=== PATIENT | female | born 1960 | race Caucasian/White ===

== ENCOUNTER 2021-04-21 10:01 | Outpatient (REF) | payer OTHER, SELFPAY ==
[2021-04-21 14:08] LABS: Appearance Urine CLEAR; Color Urine YELLOW; Glucose Urine UA NEG (NEG); Leukocyte Esterase Urine NEG (NEG); Nitrite Urine NEG (NEG); Specific Gravity - Urine 1.015 (1.005-1.025); Urine Blood NEG (NEG); Urine Ketones NEG (NEG); Urine Protein NEG (NEG-TRACE)
[2021-04-21 14:18] LABS: Basophils Percent Auto 0.5 % (0-2); Eosinophils Absolute Auto 0.3 X10*3/uL (0.0-0.4); Eosinophils Percent Auto 5.1 % (0-4); Hematocrit 43.8 % (37-47); Hemoglobin 14.3 g/dl (12.0-16.0); Imm Gran Abs Auto 0.03 X10*3/uL (0.00-0.03); Imm Gran Pct Auto 0.5 % (0.0-0.4); Lymphocytes Absolute Auto 2.2 X10*3/uL (1.2-4.9); Lymphocytes Percent Auto 34.1 % (20-40); MANUAL DIFF FLAG SCAN; Mean Corpuscular HGB Conc 32.6 g/dl (31.0-35.0); Mean Corpuscular Hemoglobin 31.1 pg (27.0-33.0); Mean Corpuscular Volume 95.2 fL (80-98); Monocytes Absolute Auto 0.5 X10*3/uL (0.1-1.2); Monocytes Percent Auto 8.3 % (2-11); Neutrophils Absolute Auto 3.3 X10*3/uL (2.0-8.3); Neutrophils Percent Auto 51.5 % (45-73); PLT CLUMP 1; Red Cell Distribution Width 12.3 % (11.0-16.0); SCAN SMEAR FLAG 1
[2021-04-21 14:42] LABS: White Blood Count 6.3 X10*3/uL (4.8-10.8)
[2021-04-21 14:43] LABS: SLIDE REVIEW VERIFIED
[2021-04-21 14:57] LABS: Alanine Aminotransferase 24 U/L (0-31); Albumin Level 4.1 g/dL (3.5-5.0); Alkaline Phosphatase 88 U/L (39-117); Anion Gap 11 (12-20); Aspartate Amino Transferase 17 U/L (5-31); Bilirubin Total 0.3 mg/dL (0.0-1.0); Blood Urea Nitrogen 17 mg/dL (9-16); Calcium 8.9 mg/dL (8.4-10.2); Carbon Dioxide 26 mmol/L (22-29); Chloride 111 mmol/L (96-108); Cholesterol 291 mg/dL; Estimated Glomerular Filt Rate > 60; Glucose Fasting 111 mg/dL (60-99); HDL Cholesterol 43 mg/dL; LDL Cholesterol Calculated 210 mg/dl; Potassium 4.6 mmol/L (3.3-5.1); Sodium 143 mmol/L (135-145); Total Protein 6.7 g/dL (6.5-8.0); Triglycerides 191 mg/dL
[2021-04-21 15:00] LABS: TSH reflex Free T4 1.23 uIU/mL (0.32-4.0)
== END 2021-04-21 10:02 | disposition home or self-care (01) ==
LOC: HO.WFDLDS 10:01
PROVIDERS: Visit Provider Family Medicine
DX: Z00.00 Encounter for general adult medical examination without abnormal findings (principal)
CPT/HCPCS: 36415; 80053; 80061; 81003; 84443; 85025

== ENCOUNTER 2021-08-02 08:34 | Outpatient (REF) | payer OTHER, SELFPAY ==
[2021-08-02 09:04] LABS: Estimated Average Glucose 105 mg/dL; Hemoglobin A1C 147.9838 umol/L; Hemoglobin A1c % 5.3 %
[2021-08-02 09:05] LABS: Alanine Aminotransferase 28 U/L (0-31); Albumin Level 4.2 g/dL (3.5-5.0); Alkaline Phosphatase 73 U/L (39-117); Anion Gap 12 (12-20); Aspartate Amino Transferase 19 U/L (5-31); Bilirubin Total 0.5 mg/dL (0.0-1.0); Blood Urea Nitrogen 17 mg/dL (9-16); Calcium 9.4 mg/dL (8.4-10.2); Carbon Dioxide 24 mmol/L (22-29); Chloride 109 mmol/L (96-108); Cholesterol 300 mg/dL; Estimated Glomerular Filt Rate > 60; Glucose Fasting 126 mg/dL (60-99); HDL Cholesterol 47 mg/dL; LDL Cholesterol Calculated 208 mg/dl; Potassium 4.7 mmol/L (3.3-5.1); Sodium 140 mmol/L (135-145); Total Protein 7.1 g/dL (6.5-8.0); Triglycerides 229 mg/dL
== END 2021-08-02 08:35 | disposition home or self-care (01) ==
LOC: HO.LAB 08:34
PROVIDERS: PCP Family Medicine; Visit Provider Family Medicine
DX: Z00.00 Encounter for general adult medical examination without abnormal findings (principal); E78.2 Mixed hyperlipidemia; R73.01 Impaired fasting glucose
CPT/HCPCS: 36415; 80053; 80061; 83036

== ENCOUNTER 2021-08-08 14:00 | Outpatient (REF) | payer OTHER, SELFPAY ==
--- NOTE | ~2021-08-08 | MM_ITS ---
EXAMINATION: MM SCREENING DIGITAL BREAST TOMOSYNTHESIS, BILATERAL CLINICAL INFORMATION: Screening. Asymptomatic. The lifetime risk of breast cancer based on the Tyrer-Cuzick Model is 19%. COMPARISON: Outside mammography: 01/30/2020, 11/02/2018, 09/20/2017 ([facility]). TECHNIQUE: Digital breast tomosynthesis is performed in both the craniocaudal and mediolateral oblique views along with computer-aided detection (CAD). Synthesized 2D images are generated from the tomosynthesis. FINDINGS: There are scattered areas of fibroglandular density (ACR BI-RADS breast composition Category b). There are no significant masses, abnormal calcifications, or other abnormalities. Parenchymal pattern is similar to prior outside exams. There is no developing density or architectural abnormality. The axilla and skin contours are unremarkable. No significant changes from outside studies. MM/MM tomosynthesis screening BI IMPRESSION: No mammographic evidence of malignancy. ASSESSMENT: BI-RADS 1: Negative RECOMMENDATION: Routine annual mammography screening. This patient's information was entered into a reminder system with a target due date for their next mammogram.
== END 2021-08-08 14:01 | disposition home or self-care (01) ==
LOC: HO.MAMMO 14:00
PROVIDERS: PCP Family Medicine; Visit Provider Family Medicine
DX: Z12.31 Encounter for screening mammogram for malignant neoplasm of breast (principal)
CPT/HCPCS: 77063; 77067

== ENCOUNTER 2021-10-27 06:51 | Outpatient (REF) | payer OTHER, SELFPAY ==
[2021-10-27 10:19] LABS: Estimated Average Glucose 103 mg/dL; Hemoglobin A1c % 5.2 %
[2021-10-27 10:21] LABS: Alanine Aminotransferase 29 U/L (0-31); Albumin Level 4.3 g/dL (3.5-5.0); Alkaline Phosphatase 83 U/L (39-117); Anion Gap 12 (12-20); Aspartate Amino Transferase 23 U/L (5-31); Bilirubin Total 0.6 mg/dL (0.0-1.0); Blood Urea Nitrogen 17 mg/dL (9-16); Calcium 9.4 mg/dL (8.4-10.2); Carbon Dioxide 25 mmol/L (22-29); Chloride 109 mmol/L (96-108); Cholesterol 207 mg/dL; Estimated Glomerular Filt Rate > 60; Glucose Fasting 110 mg/dL (60-99); HDL Cholesterol 49 mg/dL; LDL Cholesterol Calculated 123 mg/dl; Potassium 4.6 mmol/L (3.3-5.1); Sodium 141 mmol/L (135-145); Total Protein 6.9 g/dL (6.5-8.0); Triglycerides 178 mg/dL
== END 2021-10-27 06:52 | disposition home or self-care (01) ==
LOC: HO.LAB 06:51
PROVIDERS: PCP Family Medicine; Visit Provider Family Medicine
DX: Z00.00 Encounter for general adult medical examination without abnormal findings (principal); R03.0 Elevated blood-pressure reading, without diagnosis of hypertension; R73.01 Impaired fasting glucose; E78.2 Mixed hyperlipidemia
CPT/HCPCS: 36415; 80053; 80061; 83036

== ENCOUNTER → 2022-04-03 14:51 | Outpatient (BNVA) | payer OTHER, SELFPAY | PROVIDERS: PCP Family Medicine; Visit Provider Physician Assistant | DX: Z13.89 Encounter for screening for other disorder (principal) | CPT/HCPCS: 99202 ==

== ENCOUNTER 2022-04-13 07:08 | Outpatient (REF) | payer OTHER, SELFPAY ==
[2022-04-13 07:48] LABS: Estimated Average Glucose 103 mg/dL; Hemoglobin A1C 124.3186 umol/L; Hemoglobin A1c % 5.2 %
[2022-04-13 07:55] LABS: Cholesterol 180 mg/dL; HDL Cholesterol 50 mg/dL; LDL Cholesterol Calculated 105 mg/dl; Triglycerides 128 mg/dL
== END 2022-04-13 07:09 | disposition home or self-care (01) ==
LOC: HO.LAB 07:08
PROVIDERS: PCP Family Medicine; Visit Provider Family Medicine
DX: Z00.00 Encounter for general adult medical examination without abnormal findings (principal); R73.01 Impaired fasting glucose
CPT/HCPCS: 36415; 80061; 83036

== ENCOUNTER 2022-07-09 16:07 | Outpatient (REF) | payer OTHER, SELFPAY | END 2022-07-09 16:08 | disposition home or self-care (01) | LOC: HO.LAB 16:07 | PROVIDERS: Visit Provider Family Medicine | DX: Z13.89 Encounter for screening for other disorder (principal) ==

== ENCOUNTER 2022-07-10 13:09 | Outpatient (REF) | payer OTHER, SELFPAY ==
[2022-07-10 13:52] LABS: Influenza A PCR NEGATIVE (Negative); Influenza B PCR NEGATIVE (Negative); Resp Syncy Virus RNA Qual PCR NEGATIVE (Negative); SARS COV2 PCR INHOUSE NEGATIVE (Negative)
== END 2022-07-10 13:10 | disposition home or self-care (01) ==
LOC: HO.LNP 13:09
PROVIDERS: Visit Provider Family Medicine
DX: Z20.822 Contact with and (suspected) exposure to COVID-19 (principal); R09.89 Other specified symptoms and signs involving the circulatory and respiratory systems
CPT/HCPCS: 0241U

== ENCOUNTER 2022-07-15 11:09 | Outpatient (REF) | payer OTHER, SELFPAY ==
--- NOTE | ~2022-07-15 | XR_ITS ---
EXAMINATION: XR CHEST CLINICAL INFORMATION: Other specified symptoms and signs involving the circulatory and respiratory system COMPARISON: None TECHNIQUE: 2 views of the chest were obtained. FINDINGS: No significant abnormality is noted involving the heart, lungs, mediastinum, bony thorax or soft tissues. XR/XR chest 2V IMPRESSION: Unremarkable examination.
[2022-07-15 15:50] LABS: Influenza A PCR NEGATIVE (Negative); Influenza B PCR NEGATIVE (Negative); Resp Syncy Virus RNA Qual PCR NEGATIVE (Negative); SARS COV2 PCR INHOUSE NEGATIVE (Negative)
== END 2022-07-15 11:10 | disposition home or self-care (01) ==
LOC: HO.XRAY 11:09
PROVIDERS: PCP Family Medicine; Visit Provider Family Medicine
DX: Z20.822 Contact with and (suspected) exposure to COVID-19 (principal); R09.89 Other specified symptoms and signs involving the circulatory and respiratory systems; B34.9 Viral infection, unspecified
CPT/HCPCS: 0241U; 71046

== ENCOUNTER 2022-08-10 14:51 | Outpatient (REF) | payer OTHER, SELFPAY ==
--- NOTE | ~2022-08-10 | MM_ITS ---
EXAMINATION: MM SCREENING DIGITAL BREAST TOMOSYNTHESIS, BILATERAL CLINICAL INFORMATION: Screening. Asymptomatic. The lifetime risk of breast cancer based on the Tyrer-Cuzick Model is 15.2%. COMPARISON: Mammography: August 08, 2021 and studies dating back to September 20, 2017 TECHNIQUE: Digital breast tomosynthesis is performed in both the craniocaudal and mediolateral oblique views along with computer-aided detection (CAD). Synthesized 2D images are generated from the tomosynthesis. FINDINGS: There are scattered areas of fibroglandular density (ACR BI-RADS breast composition Category b). There are no new significant masses, abnormal calcifications, or other abnormalities. MM/MM tomosynthesis screening BI IMPRESSION: No significant changes from prior exam. ASSESSMENT: BI-RADS 1: Negative RECOMMENDATION: Routine annual mammography screening. This patient's information was entered into a reminder system with a target due date for their next mammogram.
== END 2022-08-10 14:52 | disposition home or self-care (01) ==
LOC: HO.MAMMO 14:51
PROVIDERS: PCP Family Medicine; Visit Provider Family Medicine
DX: Z12.31 Encounter for screening mammogram for malignant neoplasm of breast (principal)
CPT/HCPCS: 77063; 77067

== ENCOUNTER 2022-10-11 09:58 | Outpatient (REF) | payer OTHER, SELFPAY ==
[2022-10-11 10:21] LABS: COVID-19 Test Positive (Negative); IDNOW Serial# 6674DD1D
== END 2022-10-11 09:59 | disposition home or self-care (01) ==
LOC: HO.LAB 09:58
PROVIDERS: Visit Provider Internal Medicine
DX: Z20.822 Contact with and (suspected) exposure to COVID-19 (principal)
CPT/HCPCS: 87635

== ENCOUNTER → 2022-11-13 10:00 | Outpatient (BNVA) | payer OTHER, SELFPAY | PROVIDERS: PCP Family Medicine | DX: Z13.89 Encounter for screening for other disorder (principal) | CPT/HCPCS: 99203 ==

== ENCOUNTER 2023-02-19 13:38 | Outpatient (AMB) | payer OTHER, SELFPAY ==
[2023-02-19 14:02] VITALS: BP 132/78; O2SAT 99; BMI 29.3
--- NOTE | 2023-02-19 14:02 | MHC.PC.OV ---
Vital Signs 02/19/23 14:02 Height 6 ft 1 in Weight 222 lb BMI 29.3 BP 132/78 Blood Pressure Location Lt brachial Position Sitting Pulse Oximetry (%) 99 Oxygen Delivery Method Room Air Intake Visit Reasons: Tick Bite Intake Note: Patient is here with joint aches, nausea, for about a week, she had a tick bite. Patient is concerned about taking hyoscyamine 0.125 mg. Allergies doxycycline Allergy (Verified 02/19/23 14:04) vomiting really bad morphine Allergy (Verified 02/19/23 14:04) cant breath prednisone Allergy (Verified 02/19/23 14:04) afib sulfamethoxazole [From Bactrim] Allergy (Verified 02/19/23 14:04) Hives trimethoprim [From Bactrim] Allergy (Verified 02/19/23 14:04) Hives Tobacco use date assessed: 02/19/23 Dental Screening Dental Screen Date: 02/19/23 Did you have a dental visit in the last 12 months?: Yes Did you have a dental problem in the last 6 months where you did not have access to dental care?: No Was dental information given to patient?: No HPI Tick Bite HPI Details 62 y/o female presents today with complaints of a tick bite. She reports she thinks the tick might have been there for more than 48 hours. She had removed the tick about a week ago. She has complaints of joint ache and nausea. She does report a hx of lyme disease about 10 years ago. [facility] Surgical History History of fusion of lumbar spine History of skin graft History of tonsillectomy Social History Housing: House Alcohol intake: current Alcohol intake frequency: a few times a week Patient Tobacco Use Status: Former Tobacco user e-Cigarette/Vaping Use: Never Used Second Hand Smoke Exposure: Yes service: No Current occupational status: employed Current occupational exposures/hazards: No Cognitive needs: No Hearing needs: No Vision needs: No Questionnaire PHQ-9 Over the last 2 weeks, how often have you been bothered by any of the following problems? 1. Little interest or pleasure in doing things: not at all 2. Feeling down, depressed, or hopeless: not at all 3. Trouble falling or staying asleep, or sleeping too much: not at all 4. Feeling tired or having little energy: not at all 5. Poor appetite or overeating: not at all 6. Feeling bad about yourself - or that you are a failure or have let yourself or your family down: not at all 7. Trouble concentrating on things, such as reading the newspaper or watching television: not at all 8. Moving or speaking so slowly that other people could have noticed. Or the opposite - being so fidgety or restless that you have been moving around a lot more than usual: not at all 9. Thoughts that you would be better off or of hurting yourself in some way: not at all Total score: 0 Source: Developed by Drs. Tu Kiser, Eli Reinoso, Derrick Strong and colleagues, with an educational anali from [employer]. Thrive Questionnaire Date Thrive assessed: 08/05/21 I am a: Patient What is your living situation today?: I have a steady place to live Within the past 12 months, did the food you bought not last and you didn't have the money to get more?: Never true Within the past 12 months, did you worry whether your food would run out before you got money to buy more?: Never true Do you have trouble paying for medicines?: No Do you have trouble getting transportation to medical appointments?: No Do you have trouble paying your heating and electricity bill?: No Do you have trouble taking care of your child, family member or friend?: No Do you have trouble with day-to-day activities such as bathing, preparing meals, shopping, managing finances, etc.?: No Are you currently unemployed and looking for a job?: No Are you interested in more education?: No AUDIT C Alcohol Use Questionnaire (AUDIT-C) 1. How often do you have a drink containing alcohol?: 2-3 times a week 2. How many drinks containing alcohol do you have on a typical day when you are drinking?: 1 or 2 3. How often do you have six or more drinks on one occasion?: Never Total Score: 3 JASWINDER-7 AMB Questionnaire JASWINDER-7 Date JASWINDER - 7 assessed: 08/05/21 Feeling nervous, anxious, or on edge: 0 = Not at all Not being able to stop or control worryin = Not at all Worrying too much about different things: 0 = Not at all Trouble relaxin = Not at all Being so restless that it is hard to sit still: 0 = Not at all Becoming easily annoyed or irritable: 0 = Not at all Feeling afraid as if something awful might happen: 0 = Not at all Total JASWINDER-7 score (0-4 normal; 5-9 mild; 10-14 moderate; 15-21 severe): 0 Source: Developed by Drs. Tu Kiser, Eli Reinoso, Derrick Strong and colleagues, with an educational anali from [employer]. Review of Systems Const Denies chills, Denies fatigue, Denies fever(s), Denies headache(s) and Denies weakness ENT Denies dizziness and Denies headache(s) Card Denies dyspnea Resp Denies cough, Denies dyspnea, Denies wheezing and Denies other (shortness of breath) Musc Denies numbness and Denies tingling Neuro Denies dizziness, Denies headache(s), Denies numbness, Denies tingling and Denies weakness Psych Denies anxiety and Denies depression Endo Denies fatigue Aller/Immun Denies wheezing Physical exam (Primary Care) Vital Signs: Last Vital Signs BP 132/78 02/19/23 14:02 Pulse Ox 99 02/19/23 14:02 Oxygen Delivery Method Room Air 02/19/23 14:02 BMI result Body Mass Index 29.3 Tobacco/Smoking Status: Tobacco use Status Tobacco use date assessed 02/19/23 02/19/23 14:13 Patient Tobacco Use Status Former Tobacco user 02/19/23 14:13 e-Cigarette/Vaping Use Never Used 02/19/23 14:13 PHQ-9: PHQ-9 Score PHQ-9: Total score 0 02/19/23 14:13 Thrive Assessment: Date of Thrive Assessment Date Thrive assessed 08/05/21 02/19/23 14:13 Const General: well developed; No acute distress Nutritional Appearance: well nourished Orientation/consciousness: patient oriented x3 HENMT Head: Yes normocephalic and Yes atraumatic Eyes General: appearance normal, both eyes and all related structures Pupils: Equal, round and reactive pupils present EOM: EOMs intact bilaterally Resp Effort & Inspection: normal respiratory effort Neuro General: patient oriented x3 and gait normal Cranial nerves: Yes Equal, round and reactive pupils present Psych Affect: normal affect Assessment and Plan Assessment & Plan (1) Tick bite: Code(s): W57.XXXA - Bitten or stung by nonvenomous insect and other nonvenomous arthropods, initial encounter Plan: Tick bite on patient's back with local inflammatory response and small abscess. She is uncertain how long tick was attached but she thinks it may have been greater than 48 hours. She gets violently nauseous from doxycycline with projectile vomiting Will use amoxicillin x 10 days and will check Lyme titers. If positive will extend treatment for a minimum of 21 days.2 For now treating for 10 days due to local infection/abscess. Orders: Orders Lyme IgG/IgM w/reflex to WB Today W57.XXXA - Bitten or stung by nonvenomous insect and other nonvenomous arthropods, initial encounter Medications: New amoxicillin 500 mg PO TID 30 tabs 0RF 10 days Coding Level of Care Code Est Pt Level 3 (79862) Diagnoses Tick bite W57.XXXA
== END 2023-02-19 14:32 | disposition home or self-care (01) ==
PROVIDERS: PCP Family Medicine; Visit Provider Family Medicine
DX: T63.481A Toxic effect of venom of other arthropod, accidental (unintentional), initial encounter (principal)
CPT/HCPCS: 99213

== ENCOUNTER 2023-02-20 09:20 | Outpatient (REF) | payer OTHER, SELFPAY ==
[2023-02-22 21:34] LABS: Lyme Abs Screen <0.90 index
== END 2023-02-20 09:21 | disposition home or self-care (01) ==
LOC: HO.LAB 09:20
PROVIDERS: PCP Family Medicine; Visit Provider Family Medicine
DX: T14.8XXA Other injury of unspecified body region, initial encounter (principal); W57.XXXA Bitten or stung by nonvenomous insect and other nonvenomous arthropods, initial encounter; Y93.9 Activity, unspecified; Y92.9 Unspecified place or not applicable; Y99.9 Unspecified external cause status
CPT/HCPCS: 36415; 86617; 86618

== ENCOUNTER 2023-03-09 20:53 | Inpatient (IN) | payer OTHER, SELFPAY ==
--- NOTE | ~2023-03-09 | CT_ITS ---
EXAMINATION: CT ABDOMEN AND PELVIS WITHOUT CONTRAST CLINICAL INFORMATION: Abdominal pain and GI bleeding COMPARISON: None available. TECHNIQUE: Multidetector volumetric imaging was performed from the superior aspect of the liver through the pubic symphysis. Sagittal and coronal reformatted images were obtained on the technologist's workstation. This CT examination was performed using dose optimization techniques as appropriate, variously including the following: *Automated exposure control *Adjustment of mA and/or kV according to patient size (this includes techniques or standardized protocols for targeted exams where dose is matched to indication/reason for exam; i.e. extremities or head) *Use of iterative reconstruction technique DLP: 670 mGy-cm FINDINGS: LUNG BASES: The visualized lung bases are unremarkable. LIVER, GALLBLADDER, AND BILIARY TREE: The liver is normal in size, shape, and attenuation. No focal hepatic lesion or biliary ductal dilatation is identified on this noncontrast exam. The gallbladder is unremarkable with no evidence of radiopaque gallstones, gallbladder wall thickening, or obvious pericholecystic inflammatory changes. PANCREAS: Unremarkable. SPLEEN: Unremarkable. ADRENAL GLANDS: Unremarkable. KIDNEYS AND URETERS: The kidneys are normal in size, shape, and attenuation. No hydronephrosis, hydroureter, or calculi seen. No significant perinephric stranding. BLADDER: Unremarkable. GASTROINTESTINAL TRACT: No evidence of bowel obstruction or significant wall thickening. Mild colonic diverticulosis. The appendix is unremarkable. No free fluid or free air is seen. ABDOMINAL WALL: No significant hernia is appreciated. LYMPH NODES: Normal. VASCULAR: There is an infrarenal abdominal aortic aneurysm measuring up to approximately 5.6 x 5.1 cm in diameter. There is moderate calcification along the aorta. PELVIC VISCERA: Unremarkable. OSSEOUS STRUCTURES: Degenerative changes are noted in the spine. CT/CT abdomen pelvis wo IV con IMPRESSION: 1. No acute findings identified in the abdomen/pelvis. 2. Infrarenal abdominal aortic aneurysm measuring up to approximately 5.6 cm in diameter. Recommend referral to vascular specialist. Reference: J Am Lamar Radiol 2013; 10 (10): 789-794.
[2023-03-09 20:59] VITALS: BP 128/80; PULSE 137; RESP 16; TEMP 36.7; O2SAT 96; BMI 28.8
--- NOTE | 2023-03-09 21:02 | ECG_ITS ---
Test Reason : GI BLEED Blood Pressure : / mmHG Vent. Rate : 135 BPM Atrial Rate : 270 BPM P-R Int : 000 ms QRS Dur : 082 ms QT Int : 254 ms P-R-T Axes : 255 050 072 degrees QTc Int : 381 ms Atrial flutter with 2:1 A-V conduction Septal infarct , age undetermined Abnormal ECG No previous ECGs available Referred By: Generic ED Physician Electronically Signed By:YENNI JOHNSON
[2023-03-09 21:29] LABS: Appearance Urine Clear; Color Urine Yellow; Glucose Urine UA Negative (Negative); Leukocyte Esterase Urine Negative (Negative); Nitrite Urine Negative (Negative); PH 5.5 (5.0-9.0); Specific Gravity - Urine <= 1.005 (1.005-1.025); UMIC TRIGGER UACC YES; Urine Blood Trace (Negative); Urine Ketones Negative (Negative); Urine Protein Negative (Neg-Trace)
[2023-03-09 21:36] VITALS: BP 140/96; PULSE 135; RESP 22; O2SAT 96
[2023-03-09 21:37] LABS: Anion Gap 16 (12-20); Blood Urea Nitrogen 16 mg/dL (9-16); Calcium 9.1 mg/dL (8.4-10.2); Carbon Dioxide 19 mmol/L (22-29); Chloride 113 mmol/L (96-108); Creatinine Clr Calc Pharmacy 90.7; Estimated Glomerular Filt Rate > 60; Glucose Random 95 mg/dL (60-115); Sodium 144 mmol/L (135-145)
--- NOTE | 2023-03-09 21:50 | ED.GIBLEED ---
HPI - GI Bleed General Chief complaint: GI Bleed Stated complaint: ?GI bleeding Time Seen by Provider: 03/09/23 21:35 Source: patient Mode of arrival: ambulatory Limitations: no limitations History of Present Illness HPI Narrative: 62-year-old female came in for evaluation of abdominal pain and rectal bleeding since 14:00, patient described it as bright red blood per rectum patient also started to have diffuse abdominal pain patient is known history of IBS, tachycardic while she is in the emergency department no chest pain, no SOB. No AC therapy, no history of intra-abdominal surgery. Related Data Previous Rx's Medication Instructions Recorded atorvastatin 20 mg tablet 20 mg PO BEDTIME 90 days #90 tabs 04/14/22 albuterol sulfate 90 mcg/actuation 1 inh inhalation BID PRN shortness 07/15/22 aerosol inhaler (Ventolin HFA) of breath or wheezing 30 days #6.7 grams fluticasone propionate 50 1 spray intranasal Q12H 30 days 07/15/22 mcg/actuation nasal #16 grams spray,suspension (Flonase Allergy Relief) amoxicillin 500 mg tablet 500 mg PO TID 10 days #30 tabs 02/19/23 Allergies Allergy/AdvReac Type Severity Reaction Status Date / Time doxycycline Allergy vomiting Verified 02/19/23 14:04 really bad morphine Allergy cant breath Verified 02/19/23 14:04 prednisone Allergy afib Verified 02/19/23 14:04 sulfamethoxazole Allergy Hives Verified 02/19/23 14:04 [From Bactrim] trimethoprim [From Bactrim] Allergy Hives Verified 02/19/23 14:04 Review of Systems Review of Systems: All other systems are reviewed and are negative Constitutional: Reports as per HPI and Reports no additional constitutional complaints Eyes: Reports as per HPI and Reports no additional eye complaints Reports system reviewed and no additional complaints, except as documented Cardiovascular: Reports as per HPI and Reports no additional cardiovascular complaints Respiratory: Reports as per HPI and Reports no additional respiratory complaints Gastrointestinal: Reports as per HPI and Reports no additional gastrointestinal complaints Genitourinary: Reports no additional female genitourinary complaints Musculoskeletal: Reports no additional musculoskeletal complaints Skin/Breast: Reports system reviewed and no additional complaints, except as docu Psychiatric: Reports no additional psychiatric complaints Endocrine: Reports no additional endocrine complaints Hematologic/Lymphatic: Reports no additional hematologic/lymphatic complaints Allergic/Immunologic: Reports no additional allergic/immunologic complaints Reports system reviewed and no additional complaints, except as documented and Reports Abnormal speech present [facility] Past Medical History Surgical History History of fusion of lumbar spine History of skin graft History of tonsillectomy Social History Social History Housing: House Alcohol intake: current Alcohol intake frequency: a few times a week Patient Tobacco Use Status: Former Tobacco user e-Cigarette/Vaping Use: Never Used Second Hand Smoke Exposure: Yes Advance Directives: No Advance Directives Information Provided: No Patient : No service: No Current occupational status: employed Current occupational exposures/hazards: No Cognitive needs: No Hearing needs: No Vision needs: No Physical Exam Vital Signs: Vital Signs: Last Vital Signs Temp 98.1 F 03/09/23 23:49 Pulse 134 H 03/10/23 01:12 Resp 16 03/10/23 01:12 BP 116/82 03/10/23 01:12 Pulse Ox 96 03/10/23 01:12 O2 Del Method Room Air 03/10/23 01:12 BMI result Body Mass Index 28.8 Vital signs have been reviewed as appeared to be correct. Blood pressure normal. Heart rate normal. Respiration rate normal. Temperature normal. Oxygen saturation normal. Appearance: Alert. Oriented X3. No acute distress. Head: Normal external exam. Normocephalic. Atraumatic. No [place] signs noted. No raccoon eyes noted Eyes: PERRLA. EOMI. Conjunctiva and sclera normal. Eyelids normal. ENT: TM's Normal. Pharynx normal. Uvula midline. Moist mucous membranes. No trismus noted. No drooling noted. No muffled voice noted. Neck: Normal inspection. Neck supple. FROM. No adenopathy. Thyroid Normal. No meningeal signs. No neck mass noted. CVS: Normal heart rate and rhythm. Heart sound normal. No murmurs noted. Pulses normal throughout. Respiratory: No respiratory distress. Painless inspiration. Breath sounds normal. No wheezes/rales/rhonchi noted. Chest nontender. No accessory muscle usage noted or decreased air movement noted. Abdomen: Soft and nontender. Bowel sounds normal in all 4 quadrants. No distention noted. No organomegaly noted. No visible injury noted. Rectal exam: Brown stool with trace positive blood. Back: No CVA tenderness. Full range of motion noted. Skin: Skin warm and dry. Normal skin color. Normal skin turgor. No rashes/lesions/lacerations noted. Extremities: No lower extremity edema. Extremities exhibit normal range of motion. Extremities nontender. Neuro: Oriented X 3. Cranial nerve exam: II-XII are grossly intact No motor deficit. No sensory deficit. Reflexes normal. Course Course Course Narrative: 62-year-old female came in with multiple complaints. 1. Bright red blood per rectum, patient kept in the emergency department for almost 12 hours with no active GI bleeding and stool guaiac is negative for blood we will continue monitoring. 2. Rapid AFib patient was given 5 of Lopressor with no improvement and 20 of Cardizem, patient was loaded with digoxin IV will keep monitoring. 3. Stable infrarenal abdominal aortic aneurysm appears stable at this point. Medications Administered Discontinued Medications Generic Name Dose Route Start Last Admin Trade Name Freq PRN Reason Stop Dose Admin Diltiazem HCl 20 mg 03/10/23 01:04 03/10/23 01:11 Diltiazem Hcl 50 Mg/10 Ml Vial IVPUSH 03/10/23 01:05 20 mg STAT STA Administration Sodium Chloride 1,000 mls @ 999 mls/hr 03/09/23 21:46 03/09/23 23:04 Ns IV 03/09/23 22:46 Infused .Q1H1M ONE Infusion Sodium Chloride 1,000 mls @ 999 mls/hr 03/09/23 23:35 03/10/23 00:38 Ns IV 03/10/23 00:35 Infused .Q1H1M ONE Infusion Metoprolol Tartrate 5 mg 03/09/23 23:35 03/09/23 23:39 Metoprolol Tartrate 5 Mg/5 Ml Vial IVPUSH 03/09/23 23:36 5 mg ONCE ONE Administration Medical Decision Making Differential Diagnosis Differential Diagnoses: The differential diagnosis associated with the presentation includes (GI bleed, colitis, diverticulitis, rapid AFib, electrolyte abnormality, severe anemia, UTI, ACS.) Admission/Observation Consideration of admission/observation: Escalation of care including admission/observation considered Consult Healthcare Provider Management of the patient was discussed with: Hospitalist (Dr. Shahid) Lab Data MDM Lab Attestation statement: I reviewed the patient's lab results. 03/09/23 21:17 03/09/23 21:17 Labs: Lab Results 03/09/23 03/09/23 03/09/23 Range/Units 21:17 21:17 21:17 WBC 8.8 (4.8-10.8) X10*3/uL RBC 4.46 (4.20-5.50) X10*6/uL Hgb 13.8 (12.0-16.0) g/dl Hct 42.2 (37.0-47.0) % MCV 94.6 (80.0-98.0) fL MCH 30.9 (27.0-33.0) pg MCHC 32.7 (31.0-35.0) g/dl RDW 13.0 (11.0-16.0) % Plt Count TNP MPV Not Reportable Immature Gran % (Auto) 0.3 (0.0-0.4) % Neut % (Auto) 52.3 (45-73) % Lymph % (Auto) 35.8 (20-40) % [place] % (Auto) 7.2 (2-11) % Eos % (Auto) 3.6 (0-4) % Baso % (Auto) 0.8 (0-2) % Lymph # (Auto) 3.1 (1.2-4.9) X10*3/uL [place] # (Auto) 0.6 (0.1-1.2) X10*3/uL Eos # (Auto) 0.3 (0.0-0.4) X10*3/uL Baso # (Auto) 0.1 (0.0-0.2) X10*3/uL Abs Immat Gran (auto) 0.03 (0.00-0.03) X10*3/uL Absolute Neuts (auto) 4.6 (2.0-8.3) x10*3/uL Absolute Nucleated RBC 0.000 (0.0-0.012) X10*3/uL Nucleated RBC % (auto) 0.0 (0.0-0.2) /100WBC Smear Tech's Comments VERIFIED PT (11.1-13.3) SEC INR (0.9-1.1) APTT (26.0-36.4) SEC Sodium 144 (135-145) mmol/L Potassium 4.0 (3.3-5.1) mmol/L Chloride 113 H (96-108) mmol/L Carbon Dioxide 19 L (22-29) mmol/L Anion Gap 16 (12-20) BUN 16 (9-16) mg/dL Creatinine 0.85 (0.5-1.4) mg/dL Estim Creat Clear Calc 90.7 Estimated GFR > 60 Random Glucose 95 (60-115) mg/dL Calcium 9.1 (8.4-10.2) mg/dL Troponin I High Sens (<3.5-17.0) ng/L Urine Color Yellow Urine Appearance Clear Urine pH 5.5 (5.0-9.0) Ur Specific [place] <= 1.005 (1.005-1.025) Urine Protein Negative (Neg-Trace) mg/dL Urine Glucose (UA) Negative (Negative) mg/dL Urine Ketones Negative (Negative) mg/dL Urine Blood Trace H (Negative) Urine Nitrite Negative (Negative) Ur Leukocyte Esterase Negative (Negative) Urine RBC 0-2 (0-2) /HPF Urine WBC 0-5 (0-5) /HPF Ur Squamous Epith Cells 0-2 (0-2) /HPF Urine Bacteria Trace (None Seen) Hyaline Casts 0-2 (0-2) /LPF Stool Occult Blood (NEGATIVE) Ethyl Alcohol mg/dL Blood Type Antibody Screen 03/09/23 03/09/23 03/09/23 Range/Units 21:50 21:50 21:50 WBC (4.8-10.8) X10*3/uL RBC (4.20-5.50) X10*6/uL Hgb (12.0-16.0) g/dl Hct (37.0-47.0) % MCV (80.0-98.0) fL MCH (27.0-33.0) pg MCHC (31.0-35.0) g/dl RDW (11.0-16.0) % Plt Count MPV Immature Gran % (Auto) (0.0-0.4) % Neut % (Auto) (45-73) % Lymph % (Auto) (20-40) % [place] % (Auto) (2-11) % Eos % (Auto) (0-4) % Baso % (Auto) (0-2) % Lymph # (Auto) (1.2-4.9) X10*3/uL [place] # (Auto) (0.1-1.2) X10*3/uL Eos # (Auto) (0.0-0.4) X10*3/uL Baso # (Auto) (0.0-0.2) X10*3/uL Abs Immat Gran (auto) (0.00-0.03) X10*3/uL Absolute Neuts (auto) (2.0-8.3) x10*3/uL Absolute Nucleated RBC (0.0-0.012) X10*3/uL Nucleated RBC % (auto) (0.0-0.2) /100WBC Smear Tech's Comments PT 10.7 L (11.1-13.3) SEC INR 0.9 (0.9-1.1) APTT 25.1 L (26.0-36.4) SEC Sodium (135-145) mmol/L Potassium (3.3-5.1) mmol/L Chloride (96-108) mmol/L Carbon Dioxide (22-29) mmol/L Anion Gap (12-20) BUN (9-16) mg/dL Creatinine (0.5-1.4) mg/dL Estim Creat Clear Calc Estimated GFR Random Glucose (60-115) mg/dL Calcium (8.4-10.2) mg/dL Troponin I High Sens 9.4 (<3.5-17.0) ng/L Urine Color Urine Appearance Urine pH (5.0-9.0) Ur Specific [place] (1.005-1.025) Urine Protein (Neg-Trace) mg/dL Urine Glucose (UA) (Negative) mg/dL Urine Ketones (Negative) mg/dL Urine Blood (Negative) Urine Nitrite (Negative) Ur Leukocyte Esterase (Negative) Urine RBC (0-2) /HPF Urine WBC (0-5) /HPF Ur Squamous Epith Cells (0-2) /HPF Urine Bacteria (None Seen) Hyaline Casts (0-2) /LPF Stool Occult Blood (NEGATIVE) Ethyl Alcohol 204 mg/dL Blood Type Antibody Screen 03/09/23 03/09/23 Range/Units 21:50 21:52 WBC (4.8-10.8) X10*3/uL RBC (4.20-5.50) X10*6/uL Hgb (12.0-16.0) g/dl Hct (37.0-47.0) % MCV (80.0-98.0) fL MCH (27.0-33.0) pg MCHC (31.0-35.0) g/dl RDW (11.0-16.0) % Plt Count MPV Immature Gran % (Auto) (0.0-0.4) % Neut % (Auto) (45-73) % Lymph % (Auto) (20-40) % [place] % (Auto) (2-11) % Eos % (Auto) (0-4) % Baso % (Auto) (0-2) % Lymph # (Auto) (1.2-4.9) X10*3/uL [place] # (Auto) (0.1-1.2) X10*3/uL Eos # (Auto) (0.0-0.4) X10*3/uL Baso # (Auto) (0.0-0.2) X10*3/uL Abs Immat Gran (auto) (0.00-0.03) X10*3/uL Absolute Neuts (auto) (2.0-8.3) x10*3/uL Absolute Nucleated RBC (0.0-0.012) X10*3/uL Nucleated RBC % (auto) (0.0-0.2) /100WBC Smear Tech's Comments PT (11.1-13.3) SEC INR (0.9-1.1) APTT (26.0-36.4) SEC Sodium (135-145) mmol/L Potassium (3.3-5.1) mmol/L Chloride (96-108) mmol/L Carbon Dioxide (22-29) mmol/L Anion Gap (12-20) BUN (9-16) mg/dL Creatinine (0.5-1.4) mg/dL Estim Creat Clear Calc Estimated GFR Random Glucose (60-115) mg/dL Calcium (8.4-10.2) mg/dL Troponin I High Sens (<3.5-17.0) ng/L Urine Color Urine Appearance Urine pH (5.0-9.0) Ur Specific [place] (1.005-1.025) Urine Protein (Neg-Trace) mg/dL Urine Glucose (UA) (Negative) mg/dL Urine Ketones (Negative) mg/dL Urine Blood (Negative) Urine Nitrite (Negative) Ur Leukocyte Esterase (Negative) Urine RBC (0-2) /HPF Urine WBC (0-5) /HPF Ur Squamous Epith Cells (0-2) /HPF Urine Bacteria (None Seen) Hyaline Casts (0-2) /LPF Stool Occult Blood NEGATIVE (NEGATIVE) Ethyl Alcohol mg/dL Blood Type O Positive Antibody Screen NEGATIVE Independent Interpretation I performed an independent interpretation of an: CT Scan (Abdomen and pelvis:1. No acute findings identified in the abdomen/pelvis. 2. Infrarenal abdominal aortic aneurysm measuring up to approximately 5.6 cm in diameter. Recommend referral to vascular specialist. R) Radiology Impression Discussion of test interpretation with radiology: I have reviewed the radiologist's reading. Discharge Plan Discharge Clinical Impression: Afib, Bright red blood per rectum, Infrarenal abdominal aortic aneurysm (AAA) without rupture, Alcohol intoxication Patient Disposition: Admitted As Inpatient
[2023-03-09] MEDS: 0.9 % Sodium Chloride 1,000 ML 999 ML IV ×2 (22:04→23:40)
[2023-03-09 22:07] LABS: Hemoglobin 13.8 g/dl (12.0-16.0); Imm Gran Abs Auto 0.03 X10*3/uL (0.00-0.03); Imm Gran Pct Auto 0.3 % (0.0-0.4); Lymphocytes Percent Auto 35.8 % (20-40); MANUAL DIFF FLAG SCAN; Mean Corpuscular Hemoglobin 30.9 pg (27.0-33.0); Red Blood Count 4.46 X10*6/uL (4.20-5.50); SCAN SMEAR FLAG 1
[2023-03-09 22:09] LABS: Basophils Absolute Auto 0.1 X10*3/uL (0.0-0.2); Basophils Percent Auto 0.8 % (0-2); Eosinophils Absolute Auto 0.3 X10*3/uL (0.0-0.4); Eosinophils Percent Auto 3.6 % (0-4); Hematocrit 42.2 % (37.0-47.0); Lymphocytes Absolute Auto 3.1 X10*3/uL (1.2-4.9); Mean Corpuscular HGB Conc 32.7 g/dl (31.0-35.0); Mean Corpuscular Volume 94.6 fL (80.0-98.0); Monocytes Absolute Auto 0.6 X10*3/uL (0.1-1.2); Monocytes Percent Auto 7.2 % (2-11); Neutrophils Absolute Auto 4.6 x10*3/uL (2.0-8.3); Neutrophils Percent Auto 52.3 % (45-73); PLT CLUMP 1
[2023-03-09 22:13] LABS: PLT ABN DIST 1; White Blood Count 8.8 X10*3/uL (4.8-10.8)
[2023-03-09 22:21] LABS: Ethanol 204 mg/dL
[2023-03-09 22:23] LABS: SLIDE REVIEW VERIFIED
[2023-03-09 22:27] LABS: INTERNATIONAL NORM RATIO 0.9 (0.9-1.1); Prothrombin Time 10.7 SEC (11.1-13.3)
[2023-03-09 22:29] LABS: OBS Int Ctl Valid YES; OBS1 NEGATIVE (NEGATIVE)
[2023-03-09 22:30] LABS: Partial Thromboplastin Time 25.1 SEC (26.0-36.4)
[2023-03-09 22:31] LABS: Troponin-I High Sensitivity 9.4 ng/L (<3.5-17.0)
[2023-03-09 22:41] VITALS: BP 129/80; PULSE 134; RESP 15; TEMP 36.7; O2SAT 98
--- NOTE | 2023-03-09 22:42 | MHC.EDTECH ---
ANH ABRAMS IS AWARE OF PT HIGH HR .
[2023-03-09 23:19] LABS: Bacteria Urine Trace (None Seen); Hyaline Casts Urine 0-2 /LPF (0-2); RBC Urine 0-2 /HPF (0-2); Squamous Epithelial Cell Urine 0-2 /HPF (0-2); WBC Urine 0-5 /HPF (0-5)
[2023-03-09] MEDS: Metoprolol Tartrate 5 MG/5 ML VIAL IVPUSH (23:39)
[2023-03-09 23:41] VITALS: BP 146/100; PULSE 133; RESP 14; O2SAT 96
[2023-03-09 23:49] VITALS: BP 129/90; PULSE 133; RESP 16; TEMP 36.7; O2SAT 98
[2023-03-10] VITALS (12 sets, daily range): BP systolic 111–142; BP diastolic 60–96; PULSE 52–134; RESP 14–28; TEMP 36–36.7; O2SAT 94–98; BMI 28.8
[2023-03-10] MEDS: dilTIAZem HCL 50 MG/10 ML VIAL 20 MG IVPUSH (01:11)
[2023-03-10] MEDS: Digoxin 0.5 MG/2 ML AMPUL 0.25 MG IVPUSH (01:53)
--- NOTE | 2023-03-10 03:03 | MHC.EDTECH ---
pt vitals sign taken and belonging list done ,warm blanket given ,pt trying to get some sleep .
[2023-03-10] MEDS: Pantoprazole Sodium 40 MG/10 ML VIAL IVPUSH ×2 (03:48→16:17)
--- NOTE | 2023-03-10 04:03 | PC.NURSE ---
PT CONTINUES TO BE TACHYCARDIC IN THE 130s DESPITE ADMINISTRATION OF LOPRESSOR, DILTIAZEM, AND DIGOXIN. PT IS SLEEPING RESPIRATIONS EVEN AND UNLABORED AND ASYMPTOMATIC . BLOOD PRESSURES HOLDING STEADY. WILL ALERT MD TAYLOR. CALL D[facility]SON WITHIN REACH
[2023-03-10 05:44] LABS: Basophils Absolute Auto 0.1 X10*3/uL (0.0-0.2); Basophils Percent Auto 1.1 % (0-2); Eosinophils Absolute Auto 0.3 X10*3/uL (0.0-0.4); Eosinophils Percent Auto 4.3 % (0-4); Hematocrit 38.9 % (37.0-47.0); Hemoglobin 12.4 g/dl (12.0-16.0); Imm Gran Abs Auto 0.02 X10*3/uL (0.00-0.03); Imm Gran Pct Auto 0.3 % (0.0-0.4); Lymphocytes Absolute Auto 2.4 X10*3/uL (1.2-4.9); Lymphocytes Percent Auto 37.2 % (20-40); MANUAL DIFF FLAG SCAN; Mean Corpuscular HGB Conc 31.9 g/dl (31.0-35.0); Mean Corpuscular Hemoglobin 30.8 pg (27.0-33.0); Mean Corpuscular Volume 96.8 fL (80.0-98.0); Monocytes Absolute Auto 0.6 X10*3/uL (0.1-1.2); Monocytes Percent Auto 9.2 % (2-11); Neutrophils Percent Auto 47.9 % (45-73); PLT CLUMP 1; Red Blood Count 4.02 X10*6/uL (4.20-5.50); SCAN SMEAR FLAG 1
[2023-03-10 05:54] LABS: White Blood Count 6.3 X10*3/uL (4.8-10.8)
[2023-03-10 06:08] LABS: Alanine Aminotransferase 81 U/L (0-31); Albumin Level 3.6 g/dL (3.5-5.0); Alkaline Phosphatase 81 U/L (39-117); Anion Gap 11 (12-20); Aspartate Amino Transferase 98 U/L (5-31); Bilirubin Total 0.4 mg/dL (0.0-1.0); Blood Urea Nitrogen 14 mg/dL (9-16); Calcium 8.4 mg/dL (8.4-10.2); Carbon Dioxide 20 mmol/L (22-29); Chloride 116 mmol/L (96-108); Creatinine Clr Calc Pharmacy 98.9; Estimated Glomerular Filt Rate > 60; Glucose Random 75 mg/dL (60-115); Potassium 4.3 mmol/L (3.3-5.1); Sodium 143 mmol/L (135-145); Total Protein 6.1 g/dL (6.5-8.0)
--- NOTE | 2023-03-10 06:21 | P.HPHOSP_ITS ---
History of Present Illness Date of Service: 03/10/23 Chief Complaint: BRBPR 62-year-old female with no significant past medical history comes into the hospital with complaints of bright red blood per rectum. Patient reports that it started yesterday, it appears to occur with every bowel movement. She reports diffuse abdominal pain along with the bleeding, no nausea or vomiting, has no chest pain. Patient reports that she was told she has arrhythmia but is not on any medications. Patient reports no use of daily NSAIDs, reports that she takes ibuprofen may be few times a month. Reports no aspirin daily. She states that she drinks 1 glass of wine every night. Although on arrival to the ED her alcohol level was 204. She otherwise denies any chest pain, no shortness of breath, no urinary symptoms and no lower extremity edema. On arrival to the ED patient found to have a heart rate in the 130s, in AFib with RVR, blood pressure stable Labs are significant for WBC count of 8.100 chronic INR of 0.9, labs otherwise unremarkable, stool occult blood negative Patient started on diltiazem drip and will be admitted for further management Review of Systems Review of Systems: Yes all other systems are reviewed and are negative [facility] Medical History Alcohol abuse with withdrawal Irritable bowel syndrome Mixed hyperlipidemia Smoker Surgical History History of fusion of lumbar spine History of skin graft History of tonsillectomy Social History Housing: House Alcohol intake: current Alcohol intake frequency: a few times a week Patient Tobacco Use Status: Former Tobacco user e-Cigarette/Vaping Use: Never Used Second Hand Smoke Exposure: Yes Advance Directives: No Advance Directives Information Provided: No Nutrition Risks: No Nutritional Risk Patient : No service: No Current occupational status: employed Current occupational exposures/hazards: No Cognitive needs: No Hearing needs: No Vision needs: No Meds Allergies Allergy/AdvReac Type Severity Reaction Status Date / Time doxycycline Allergy vomiting Verified 02/19/23 14:04 really bad morphine Allergy cant breath Verified 02/19/23 14:04 prednisone Allergy afib Verified 02/19/23 14:04 sulfamethoxazole Allergy Hives Verified 02/19/23 14:04 [From Bactrim] trimethoprim [From Bactrim] Allergy Hives Verified 02/19/23 14:04 Active Medications: Current Medications Acetaminophen (Acetaminophen 325 Mg Tablet) 650 mg PO Q6H PRN PRN Reason: Pain, Mild (Pain Scale 1-3) Docusate Sodium (Docusate Sodium 100 Mg Capsule) 100 mg PO DAILY PRN PRN Reason: Constipation Diltiazem HCl 125 mg/ Sodium (Chloride) 125 mls @ 0 mls/hr IVCONT .Q0M [facility]; Protocol Ondansetron HCl (Ondansetron Hcl 4 Mg/2 Ml Vial) 4 mg IVPUSH Q8H PRN PRN Reason: Nausea and Vomiting Pantoprazole Sodium (Pantoprazole Sodium 40 Mg/10 Ml Vial) 40 mg IVPUSH BID@0630,1630 [facility] Last Admin: 03/10/23 03:48 Dose: 40 mg Physical Exam Vital Signs and Narrative: Vital Signs: Last Vital Signs Temp 98.1 F 03/10/23 06:00 Pulse 133 H 03/10/23 06:00 Resp 20 03/10/23 06:00 BP 128/78 03/10/23 06:00 Pulse Ox 98 03/10/23 06:00 O2 Del Method Room Air 03/10/23 06:00 BMI result Body Mass Index 28.8 Const: General: cooperative and no acute distress Benjy entation/consciousness: patient oriented x3 Eyes: General: appearance normal, both eyes and all related structures Pupi ls: Equal, round and reactive pupils present Resp: Effort & Inspection: normal respiratory effort Auscultation: clear to auscultation bilaterally Cardio: Other: Irregular rhythm, tachycardic GI: Other: Abdomen is mildly tender diffusely, no rebound or guarding Palpation (GI): Soft to palpation Auscultation: normal bowel sounds Skin: General skin exam: no rashes or lesions noted Neuro: General: patient oriented x3 Cranial nerves: Yes Equal, round and reactive pupils present Cognition (Neuro): normal cognition Extrem: General: Yes normal to inspection and Yes no pedal edema Results Labs 03/10/23 05:03 03/10/23 05:03 Labs: Laboratory Results - last 24 hr 03/09/23 03/09/23 03/09/23 21:17 21:17 21:17 MCV 94.6 MCH 30.9 MCHC 32.7 RDW 13.0 Plt Count TNP MPV Not Reportable Immature Gran % (Auto) 0.3 Neut % (Auto) 52.3 Lymph % (Auto) 35.8 [place] % (Auto) 7.2 Eos % (Auto) 3.6 Baso % (Auto) 0.8 Lymph # (Auto) 3.1 [place] # (Auto) 0.6 Eos # (Auto) 0.3 Baso # (Auto) 0.1 Abs Immat Gran (auto) 0.03 Absolute Neuts (auto) 4.6 Absolute Nucleated RBC 0.000 Nucleated RBC % (auto) 0.0 Smear Tech's Comments VERIFIED PT INR APTT Anion Gap 16 Estim Creat Clear Calc 90.7 Estimated GFR > 60 Random Glucose 95 Calcium 9.1 Total Bilirubin AST ALT Alkaline Phosphatase Total Protein Albumin Urine Color Yellow Urine Appearance Clear Urine pH 5.5 Ur Specific [place] <= 1.005 Urine Protein Negative Urine Glucose (UA) Negative Urine Ketones Negative Urine Blood Trace H Urine Nitrite Negative Ur Leukocyte Esterase Negative Urine RBC 0-2 Urine WBC 0-5 Ur Squamous Epith Cells 0-2 Urine Bacteria Trace Hyaline Casts 0-2 Stool Occult Blood Ethyl Alcohol Blood Type Antibody Screen 03/09/23 03/09/23 03/09/23 21:50 21:50 21:50 MCV MCH MCHC RDW Plt Count MPV Immature Gran % (Auto) Neut % (Auto) Lymph % (Auto) [place] % (Auto) Eos % (Auto) Baso % (Auto) Lymph # (Auto) [place] # (Auto) Eos # (Auto) Baso # (Auto) Abs Immat Gran (auto) Absolute Neuts (auto) Absolute Nucleated RBC Nucleated RBC % (auto) Smear Tech's Comments PT 10.7 L INR 0.9 APTT 25.1 L Anion Gap Estim Creat Clear Calc Estimated GFR Random Glucose Calcium Total Bilirubin AST ALT Alkaline Phosphatase Total Protein Albumin Urine Color Urine Appearance Urine pH Ur Specific [place] Urine Protein Urine Glucose (UA) Urine Ketones Urine Blood Urine Nitrite Ur Leukocyte Esterase Urine RBC Urine WBC Ur Squamous Epith Cells Urine Bacteria Hyaline Casts Stool Occult Blood NEGATIVE Ethyl Alcohol 204 Blood Type Antibody Screen 03/09/23 03/10/23 03/10/23 21:52 05:03 05:03 MCV 96.8 MCH 30.8 MCHC 31.9 RDW 13.0 Plt Count TNP MPV TNP Immature Gran % (Auto) 0.3 Neut % (Auto) 47.9 Lymph % (Auto) 37.2 [place] % (Auto) 9.2 Eos % (Auto) 4.3 H Baso % (Auto) 1.1 Lymph # (Auto) 2.4 [place] # (Auto) 0.6 Eos # (Auto) 0.3 Baso # (Auto) 0.1 Abs Immat Gran (auto) 0.02 Absolute Neuts (auto) 3.0 Absolute Nucleated RBC 0.000 Nucleated RBC % (auto) 0.0 Smear Tech's Comments PT INR APTT Anion Gap 11 L Estim Creat Clear Calc 98.9 Estimated GFR > 60 Random Glucose 75 Calcium 8.4 D Total Bilirubin 0.4 AST 98 H ALT 81 H Alkaline Phosphatase 81 Total Protein 6.1 L Albumin 3.6 Urine Color Urine Appearance Urine pH Ur Specific [place] Urine Protein Urine Glucose (UA) Urine Ketones Urine Blood Urine Nitrite Ur Leukocyte Esterase Urine RBC Urine WBC Ur Squamous Epith Cells Urine Bacteria Hyaline Casts Stool Occult Blood Ethyl Alcohol Blood Type O Positive Antibody Screen NEGATIVE Imaging Radiologist's Impressions: Impressions Abdomen/Pelvis CT 03/09/23 22:53 IMPRESSION: 1. No acute findings identified in the abdomen/pelvis. 2. Infrarenal abdominal aortic aneurysm measuring up to approximately 5.6 cm in diameter. Recommend referral to vascular specialist. Reference: J Am Lamar Radiol 2013; 10 (10): 789-794. Assessment and Plan (1) Alcohol abuse with withdrawal: Status: Acute (2) Atrial fibrillation with RVR: Status: Acute (3) Bright red blood per rectum: Status: Acute (4) Infrarenal abdominal aortic aneurysm (AAA) without rupture: Status: Acute Plan 62-year-old female with past medical history of hyperlipidemia comes into the hospital with complaints of bright red blood per rectum found to have mild applications # a flutter with RVR - EKG showing a flutter with 1-2 AV conduction - chads Vasc score of 1 - started on diltiazem drip after failing IV pushes AV elidia blockers - admit to telemetry - echocardiogram, cardiology consult # alcohol abuse with withdrawal - patient drinks nightly, no history of withdrawals - will start on phenobarb protocol - thiamine and folic acid daily # bright red blood per rectum - no bleeding in the ED, stool occult negative - likely secondary to alcoholic gastritis - started on PPI IV b.i.d. - gastroenterology consulted # infrarenal AAA - no rupture - 5.6 cm - vascular surgery consulted DVT prophylaxis: SCDs Given patient's need for diltiazem drip in the setting of a flutter with RVR patient will require minimum 2 nights inpatient hospital stay for further management and monitoring Time Spent With Patient Time: Total time managing care of this patient today ____ minutes. Quality Stroke Does the patient have a stroke diagnosis?: No VTE Prior VTE?: No VTE Risk Level:: Medical - low VTE Device Contraindication: N/A - Device Ordered VTE Drug Contraindication: Treatment Not Indicated
[2023-03-10 06:24] LABS: Thyroid Stimulating Hormone 2.66 uIU/mL (0.32-4.0)
[2023-03-10] MEDS: dilTIAZem HCL 125 MG in 0.9 % Sodium Chloride 100 ML 10 MG IVCONT ×2 (06:30→13:27)
--- NOTE | 2023-03-10 08:05 | PHA.MEDREC ---
Pharmacy Consult ? Medication Reconciliation Pharmacy has completed the medication reconciliation. Patient states they were taking atorvastatin 20mg daily, but have stopped taking it after getting COVID because of contraindication with Paxlovid. Since then, patient has been off medication and per patient, their PCP is aware.
--- NOTE | 2023-03-10 09:57 | PM.CNCAR ---
History of Present Illness History of Present Illness Date of Service: 03/10/23 Chief complaint: a fib AAA Narrative: This is a cardiology consultation regarding atrial flutter with rapid rate. Patient does not have any known cardiac issues. No history of any coronary artery disease or myocardial infarction or cardiomyopathy. She states that she is fairly active without any limitations. She presented mainly because of abdominal pain along with rectal bleeding. In this context, she was diagnosed to have atrial fibrillation rapid ventricular rate. Subsequently, she was admitted. According to her, around 15 years ago, she was given steroids and in that instance she developed atrial fibrillation but has not had any recurrence since that time. Otherwise, there is a history of daily alcohol use, mainly wine. On the day before admission, she had 3 glasses. She states she usually drinks less than that. Review of Systems Review of Systems: Yes all other systems are reviewed and are negative Constitutional: Constitutional: Reports as per HPI and Reports no additional constitutional complaints Eyes: Eyes: Reports as per HPI and Denies no additional eye complaints ENT: Denies system reviewed and no additional complaints, except as documented and Reports as per HPI Cardiovascular: Cardiovascular: Reports as per HPI, Reports no additional cardiovascular complaints, Denies acrocyanosis, Denies cool extremities, Denies chest pain, Denies leg edema, Denies lightheadedness, Denies palpitations and Denies dyspnea Respiratory: Respiratory: Reports as per HPI, Denies no additional respiratory complaints and Denies dyspnea Gastrointestinal: Gastrointestinal: Reports as per HPI and Denies no additional gastrointestinal complaints Genitourinary: Genitourinary: Reports as per HPI Musculoskeletal: Musculoskeletal: Reports no additional musculoskeletal complaints and Reports as per HPI Integumentary/Breasts: Skin/Breast: Reports system reviewed and no additional complaints, except as docu Neurologic: Reports system reviewed and no additional complaints, except as documented and Reports as per HPI Psychiatric: Psychiatric: Reports no additional psychiatric complaints and Reports as per HPI Endocrine: Endocrine: Reports no additional endocrine complaints, Reports as per HPI and Denies palpitations Hematologic/Lymphatic: Hematologic/Lymphatic: Reports no additional hematologic/lymphatic complaints and Reports as per HPI Allergic/Immunologic: Allergic/Immunologic: Reports no additional allergic/immunologic complaints and Reports as per HPI PMF Past Medical History Medical History Alcohol abuse with withdrawal Irritable bowel syndrome Mixed hyperlipidemia Smoker Family History Pertinent family history: Noncontributory. Surgical History Surgical History History of fusion of lumbar spine History of skin graft History of tonsillectomy Social History Social History Housing: House Alcohol intake: current Alcohol intake frequency: a few times a week Patient Tobacco Use Status: Former Tobacco user e-Cigarette/Vaping Use: Never Used Second Hand Smoke Exposure: Yes Advance Directives: No Advance Directives Information Provided: No Nutrition Risks: No Nutritional Risk Patient : No service: No Current occupational status: employed Current occupational exposures/hazards: No Cognitive needs: No Hearing needs: No Vision needs: No Meds Allergies Allergy/AdvReac Type Severity Reaction Status Date / Time doxycycline Allergy vomiting Verified 02/19/23 14:04 really bad morphine Allergy cant breath Verified 02/19/23 14:04 prednisone Allergy afib Verified 02/19/23 14:04 sulfamethoxazole Allergy Hives Verified 02/19/23 14:04 [From Bactrim] trimethoprim [From Bactrim] Allergy Hives Verified 02/19/23 14:04 Active Medications: Current Medications Acetaminophen (Acetaminophen 325 Mg Tablet) 650 mg PO Q6H PRN PRN Reason: Pain, Mild (Pain Scale 1-3) Docusate Sodium (Docusate Sodium 100 Mg Capsule) 100 mg PO DAILY PRN PRN Reason: Constipation Folic Acid (Folic Acid 1 Mg Tablet) 1 mg PO DAILY [facility] Diltiazem HCl 125 mg/ Sodium (Chloride) 125 mls @ 0 mls/hr IVCONT .Q0M [facility]; Protocol Last Admin: 03/10/23 06:30 Dose: 10 mg/hr, 10 mls/hr Labetalol HCl (Labetalol Hcl 100 Mg Tablet) 100 mg PO BID [facility]; Protocol Ondansetron HCl (Ondansetron Hcl 4 Mg/2 Ml Vial) 4 mg IVPUSH Q8H PRN PRN Reason: Nausea and Vomiting Pantoprazole Sodium (Pantoprazole Sodium 40 Mg/10 Ml Vial) 40 mg IVPUSH BID@0630,1630 [facility] Last Admin: 03/10/23 06:39 Dose: Not Given Pharmacy Consult (Consult Rx Etoh Phenob Im/Po) 1 each MISCELLANE ONCE PRN; Protocol PRN Reason: Consult order Phenobarbital (Phenobarbital 30 Mg Tablet) 60 mg PO BID [facility]; Protocol Stop: 03/12/23 21:01 Phenobarbital (Phenobarbital 30 Mg Tablet) 30 mg PO BID [facility]; Protocol Stop: 03/14/23 21:01 Phenobarbital (Phenobarbital 30 Mg Tablet) 30 mg PO DAILY [facility]; Protocol Stop: 03/16/23 09:01 Phenobarbital Sodium (Phenobarbital Sodium 130 Mg/Ml Vial Im Q3hx2) 297 mg IM Q3H [facility]; Protocol Stop: 03/10/23 13:01 Thiamine HCl (Thiamine Hcl 100 Mg Tablet) 100 mg PO DAILY [facility] Home Medications Medication Instructions Recorded Confirmed Last Taken Type acetaminophen 325 mg tablet 650 mg PO Q6H PRN pain 03/10/23 03/10/23 Unknown History (Tylenol) Physical Exam Vital Signs: Vital Signs: Last Vital Signs Temp 97.8 F 03/10/23 09:41 Pulse 134 H 03/10/23 09:41 Resp 28 H 03/10/23 09:41 BP 142/96 H 03/10/23 09:41 Pulse Ox 96 03/10/23 09:41 O2 Del Method Room Air 03/10/23 09:41 BMI result Body Mass Index 28.8 Const: General: comfortable and no acute distress Orientation/consciousness: patient oriented x3 HEENT: Other: Unremarkable Head: Yes normal to inspection Neck: Neck: Yes normal visual inspection Chest: Chest palpation & inspection: normal inspection of the chest Resp: Auscultation: clear to auscultation bilaterally Cardio: Palpation: normal PMI Heart sounds: S1 normal heart sound present, S2 normal heart sound present, no gallops, no murmurs and no rubs GI: Palpation (GI): Soft to palpation Back/Spine/Pelvis: Other: unremarkable Skin: General skin exam: no rashes or lesions noted Neuro: General: patient oriented x3 Extrem: General: Yes normal to inspection Psych: Mental Status: mental status grossly normal Objective Labs and Meds 03/10/23 05:03 03/10/23 05:03 Lab results: Laboratory Results - last 24 hr 03/09/23 03/09/23 03/09/23 21:17 21:17 21:17 WBC 8.8 RBC 4.46 Hgb 13.8 Hct 42.2 MCV 94.6 MCH 30.9 MCHC 32.7 RDW 13.0 Plt Count TNP MPV Not Reportable Immature Gran % (Auto) 0.3 Neut % (Auto) 52.3 Lymph % (Auto) 35.8 [place] % (Auto) 7.2 Eos % (Auto) 3.6 Baso % (Auto) 0.8 Lymph # (Auto) 3.1 [place] # (Auto) 0.6 Eos # (Auto) 0.3 Baso # (Auto) 0.1 Abs Immat Gran (auto) 0.03 Absolute Neuts (auto) 4.6 Absolute Nucleated RBC 0.000 Nucleated RBC % (auto) 0.0 Smear Tech's Comments VERIFIED PT INR APTT Sodium 144 Potassium 4.0 Chloride 113 H Carbon Dioxide 19 L Anion Gap 16 BUN 16 Creatinine 0.85 Estim Creat Clear Calc 90.7 Estimated GFR > 60 Random Glucose 95 Calcium 9.1 Total Bilirubin AST ALT Alkaline Phosphatase Troponin I High Sens Total Protein Albumin TSH Urine Color Yellow Urine Appearance Clear Urine pH 5.5 Ur Specific [place] <= 1.005 Urine Protein Negative Urine Glucose (UA) Negative Urine Ketones Negative Urine Blood Trace H Urine Nitrite Negative Ur Leukocyte Esterase Negative Urine RBC 0-2 Urine WBC 0-5 Ur Squamous Epith Cells 0-2 Urine Bacteria Trace Hyaline Casts 0-2 Stool Occult Blood Ethyl Alcohol Blood Type Antibody Screen 03/09/23 03/09/23 03/09/23 21:50 21:50 21:50 WBC RBC Hgb Hct MCV MCH MCHC RDW Plt Count MPV Immature Gran % (Auto) Neut % (Auto) Lymph % (Auto) [place] % (Auto) Eos % (Auto) Baso % (Auto) Lymph # (Auto) [place] # (Auto) Eos # (Auto) Baso # (Auto) Abs Immat Gran (auto) Absolute Neuts (auto) Absolute Nucleated RBC Nucleated RBC % (auto) Smear Tech's Comments PT 10.7 L INR 0.9 APTT 25.1 L Sodium Potassium Chloride Carbon Dioxide Anion Gap BUN Creatinine Estim Creat Clear Calc Estimated GFR Random Glucose Calcium Total Bilirubin AST ALT Alkaline Phosphatase Troponin I High Sens 9.4 Total Protein Albumin TSH Urine Color Urine Appearance Urine pH Ur Specific [place] Urine Protein Urine Glucose (UA) Urine Ketones Urine Blood Urine Nitrite Ur Leukocyte Esterase Urine RBC Urine WBC Ur Squamous Epith Cells Urine Bacteria Hyaline Casts Stool Occult Blood Ethyl Alcohol 204 Blood Type Antibody Screen 03/09/23 03/09/23 03/10/23 21:50 21:52 05:03 WBC 6.3 RBC 4.02 L Hgb 12.4 Hct 38.9 MCV 96.8 MCH 30.8 MCHC 31.9 RDW 13.0 Plt Count TNP MPV TNP Immature Gran % (Auto) 0.3 Neut % (Auto) 47.9 Lymph % (Auto) 37.2 [place] % (Auto) 9.2 Eos % (Auto) 4.3 H Baso % (Auto) 1.1 Lymph # (Auto) 2.4 [place] # (Auto) 0.6 Eos # (Auto) 0.3 Baso # (Auto) 0.1 Abs Immat Gran (auto) 0.02 Absolute Neuts (auto) 3.0 Absolute Nucleated RBC 0.000 Nucleated RBC % (auto) 0.0 Smear Tech's Comments PT INR APTT Sodium Potassium Chloride Carbon Dioxide Anion Gap BUN Creatinine Estim Creat Clear Calc Estimated GFR Random Glucose Calcium Total Bilirubin AST ALT Alkaline Phosphatase Troponin I High Sens Total Protein Albumin TSH Urine Color Urine Appearance Urine pH Ur Specific [place] Urine Protein Urine Glucose (UA) Urine Ketones Urine Blood Urine Nitrite Ur Leukocyte Esterase Urine RBC Urine WBC Ur Squamous Epith Cells Urine Bacteria Hyaline Casts Stool Occult Blood NEGATIVE Ethyl Alcohol Blood Type O Positive Antibody Screen NEGATIVE 03/10/23 05:03 WBC RBC Hgb Hct MCV MCH MCHC RDW Plt Count MPV Immature Gran % (Auto) Neut % (Auto) Lymph % (Auto) [place] % (Auto) Eos % (Auto) Baso % (Auto) Lymph # (Auto) [place] # (Auto) Eos # (Auto) Baso # (Auto) Abs Immat Gran (auto) Absolute Neuts (auto) Absolute Nucleated RBC Nucleated RBC % (auto) Smear Tech's Comments PT INR APTT Sodium 143 Potassium 4.3 Chloride 116 H Carbon Dioxide 20 L Anion Gap 11 L BUN 14 Creatinine 0.78 Estim Creat Clear Calc 98.9 Estimated GFR > 60 Random Glucose 75 Calcium 8.4 D Total Bilirubin 0.4 AST 98 H ALT 81 H Alkaline Phosphatase 81 Troponin I High Sens Total Protein 6.1 L Albumin 3.6 TSH 2.66 Urine Color Urine Appearance Urine pH Ur Specific [place] Urine Protein Urine Glucose (UA) Urine Ketones Urine Blood Urine Nitrite Ur Leukocyte Esterase Urine RBC Urine WBC Ur Squamous Epith Cells Urine Bacteria Hyaline Casts Stool Occult Blood Ethyl Alcohol Blood Type Antibody Screen ECG Interpretation: EKG shows atrial flutter with rapid rate at 135/Min. Cannot exclude old septal infarct but could be from body habitus. Imaging Radiologist's impression: Impressions Abdomen/Pelvis CT 03/09/23 22:53 IMPRESSION: 1. No acute findings identified in the abdomen/pelvis. 2. Infrarenal abdominal aortic aneurysm measuring up to approximately 5.6 cm in diameter. Recommend referral to vascular specialist. Reference: J Am Lamar Radiol 2013; 10 (10): 789-794. Assessment and Plan (1) Atrial fibrillation with RVR: Status: Acute (2) Alcohol abuse with withdrawal: Status: Acute (3) Infrarenal abdominal aortic aneurysm (AAA) without rupture: Status: Acute Plan Patient has atrial flutter with rapid rate on EKG as well as on telemetry. Could be related to alcohol excess. She is currently on diltiazem drip. Dose can be titrated to achieve better heart rate control. Additionally, add metoprolol 50 mg 4 times a day. Due to rectal bleeding, cannot given anticoagulation at this time-till that issue resolved. In the CTA, infrarenal abdominal aortic aneurysm measuring 5.6 cm. Could be related to history of smoking. This needs vascular input. Discussed with Dr. Marrufo. Time Spent With Patient Time: Total time managing care of this patient today ____ minutes. Procedures Date of Service Date of Service: 03/10/23
--- NOTE | 2023-03-10 11:14 | P.CONGS_ITS ---
History of Present Illness Consult details Consult date: 03/10/23 Reason for consult: other (AAA) Narrative: Very pleasant 62-year-old female presented to the hospital with right red blood per rectum in addition to AFib with RVR with rates in the 130s. Upon workup she had undergone CT scan of the abdomen and was good discovered to have a abdominal aortic aneurysm. This was an incidental finding and she had not known about this previous to this. He does report that she quit smoking about a year ago and prior to that was smoking about a pack a day. In addition she has a history of alcohol abuse. She now presents for vascular evaluation. Review of Systems Review of Systems: Yes all other systems are reviewed and are negative Constitutional: Constitutional: Reports no additional constitutional complaints ENT: Reports Normal hearing present Cardiovascular: Cardiovascular: Denies chest pain, Denies chest pain at rest, Denies chest pain with activity and Denies pedal edema Respiratory: Respiratory: Denies cough Gastrointestinal: Gastrointestinal: Denies abdominal pain Musculoskeletal: Musculoskeletal: Denies abnormal gait, Denies muscle cramps and Denies radiating pain into limb Integumentary/Breasts: Skin/Breast: Denies skin ulcer and Denies wounds Neurologic: Reports Normal hearing present and Denies abnormal gait Psychiatric: Psychiatric: Reports no additional psychiatric complaints PMFSH Past Medical History Medical History Alcohol abuse with withdrawal Irritable bowel syndrome Mixed hyperlipidemia Smoker Surgical History Surgical History History of fusion of lumbar spine History of skin graft History of tonsillectomy Social History Social History Housing: House Alcohol intake: current Alcohol intake frequency: a few times a week Patient Tobacco Use Status: Former Tobacco user e-Cigarette/Vaping Use: Never Used Second Hand Smoke Exposure: Yes Advance Directives: No Advance Directives Information Provided: No Nutrition Risks: No Nutritional Risk Patient : No service: No Current occupational status: employed Current occupational exposures/hazards: No Cognitive needs: No Hearing needs: No Vision needs: No Meds Allergies Allergy/AdvReac Type Severity Reaction Status Date / Time doxycycline Allergy vomiting Verified 02/19/23 14:04 really bad morphine Allergy cant breath Verified 02/19/23 14:04 prednisone Allergy afib Verified 02/19/23 14:04 sulfamethoxazole Allergy Hives Verified 02/19/23 14:04 [From Bactrim] trimethoprim [From Bactrim] Allergy Hives Verified 02/19/23 14:04 Active Medications: Current Medications Acetaminophen (Acetaminophen 325 Mg Tablet) 650 mg PO Q6H PRN PRN Reason: Pain, Mild (Pain Scale 1-3) Docusate Sodium (Docusate Sodium 100 Mg Capsule) 100 mg PO DAILY PRN PRN Reason: Constipation Folic Acid (Folic Acid 1 Mg Tablet) 1 mg PO DAILY [facility] Diltiazem HCl 125 mg/ Sodium (Chloride) 125 mls @ 0 mls/hr IVCONT .Q0M [facility]; Protocol Metoprolol Tartrate (Metoprolol Tartrate 50 Mg Tablet) 50 mg PO QID [facility]; Protocol Ondansetron HCl (Ondansetron Hcl 4 Mg/2 Ml Vial) 4 mg IVPUSH Q8H PRN PRN Reason: Nausea and Vomiting Pantoprazole Sodium (Pantoprazole Sodium 40 Mg/10 Ml Vial) 40 mg IVPUSH BID@0630,1630 [facility] Last Admin: 03/10/23 06:39 Dose: Not Given Pharmacy Consult (Consult Rx Etoh Phenob Im/Po) 1 each MISCELLANE ONCE PRN; Protocol PRN Reason: Consult order Phenobarbital (Phenobarbital 30 Mg Tablet) 60 mg PO BID [facility]; Protocol Stop: 03/12/23 21:01 Phenobarbital (Phenobarbital 30 Mg Tablet) 30 mg PO BID [facility]; Protocol Stop: 03/14/23 21:01 Phenobarbital (Phenobarbital 30 Mg Tablet) 30 mg PO DAILY [facility]; Protocol Stop: 03/16/23 09:01 Phenobarbital Sodium (Phenobarbital Sodium 130 Mg/Ml Vial Im Q3hx2) 297 mg IM Q3H [facility]; Protocol Stop: 03/10/23 13:01 Thiamine HCl (Thiamine Hcl 100 Mg Tablet) 100 mg PO DAILY [facility] Home Medications Medication Instructions Recorded Confirmed Last Taken Type acetaminophen 325 mg tablet 650 mg PO Q6H PRN pain 03/10/23 03/10/23 Unknown History (Tylenol) Physical Exam Vital Signs: Vital Signs: Last Vital Signs Temp 97.8 F 03/10/23 09:41 Pulse 134 H 03/10/23 09:41 Resp 28 H 03/10/23 09:41 BP 142/96 H 03/10/23 09:41 Pulse Ox 96 03/10/23 09:41 O2 Del Method Room Air 03/10/23 09:41 BMI result Body Mass Index 28.8 Const: General: cooperative, healthy appearing and comfortable Orientation/consciousness: oriented to person, oriented to place and oriented to time HEENT: Head: Yes normal to inspection Neck: Neck: Yes normal visual inspection Carotids: no bruits Chest: Chest palpation & inspection: normal inspection of the chest Resp: Effort & Inspection: normal respiratory effort and able to speak in complete sentences Auscultation: clear to auscultation bilaterally, no crackles, no rales, no rhonchi and no wheezes Cardio: Rate: regular rate Rhythm: regular rhythm Heart sounds: S1 normal heart sound present and S2 normal heart sound present Bruits: no carotid bruits Peripheral pulses: Peripheral pulses 2+ throughout GI: Inspection: Yes normal to inspection Skin: Wounds: no wounds Hair: normal Neuro: General: oriented to person, oriented to place and oriented to time Cranial nerves: Yes CN's II-XII intact bilaterally and Yes Normal hearing present Cognition (Neuro): normal cognition Motor exam (neuro): 5/5 motor strength present throughout Extrem: Other: venous exam: No significant superficial varicosities or spider telangiectasias, minimal edema General: No clubbing, No cyanosis and No edema Psych: Appearance: grossly normal Mental Status: mental status grossly normal Speech and movement: Normal speech and movement present Results Labs 03/10/23 05:03 03/10/23 05:03 Labs: Abnormal lab results 03/09/23 03/09/23 03/09/23 Range/Units 21:17 21:17 21:50 RBC (4.20-5.50) X10*6/uL Eos % (Auto) (0-4) % PT 10.7 L (11.1-13.3) SEC APTT 25.1 L (26.0-36.4) SEC Chloride 113 H (96-108) mmol/L Carbon Dioxide 19 L (22-29) mmol/L Anion Gap (12-20) AST (5-31) U/L ALT (0-31) U/L Total Protein (6.5-8.0) g/dL Urine Blood Trace H (Negative) 03/10/23 03/10/23 Range/Units 05:03 05:03 RBC 4.02 L (4.20-5.50) X10*6/uL Eos % (Auto) 4.3 H (0-4) % PT (11.1-13.3) SEC APTT (26.0-36.4) SEC Chloride 116 H (96-108) mmol/L Carbon Dioxide 20 L (22-29) mmol/L Anion Gap 11 L (12-20) AST 98 H (5-31) U/L ALT 81 H (0-31) U/L Total Protein 6.1 L (6.5-8.0) g/dL Urine Blood (Negative) Short CBC 03/09/23 03/10/23 Range/Units 21:17 05:03 WBC 8.8 6.3 (4.8-10.8) X10*3/uL Hgb 13.8 12.4 (12.0-16.0) g/dl Hct 42.2 38.9 (37.0-47.0) % Plt Count TNP TNP BMP 03/09/23 03/10/23 21:17 05:03 Sodium 144 143 Potassium 4.0 4.3 Chloride 113 H 116 H Carbon Dioxide 19 L 20 L BUN 16 14 Creatinine 0.85 0.78 Calcium 9.1 8.4 D Liver Function 03/10/23 Range/Units 05:03 Total Bilirubin 0.4 (0.0-1.0) mg/dL AST 98 H (5-31) U/L ALT 81 H (0-31) U/L Alkaline Phosphatase 81 (39-117) U/L Albumin 3.6 (3.5-5.0) g/dL Urine 03/09/23 Range/Units 21:17 Urine Color Yellow Urine Appearance Clear Urine pH 5.5 (5.0-9.0) Ur Specific [place] <= 1.005 (1.005-1.025) Urine Protein Negative (Neg-Trace) mg/dL Urine Glucose (UA) Negative (Negative) mg/dL All other labs normal. Imaging Additional studies: CT scan of abdomen pelvis was reviewed and demonstrates a 5.6 cm infrarenal aortic aneurysm. Written report and images were reviewed. Assessment and Plan (1) Infrarenal abdominal aortic aneurysm (AAA) without rupture: Status: Acute Plan In short patient has an asymptomatic abdominal aortic aneurysm. It is of size that will require repair. The pathophysiology of aneurysmal disease along with the risk of rupture was discussed in detail with patient. The patient would like to move forward with repair. At the current time would like to have her heart better controlled and the bleeding per rectum to resolve as well. Once this has stabilized we will require cardiac risk stratification which can be scheduled as an outpatient. In addition we will schedule for outpatient elective repair. We will follow on an as-needed basis. Thank you for allowing us to assist in her care. If there are questions or concerns please do not hesitate to contact us. Time Spent With Patient Time: Total time managing care of this patient today ____ minutes. Procedures Date of Service Date of Service: 03/10/23
--- NOTE | 2023-03-10 11:52 | PC.NURSE ---
alert and oriented, respirations even and unlabored. ciwa scale of 0, pt has no signs/symptoms of withdrawal and states she has never been in alcohol withdrawal previously. hr between 80's and 90's at this time
--- NOTE | 2023-03-10 13:07 | PC.NURSE ---
rifle case repairer ordered increase in cardizem drip, heart rate <90's, per protocol to stop drip. hospitalist order to not increase the cardizem at this time. pt still awaiting GI consult, still NPO at this time. only complaint is hunger.
--- NOTE | 2023-03-10 14:22 | MHC.CM.PN ---
Met with patient in regards to discharge planning. Patient lives with her Hussein, ambulates independently and had no services prior to coming to the hospital. No services anticipated to be needed because patient is not homebound. PCP verified. Patient has received 3 Moderna vaccines and 1 Pfizer vaccine. HCP completed, signed and witnessed. Original given to patient. Copy placed in chart. Hussein will transport patient home when medically stable. Continue to monitor for d/c needs.
[2023-03-10] MEDS: Metoprolol Tartrate 50 MG TABLET PO ×2 (15:08→19:58)
--- NOTE | 2023-03-10 15:27 | PM.EVENT ---
Event Note Date of Service: 03/10/23 Event Note: This patient is seen and examined with APC. Patient was admitted for alcohol withdrawal, AFib with RVR. She is feeling better-denies any chest pain or sob Physical exam and assessment and plan coordinated in APCs note, Agree with the plan in addition: afib with rvr - continue cardizem drip,added metoprolol ? Gib-ppi gi eval moniter h/h aortic aneurism-recomened outpatient repair when better cardiac and gi gonzalez. Time Spent With Patient Time: Total time managing care of this patient today ____ minutes.
--- NOTE | 2023-03-10 16:31 | MHC.SHP ---
Pre-Procedural Eval Section A Date of Service: 03/10/23 The patient is an INPATIENT: Yes Changes since office visit: No Cold of Flu in the past 2 weeks, No New Medical Problems, No Changes in Medication and No Patient answered all questions The History & Physical has been completed within 30 days and I have reviewed it.: Yes Section B Chief Complaint: a fib AAA Allergies: Allergies Allergy/AdvReac Type Severity Reaction Status Date / Time doxycycline Allergy vomiting Verified 02/19/23 14:04 really bad morphine Allergy cant breath Verified 02/19/23 14:04 prednisone Allergy afib Verified 02/19/23 14:04 sulfamethoxazole Allergy Hives Verified 02/19/23 14:04 [From Bactrim] trimethoprim [From Bactrim] Allergy Hives Verified 02/19/23 14:04 Plan I have reviewed the history and physical and performed a pertinent physical examination on my patient. No changes have occurred unless specified. Time Spent With Patient Time: Total time managing care of this patient today ____ minutes.
--- NOTE | 2023-03-10 16:31 | PM.EVENT ---
Event Note Date of Service: 03/10/23 Event Note: GI consult dictated Colonoscopy is scheduled 03/11 for evaluation of rectal bleeding. Yahaira understands risks and benefits and agrees to proceed. Time Spent With Patient Time: Total time managing care of this patient today ____ minutes.
[2023-03-10] MEDS: PEG 3350/Na Sulf,Bicarb,Cl/KCL 4,000 ML SOLN.RECON 4000 ML PO (19:57)
[2023-03-11] VITALS (9 sets, daily range): BP systolic 100–138; BP diastolic 59–81; PULSE 57–136; RESP 14–20; TEMP 35.8–37; O2SAT 95–98
--- NOTE | 2023-03-11 04:52 | CONS_ITS ---
DATE OF SERVICE: 03/10/2023 REFERRING PHYSICIAN: Dr. Marrufo REASON FOR CONSULTATION: Rectal bleeding. 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 This began on the day of admission in the afternoon when she had an exacerbation of IBS symptoms. She had some diarrhea and has associated mild generalized crampy abdominal pain with some rectal pain. She passed bright red blood with some clots at home and this continued in small amounts up to a half a cup several times before she presented to the emergency room. In the emergency department, she was noted to be in atrial fibrillation with rapid ventricular response and was started on continuous infusion diltiazem and evaluated by Cardiology. She continued to have bright red blood per rectum, by her report most recently passing half a cup earlier today. However, interestingly hemoccult testing was negative. Her hematocrit on admission was 42.2, which decreased to 38.9 this morning. She has not required blood transfusion. As part of evaluation, she underwent imaging and CT scanning of the abdomen and pelvis, which was reviewed. This is interpreted as showing a 5.6 cm infrarenal abdominal aortic aneurysm. She has been seen in consultation by Dr. Duran, who is planning outpatient evaluation after her cardiac and GI issues have stabilized. She has a history of irritable bowel syndrome and has undergone evaluation in [place] including colonoscopy and small bowel video capsule endoscopy in 2018, which were reportedly unrevealing. She does have a history of colon polyps and was actually scheduled for a colonoscopy as an outpatient later in the fall. Sha also has a family history of colon cancer. PAST MEDICAL HISTORY: 1. Irritable bowel syndrome. 2. Colon polyps. 3. Back pain. CURRENT MEDICATIONS: List is reviewed in the chart. ALLERGIES: MULTIPLE MEDICATION ALLERGIES ARE REVIEWED. FAMILY HISTORY: Positive for colon cancer in her father. SOCIAL HISTORY: There is no current tobacco. She does drink 3 to 5 glasses of wine per day by her report and had a blood alcohol level on admission of 204. REVIEW OF SYSTEMS: SKIN: No pruritus. HEENT: Negative. CARDIOPULMONARY: No shortness of breath or chest pain. GASTROINTESTINAL: As above. She has been treated with amitriptyline in the past for her IBS and most recently hyoscyamine. NEUROPSYCHIATRIC: Negative. PHYSICAL EXAMINATION: GENERAL: Shows a pleasant female, lying comfortably in the stretcher in the emergency department. VITAL SIGNS: Reviewed in the electronic medical record and are stable. SKIN: Anicteric. HEENT: Shows no scleral icterus. NECK: Without lymphadenopathy or thyromegaly. LUNGS: Clear. HEART: Shows regular rate and rhythm. S1, S2. No murmur. ABDOMEN: Soft. No focal masses or tenderness. Bowel sounds are present. No organomegaly is noted. EXTREMITIES: Without edema. LABORATORY DATA: Reviewed. She does have mild elevation of her liver function tests with an AST of 98 and ALT of 81. CT scanning is also reviewed and her liver is described as normal. IMPRESSION: 1. Rectal bleeding. 2. Elevated liver function tests. At this time, I have recommended she undergo colonoscopy during this admission because of her history of rectal bleeding and her personal history of colon polyps as well as her family history of colon cancer. I discussed the procedure with her including risks and benefits. She understands and agrees to proceed. She may need to go on anticoagulation if her atrial fibrillation persists and colonoscopy should be done before she is able to start anticoagulation. Her liver function tests are mildly elevated and should be monitored. This may be related to her alcohol intake and we discussed this today. Thanks for asking me to see her. I will follow her in the hospital with you. MD PETER Stevenson/MAYA / [id number] MTDD
[2023-03-11] MEDS: Pantoprazole Sodium 40 MG/10 ML VIAL IVPUSH (06:29)
--- NOTE | 2023-03-11 07:00 | CA_ITS ---
Transthoracic Echocardiogram Patient (Last, First, Middle): Callie Jay G Gender: Female Date of : 1960 Age: 62 Procedure Date: 03/11/2023 Procedure Type: Transthoracic Echocardiogram Location: [facility] [place] Height: 185.42 cm Weight: 98.88 kg BSA: 2.23 m2 Heart Rate: 133 bpm BP: 105 / 75 mmHg Ui Architect: JUANA Referring MD: Tobias Roper MD Symptoms: atrial flutter Study Quality: Adequate ECG Rhythm: Atrial flutter with rapid rate Conclusions: - The left ventricular systolic function is mild to moderately decreased. The calculated ejection fraction is 40% by biplane method. - The left atrium is moderately dilated. - There is evidence of a patent foramen ovale with left to right shunting. - There is mild mitral valve regurgitation. - There is mild dilatation of the ascending aorta measuring 4.00 cm. Findings Left Ventricle Normal left ventricular cavity size. The left ventricular systolic function is mild to moderately decreased. The calculated ejection fraction is 40% by biplane method. There is moderate global hypokinesis. Diastolic function is indeterminate on the basis of available data. There is mild septal asymmetric hypertrophy. Right Ventricle Normal right ventricular cavity size. There is low normal right ventricular systolic function. Atria The left atrium is moderately dilated. Patent foramen ovale detected using by color Doppler. There is evidence of a patent foramen ovale with left to right shunting. The right atrium is normal in size. Aortic Valve There is a normal trileaflet aortic valve. There is mild calcification of the aortic valve. There is no aortic valve stenosis. There is trace (trivial) aortic valve regurgitation. Mitral Valve There is mild anterior mitral leaflet thickening. There is mild mitral valve regurgitation. There is no mitral valve stenosis. Pulmonic Valve The pulmonic valve is likely normal. Tricuspid Valve Normal tricuspid valve structure. There is trace tricuspid valve regurgitation. There is no evidence of pulmonary hypertension. Great Vessels There is mild dilatation of the ascending aorta measuring 4.00 cm. Venous The inferior vena cava is mildly dilated and collapses less than 50% with inspiration. Pericardium/Pleural There is a trivial pericardial effusion. Prior Study Comparison No prior study available for comparison. Measurements 2D Linear Measurements IVSd: 1.20 0.6-0.9/0.6-1.0 cm LVIDd: 4.80 3.9-5.3/4.2-5.9 cm LVIDd Index: 2.15 2.4-3.2/2.2-3.1 cm/m2 LVIDs: 3.70 2.0-3.6 cm LVPWd: 1.00 0.7-1.1 cm LA Diam: 4.20 2.7-3.8/3.0-4.0 cm LAIDs Index: 1.88 1.5-2.3 cm/m2 LV Mass: 241.70 67-162/88-224 g LV Mass Index: 108.39 43-95/49-115 g/m2 LVOT Diam: 2.10 3.0+(-)1.3 cm 2D Systolic Function EF 4C: 42.10 >55% EF 2C: 40.20 >55% EF BiP: 39.90 >55% Mitral Valve MV Pk E: 0.84 MV Decel Time: 91.00 E'Lateral: 13.90 E'Medial: 4.03 E/E' Med: 20.80 E/E' Lat: 6.00 PHT: 27.00 MVA PHT: 8.15 Decel Vigo: 9.27 MR Vol - PW Dopp: 11.28 MR VTI: 1.41 MR ERO: 8.00 MR Alias Giorgio: 0.39 MR RAD: 0.40 Aortic Valve AoV Pk Giorgio: 1.24 AoV Mn Giorgio: 0.98 AoV VTI: 0.21 AoV Pk Grad: 6.00 Aov Mn Grad: 4.00 JAEC Cont.VTI: 2.46 LVOT LVOT Pk Giorgio: 0.86 LVOT Mn Giorgio: 0.68 LVOT VTI: 0.15 LVOT Pk Grad: 3.00 LVOT Mn Grad: 2.00 LVOT Diam: 2.10 LVOT Area: 3.46 Diastolic Function MV Pk E: 0.84 E'Medial: 4.03 E/E' Med: 20.80 E' Laterial: 13.90 E/E' Lat: 6.00 Right Ventricle TAPSE (mm): 15.80 TVS' Giorgio: 12.90 Tricuspid Valve TR Pk Giorgio: 1.76 TR Pk Grad: 12.00 RA Press: 15.00 Great Vessels Aorta Sinus of Valsalva: 3.40 2.0-3.5 cm Ao Asc: 4.00 2.1-3.4 cm Ao Arch: 2.80 Pulmonary Valve PV Pk Giorgio: 0.90 Peak PV Grad: 3.00 Updated in Other Vendor System with Status of Final Tobias Roper MD electronically signed on 03/11/2023 10:27:53 AM with status of Final
[2023-03-11 07:40] LABS: Hemoglobin 13.3 g/dl (12.0-16.0); Mean Corpuscular HGB Conc 32.4 g/dl (31.0-35.0); Mean Corpuscular Hemoglobin 31.1 pg (27.0-33.0); Mean Corpuscular Volume 95.8 fL (80.0-98.0); PLT CLUMP 1; Red Blood Count 4.28 X10*6/uL (4.20-5.50); Red Cell Distribution Width 12.9 % (11.0-16.0)
[2023-03-11 08:06] LABS: White Blood Count 6.6 X10*3/uL (4.8-10.8)
[2023-03-11] MEDS: Metoprolol Tartrate 50 MG TABLET PO ×4 (08:27→20:04)
[2023-03-11 08:41] LABS: Alanine Aminotransferase 50 U/L (0-31); Albumin Level 3.6 g/dL (3.5-5.0); Alkaline Phosphatase 69 U/L (39-117); Anion Gap 11 (12-20); Aspartate Amino Transferase 30 U/L (5-31); Bilirubin Total 1.1 mg/dL (0.0-1.0); Blood Urea Nitrogen 11 mg/dL (9-16); Calcium 8.7 mg/dL (8.4-10.2); Carbon Dioxide 26 mmol/L (22-29); Chloride 109 mmol/L (96-108); Creatinine Clr Calc Pharmacy 91.7; Estimated Glomerular Filt Rate > 60; Glucose Random 96 mg/dL (60-115); Potassium 3.8 mmol/L (3.3-5.1); Sodium 142 mmol/L (135-145); Total Protein 6.2 g/dL (6.5-8.0)
[2023-03-11 09:08] LABS: Hematocrit 43.6 % (37.0-47.0); Hemoglobin 14.3 g/dl (12.0-16.0)
--- NOTE | 2023-03-11 09:29 | PM.PNCARD ---
Subjective Subjective Date of Service: 03/11/23 Interval history: Patient states that she feels okay. No clear cardiac symptoms. She feels palpitations occasionally otherwise fine. Review of Systems Review of Systems Yes all other systems are reviewed and are negative Constitutional: Reports as per HPI and Reports no additional constitutional complaints Eyes: Reports as per HPI and Denies no additional eye complaints Denies system reviewed and no additional complaints, except as documented and Reports as per HPI Cardiovascular: Reports as per HPI, Reports no additional cardiovascular complaints, Denies acrocyanosis, Denies cool extremities, Denies chest pain, Denies leg edema, Denies lightheadedness, Denies palpitations and Denies dyspnea Respiratory: Reports as per HPI, Denies no additional respiratory complaints and Denies dyspnea Gastrointestinal: Reports as per HPI and Denies no additional gastrointestinal complaints Genitourinary: Reports as per HPI Musculoskeletal: Reports no additional musculoskeletal complaints and Reports as per HPI Skin/Breast: Reports system reviewed and no additional complaints, except as docu Reports system reviewed and no additional complaints, except as documented and Reports as per HPI Psychiatric: Reports no additional psychiatric complaints and Reports as per HPI Endocrine: Reports no additional endocrine complaints, Reports as per HPI and Denies palpitations Hematologic/Lymphatic: Reports no additional hematologic/lymphatic complaints and Reports as per HPI Allergic/Immunologic: Reports no additional allergic/immunologic complaints and Reports as per HPI Physical Exam Vital Signs: Last Vital Signs Temp 97.8 F 03/11/23 07:36 Pulse 57 03/11/23 07:36 Resp 18 03/11/23 07:36 BP 111/60 03/11/23 07:36 Pulse Ox 96 03/11/23 07:36 O2 Del Method Room Air 03/11/23 07:36 BMI result Body Mass Index 28.8 Const General: comfortable and no acute distress Orientation/consciousness: patient oriented x3 HEENT Other: Unremarkable Head: Yes normal to inspection Neck Neck: Yes normal visual inspection Chest Chest palpation & inspection: normal inspection of the chest Resp Auscultation: clear to auscultation bilaterally Cardio Palpation: normal PMI Heart sounds: S1 normal heart sound present, S2 normal heart sound present, no gallops, no murmurs and no rubs GI Palpation (GI): Soft to palpation Back/Spine/Pelvis Other: unremarkable Skin General skin exam: no rashes or lesions noted Neuro General: patient oriented x3 Extrem General: Yes normal to inspection Psych Mental Status: mental status grossly normal Objective Labs and Meds 03/11/23 08:45 03/11/23 06:42 Lab results: Laboratory Results - last 24 hr 03/11/23 03/11/23 03/11/23 06:42 06:42 08:45 WBC 6.6 RBC 4.28 Hgb 13.3 14.3 Hct 41.0 43.6 MCV 95.8 MCH 31.1 MCHC 32.4 RDW 12.9 Plt Count TNP MPV TNP Absolute Nucleated RBC 0.000 Nucleated RBC % (auto) 0.0 Sodium 142 Potassium 3.8 Chloride 109 H Carbon Dioxide 26 Anion Gap 11 L BUN 11 Creatinine 0.84 Estim Creat Clear Calc 91.7 Estimated GFR > 60 Random Glucose 96 Calcium 8.7 Total Bilirubin 1.1 H AST 30 ALT 50 H Alkaline Phosphatase 69 Total Protein 6.2 L Albumin 3.6 Progress Note: A&P Assessment and plan (1) Atrial fibrillation with RVR: Status: Acute (2) Alcohol abuse with withdrawal: Status: Acute (3) Bright red blood per rectum: Status: Acute (4) Infrarenal abdominal aortic aneurysm (AAA) without rupture: Status: Acute Plan From a cardiac standpoint, she has atrial flutter with rapid rate. This could be from history of alcohol excess. On bedside echocardiogram, there is suggestion of cardiomyopathy. Study still being completed and will need to be reviewed formally. She was on diltiazem drip. Now she is only on oral metoprolol. Rate is about 100/Min. It does go up to 120s. Eventually, she will need cardioversion. However, she is still having the bleeding cannot do that as she will definitely need anticoagulation after cardioversion. Colonoscopy is planned for today according to GI. From cardiac, intermediate risk but as there is no other option, will need to take the risk and proceed. Can use IV beta blockers as necessary to control the rates perioperatively. With regard to the alcohol use, suggest abstinence. Discussed today. Cardiomyopathy could be some combination of tachycardia induced as well as alcohol related. Less likely ischemic. With regard to the aortic aneurysm, that will need to be addressed rather as an outpatient. Discussed with Dr. Duran. Discussed with Dr. Briones. Time Spent With Patient Time: Total time managing care of this patient today 45 minutes. This includes time spent in review of chart, laboratory data, imaging studies, review of telemetry, counseling patient, discussion with consultants, documentation, coordination of care. Progress Note: Quality Stroke Does the patient have a stroke diagnosis?: No Procedures Date of Service Date of Service: 03/11/23
--- NOTE | 2023-03-11 09:57 | P.PNVS_ITS ---
Subjective Subjective Date of Service: 03/11/23 Patient reports: no new complaints and feels better Interval history: Very pleasant 62-year-old female presents for follow-up. She was brought in for evaluation regarding bright red loop blood per rectum. It appears to have stabilized. She is actually scheduled for colonoscopy today. Also of note on workup she was noted to have an abdominal aortic aneurysm infrarenal of about 5.6 cm. She is now for follow-up. Physical Exam Vital Signs: Vital Signs: Last Vital Signs Temp 97.8 F 03/11/23 07:36 Pulse 57 03/11/23 07:36 Resp 18 03/11/23 07:36 BP 111/60 03/11/23 07:36 Pulse Ox 96 03/11/23 07:36 O2 Del Method Room Air 03/11/23 07:36 BMI result Body Mass Index 28.8 Const: General: cooperative, healthy appearing and no acute distress Orientation/consciousness: oriented to person, oriented to place and oriented to time HEENT: Head: Yes normal to inspection Neck: Carotids: no bruits Chest: Chest palpation & inspection: normal inspection of the chest Resp: Effort & Inspection: normal respiratory effort and able to speak in complete sentences Auscultation: clear to auscultation bilaterally Cardio: Rate: regular rate Heart sounds: S1 normal heart sound present and S2 normal heart sound present GI: Inspection: Yes normal to inspection Skin: General skin exam: no rashes or lesions noted Wounds: no wounds Neuro: General: oriented to person, oriented to place, oriented to time and CN's II-XI intact bilaterally Extrem: General: Yes normal to inspection, Yes full ROM and Yes no clubbing, cyanosis or edema Psych: Appearance: grossly normal and well kempt Speech and movement: No rmal speech and movement present Affect: normal affect Progress Note: A&P Assessment and plan (1) Infrarenal abdominal aortic aneurysm (AAA) without rupture: Status: Acute Assessment and Plan: In short patient has abdominal aortic aneurysm. It does appear amenable to endovascular repair. Currently under the process of undergoing 3D reconstruction of the imaging. In addition she is scheduled for colonoscopy today and would be curious to the results of that. Did discuss with the cardiology team that she would require cardiac risk stratification prior to any operation. I also did discuss routine risk factor modification with the patient. Thank you for allowing us to assist in her care. If there are any questions or concerns please do not hesitate to contact us. Time Spent With Patient Time: Total time managing care of this patient today ____ minutes. Procedures Date of Service Date of Service: 03/11/23 Quality Stroke Does the patient have a stroke diagnosis?: No VTE Prior VTE?: No VTE Risk Level:: Medical - low VTE Device Contraindication: N/A - Device Ordered VTE Drug Contraindication: Treatment Not Indicated
--- NOTE | 2023-03-11 10:44 | P.CONAN_ITS ---
HPI - Anesthesia Eval Consult details Narrative: 62 F for colonoscopy AAA infra-renal , rapid a fluter , rectal bleeding , needs anticoagulation Cardiomyopathy . Case discussed with and Dr Roper. [facility] Active Problems Active Problems: All Active Problems (Updated 03/10/23 @ 06:34 by Reagan Shahid MD) Laboratory examination ordered as part of a routine general medical examination (Acute) Toe pain, right (Acute) Breast cancer screening by mammogram (Acute) Screening for colon cancer (Acute) Screening for cervical cancer (Acute) Adult general medical exam (Acute) Pre-operative cardiovascular examination (Acute) Elevated fasting blood sugar (Acute) Elevated blood pressure reading (Acute) Sinusitis (Acute) Chest congestion (Acute) Tick bite (Acute) Afib (Acute) Bright red blood per rectum (Acute) Infrarenal abdominal aortic aneurysm (AAA) without rupture (Acute) Alcohol intoxication (Acute) Atrial fibrillation with RVR (Acute) Alcohol abuse with withdrawal (Acute) Smoker (Acute) Irritable bowel syndrome (Acute) Mixed hyperlipidemia (Acute) Past Medical History Medical History Alcohol abuse with withdrawal Irritable bowel syndrome Mixed hyperlipidemia Smoker Family History Family history of problems with anesthesia: No Surgical History Surgical History (Updated 03/11/23 @ 10:13 by Renu Marquez RN) History of fusion of lumbar spine History of skin graft History of tonsillectomy Hx of colonoscopy History of Problems with Anesthesia: No Social History Social History Household Members: Spouse Household Members Other:: 2 Housing: House Do you presently have visiting nurse or other home services: No Alcohol intake: current Alcohol intake frequency: a few times a week Patient Tobacco Use Status: Former Tobacco user Quit Date: 1 yr ago Tobacco use type: Cigarette e-Cigarette/Vaping Use: Never Used Second Hand Smoke Exposure: No Advance Directives Date on File: 03/10/23 service: No Current occupational status: employed Current occupational exposures/hazards: No Cognitive needs: No Hearing needs: No Vision needs: No Meds Allergies Allergy/AdvReac Type Severity Reaction Status Date / Time doxycycline Allergy vomiting Verified 02/19/23 14:04 really bad morphine Allergy cant breath Verified 02/19/23 14:04 prednisone Allergy afib Verified 02/19/23 14:04 sulfamethoxazole Allergy Hives Verified 02/19/23 14:04 [From Bactrim] trimethoprim [From Bactrim] Allergy Hives Verified 02/19/23 14:04 Active Medications: Current Medications Acetaminophen (Acetaminophen 325 Mg Tablet) 650 mg PO Q6H PRN PRN Reason: Pain, Mild (Pain Scale 1-3) Docusate Sodium (Docusate Sodium 100 Mg Capsule) 100 mg PO DAILY PRN PRN Reason: Constipation Folic Acid (Folic Acid 1 Mg Tablet) 1 mg PO DAILY [facility] Last Admin: 03/10/23 11:51 Dose: Not Given Diltiazem HCl 125 mg/ Sodium (Chloride) 125 mls @ 0 mls/hr IVCONT .Q0M [facility]; Protocol Last Titration: 03/10/23 15:24 Dose: 0 mg/hr, 0 mls/hr Metoprolol Tartrate (Metoprolol Tartrate 50 Mg Tablet) 50 mg PO QID [facility]; Protocol Last Admin: 03/11/23 08:27 Dose: 50 mg Ondansetron HCl (Ondansetron Hcl 4 Mg/2 Ml Vial) 4 mg IVPUSH Q8H PRN PRN Reason: Nausea and Vomiting Pantoprazole Sodium (Pantoprazole Sodium 40 Mg/10 Ml Vial) 40 mg IVPUSH BID@0630,1630 [facility] Last Admin: 03/11/23 06:29 Dose: 40 mg Pharmacy Consult (Consult Rx Etoh Phenob Im/Po) 1 each MISCELLANE ONCE PRN; Protocol PRN Reason: Consult order Thiamine HCl (Thiamine Hcl 100 Mg Tablet) 100 mg PO DAILY [facility] Last Admin: 03/10/23 11:51 Dose: Not Given Home Medications Medication Instructions Recorded Confirmed Last Taken Type acetaminophen 325 mg tablet 650 mg PO Q6H PRN pain 03/10/23 03/10/23 Unknown History (Tylenol) Exam Exam Date and Time: March 11, 2023 1044 Height,Weight and Vital Signs: Height 6 ft 1 in Weight 98.9 kg Last Vital Signs Temp 97.6 F 03/11/23 10:13 Pulse 120 H 03/11/23 10:13 Resp 15 03/11/23 10:13 BP 135/75 03/11/23 10:13 Pulse Ox 97 03/11/23 10:13 O2 Del Method Room Air 03/11/23 10:13 Pertinent Lab Results Pertinent Lab Results: Laboratory Tests 03/09/23 03/09/2303/09/23 21:17 21:17 21:17 WBC 8.8 RBC 4.46 Hgb 13.8 Hct 42.2 MCV 94.6 MCH 30.9 MCHC 32.7 RDW 13.0 Plt Count TNP MPV Not Reportable Immature Gran % (Auto) 0.3 Neut % (Auto) 52.3 Lymph % (Auto) 35.8 Cobb % (Auto) 7.2 Eos % (Auto) 3.6 Baso % (Auto) 0.8 Lymph # (Auto) 3.1 Cobb # (Auto) 0.6 Eos # (Auto) 0.3 Baso # (Auto) 0.1 Abs Immat Gran (auto) 0.03 Absolute Neuts (auto) 4.6 Absolute Nucleated RBC 0.000 Nucleated RBC % (auto) 0.0 Smear Tech's Comments VERIFIED PT INR APTT Sodium 144 Potassium 4.0 Chloride 113 H Carbon Dioxide 19 L Anion Gap 16 BUN 16 Creatinine 0.85 Estim Creat Clear Calc 90.7 Estimated GFR > 60 Random Glucose 95 Calcium 9.1 Total Bilirubin AST ALT Alkaline Phosphatase Troponin I High Sens Total Protein Albumin TSH Urine Color Yellow Urine Appearance Clear Urine pH 5.5 Ur Specific [place] <= 1.005 Urine Protein Negative Urine Glucose (UA) Negative Urine Ketones Negative Urine Blood Trace H Urine Nitrite Negative Ur Leukocyte Esterase Negative Urine RBC 0-2 Urine WBC 0-5 Ur Squamous Epith Cells 0-2 Urine Bacteria Trace Hyaline Casts 0-2 Stool Occult Blood Ethyl Alcohol Blood Type Antibody Screen 03/09/23 03/09/23 03/09/23 21:50 21:50 21:50 WBC RBC Hgb Hct MCV MCH MCHC RDW Plt Count MPV Immature Gran % (Auto) Neut % (Auto) Lymph % (Auto) Cobb % (Auto) Eos % (Auto) Baso % (Auto) Lymph # (Auto) Cobb # (Auto) Eos # (Auto) Baso # (Auto) Abs Immat Gran (auto) Absolute Neuts (auto) Absolute Nucleated RBC Nucleated RBC % (auto) Smear Tech's Comments PT 10.7 L INR 0.9 APTT 25.1 L Sodium Potassium Chloride Carbon Dioxide Anion Gap BUN Creatinine Estim Creat Clear Calc Estimated GFR Random Glucose Calcium Total Bilirubin AST ALT Alkaline Phosphatase Troponin I High Sens 9.4 Total Protein Albumin TSH Urine Color Urine Appearance Urine pH Ur Specific [place] Urine Protein Urine Glucose (UA) Urine Ketones Urine Blood Urine Nitrite Ur Leukocyte Esterase Urine RBC Urine WBC Ur Squamous Epith Cells Urine Bacteria Hyaline Casts Stool Occult Blood Ethyl Alcohol 204 Blood Type Antibody Screen 03/09/23 03/09/23 03/10/23 21:50 21:52 05:03 WBC 6.3 RBC 4.02 L Hgb 12.4 Hct 38.9 MCV 96.8 MCH 30.8 MCHC 31.9 RDW 13.0 Plt Count TNP MPV TNP Immature Gran % (Auto) 0.3 Neut % (Auto) 47.9 Lymph % (Auto) 37.2 Cobb % (Auto) 9.2 Eos % (Auto) 4.3 H Baso % (Auto) 1.1 Lymph # (Auto) 2.4 Cobb # (Auto) 0.6 Eos # (Auto) 0.3 Baso # (Auto) 0.1 Abs Immat Gran (auto) 0.02 Absolute Neuts (auto) 3.0 Absolute Nucleated RBC 0.000 Nucleated RBC % (auto) 0.0 Smear Tech's Comments PT INR APTT Sodium Potassium Chloride Carbon Dioxide Anion Gap BUN Creatinine Estim Creat Clear Calc Estimated GFR Random Glucose Calcium Total Bilirubin AST ALT Alkaline Phosphatase Troponin I High Sens Total Protein Albumin TSH Urine Color Urine Appearance Urine pH Ur Specific [place] Urine Protein Urine Glucose (UA) Urine Ketones Urine Blood Urine Nitrite Ur Leukocyte Esterase Urine RBC Urine WBC Ur Squamous Epith Cells Urine Bacteria Hyaline Casts Stool Occult Blood NEGATIVE Ethyl Alcohol Blood Type O Positive Antibody Screen NEGATIVE 03/10/23 03/11/23 03/11/23 05:03 06:42 06:42 WBC 6.6 RBC 4.28 Hgb 13.3 Hct 41.0 MCV 95.8 MCH 31.1 MCHC 32.4 RDW 12.9 Plt Count TNP MPV TNP Immature Gran % (Auto) Neut % (Auto) Lymph % (Auto) Cobb % (Auto) Eos % (Auto) Baso % (Auto) Lymph # (Auto) Cobb # (Auto) Eos # (Auto) Baso # (Auto) Abs Immat Gran (auto) Absolute Neuts (auto) Absolute Nucleated RBC 0.000 Nucleated RBC % (auto) 0.0 Smear Tech's Comments PT INR APTT Sodium 143 142 Potassium 4.3 3.8 Chloride 116 H 109 H Carbon Dioxide 20 L 26 Anion Gap 11 L 11 L BUN 14 11 Creatinine 0.78 0.84 Estim Creat Clear Calc 98.9 91.7 Estimated GFR > 60 > 60 Random Glucose 75 96 Calcium 8.4 D 8.7 Total Bilirubin 0.4 1.1 H AST 98 H 30 ALT 81 H 50 H Alkaline Phosphatase 81 69 Troponin I High Sens Total Protein 6.1 L 6.2 L Albumin 3.6 3.6 TSH 2.66 Urine Color Urine Appearance Urine pH Ur Specific [place] Urine Protein Urine Glucose (UA) Urine Ketones Urine Blood Urine Nitrite Ur Leukocyte Esterase Urine RBC Urine WBC Ur Squamous Epith Cells Urine Bacteria Hyaline Casts Stool Occult Blood Ethyl Alcohol Blood Type Antibody Screen 03/11/23 08:45 WBC RBC Hgb 14.3 Hct 43.6 MCV MCH MCHC RDW Plt Count MPV Immature Gran % (Auto) Neut % (Auto) Lymph % (Auto) Cobb % (Auto) Eos % (Auto) Baso % (Auto) Lymph # (Auto) Cobb # (Auto) Eos # (Auto) Baso # (Auto) Abs Immat Gran (auto) Absolute Neuts (auto) Absolute Nucleated RBC Nucleated RBC % (auto) Smear Tech's Comments PT INR APTT Sodium Potassium Chloride Carbon Dioxide Anion Gap BUN Creatinine Estim Creat Clear Calc Estimated GFR Random Glucose Calcium Total Bilirubin AST ALT Alkaline Phosphatase Troponin I High Sens Total Protein Albumin TSH Urine Color Urine Appearance Urine pH Ur Specific [place] Urine Protein Urine Glucose (UA) Urine Ketones Urine Blood Urine Nitrite Ur Leukocyte Esterase Urine RBC Urine WBC Ur Squamous Epith Cells Urine Bacteria Hyaline Casts Stool Occult Blood Ethyl Alcohol Blood Type Antibody Screen Airway Mallampati Class: IV Neck ROM: Full Loose/Missing/Broken Teeth: Yes Assessment and Plan Assessment Anesthesia Assessment: Anesthesia Plan Discussed and Chart Reviewed Final Anesthetic Review Family History of Problems with Anesthesia: No History of Problems with Anesthesia: No NPO: Yes ASA Class: IV and Emergency Final Preanesthetic Review: Meds/Allgs Chart Reviewed, Consent Obtained/Reviewed and Anes Risks/Benef Reviewed Patient Risk: High Procedure Risk: Intermediate Anesthetic Plan Anesthetic Plan: MAC: and Agree w/ Assess. and Plan Disposition: Standard PACU and Inp. Admit - IMC
--- NOTE | 2023-03-11 11:46 | PM.OP ---
Brief Operative Note Date of Service: 03/11/23 Pre-op diagnosis: rectal bleeding Post-op diagnosis: same Procedure: colonoscopy Surgeon: Sudarshan Briones Anesthesia: MAC Was an [employer] Project Manager used for this Procedure?: No Estimated blood loss (mL): 2 Pathology: other Condition: stable Disposition: PACU
--- NOTE | 2023-03-11 11:46 | PM.EVENT ---
Event Note Date of Service: 03/11/23 Event Note: Colonoscopy note dictated Colonoscopy shows no active bleeding. Scattered diverticulosis moderate internal hemorrhoids sigmoid biopsies taken to r/o microscopic colitis. Rec: advance diet. f/u bx results. no contraindications to anticoagulation. Time Spent With Patient Time: Total time managing care of this patient today ____ minutes.
--- NOTE | 2023-03-11 12:46 | OP_ITS ---
DATE OF SERVICE: 03/11/2023 SURGEON: Sudarshan Briones MD INDICATIONS: Rectal bleeding. PREOPERATIVE DIAGNOSIS: POSTOPERATIVE DIAGNOSIS: PROCEDURE PERFORMED: Colonoscopy to the terminal ileum with biopsy. ESTIMATED BLOOD LOSS: COMPLICATIONS: ANESTHESIA: Monitored anesthesia care. ASSISTANTS: SPECIMENS: DESCRIPTION OF PROCEDURE: A history and physical was performed. The risks and benefits of the procedure were explained to the patient. Informed consent was obtained. The patient was placed in the left lateral decubitus position. A digital rectal exam was performed and was found to be normal. The Olympus pediatric video colonoscope was introduced into the rectum and advanced to the cecum without difficulty. The cecum was identified by transillumination, palpation, and identification of ileocecal valve. Examination was performed. The scope was removed. She tolerated the procedure well and was returned to the recovery area in stable condition. FINDINGS: The terminal ileum was examined for approximately 10 cm and appeared normal. No blood was present in the terminal ileum. The visualized colonic mucosa was within normal limits without evidence of masses or ulcers. There were a few diverticula in the right colon and mild diverticulosis involving the sigmoid. No active bleeding was identified. There were a few flecks of old blood in the colon, but no active bleeding seen. Retroflexed examination showed moderate-sized internal hemorrhoids. No colitis was identified. Random sigmoid biopsies were obtained to rule out microscopic colitis. IMPRESSION: Normal colonoscopy. RECOMMENDATION: 1. Follow up the biopsy results. 2. No contraindications to beginning anticoagulation if necessary. 3. Repeat colonoscopy in 5 years based on family history of colon cancer and personal history of colon polyps. MD PETER Stevenson/MORGANL / [id number]
[2023-03-11] MEDS: Digoxin 0.5 MG/2 ML AMPUL 0.25 MG IVPUSH ×2 (13:30→20:08)
--- NOTE | 2023-03-11 14:56 | P.PNIM_ITS ---
Subjective Subjective Date of Service: 03/11/23 Interval History: afib , Gi bleed Review of Systems she said she had still bleedin no fever still tachy but no new symptoms Physical Exam Vital Signs: Vital Signs: Last Vital Signs Temp 96.4 F L 03/11/23 12:30 Pulse 131 H 03/11/23 12:30 Resp 18 03/11/23 12:30 BP 116/63 03/11/23 12:30 Pulse Ox 95 03/11/23 12:30 O2 Del Method Room Air 03/11/23 12:30 O2 Flow Rate 2 03/11/23 12:19 BMI result Body Mass Index 28.8 Appearance: Alert.? Oriented X3.? not in distress.? cvs: irregular rythem, [id number] . res: clear to auscultation ,no rhonchii or wheezing abd: no rebound or guarding ,nt, bs present. ext pulses present , no cyanosis. neuro: axo3 , nonfocal. Objective Data Active Medications Acetaminophen (Acetaminophen 325 Mg Tablet) 650 mg PO Q6H PRN PRN Reason: Pain, Mild (Pain Scale 1-3) Digoxin (Digoxin 0.5 Mg/2 Ml Ampul) 0.25 mg IVPUSH Q6H [facility] [place] Stop: 03/12/23 01:16 Last Admin: 03/11/23 13:30 Dose: 0.25 mg Documented By: JOSEPH Docusate Sodium (Docusate Sodium 100 Mg Capsule) 100 mg PO DAILY PRN PRN Reason: Constipation Folic Acid (Folic Acid 1 Mg Tablet) 1 mg PO DAILY [facility] [place] Last Admin: 03/11/23 11:44 Dose: Not Given Documented By: JOSEPH Non-Admin Reason: going for endo Metoprolol Tartrate (Metoprolol Tartrate 50 Mg Tablet) 50 mg PO QID [facility] [place]; Protocol Last Admin: 03/11/23 13:31 Dose: 50 mg Documented By: JOSEPH Ondansetron HCl (Ondansetron Hcl 4 Mg/2 Ml Vial) 4 mg IVPUSH Q8H PRN PRN Reason: Nausea and Vomiting Pantoprazole Sodium (Pantoprazole Sodium 40 Mg/10 Ml Vial) 40 mg IVPUSH BID@0630,1630 [facility] [place] Last Admin: 03/11/23 06:29 Dose: 40 mg Documented By: LAURA Pharmacy Consult (Consult Rx Etoh Phenob Im/Po) 1 each MISCELLANE ONCE PRN; Protocol PRN Reason: Consult order Thiamine HCl (Thiamine Hcl 100 Mg Tablet) 100 mg PO DAILY [facility]LLERMINA Last Admin: 03/11/23 11:44 Dose: Not Given Documented By: JOSEPH Non-Admin Reason: going fo colonoscopy Labs 03/11/23 08:45 03/11/23 06:42 Labs: Laboratory Results - last 24 hr 03/11/23 03/11/23 06:42 06:42 MCV 95.8 MCH 31.1 MCHC 32.4 RDW 12.9 Plt Count TNP MPV TNP Absolute Nucleated RBC 0.000 Nucleated RBC % (auto) 0.0 Anion Gap 11 L Estim Creat Clear Calc 91.7 Estimated GFR > 60 Random Glucose 96 Calcium 8.7 Total Bilirubin 1.1 H AST 30 ALT 50 H Alkaline Phosphatase 69 Total Protein 6.2 L Albumin 3.6 Assessment and Plan (1) Afib: Status: Acute Assessment and Plan: 62-year-old female with past medical history of hyperlipidemia comes into the hospital with complaints of bright red blood per rectum found to have mild applications a flutter with RVR - EKG showing a flutter with 1-2? AV conduction - chads Vasc score of 1 received cardizem drip, continue metoprolol,added digoxin because hr 110-130. echocardiogram, cardiology consult-as above ,added digoxin alcohol abuse with withdrawal - patient drinks nightly, no history of withdrawals off pheonbarbital lft's improving -may be possible sec to alcohol use. 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 gastroenterology consulted-s/p colonoscopy:Random sigmoid biopsies were obtained to rule out microscopic colitis. recomendations:1. Follow up the biopsy results. 2. No contraindications to beginning anticoagulation if necessary. 3. Repeat colonoscopy in 5 years based on family history of colon cancer and personal history of colon polyps. d/w GI and cardio-added AC with eliquis. infrarenal AAA - no rupture - 5.6 cm vascular surgery consulted-outpatient followup DVT prophylaxis: SCDs inpatient need -a flutter with RVR -require iv rate conrtol meds ,moniter h/h started eliquis. Time Spent With Patient Time: Total time managing care of this patient today ____ minutes. Quality Stroke Does the patient have a stroke diagnosis?: No VTE Prior VTE?: No VTE Risk Level:: Medical - low VTE Device Contraindication: N/A - Device Ordered VTE Drug Contraindication: Treatment Not Indicated
--- NOTE | 2023-03-11 19:12 | PC.NURSE ---
Pt off unit for colonoscopy this am tolerated well returns in afternoon tolerating diet. Remains Aflutter on monitor low 100's IV digoxin given per order with little effect this afternoon. Denies pain/discomfort. Will continue to monitor and report changes
[2023-03-11] MEDS: Apixaban 5 MG TABLET PO (20:04)
[2023-03-12] VITALS: BP 130/80; PULSE 116; RESP 20; TEMP 36.7; O2SAT 97
[2023-03-12] MEDS: Digoxin 0.5 MG/2 ML AMPUL 0.25 MG IVPUSH (01:23)
--- NOTE | 2023-03-12 02:04 | PC.NURSE ---
Pt A&OX4, pleasant and cooperative. VSS. Telemetry Aflutter 100-136. IV Digoxin as ordered X 3 doses. Pt denies cp/palpitations. No pain/sob. Pt given printouts regarding Metoprolol and Eloquis. Pt sleeping comfortably in bed with call treviño within reach. Ambulates indepedently.
[2023-03-12 04:00] VITALS: BP 122/83; PULSE 105; RESP 20; TEMP 36.3; O2SAT 97
[2023-03-12] MEDS: Pantoprazole Sodium 40 MG/10 ML VIAL IVPUSH (05:44)
[2023-03-12 08:00] VITALS: BP 146/82; PULSE 77; RESP 20; TEMP 37; O2SAT 97
[2023-03-12 08:35] LABS: Hematocrit 42.3 % (37.0-47.0)
[2023-03-12] MEDS: Digoxin 0.125 MG TABLET PO (08:51)
[2023-03-12] MEDS: Metoprolol Tartrate 50 MG TABLET PO (08:51)
[2023-03-12] MEDS: Thiamine HCL 100 MG TABLET PO (08:51)
[2023-03-12] MEDS: Apixaban 5 MG TABLET PO (08:51)
[2023-03-12] MEDS: Folic Acid 1 MG TABLET PO (08:51)
--- NOTE | 2023-03-12 09:38 | PM.PNCARD ---
Subjective Subjective Date of Service: 03/12/23 Interval history: Patient states she feels fine. She does not really have any cardiac symptoms. Review of Systems Review of Systems Yes all other systems are reviewed and are negative Constitutional: Reports as per HPI and Reports no additional constitutional complaints Eyes: Reports as per HPI and Denies no additional eye complaints Denies system reviewed and no additional complaints, except as documented and Reports as per HPI Cardiovascular: Reports as per HPI, Reports no additional cardiovascular complaints, Denies acrocyanosis, Denies cool extremities, Denies chest pain, Denies leg edema, Denies lightheadedness, Denies palpitations and Denies dyspnea Respiratory: Reports as per HPI, Denies no additional respiratory complaints and Denies dyspnea Gastrointestinal: Reports as per HPI and Denies no additional gastrointestinal complaints Genitourinary: Reports as per HPI Musculoskeletal: Reports no additional musculoskeletal complaints and Reports as per HPI Skin/Breast: Reports system reviewed and no additional complaints, except as docu Reports system reviewed and no additional complaints, except as documented and Reports as per HPI Psychiatric: Reports no additional psychiatric complaints and Reports as per HPI Endocrine: Reports no additional endocrine complaints, Reports as per HPI and Denies palpitations Hematologic/Lymphatic: Reports no additional hematologic/lymphatic complaints and Reports as per HPI Allergic/Immunologic: Reports no additional allergic/immunologic complaints and Reports as per HPI Physical Exam Vital Signs: Last Vital Signs Temp 98.6 F 03/12/23 08:00 Pulse 77 03/12/23 08:00 Resp 20 03/12/23 08:00 BP 146/82 H 03/12/23 08:00 Pulse Ox 97 03/12/23 08:00 O2 Del Method Room Air 03/12/23 08:00 O2 Flow Rate 2 03/11/23 12:19 BMI result Body Mass Index 28.8 Const General: comfortable and no acute distress Orientation/consciousness: patient oriented x3 HEENT Other: Unremarkable Head: Yes normal to inspection Neck Neck: Yes normal visual inspection Chest Chest palpation & inspection: normal inspection of the chest Resp Auscultation: clear to auscultation bilaterally Cardio Palpation: normal PMI Heart sounds: S1 normal heart sound present, S2 normal heart sound present, no gallops, no murmurs and no rubs GI Palpation (GI): Soft to palpation Back/Spine/Pelvis Other: unremarkable Skin General skin exam: no rashes or lesions noted Neuro General: patient oriented x3 Extrem General: Yes normal to inspection Psych Mental Status: mental status grossly normal Objective Labs and Meds 03/12/23 08:20 03/11/23 06:42 Lab results: Laboratory Results - last 24 hr 03/12/23 08:20 Hgb 14.0 Hct 42.3 Progress Note: A&P Assessment and plan (1) Atrial fibrillation with RVR: Status: Acute (2) Alcohol abuse with withdrawal: Status: Acute (3) Bright red blood per rectum: Status: Acute (4) Infrarenal abdominal aortic aneurysm (AAA) without rupture: Status: Acute Plan Per GI note, normal colonoscopy and no contraindications start anticoagulation. On telemetry, she is in atrial flutter rate of about 100/Min. Currently on a combination of beta-blockers as well as digoxin. Discussed with patient about options including CHRIS cardioversion during this hospitalization as well as 4 weeks of anticoagulation followed by cardioversion. She would like to do the latter. Also need to ensure that she can take anticoagulation without issues due to GI bleeding. Hence after long discussion, we decided that she will go home on rate control medications and anticoagulation and then we can plan cardioversion after 4 weeks of anticoagulation. In the interim, avoid any form of strenuous exertion as that will increase the heart rates. She understands. Agrees to do so. Avoid alcohol completely for now. Aortic aneurysm will need to be followed up in the future through vascular surgery. Follow-up will be arranged. Time Spent With Patient Time: Total time managing care of this patient today ____ minutes. Progress Note: Quality Stroke Does the patient have a stroke diagnosis?: No Procedures Date of Service Date of Service: 03/12/23
--- NOTE | 2023-03-12 10:25 | MHC.CM.PN ---
Addendum entered by Alka Dimas 03/12/23 11:08: Per MD Patient will discharge on Xaralto. A coupon was provided to the patient. She has been instructed to take at 9pm this evening. She will take it daily with dinner, starting tomorrow. Original Note: Per MD rounds discharge today to home self care. Patient will discharge on Anticoagulation therapy. MD has prescribed Eliquis. Patients insurance covers Xaralto. Waiting to hear if cardiology approves Xaralto for AC therapy. DP home self care. Patient spouse will provide transportation home.
--- NOTE | 2023-03-12 10:41 | HO.VASCPN ---
Subjective Subjective Date of Service: 03/12/23 Patient reports: no new complaints and feels better Interval history: Very pleasant 62-year-old female presents for follow-up regarding abdominal aortic aneurysm. In terms of the aortic aneurysm she is asymptomatic. She did undergo colonoscopy yesterday which she appears to be doing relatively well. In addition her hemoglobin remains stable. She is also being followed by the cardiology team to get her AFib with RVR back under control. Currently pulses a little bit more stable at 77. Physical Exam Vital Signs: Vital Signs: Last Vital Signs Temp 98.6 F 03/12/23 08:00 Pulse 77 03/12/23 08:00 Resp 20 03/12/23 08:00 BP 146/82 H 03/12/23 08:00 Pulse Ox 97 03/12/23 08:00 O2 Del Method Room Air 03/12/23 08:00 O2 Flow Rate 2 03/11/23 12:19 BMI result Body Mass Index 28.8 Const: General: cooperative, healthy appearing and comfortable Orientation/consciousness: oriented to person, oriented to place and oriented to time HEENT: Head: Yes normal to inspection Neck: Neck: Yes normal visual inspection Carotids: no bruits Chest: Chest palpation & inspection: normal inspection of the chest Resp: Effort & Inspection: normal respiratory effort and able to speak in complete sentences Auscultation: clear to auscultation bilaterally, no crackles, no rales, no rhonchi and no wheezes Cardio: Rate: regular rate Rhythm: regular rhythm Heart sounds: S1 normal heart sound present and S2 normal heart sound present Bruits: no carotid bruits Peripheral pulses: Peripheral pulses 2+ throughout GI: Inspection: Yes normal to inspection Skin: Wounds: no wounds Hair: normal Neuro: General: oriented to person, oriented to place and oriented to time Cranial nerves: Yes CN's II-XII intact bilaterally and Yes Normal hearing present Cognition (Neuro): normal cognition Motor exam (neuro): 5/5 motor strength present throughout Extrem: Other: venous exam: No significant superficial varicosities or spider telangiectasias, minimal edema General: No clubbing, No cyanosis and No edema Psych: Appearance: grossly normal Mental Status: mental status grossly normal Speech and movement: Normal speech and movement present Progress Note: A&P Assessment and plan (1) Infrarenal abdominal aortic aneurysm (AAA) without rupture: Status: Acute Plan In short patient is stable from an aortic perspective. She will require endovascular aortic aneurysm repair with possible open repair. Risks benefits complications of the procedure were discussed in detail with the patient. Prior to the OR she will require cardiac risk stratification. Colonoscopy notes were noted. One stable from a cardiology standpoint she is stable from our perspective for discharge. We can schedule her electively as an outpatient. Thank you for allowing us to assist in her care. If there are any questions or concerns please do not hesitate to contact us. The patient had an opportunity to ask questions regarding the treatment plan. All questions were answered. Imaging studies, laboratory studies and physical exam results were discussed and reviewed in detail. No major barriers to understanding were identified. The patient expressed understanding and agreement with the above treatment plan. The patient is aware they should contact our office by phone for worsening of the current condition or the appearance of new symptoms. Thank you for allowing me to participate in the vascular care of this patient. If you have any questions or concerns regarding the treatment for the above condition please do not hesitate to contact me. The office telephone contact is [phone]. This note is constructed using voice recognition software. While every effort has been made to ensure accuracy, assistant professor sculpture errors may have been included. Thank you for allowing me to participate in the care of your patient. Yours sincerely, Harry Duran MD, FACS, R.P.V.I. Time Spent With Patient Time: Total time managing care of this patient today ____ minutes. Procedures Date of Service Date of Service: 03/12/23 Quality Stroke Does the patient have a stroke diagnosis?: No VTE Prior VTE?: No VTE Risk Level:: Medical - low VTE Device Contraindication: N/A - Device Ordered VTE Drug Contraindication: Treatment Not Indicated
--- NOTE | 2023-03-12 10:53 | P.DS_ITS ---
DS: Providers Provider Date of Service: 03/12/23 Date of admission: 03/10/23 09:10 Date of discharge: 03/12/23 Primary care physician: Jose C Mohan MD Consults: 03/10/23 02:27 Consult to Gastroenterology Routine Consulting Provider: Tu Heard Reason for consultation: BRBPR Has provider been notified: No Consult to Vascular Surgery Routine Consulting Provider: [facility] [place] V[facility] Services Reason for consultation: 5.6 cm AAA 03/10/23 06:37 Consult to Cardiology Routine Consulting Provider: [facility] [place] Cardiovascular Services Reason for consultation: A flutter new onset DS: Diagnosis Discharge Diagnosis (1) Infrarenal abdominal aortic aneurysm (AAA) without rupture: Status: Acute (2) Afib: Status: Acute (3) Bright red blood per rectum: Status: Acute (4) Alcohol abuse with withdrawal: Status: Acute DS: Summary Hospital Course Hospital Course: 62-year-old female with no significant past medical history comes into the hospital with complaints of bright red blood per rectum.? Patient reports that it started yesterday, it appears to occur with every bowel movement.? She reports diffuse abdominal pain along with the bleeding, no nausea or vomiting, has no chest pain.? Patient reports that she was told she has arrhythmia but is not on any medications.? Patient reports no use of daily NSAIDs, reports that she takes ibuprofen may be few times a month.? Reports no aspirin daily.? She states that she drinks 1 glass of wine every night.? Although on arrival to the ED her alcohol level was 204. She otherwise denies any chest pain, no shortness of breath, no urinary symptoms and no lower extremity edema. ? On arrival to the ED patient found to have a heart rate in the 130s, in AFib with RVR, blood pressure stable Labs are significant for WBC count of 8.100 chronic INR of 0.9, labs otherwise unremarkable, stool occult blood negative Patient started on diltiazem drip and will be admitted for further management. Hospital course: Patient came to the hospital because of AFib with RVR, alcohol withdrawal, GI bleed, also found to have infrarenal AAA on abdominal imaging: Patient's AFib with RVR-treated with diltiazem drip, subsequently started on metoprolol and IV digoxin: Heart rate seems to be improving patient is asymptomatic. Strongly advised to avoid over-exertion. Patient will be going home on metoprolol 125 mg b.i.d. and digoxin 0.125 mg daily for heart rate control-patient may need cardioversion in 3-4 week outpatient as per Cardiology cardiology may arrange appointment for that. GI bleed: H&H stable, patient had colonoscopy seems fine-patient is to follow up with GI for: colon Biopsy results. moniter cbc outpatient . Alcohol withdrawal: Treated with phenobarb seems to be improved, patient was strongly advised to stay in from alcohol. Her initial LFTs were likely elevated secondary to alcohol use seems to be improving-monitor LFTs outpatient with PCP. have infrarenal AAA on abdominal imaging: seen by vascular -need outpatient management . If any new episode of bleeding or any chest pain or shortness of breath or any new symptoms- please go to the nearest emergency room for evaluation. Above management discussed with patient in detail length, she understand and in agreement with the above plan. plan: continue home on metoprolol 125 mg b.i.d. and digoxin 0.125 mg and xarelto 20 mg po daily . patient was strongly advised to stay in from alcohol. monitor LFTs outpatient . moniter cbc outpatient . have infrarenal AAA on abdominal imaging: seen by vascular -need outpatient management . follow up with GI ,PCP,Cardiology,vascualr as above. Time Spent with Patient Time attestation: Total time managing care of this patient today ____ minutes. Discharge coordination time: Greater than 30 minutes Quality: Safe Use of Opioids Does Pt have an Active Cancer Diagnosis on the Problem List?: No Quality: Stroke Does the patient have a stroke diagnosis?: No Physical Exam Vital Signs: Vital Signs: Last Vital Signs Temp 98.6 F 03/12/23 08:00 Pulse 77 03/12/23 08:00 Resp 20 03/12/23 08:00 BP 146/82 H 03/12/23 08:00 Pulse Ox 97 03/12/23 08:00 O2 Del Method Room Air 03/12/23 08:00 O2 Flow Rate 2 03/11/23 12:19 BMI result Body Mass Index 28.8 Appearance: Alert.? Oriented X3.? not in distress.? cvs: irregular rythem, [id number] . res: clear to auscultation ,no rhonchii or wheezing abd: no rebound or guarding ,nt, bs present. ext pulses present , no cyanosis. neuro: axo3 , nonfocal. DS: Data Data Completed and Pending Pending studies at discharge: Pending at discharge 03/11/23 11:40 Surgical [PTH] Routine Labs on day of discharge: Laboratory Results - last 24 hr 03/12/23 08:20 Hgb 14.0 Hct 42.3 Imaging Chest x-ray: Radiologist's impression: ITS Impressions Abdomen/Pelvis CT 03/09/23 22:53 IMPRESSION: 1. No acute findings identified in the abdomen/pelvis. 2. Infrarenal abdominal aortic aneurysm measuring up to approximately 5.6 cm in diameter. Recommend referral to vascular specialist. Reference: J Am Lamar Radiol 2013; 10 (10): 789-794. Discharge Plan Discharge Anticipated Discharge Date/Time: 03/12/23 10:45 Patient Disposition: Home, Self-Care Discharge Diagnosis: afib ,Gi bleed ,alcohol abuse ,elevated lft's. Referrals: Jose C Mohan MD [Primary Care Provider] - 1 Week Harry Duran MD [Physician] - 1 Week (follow up outpatient) Tu Heard [Physician] - 1 Week (follow up outpatient) Discharge Medications: New metoprolol tartrate 100 mg Tablet 100 mg PO BID Qty: 60 0RF Protocol: Hold for SBP/HR < HOLD for SBP < : 90 HOLD for HR < : 60 digoxin 125 mcg (0.125 mg) Tablet 0.125 mg PO DAILY Qty: 30 0RF metoprolol tartrate 25 mg tablet 25 mg PO BID Qty: 60 0RF Xarelto 20 mg tablet 20 mg PO DAILY Qty: 30 0RF Rx Instructions: must administer with evening meal Continued acetaminophen [Tylenol] 325 mg Tablet 650 mg PO Q6H PRN (Reason: pain) Discharge Orders: Discharge Order (Routine); Ordered 03/12/23 Ordered By: Markell Marrufo Diet: Advance to usual diet Activity on Discharge: As tolerated Stand Alone Forms: Patient Portal Discharge page Care Plan Goals: Patient came to the hospital because of AFib with RVR, alcohol withdrawal, GI bleed, also found to have infrarenal AAA on abdominal imaging: Patient's irregular heartbeat (AFib with RVR)-treated with diltiazem drip, subsequently started on metoprolol and IV digoxin: Heart rate seems to be improving patient is asymptomatic. Strongly advised to avoid over-exertion. Patient will be going home on metoprolol 125 mg b.i.d. and digoxin 0.125 mg daily for heart rate control-patient may need cardioversion in 3-4 week outpatient as per Cardiology cardiology may arrange appointment for that. GI bleed: H&H stable, patient had colonoscopy seems fine-patient is to follow up with GI for: colon Biopsy results. Alcohol withdrawal: Treated with phenobarb seems to be improved, patient was strongly advised to stay in from alcohol. Her initial LFTs were likely elevated secondary to alcohol use seems to be improving-monitor LFTs outpatient with PCP. follow up with vascular Dr Duran for AAA infrarenal. If any new episode of bleeding or any chest pain or shortness of breath or any new symptoms- please go to the nearest emergency room for evaluation. follow cbc ,Lft's outpatient. Above management discussed with patient in detail length, she understand and in agreement with the above plan. Health Concerns: As above. Plan of Treatment: As above. Assessment: As above.
[2023-03-12] MEDS: Metoprolol Tartrate 25 MG TABLET 75 MG PO (11:15)
[2023-03-12] MEDS: dilTIAZem HCL CD 120 MG CAP.ER.DEG PO (11:15)
== END 2023-03-12 11:40 | disposition home or self-care (01) | DRG 241 ==
LOC: HO.ED 03-10 01:12 → HO.EDOVER 03-10 02:34 → HO.IMC 03-10 14:46
PROVIDERS: Internal Medicine Gastroenterology; Admitting Provider Internal Medicine; Emergency Provider Emergency Medicine; PCP Family Medicine; Visit Provider Internal Medicine
PROC: 0DJD8ZZ Inspection of Lower Intestinal Tract, Via Natural or Artificial Opening Endoscopic (ICD-10-PCS; CPT 45378; principal; 2023-03-11 11:00)
DX: K29.21 Alcoholic gastritis with bleeding (principal); K57.31 Diverticulosis of large intestine without perforation or abscess with bleeding; I42.6 Alcoholic cardiomyopathy; F10.139 Alcohol abuse with withdrawal, unspecified; I48.92 Unspecified atrial flutter; K64.8 Other hemorrhoids; E78.2 Mixed hyperlipidemia; F10.129 Alcohol abuse with intoxication, unspecified; I71.43 Infrarenal abdominal aortic aneurysm, without rupture; Y90.7 Blood alcohol level of 200-239 mg/100 ml; Z85.038 Personal history of other malignant neoplasm of large intestine; Z87.891 Personal history of nicotine dependence; Z79.899 Other long term (current) drug therapy
CPT/HCPCS: 36415; 74176; 80048; 80053; 80307; 81001; 82272; 84443; 84484; 85014; 85018; 85025; 85027; 85610; 85730; 86850; 86900; 86901; 88305; 93005; 93306; 99285; J1160; J2250; Q9957

== ENCOUNTER → 2023-03-10 02:27 | Outpatient (BNV) | payer OTHER, SELFPAY | PROVIDERS: Admitting Provider Internal Medicine; Emergency Provider Emergency Medicine; PCP Family Medicine; Visit Provider Internal Medicine | DX: I71.43 Infrarenal abdominal aortic aneurysm, without rupture (principal); I48.91 Unspecified atrial fibrillation; F10.139 Alcohol abuse with withdrawal, unspecified; K62.5 Hemorrhage of anus and rectum | CPT/HCPCS: 99223; 99232; 99239; 99499 ==

== ENCOUNTER 2023-03-10 09:10 | Outpatient (BNV) | payer OTHER, SELFPAY | END 2023-03-11 07:00 | PROVIDERS: Admitting Provider Internal Medicine; Emergency Provider Emergency Medicine; PCP Family Medicine; Visit Provider Internal Medicine | DX: I34.0 Nonrheumatic mitral (valve) insufficiency (principal); I48.92 Unspecified atrial flutter | CPT/HCPCS: 93306 ==

== ENCOUNTER → 2023-03-10 09:10 | Outpatient (BNV) | payer OTHER, SELFPAY | PROVIDERS: Admitting Provider Internal Medicine; Emergency Provider Emergency Medicine; PCP Family Medicine; Visit Provider Surgery Vascular Surgery | DX: I71.43 Infrarenal abdominal aortic aneurysm, without rupture (principal) | CPT/HCPCS: 99232 ==

== ENCOUNTER → 2023-03-10 09:10 | Outpatient (BNV) | payer OTHER, SELFPAY | PROVIDERS: Admitting Provider Internal Medicine; Emergency Provider Emergency Medicine; PCP Family Medicine; Visit Provider Internal Medicine | DX: I48.91 Unspecified atrial fibrillation (principal); I71.43 Infrarenal abdominal aortic aneurysm, without rupture; F10.139 Alcohol abuse with withdrawal, unspecified; K62.5 Hemorrhage of anus and rectum | CPT/HCPCS: 99223; 99232 ==

== ENCOUNTER → 2023-03-15 14:31 | Outpatient (REF) | payer OTHER, SELFPAY ==
--- NOTE | 2023-03-12 12:11 | HO.POSTANES ---
Post Anesthesia Evaluation Post Anesthesia Evaluation Date of Service: 03/12/23 Anesthesia: Monitored Mental Status: Awake Pain Control: Satisfactory Nausea/Vomiting: None Hydration: Adequate Anesthesia-Related Issues: No Anes. Related Issues
--- NOTE | 2023-03-15 14:34 | HM_ITS ---
* Total monitoring time about 3 days. * Underlying rhythm is atrial flutter. Average ventricular rate 107/Min. Range 66 to 150/Min. * About 42% the time, rate greater than 100/Min. * No significant pauses or AV blocks. * One patient marker associated with atrial flutter. No diary events. MTDD
== END ==
LOC: HO.CARD 14:31
PROVIDERS: PCP Family Medicine; Visit Provider Internal Medicine
DX: I48.92 Unspecified atrial flutter (principal)
CPT/HCPCS: 93242

== ENCOUNTER → 2023-03-15 14:34 | Outpatient (BNV) | payer OTHER, SELFPAY | PROVIDERS: PCP Family Medicine; Visit Provider Internal Medicine | DX: I48.92 Unspecified atrial flutter (principal) | CPT/HCPCS: 93244 ==

== ENCOUNTER 2023-03-18 08:54 | Outpatient (AMB) | payer OTHER, SELFPAY ==
--- NOTE | 2023-03-18 08:56 | A.OFFVIS_ITS ---
Intake Vital Signs 03/18/23 08:57 Height 6 ft 1 in Weight 213 lb 6 oz BMI 28.1 BP 124/82 Blood Pressure Location Rt brachial Position Sitting Pulse 43 L Pulse Source Pulse Oximeter Pulse Oximetry (%) 97 Oxygen Delivery Method Room Air Intake Visit Reasons: Hospital follow up AAA Intake Note: Pt presents to the office today for a hospital follow up for AAA. Pt states she is feeling well throughout this whole diagnosis. Allergies doxycycline Allergy (Verified 03/18/23 08:59) vomiting really bad morphine Allergy (Verified 03/18/23 08:59) cant breath prednisone Allergy (Verified 03/18/23 08:59) afib sulfamethoxazole [From Bactrim] Allergy (Verified 03/18/23 08:59) Hives trimethoprim [From Bactrim] Allergy (Verified 03/18/23 08:59) Hives HPI Hospital follow up AAA HPI Details very pleasant 62-year-old female presents for follow-up evaluation regarding abdominal aortic aneurysm. She actually presented to the hospital with evidence of a GI bleed. She had undergone a have a colonoscopy with no significant findings and of note her hemoglobin remained stable throughout the entire hospital stay. She was seen and evaluated by Cardiology as well and currently is undergoing evaluation with a Holter monitor. She now presents for routine follow-up evaluation regarding her aortic aneurysm. [facility] Medical History Alcohol abuse with withdrawal Irritable bowel syndrome Mixed hyperlipidemia Smoker Surgical History History of fusion of lumbar spine History of skin graft History of tonsillectomy Hx of colonoscopy Social History Household Members: Spouse Household Members Other:: 2 Housing: House Do you presently have visiting nurse or other home services: No Alcohol intake: current Alcohol intake frequency: a few times a week Patient Tobacco Use Status: Former Tobacco user Quit Date: 1 yr ago Tobacco use type: Cigarette e-Cigarette/Vaping Use: Never Used Second Hand Smoke Exposure: No Advance Directives Date on File: 03/10/23 service: No Current occupational status: employed Current occupational exposures/hazards: No Cognitive needs: No Hearing needs: No Vision needs: No Review of Systems Const All systems reviewed & are unremarkable except as noted in HPI and below Reports no additional complaints ENT Reports Normal hearing present Card Denies chest pain, Denies chest pain at rest, Denies chest pain with activity and Denies pedal edema Resp Denies cough GI Denies abdominal pain Musc Denies abnormal gait, Denies muscle cramps and Denies radiating pain into limb Skin/Breast Denies skin ulcer and Denies wounds Neuro Reports Normal hearing present and Denies abnormal gait Psych Reports no additional complaints Physical Exam Vital Signs: Last Vital Signs Pulse 43 L 03/18/23 08:57 BP 124/82 03/18/23 08:57 Pulse Ox 97 03/18/23 08:57 Oxygen Delivery Method Room Air 03/18/23 08:57 BMI result Body Mass Index 28.1 Const General: cooperative, healthy appearing and comfortable Orientation/consciousness: oriented to person, oriented to place and oriented to time HEENT Head: Yes normal to inspection Neck Neck: Yes normal visual inspection Carotids: no bruits Chest Chest palpation & inspection: normal inspection of the chest Resp Effort & Inspection: normal respiratory effort and able to speak in complete sentences Auscultation: clear to auscultation bilaterally, no crackles, no rales, no rhonchi and no wheezes Cardio Rate: regular rate Rhythm: regular rhythm Heart sounds: S1 normal heart sound present and S2 normal heart sound present Bruits: no carotid bruits Peripheral pulses: Peripheral pulses 2+ throughout GI Inspection: Yes normal to inspection Skin Wounds: no wounds Hair: normal Neuro General: oriented to person, oriented to place and oriented to time Cranial nerves: Yes CN's II-XII intact bilaterally and Yes Normal hearing present Cognition (Neuro): normal cognition Motor exam (neuro): 5/5 motor strength present throughout Extrem Other: venous exam: No significant superficial varicosities or spider telangiectasias, minimal edema General: No clubbing, No cyanosis and No edema Psych Appearance: grossly normal Mental Status: mental status grossly normal Speech and movement: Normal speech and movement present Results Reviewed Results Reviewed: CT scan dated 03/09/2023 demonstrates a 5.6 cm aortic aneurysm. Written report and images were reviewed. 3D reconstruction of this was also created. Assessment & Plan Assessment & Plan (1) Infrarenal abdominal aortic aneurysm (AAA) without rupture: Code(s): I71.43 - Infrarenal abdominal aortic aneurysm, without rupture Plan: In short patient has an infrarenal abdominal aortic aneurysm. She will require endovascular aortic aneurysm repair with possible open repair. Risks benefits complications of the procedure were discussed in detail with the patient. She will require cardiac risk stratification prior to surgery. This was all discussed in detail with the patient and the patients at bedside. We will schedule as soon as soon as possible. If there are any questions or concerns please do not hesitate to contact us. Coding Level of Care Code Est Pt Level 4 (91370) Diagnoses Infrarenal abdominal aortic aneurysm (AAA) without rupture I71.43
[2023-03-18 08:57] VITALS: BP 124/82; PULSE 43; O2SAT 97; BMI 28.1
== END 2023-03-18 10:15 | disposition home or self-care (01) ==
PROVIDERS: PCP Family Medicine; Visit Provider Surgery Vascular Surgery
DX: I71.43 Infrarenal abdominal aortic aneurysm, without rupture (principal)
CPT/HCPCS: 99214

== ENCOUNTER → 2023-03-18 08:54 | Outpatient (BNVA) | payer OTHER, SELFPAY | PROVIDERS: PCP Family Medicine; Visit Provider Surgery Vascular Surgery ==

== ENCOUNTER 2023-04-08 09:19 | Outpatient (AMB) | payer OTHER, SELFPAY ==
[2023-04-08 09:22] VITALS: BP 126/62; PULSE 67; O2SAT 98; BMI 28.0
--- NOTE | 2023-04-08 09:22 | A.OFFPC_ITS ---
Vital Signs 04/08/23 09:22 Height 6 ft 1 in Weight 212 lb 2 oz BMI 28.0 BP 126/62 Blood Pressure Location Lt brachial Position Sitting Pulse 67 Pulse Source Pulse Oximeter Pulse Oximetry (%) 98 Oxygen Delivery Method Room Air Intake Visit Reasons: [facility] 03/12/23, Rectal Bleeding A Fib Intake Note: Patient is here for hospital discharge follow up visit. She was in for rectal b leeding and AFib. Allergies doxycycline Allergy (Severe, Verified 04/08/23 09:26) Vomiting morphine Allergy (Intermediate, Verified 04/08/23 09:26) Shortness of Breath prednisone Allergy (Intermediate, Verified 04/08/23 09:26) afib sulfamethoxazole [From Bactrim] Allergy (Intermediate, Verified 04/08/23 09:26) Hives trimethoprim [From Bactrim] Allergy (Intermediate, Verified 04/08/23 09:26) Hives Medication List - Last Reconciled 04/08/23 by Jose C Mohan MD digoxin 0.125 mg PO QPM diltiazem HCl 240 mg PO DAILY metoprolol tartrate 100 mg See Protocol PO BID metoprolol tartrate 25 mg PO BID rivaroxaban (Xarelto) 20 mg PO DAILY Tobacco use date assessed: 04/08/23 Dental Screening Dental Screen Date: 04/08/23 Did you have a dental visit in the last 12 months?: Yes Did you have a dental problem in the last 6 months where you did not have access to dental care?: No Was dental information given to patient?: Patient has dentist HPI [facility] 03/12/23, Rectal Bleeding A Fib HPI Details 62 y/o female presents to f/u [facility] visit 03/12/23 for rectal bleeding and AFib. She had come to the hospital due to AFib with RVR, alcohol withdrawal, GI bleed. Was found to have infrarenal AAA on abd. imaging. Patient's irregular heartbeat (AFib with RVR)-treated with diltiazem drip, subsequently started on metoprolol and IV digoxin. Pt was sent home on metoprolol 125mg b.i.d. and digoxin 0.125 mg daily. Cardiology recommended cardioversion in 3-4 weeks. [facility] Medical History Infrarenal abdominal aortic aneurysm (AAA) without rupture Collapse of lung Hx MRSA infection History of COVID-19 GI bleed Atrial fibrillation Irritable bowel syndrome Mixed hyperlipidemia Surgical History Hx of right cataract extraction Hx of colonoscopy History of tonsillectomy History of fusion of lumbar spine History of skin graft Social History Household Members: Spouse Household Members Other:: 2 Housing: House Do you presently have visiting nurse or other home services: No Alcohol intake: current Alcohol intake frequency: a few times a week Patient Tobacco Use Status: Former Tobacco user Quit Date: 2021 Tobacco use type: Cigarette e-Cigarette/Vaping Use: Never Used Second Hand Smoke Exposure: No Advance Directives Date on File: 03/10/23 service: No Current occupational status: employed Current occupational exposures/hazards: No Cognitive needs: No Hearing needs: No Vision needs: No Questionnaire Thrive Questionnaire Date Thrive assessed: 03/10/23 JASWINDER-7 AMB Questionnaire JASWINDER-7 Date JASWINDER - 7 assessed: 08/05/21 Source: Developed by Drs. Tu Kiser, Eli Reinoso, Derrick Strong and colleagues, with an educational anali from [employer]. Review of Systems Const Denies chills, Denies fatigue, Denies fever(s), Denies headache(s) and Denies weakness ENT Denies dizziness and Denies headache(s) Card Denies chest pain, Denies lightheadedness, Denies dyspnea and Denies other (Palpitations) Resp Denies cough, Denies dyspnea, Denies wheezing and Denies other ( shortness of breath) Musc Denies numbness and Denies tingling Neuro Denies dizziness, Denies headache(s), Denies numbness, Denies tingling, Denies paresthesias and Denies weakness Psych Denies anxiety and Denies depression Endo Denies fatigue Aller/Immun Denies wheezing Physical exam (Primary Care) Vital Signs: Last Vital Signs Pulse 67 04/08/23 09:22 BP 126/62 04/08/23 09:22 Pulse Ox 98 04/08/23 09:22 Oxygen Delivery Method Room Air 04/08/23 09:22 BMI result Body Mass Index 28.0 Tobacco/Smoking Status: Tobacco use Status Tobacco use date assessed 04/08/23 04/08/23 09:32 Patient Tobacco Use Status Former Tobacco user 04/08/23 09:32 Tobacco use type Cigarette 04/08/23 09:32 e-Cigarette/Vaping Use Never Used 04/08/23 09:32 Thrive Assessment: Date of Thrive Assessment Date Thrive assessed 03/10/23 04/08/23 09:32 Const General: no acute distress and well developed Nutritional Appearance: well nourished Orientation/consciousness: patient oriented x3 HENMT Head: Yes normocephalic and Yes atraumatic Eyes General: appearance normal, both eyes and all related structures Pupils: Equal, round and reactive pupils present EOM: EOMs intact bilaterally Resp Effort & Inspection: normal respiratory effort Auscultation: clear to auscultation bilaterally Cardio Rate: regular rate Rhythm: abnormal rhythm Heart sounds: S1 normal heart sound present, S2 normal heart sound present, no gallops, no murmurs and no rubs Neuro General: patient oriented x3 and gait normal Cranial nerves: Yes Equal, round and reactive pupils present Psych Affect: normal affect Assessment and Plan Assessment & Plan (1) Atrial flutter: Code(s): I48.92 - Unspecified atrial flutter Plan: Recent hospitalization for bright red blood per rectum and was found to be in atrial flutter with rapid ventricular rate. HR: 133 Initially controlled with IV diltiazem. Patient was discharged with metoprolol, digoxin and diltiazem. Heart rate on discharge was 77 No shortness of breath. Cardiac auscultation reveals irregularly irregular rhythm but controlled rate. (2) Infrarenal abdominal aortic aneurysm (AAA) without rupture: Code(s): I71.43 - Infrarenal abdominal aortic aneurysm, without rupture Plan: CT scan for bright red blood per rectum showed an incidental infrarenal abdominal aortic aneurysm She has seen vascular surgery and is scheduled for an endovascular repair on Wednesday (3) Alcohol intoxication: Code(s): F10.929 - Alcohol use, unspecified with intoxication, unspecified Plan: Alcohol level was high and there is some mention of some withdrawal symptoms for which she was given phenobarbital for less than a day. Patient does not feel that she needs to consume alcohol and I advised she not resume drinking. Patient agrees. (4) Elevated liver enzymes: Code(s): R74.8 - Abnormal levels of other serum enzymes Plan: As above, advised patient discontinue alcohol. Work on some weight loss. Hydrate well and avoid Tylenol. Repeat LFTs are ordered Orders: Orders Complete Blood Count Auto Diff Today K62.5 - Hemorrhage of anus and rectum, Z00.00 - Encounter for general adult medical examination without abnormal findings Digoxin Today I48.92 - Unspecified atrial flutter Comprehensive Jackson. Panel Fast Today F10.139 - Alcohol abuse with withdrawal, unspecified, Z00.00 - Encounter for general adult medical examination without abnormal findings Coding Level of Care Code Est Pt Level 4 (13628) Diagnoses Atrial flutter I48.92 Infrarenal abdominal aortic aneurysm (AAA) without rupture I71.43 Alcohol intoxication F10.929 Elevated liver enzymes R74.8
== END 2023-04-08 09:59 | disposition home or self-care (01) ==
PROVIDERS: PCP Family Medicine; Visit Provider Family Medicine
DX: I48.92 Unspecified atrial flutter (principal); I71.43 Infrarenal abdominal aortic aneurysm, without rupture; F10.929 Alcohol use, unspecified with intoxication, unspecified; R74.8 Abnormal levels of other serum enzymes
CPT/HCPCS: 99214

== ENCOUNTER 2023-04-12 07:25 | Inpatient (IN) | payer OTHER, SELFPAY ==
--- NOTE | 2023-04-05 | ECG_ITS ---
Test Reason : preop Blood Pressure : / mmHG Vent. Rate : 064 BPM Atrial Rate : 256 BPM P-R Int : 000 ms QRS Dur : 082 ms QT Int : 358 ms P-R-T Axes : 080 055 -02 degrees QTc Int : 369 ms Atrial flutter with 4:1 A-V conduction Septal infarct (cited on or before 09-MAR-2023) Abnormal ECG When compared with ECG of 09-MAR-2023 21:06, Vent. rate has decreased BY 71 BPM Referred By: Tricia Mahan Electronically Signed By:YENNI JOHNSON
[2023-04-05 13:09] VITALS: BP 135/70; PULSE 63; RESP 20; O2SAT 98; BMI 29.4
--- NOTE | 2023-04-05 13:25 | P.CONAN_ITS ---
Documented by User: Tricia Mahan NP 04/06/23 14:07 HPI - Anesthesia Eval Consult details Narrative: 62yo F for Aortic Endovascular Repair, 04/12/23 Xarelto, digoxin for afib/aflutter. Cardiac cleared. (No cardioversion performed for new onset Aflutter because it would have been within 30 days of this procedure. Rate controlled and asymptomatic.) No recent illness No CP/SOB with >4 mets PMFSH Active Problems Active Problems: All Active Problems (Updated 04/05/23 @ 13:18 by Chelsy Cunningham RN) Atrial flutter (Acute) Alcohol abuse with withdrawal (Acute) Atrial fibrillation with RVR (Acute) Alcohol intoxication (Acute) Infrarenal abdominal aortic aneurysm (AAA) without rupture (Acute) Bright red blood per rectum (Acute) Afib (Acute) Tick bite (Acute) Chest congestion (Acute) Sinusitis (Acute) Smoker (Acute) Elevated blood pressure reading (Acute) Elevated fasting blood sugar (Acute) Pre-operative cardiovascular examination (Acute) Adult general medical exam (Acute) Screening for cervical cancer (Acute) Screening for colon cancer (Acute) Breast cancer screening by mammogram (Acute) Toe pain, right (Acute) Laboratory examination ordered as part of a routine general medical examination (Acute) Irritable bowel syndrome (Acute) Mixed hyperlipidemia (Acute) Past Medical History Medical History Infrarenal abdominal aortic aneurysm (AAA) without rupture Collapse of lung Hx MRSA infection History of COVID-19 GI bleed Atrial fibrillation Irritable bowel syndrome Mixed hyperlipidemia Family History Family history of problems with anesthesia: No Surgical History Surgical History Hx of right cataract extraction Hx of colonoscopy History of tonsillectomy History of fusion of lumbar spine History of skin graft History of Problems with Anesthesia: No Social History Household Members: Spouse Household Members Other:: 2 Housing: House Do you presently have visiting nurse or other home services: No Alcohol intake: current Alcohol intake frequency: a few times a week Patient Tobacco Use Status: Former Tobacco user Quit Date: 2021 Tobacco use type: Cigarette e-Cigarette/Vaping Use: Never Used Second Hand Smoke Exposure: No Advance Directives Date on File: 03/10/23 service: No Current occupational status: employed Current occupational exposures/hazards: No Cognitive needs: No Hearing needs: No Vision needs: No Meds Allergies Allergy/AdvReac Type Severity Reaction Status Date / Time doxycycline Allergy Severe Vomiting Verified 04/27/23 09:12 morphine Allergy Intermediate Shortness Verified 04/27/23 09:12 of Breath prednisone Allergy Intermediate afib Verified 04/27/23 09:12 sulfamethoxazole Allergy Intermediate Hives Verified 04/27/23 09:12 [From Bactrim] trimethoprim [From Bactrim] Allergy Intermediate Hives Verified 04/27/23 09:12 Home Medications Medication Instructions Recorded Confirmed Last Taken Type digoxin 125 mcg (0.125 mg) tablet 0.125 mg PO QPM 04/05/23 04/08/23 Unknown History diltiazem HCl 120 mg 240 mg PO DAILY 04/05/23 04/08/23 04/12/23 History capsule,extended release 24 hr Exam Exam Date and Time: April 05, 2023 1325 Height,Weight and Vital Signs: Height 6 ft 1 in Weight 101.151 kg Last Vital Signs Pulse 63 04/05/23 13:09 Resp 20 04/05/23 13:09 BP 135/70 04/05/23 13:09 Pulse Ox 98 04/05/23 13:09 O2 Del Method Room Air 04/05/23 13:09 Pertinent Lab Results Pertinent Lab Results: Laboratory Tests 03/11/23 03/12/23 06:42 08:20 WBC 6.6 Hgb 14.0 Hct 42.3 Sodium 142 Potassium 3.8 Chloride 109 H Carbon Dioxide 26 BUN 11 Creatinine 0.84 Narrative Narrative: EKG 03/2023 Vent. Rate : 064 BPM Atrial Rate : 256 BPM P-R Int : 000 ms QRS Dur : 082 ms QT Int : 358 ms P-R-T Axes : 080 055 -02 degrees QTc Int : 369 ms Atrial flutter with 4:1 A-V conduction Septal infarct (cited on or before 09-MAR-2023) Abnormal ECG When compared with ECG of 09-MAR-2023 21:06, Vent. rate has decreased BY 71 BPM ECHO 02/2023 Conclusions: - The left ventricular systolic function is mild to moderately decreased. The calculated ejection fraction is 40% by biplane method. - The left atrium is moderately dilated. - There is evidence of a patent foramen ovale with left to right shunting. - There is mild mitral valve regurgitation. - There is mild dilatation of the ascending aorta measuring 4.00 cm. Holter 02/2023 * Total monitoring time about 3 days. * Underlying rhythm is atrial flutter. Average ventricular rate 107/Min. Range 66 to 150/Min. * About 42% the time, rate greater than 100/Min. * No significant pauses or AV blocks. * One patient marker associated with atrial flutter. No diary events. Airway Mallampati Class: II TM Dist: >3cm Neck ROM: Full Partial: Upper Heart: RRR Lungs: CTAB Assessment and Plan Assessment Anesthesia Assessment: Anesthesia Plan Discussed and PAT Visit Final Anesthetic Review Family History of Problems with Anesthesia: No History of Problems with Anesthesia: No Documented by User: Guanakito Clarke MD 06/10/23 19:28 [facility] Past Medical History Medical History Infrarenal abdominal aortic aneurysm (AAA) without rupture Collapse of lung Hx MRSA infection History of COVID-19 GI bleed Atrial fibrillation Irritable bowel syndrome Mixed hyperlipidemia Functional capacity: independent ambulation Surgical History Surgical History Hx of right cataract extraction Hx of colonoscopy History of tonsillectomy History of fusion of lumbar spine History of skin graft Social History Household Members: Spouse Household Members Other:: 2 Housing: House Do you presently have visiting nurse or other home services: No Alcohol intake: current Alcohol intake frequency: a few times a week Patient Tobacco Use Status: Former Tobacco user Quit Date: 2021 Tobacco use type: Cigarette e-Cigarette/Vaping Use: Never Used Second Hand Smoke Exposure: No Advance Directives Date on File: 03/10/23 service: No Current occupational status: employed Current occupational exposures/hazards: No Cognitive needs: No Hearing needs: No Vision needs: No Meds Allergies Allergy/AdvReac Type Severity Reaction Status Date / Time doxycycline Allergy Severe Vomiting Verified 04/27/23 09:12 morphine Allergy Intermediate Shortness Verified 04/27/23 09:12 of Breath prednisone Allergy Intermediate afib Verified 04/27/23 09:12 sulfamethoxazole Allergy Intermediate Hives Verified 04/27/23 09:12 [From Bactrim] trimethoprim [From Bactrim] Allergy Intermediate Hives Verified 04/27/23 09:12 Home Medications Medication Instructions Recorded Confirmed Last Taken Type digoxin 125 mcg (0.125 mg) tablet 0.125 mg PO QPM 04/05/23 04/08/23 Unknown History diltiazem HCl 120 mg 240 mg PO DAILY 04/05/23 04/08/23 04/12/23 History capsule,extended release 24 hr Assessment and Plan Assessment Anesthesia Assessment: Chart Reviewed Final Anesthetic Review NPO: Yes ASA Class: IV Final Preanesthetic Review: Meds/Allgs Chart Reviewed, Consent Obtained/Reviewed and Anes Risks/Benef Reviewed Patient Risk: High Procedure Risk: Intermediate Anesthetic Plan Anesthetic Plan: GA, Agree w/ Assess. and Plan and Other (A-Line) Disposition: Inp. Admit - ICU
[2023-04-12] VITALS (23 sets, daily range): BP systolic 98–144; BP diastolic 41–76; PULSE 66–130; RESP 13–19; TEMP 36.1–37.3; O2SAT 92–98; BMI 29.0
--- NOTE | ~2023-04-12 | FL_ITS ---
EXAMINATION: XR FLUOROSCOPY WITH IMAGES CLINICAL INFORMATION: Abdominal aortic aneurysm endovascular repair. COMPARISON: CT of the abdomen and pelvis February 2023. TECHNIQUE: Fluoroscopy Supervised By: Dr. Charissa Dorman. Fluoroscopy Time: 28.6 minutes. Cumulative Dose: 457 mGy. DAP: 103 Gycm2. Images: 35. FINDINGS: Fluoroscopy guidance for endovascular repair of abdominal aortic aneurysm. There is an aortobiiliac stent graft. See vascular procedure note for detailed findings. FL/FL guidance in OR IMPRESSION: Fluoroscopy guidance for endovascular abdominal aortic aneurysm repair.
--- NOTE | ~2023-04-12 | FL_ITS ---
EXAMINATION: XR FLUOROSCOPY WITH IMAGES CLINICAL INFORMATION: Abdominal aortic aneurysm endovascular repair. COMPARISON: CT of the abdomen and pelvis February 2023. TECHNIQUE: Fluoroscopy Supervised By: Dr. Charissa Dorman. Fluoroscopy Time: 28.6 minutes. Cumulative Dose: 457 mGy. DAP: 103 Gycm2. Images: 35. FINDINGS: Fluoroscopy guidance for endovascular repair of abdominal aortic aneurysm. There is an aortobiiliac stent graft. See vascular procedure note for detailed findings. FL/FL guidance in OR IMPRESSION: Fluoroscopy guidance for endovascular abdominal aortic aneurysm repair.
[2023-04-12] MEDS: Albuterol Sulfate (0.083%) 2.5 MG/3 ML VIAL.NEB INHALE (06:50)
[2023-04-12] MEDS: Lactated Ringers 1,000 ML 100 ML IVCONT (06:52)
--- OUTSIDE RECORDS SUMMARY | 2023-04-12 07:30 | XMS_ITS | Continuity of Care Document ---
Author Name Unknown Organization [facility] Address [address] [place] [address]- Care Team Providers Care Embroidery Designer Name Role Phone Roberto Carlos Nunez MD Primary Care Physician Encounter [facility] Date(s): 08/12/20 - 09/11/20 [facility] [address] [place] [address]- Allergies, Adverse Reactions, Alerts Substance Reaction Severity Status doxycycline 1 vomiting Active morphine 2 Difficulty breathing Active corticosteroids 3 atrial fibrallation Act phyllis Cipro 4 itching Active Bactrim Active 1vomiting 2trouble breathing 3Atrial fibrillation 4Itching Immunizations Given and Recorded Vaccine Date Status Refusal Reason Influenza Virus Vaccine (oldterm) 04/27/19 Recorde d influenza virus vaccine, inactivated 1 04/18/16 Re corded tetanus/diphtheria/pertussis, acel(Tdap) 06/17/15 Given 1Location History: [employer] Work Medications amitriptyline 10 mg oral tablet Refills 0, Maintenance, 04/21/19 8:14:20 EDT Start Date: 04/21/19 Status: Ordered Problem List Condition Effective Dates Status Health Status Inform ant History of spinal fusion(Confirmed) Active Hx MRSA infection(Confirmed) Active Hx of gann(Confirmed) Active Hyperlipemia(Confirmed) Active MRSA - Methicillin-resistant staphylococcus aureus(Confirmed) Active Cataract, nuclear(Confirmed) 1 Active Polyp of colon repeat colooo scopy -(Confirmed) Active 1rt eye Social History Social History Type Response Smoking Status Former smoker, quit more than 30 days ago; Other: Quit about 10 years ago - 1/2-1/3 ppd for 20-30 years.; entered on: 05/16/19 Sex
--- OUTSIDE RECORDS SUMMARY | 2023-04-12 07:30 | XMS_ITS | Continuity of Care Document ---
Author Name Unknown Organization [facility] Address [address] [place] [address]- Care Team Providers Care Line Haul Truck Driver Name Role Phone Roberto Carlos Nunez MD Primary Care Physician Encounter [facility] Date(s): 08/12/20 - 09/11/20 [facility] [address] [place] [address]- Allergies, Adverse Reactions, Alerts Substance Reaction Severity [...]
--- OUTSIDE RECORDS SUMMARY | 2023-04-12 07:30 | XMS_ITS | Continuity of Care Document ---
Author Name Unknown Organization [facility] Address [address] [place] [id number]- Care Team Providers Care Red Cap Name Role Phone James High DO Primary Care Physician Encounter [facility] Date(s): 07/10/19 - 12/09/[address] [address] Attending Physician: Hussein Nava MD Admitting Physician: Hussein Nava MD Referring Physician: Hussein Nava MD Allergies, Adverse Reactions, Alerts Substance Reaction Severity [...] Active Polyp of colon repeat colooo scopy 06-06(Confirmed) Active 1rt eye Social History Social History Type Response Smoking Status Former smoker, quit more than 30 days ago; Other: Quit about 10 years ago - 1/2-1/3 ppd for 20-30 years.; entered on: 05/16/19 Sex
--- OUTSIDE RECORDS SUMMARY | 2023-04-12 07:30 | XMS_ITS | Continuity of Care Document ---
Author Name Unknown Organization [facility] Address [address] [place] [address]- Care Team Providers Care Insole And Outsole Preparer Name Role Phone James High DO Primary Care Physician [phone] Encounter [facility] Date(s): 10/04/19 - 10/11/19 [facility] Family [address] [place] [address]- [facility] Encounter Diagnosis Shingles rash(Discharge Diagnosis) - 10/04/19 Attending Physician: Sera GAS DISTRIBUTION PLANT OPERATOR, Milla Chandler Allergies, Adverse Reactions, Alerts Substance Reaction Severity [...] repeat colooo scopy 06-06(Confirmed) Active 1rt eye Diagnosis Diagnosis Type Effective Dates Health Status Cl inical Service Informant Shingles rash Discharge Diagnosis 10/04/19 Vital Signs Most recent to oldest [Reference Range]: 1 Height 183 cm (10/04/19 9:44 AM) Weight 106.8 kg (10/04/19 9:44 AM) Oxygen Saturation [94-100 %] 98 % (10/04/19 9:44 AM) Pulse Rate [55-90 bpm] 84 bpm (10/04/19 9:44 AM) Body Mass Index [18.5-24.99] 31.89 *>HHI* (10/04/19 9:44 AM) Blood Pressure [90-138/55-84 mm Hg] 130/ 70mm Hg (10/04/19 9:44 AM) Respiratory Rate [16-30 br/min] 20 br/mi n (10/04/19 9:44 AM) Blood pressure sites Arm, right (10/04/19 9:44 AM) Social History Social History Type Response Smoking Status Former smoker, quit more than 30 days ago; Other: Quit about 10 years ago - 1/2-1/3 ppd for 20-30 years.; entered on: 05/16/19 Sex
--- OUTSIDE RECORDS SUMMARY | 2023-04-12 07:30 | XMS_ITS | Continuity of Care Document ---
Author Name Unknown Organization [facility] Address [address] [place] [address]- Care Team Providers Care Field Cane Scaler Helper Name Role Phone James High DO Primary Care Physician [phone] Encounter [facility] Date(s): 10/04/19 - 10/14/19 [facility] Family [address] [place] [address]- [facility] Attending Physician: Admtr, Ar8 Admitting Physician: [id number] Referring Physician: Admtr, Ar8 Allergies, Adverse Reactions, Alerts Substance Reaction Severity [...]
--- OUTSIDE RECORDS SUMMARY | 2023-04-12 07:30 | XMS_ITS | Patient Health Record ---
Author Name Unknown Organization [facility] Address [address] [place] [id number] Care Team Providers Care Director Of Hemophilia Name Role Phone Jose C Mohan Primary Care Provider UnavailTu Easley Unavailable [phone] Sudarshan Briones Jr Unavailable [phone] ALLERGIES Allergen (clinical drug ingredient) Drug/Non Drug Allergy documented on EMR Reaction Allergy Type Onset Date Status doxycycline Doxycycline Unknown Drug Allergy Act phyllis prednisone Prednisone Unknown Drug Allergy Activ e ciprofloxacin Cipro Unknown Drug Allergy Act phyllis sulfamethoxazole / trimethoprim Bactrim Unknown Drug Allergy Active morphine Morphine Unknown Drug Allergy Active RESULTS Component Value Reference Range Notes Complete Blood Count no Diff Reviewed date:03/11/2023 10:20:18 AM Interpretation: Performing Lab:[facility], [address] [place] [phone] Notes/Report: White Blood Count 6.6 4.8-10.8 X10*3/uL Red Blood Count 4.28 4.20-5.50 X10*6/uL Hemoglobin 13.3 12.0-16.0 g/dl Hematocrit 41.0 37.0-47.0 % Mean Corpuscular Volume 95.8 80.0-98.0 fL Mean Corpuscular Hemoglobin 31.1 27.0-33.0 pg Mean Corpuscular HGB Conc 32.4 31.0-35.0 g/dl Red Cell Distribution Width 12.9 11.0-16.0 % Platelet Count TNP 160-400 X10*3/uL Platelet clumps noted. Platelet count will not be accurate. Recollecting the platelet count in a blue top tube may eliminate platelet clumps. Order platelet count blue top tube. A lavender top tube must be drawn if CBC is required. Mean Platelet Volume TNP 9.4-12.3 fL NRBC Pct Auto 0.0 0.0-0.2 /100WBC NRBC Abs Auto 0.000 0.0-0.012 X10*3/uL Pathology Reviewed date:03/17/2023 08:56:22 AM Interpretation: Performing Lab:[facility], [address] [place] [phone] Notes/Report: REASON FOR REFERRAL No Information MEDICATIONS Medication SIG (Take, Route, Frequency, Duration) Notes Start Date End Date Status Hyoscyamine Sulfate 0.125 MG 1 or 2 Sublingual Every 4 to 6 hours as needed for abdominal cramping and diarrhea for 30 days 01/06/2023 Active IMMUNIZATIONS Vaccine Route Administration Date Status Comme nts Influenza Unknown 06/09/2022 Administered SOCIAL HISTORY Tobacco Use: Social History Observation Description Date Details (start date - stop date) Former Smoker NA - NA Sex Assigned At : Social History Observation Description Sex Assigned At Unknown Tobacco Use/Smoking Question Answer Notes Patient is a former smoker Alcohol Screen Question Answer Notes Did you have a drink contain ing alcohol in the past year? Yes How often did you have a dri nk containing alcohol in the past year? 4 or more times a week (4 points) How many drinks did you have on a typical day when you were drinking in the past year? 1 or 2 drinks (0 point) How often did you have 6 or more drinks on one occasion in the past year? Never (0 point) Points 4 Interpretation Positive PROBLEMS Problem Type ICD Code Onset Dates Problem Status W/U Status Risk SNOMED Code Notes Problem Colon cancer screening (Z12.11) Active confirmed 260409381 Problem Irritable bowel syndrome (K58.9) Active confirmed Irritable bowel syndrome (85703436) Problem Irritable bowel syndrome with diarrhea (K58.0) Active confirmed 834861962 Problem History of colon polyps (Z86.010) Active confirmed 224025190 Problem Family history of colon cancer (Z80.0) Active confirmed [id number] Encounters Encounter Location Date Provider Diagnosis [facility] Inpatient [address] [place] [phone] 03/11/2023 Sudarshan Briones Jr [facility] [address] [place] [phone] 08/20/2022 Tu Heard [facility] [address] [place] [phone] 01/06/2023 Tu Heard Colon cancer screening Z12.11 ; Irritable bowel syndrome with diarrhea K58.0 ; Family history of colon cancer Z80.0 and History of colon polyps Z86.010 [facility] [address] [place] [phone] 08/20/2022 Tu Heard [facility] [address] [place] [phone] 01/06/2023 Tu Heard [facility] [address] [place] [phone] 03/11/2023 Tu Heard [facility] [address] [place] [phone] 03/17/2023 Tu Heard ASSESSMENTS Encounter Date Diagnosis Assessment Notes Treatment Notes Treatment Clinical Notes 01/06/2023 Colon cancer screening (ICD-10 - Z12.11) 01/06/2023 Irritable bowel syndrome with diarrhea (ICD-10 - K58.0) 01/06/2023 Family history of colon cancer (ICD-10 - Z80.0) 01/06/2023 History of colon polyps (ICD-10 - Z86.010) PLAN OF TREATMENT Future Test Test Name Order Date COLONOSCOPY 01/06/2023 Insurance Providers Payer Name Payer Address Payer Phone Subscriber Number Group Number Insured Name Patient Relationship to Insured Coverage Start Date Coverage End Date [employer] OF [employer] [address] [address] [place] [address] [id number] GAMALIEL OLIVAS Self - patient is the insured MEDICAL (GENERAL) HISTORY Medical History History ICD Code IBS with associated intermit tent diarrhea and abdominal cramps. She had testing with Dr. Elder Rivera in [place] including colonoscopies and small bowel video capsule study(2018). Labs were negative for celiac disease with a negative tissue transglutaminase antibody; colon biopsies were negative for microscopic colitis Multiple colonoscopies with Dr. Elder Rivera with removal of tubular adenomas, most recently as of 05/2018 Denies SD,DM,CVA,Lung disease,renal dise ase Surgical History Surgery Date(Month/Year) Back surgery with subsequent infection 1 993 Spinal fusion 1995 Skin Grafting due to gann 2007
--- OUTSIDE RECORDS SUMMARY | 2023-04-12 07:30 | XMS_ITS | Continuity of Care Document ---
Author Name Unknown Organization [facility] Address [address] [place] [address]- Care Team Providers Care Commodity Broker Name Role Phone James High DO Primary Care Physician [phone] Encounter [facility] Date(s): 10/23/19 - 10/30/19 [facility] [address] [place] [address]- [facility] Encounter Diagnosis Shingles rash(Discharge Diagnosis) - 10/23/19 Herpes zoster of eye(Discharge Diagnosis) - 10/23/19 Attending Physician: James High DO Allergies, Adverse Reactions, Alerts Substance Reaction Severity [...] inical Service Informant Shingles rash Discharge Diagnosis 10/23/19 Herpes zoster of eye Discharge Diagnosis 10/23/19 Social History Social History Type Response Smoking Status Former smoker, quit more than 30 days ago; Other: Quit about 10 years ago - 1/2-1/3 ppd for 20-30 years.; entered on: 05/16/19 Sex
--- NOTE | 2023-04-12 07:38 | PHA.MEDREC ---
Pharmacy Consult ? Medication Reconciliation Pharmacy has completed the medication reconciliation. Reviewed med rec done by nursing
[2023-04-12 08:07] LABS: COVID-19 Test Negative (Negative); IDNOW Serial# BCCEAD1C
--- NOTE | 2023-04-12 10:46 | W.PM.OPN ---
Operative Note Operative Note Date of Service: 04/12/23 Narrative: Operative note by [facility] Preoperative diagnosis: Abdominal aortic aneurysm without rupture Postoperative diagnosis: Same Procedure:1 right common femoral cutdown 2. Left common femoral cutdown 3. Aortogram 4. Endovascular placement of aortic endograft (Medtronic endurant) 5. Radiologic supervision interpretation Surgeon:Harry Duran M.D. Crown Blocker: Dr. Moreno Anesthesia: General Specimens: None Drains: None Estimated blood loss: 100 mL Indications: Very pleasant 62-year-old female who presented for evaluation regarding infrarenal abdominal aortic aneurysm. It was discovered upon workup for GI bleed approximately a month ago at in the hospital. She was discovered to have a 5.6 cm aortic aneurysm. She now presents for operative treatment The patient has signed the informed consent after reviewing risks, complications, benefits, and alternatives previously discussed with the patient. The patient was given the opportunity to ask any additional questions or voice any concerns. All questions were answered to the patient's satisfaction. Procedure in detail: Patient was brought to the operating room prior to which a time-out was called for patient identification site verification abdomen and bilateral groins were prepped and draped in standard surgical fashion we did a transverse incision on the right common femoral brought it down through the skin subcu fascia down to the common femoral which was encircled with silastic loops. In a similar fashion we did a cutdown on the left common femoral as well. We punctured with a micropuncture needle wire and subsequently 4 Ugandan sheaths bilaterally and advance Bentson wires bilaterally into the level of the aorta. At this time 5000 units of systemic heparin was administered after 5 minutes of circulation time we advanced the marker pigtail catheter up the left side. We parked this in his suprarenal position. Aortogram was then undertaken. We then advanced a main body 32 x 14 x 103 through the right common femoral. This was deferred ploy it is in the infrarenal position up to the gate. Once this was accomplished the suprarenal fixators were then placed. Once this was all accomplished we then cannulated the gate from the left side with a angled glide catheter. We used a Glidewire to cannulate the gate. Once in position we confirmed true lumen with a marker pigtail which was encircled. Once this was done we then once again advanced a Lunderquist wire to the level of the aortic arch. We then deployed a left limb which was 16 x 24 x 124. Once this was accomplished we then exchanged this out for a 12 Ugandan sheath. We then turned our attention to the right side and finished deploying the main body graft. We then removed the main body graft and inserted a 16 Ugandan sheath. Through the 16 Ugandan sheath we then deployed on the right side a 16 x 20 x 124 right limb. Once this was all accomplished we used a reliant balloon to plasty this into position and obtain good wall apposition. Completion angiogram demonstrated excellent result. There was no evidence of type 2 endoleak or type 1 endoleak. Once this was all accomplished bilateral groin arteriotomies were closed with 6 0 Prolene in a running manner. Deep layer was reapproximated using 2 0 Polysorb superficial layer with 3-0 poly Sorb and finally skin with a running 4-0 Monocryl. Sterile dressings were applied at the end the case. Patient had palpable dorsalis pedis pulses at the conclusion. Patient was returned to recovery with stable vitals. Imagin. Initial aortogram demonstrated aortic aneurysm with a significant angulated neck. 2. Completion angiogram demonstrated appropriate placement aortic endograft with no evidence of endoleak. This note is constructed using voice recognition software. While every effort has been made to ensure accuracy, bilingual sales representative errors may have been included. Thank you for allowing me to participate in the care of your patient. Yours sincerely, Harry Duran MD, FACS, R.P.V.I.
--- NOTE | 2023-04-12 12:51 | PM.CCPN ---
Subjective Subjective Date of Service: 04/12/23 Interval History: status post endovascular repair of infrarenal aortic aneurysm; tolerated procedure well Critical Care Time (minutes): 90 Physical Exam Vital Signs: Vital Signs: Last Vital Signs Temp 97.0 F 04/12/23 12:37 Pulse 77 04/12/23 12:37 Resp 17 04/12/23 12:37 BP 143/69 H 04/12/23 12:37 Pulse Ox 96 04/12/23 12:37 O2 Del Method Nasal Cannula wit h Capnography 04/12/23 12:37 O2 Flow Rate 2 04/12/23 12:37 BMI result Body Mass Index 29.0 Const: General: cooperative, healthy appearing, comfortable, no acute distress, well developed, alert and awake Orientation/consciousness: oriented to person, oriented to place and oriented to time HEENT: Head: Yes normocephalic and Yes atraumatic Eyes: General: appearance normal, both eyes and all related structures Pupils: Equal, round and reactive pupils present Neck: Neck: Yes normal visual inspection and Yes full ROM Chest: Chest palpation & inspection: normal inspection of the chest Resp: Effort & Inspection: normal respiratory effort, able to speak in complete sentences and no respiratory distress Cardio: Rhythm: abnormal rhythm GI: Inspection: Yes normal to inspection and No distended Palpation (GI): Soft to palpation, not firm, nontender, no guarding and not rigid Skin: General skin exam: no rashes or lesions noted Neuro: General: oriented to person, oriented to place, oriented to time and moves all extremities Cranial nerves: Yes Equal, round and reactive pupils present Extrem: Other: bilateral groin sites, bandaged, without appreciable tenderness to palpation; no appreciable hematomas; capillary refill less than 2 seconds bilateral toes General: Yes normal to inspection Psych: Appearance: grossly normal Affect: normal affect Objective Data Labs Labs: Laboratory Results - last 24 hr 04/12/23 07:35 COVID-19 ([facility]) Negative COVID-19 Clin Com See Note Progress Note: A&P Assessment and plan (1) Alcohol abuse with withdrawal: Status: Acute (2) Infrarenal abdominal aortic aneurysm (AAA) without rupture: Status: Acute Plan Assessment: Patient is a 62 Y F with atrial flutter, prior alcohol misuse, and known 5 cm infrarenal aortic aneurysm presenting 04/12 for elective endovascular repair; tolerated procedure well Plan: N: no acute issues CV: hemodynamically stable; status post elective endovascular repair infrarenal aortic aneurysm; continue to monitor neurovascular status; atrial flutter, to resume home digoxin, diltiazem, metoprolol R: no acute issues GI: regular diet : no acutes issues H: atrial flutter, to hold home rivaroxaban in setting of recent endovascular repair ID: no acute issues E: no acute issues Quality Stroke Does the patient have a stroke diagnosis?: No VTE Prior VTE?: No VTE Risk Level:: Medical - moderate - high VTE Device Contraindication: N/A - Device Ordered VTE Drug Contraindication: Treatment Not Tolerated
--- NOTE | 2023-04-12 13:19 | PC.NURSE ---
pt arrives to unit alert talkative in no distress. transitioned to ra. vss. a febrile, minimal pain. pulses present in bilat lower extremities. dressings to bilat groin intact, small amount of staining noted by post op nurse. lungs clear, breathing easy non labored, skin pink warm and dry.
[2023-04-12] MEDS: 0.9 % Sodium Chloride 1,000 ML 80 ML IVCONT (13:57)
[2023-04-12] MEDS: ceFAZolin Sodium/Dextrose,Iso 2 GM/50 ML PIGGYBACK IV (13:57)
[2023-04-12 14:08] LABS: Basophils Percent Auto 0.3 % (0-2); Eosinophils Percent Auto 0.3 % (0-4); Hematocrit 41.9 % (37.0-47.0); Hemoglobin 13.9 g/dl (12.0-16.0); Imm Gran Abs Auto 0.03 X10*3/uL (0.00-0.03); Imm Gran Pct Auto 0.3 % (0.0-0.4); Lymphocytes Absolute Auto 0.9 X10*3/uL (1.2-4.9); Lymphocytes Percent Auto 9.7 % (20-40); MANUAL DIFF FLAG SCAN; Mean Corpuscular HGB Conc 33.2 g/dl (31.0-35.0); Mean Corpuscular Volume 93.5 fL (80.0-98.0); Monocytes Absolute Auto 0.1 X10*3/uL (0.1-1.2); Monocytes Percent Auto 1.3 % (2-11); Neutrophils Percent Auto 88.1 % (45-73); PLT CLUMP 1; Red Blood Count 4.48 X10*6/uL (4.20-5.50); Red Cell Distribution Width 12.9 % (11.0-16.0); SCAN SMEAR FLAG 1
[2023-04-12 14:18] LABS: Alanine Aminotransferase 20 U/L (0-31); Albumin Level 3.9 g/dL (3.5-5.0); Alkaline Phosphatase 69 U/L (39-117); Anion Gap 12 (12-20); Aspartate Amino Transferase 17 U/L (5-31); Bilirubin Total 0.4 mg/dL (0.0-1.0); Blood Urea Nitrogen 14 mg/dL (9-16); Carbon Dioxide 20 mmol/L (22-29); Chloride 113 mmol/L (96-108); Creatinine Clr Calc Pharmacy 97.9; Estimated Glomerular Filt Rate > 60; Glucose Random 158 mg/dL (60-115); Potassium 4.3 mmol/L (3.3-5.1); Sodium 141 mmol/L (135-145); Total Protein 6.7 g/dL (6.5-8.0)
[2023-04-12 14:42] LABS: White Blood Count 9.1 X10*3/uL (4.8-10.8)
[2023-04-12 14:43] LABS: SLIDE REVIEW VERIFIED
--- NOTE | 2023-04-12 17:10 | PC.NURSE ---
Pt is calm cooperative, in no distress, sits semi fowlers for meals. bed rest order strict, denies pain, vss. a febrile. all needs within reach, pedial pulses present. cms intact. breathing easy non labored, skin pink warm and dry. continue to monitor closely.
[2023-04-12] MEDS: Metoprolol Tartrate 25 MG TABLET PO (18:37)
[2023-04-12] MEDS: Metoprolol Tartrate 100 MG TABLET PO (18:37)
[2023-04-12] MEDS: Digoxin 0.125 MG TABLET PO (18:37)
[2023-04-12] MEDS: dilTIAZem HCL 50 MG/10 ML VIAL 10 MG IVPUSH (21:58)
[2023-04-13] VITALS (14 sets, daily range): BP systolic 106–132; BP diastolic 46–70; PULSE 66–128; RESP 12–21; TEMP 36.4–36.7; O2SAT 92–96; BMI 28.8
[2023-04-13] MEDS: 0.9 % Sodium Chloride 1,000 ML 80 ML IVCONT (02:04)
[2023-04-13 05:14] LABS: Basophils Percent Auto 0.2 % (0-2); Hematocrit 38.6 % (37.0-47.0); Hemoglobin 12.5 g/dl (12.0-16.0); Imm Gran Abs Auto 0.09 X10*3/uL (0.00-0.03); Imm Gran Pct Auto 0.7 % (0.0-0.4); Lymphocytes Absolute Auto 0.9 X10*3/uL (1.2-4.9); Lymphocytes Percent Auto 6.8 % (20-40); MANUAL DIFF FLAG SCAN; Mean Corpuscular HGB Conc 32.4 g/dl (31.0-35.0); Mean Corpuscular Hemoglobin 30.7 pg (27.0-33.0); Mean Corpuscular Volume 94.8 fL (80.0-98.0); Monocytes Absolute Auto 0.7 X10*3/uL (0.1-1.2); Monocytes Percent Auto 5.2 % (2-11); Neutrophils Absolute Auto 11.2 x10*3/uL (2.0-8.3); Neutrophils Percent Auto 87.1 % (45-73); PLT CLUMP 1; Red Blood Count 4.07 X10*6/uL (4.20-5.50); Red Cell Distribution Width 12.5 % (11.0-16.0); SCAN SMEAR FLAG 1
[2023-04-13 05:18] LABS: White Blood Count 12.9 X10*3/uL (4.8-10.8)
[2023-04-13 05:25] LABS: Anion Gap 14 (12-20); Blood Urea Nitrogen 15 mg/dL (9-16); Carbon Dioxide 19 mmol/L (22-29); Chloride 111 mmol/L (96-108); Creatinine Clr Calc Pharmacy 103.2; Estimated Glomerular Filt Rate > 60; Glucose Random 178 mg/dL (60-115); Magnesium 1.8 mg/dL (1.6-2.6); Phosphorus 4.1 mg/dL (2.7-4.5); Potassium 4.5 mmol/L (3.3-5.1); Sodium 139 mmol/L (135-145)
[2023-04-13 05:33] LABS: SLIDE REVIEW VERIFIED
[2023-04-13] MEDS: dilTIAZem HCL 50 MG/10 ML VIAL 20 MG IVPUSH (06:07)
[2023-04-13] MEDS: dilTIAZem HCL CD 240 MG CAP.ER.DEG PO (07:55)
[2023-04-13] MEDS: Metoprolol Tartrate 25 MG TABLET PO (07:55)
[2023-04-13] MEDS: Metoprolol Tartrate 100 MG TABLET PO (07:56)
--- NOTE | 2023-04-13 08:38 | P.PNCC_ITS ---
Subjective Subjective Date of Service: 04/13/23 Interval History: atrial flutter with rapid ventricular response to at times 140s; given diltiazem 10mg and 20mg IV; otherwise clinically stable Critical Care Time (minutes): 60 Physical Exam 2 Vital Signs: Vital Signs: Last Vital Signs Temp 98.0 F 04/13/23 06:00 Pulse 82 04/13/23 08:02 Resp 21 H 04/13/23 08:02 BP 125/54 L 04/13/23 08:02 Pulse Ox 94 04/13/23 08:02 O2 Del Method Room Air 04/13/23 08:02 O2 Flow Rate 2 04/12/23 12:37 BMI result Body Mass Index 28.8 Const: General: cooperative, healthy appearing, comfortable, no acute distress, well developed, alert, awake and Physically active O rientation/consciousness: patient oriented x3 HEENT: Head: Yes normal to inspection, Yes normocephalic and Yes atraumatic Eyes: General: appearance normal, both eyes and all related structures Neck: Neck: Yes normal visual inspection and Yes full ROM Chest: Chest palpation & inspection: normal inspection of the chest Resp: Effort & Inspection: normal respiratory effort Cardio: Rate: tachycardic Rhythm: abnormal rhythm GI: Inspection: Yes normal to inspection and No distended Palpation (GI): S oft to palpation, not firm, nontender, no guarding and not rigid Skin: Other: bilateral groin sites bandaged, without overlying erythema, induration, fluctuance General skin exam: no rashes or lesions noted Neuro: General: patient oriented x3, moves all extremities and no focal motor deficits Extrem: Other: DP pulses equal bilaterally General: Yes normal to inspection Psych: Appearance: grossly normal and well kempt Objective Data Labs 04/13/23 05:03 04/13/23 05:03 Labs: Laboratory Results - last 24 hr 04/12/23 04/12/23 04/13/23 13:37 13:47 05:03 WBC 9.1 12.9 H RBC 4.48 4.07 L Hgb 13.9 12.5 Hct 41.9 38.6 MCV 93.5 94.8 MCH 31.0 30.7 MCHC 33.2 32.4 RDW 12.9 12.5 Plt Count TNP TNP MPV Not Reportable TNP Immature Gran % (Auto) 0.3 0.7 H Neut % (Auto) 88.1 H 87.1 H Lymph % (Auto) 9.7 L 6.8 L Perkins % (Auto) 1.3 L 5.2 Eos % (Auto) 0.3 0.0 Baso % (Auto) 0.3 0.2 Lymph # (Auto) 0.9 L 0.9 L Perkins # (Auto) 0.1 0.7 Eos # (Auto) 0.0 0.0 Baso # (Auto) 0.0 0.0 Abs Immat Gran (auto) 0.03 0.09 H Absolute Neuts (auto) 8.0 11.2 H Absolute Nucleated RBC 0.000 0.000 Nucleated RBC % (auto) 0.0 0.0 Plt Count ,Citrate TNP Smear Tech's Comments VERIFIED VERIFIED Sodium 141 139 Potassium 4.3 4.5 Chloride 113 H 111 H Carbon Dioxide 20 L 19 L Anion Gap 12 14 BUN 14 15 Creatinine 0.79 0.75 Estim Creat Clear Calc 97.9 103.2 Estimated GFR > 60 > 60 Random Glucose 158 H 178 H Calcium 9.0 9.0 Phosphorus 4.1 Magnesium 1.8 Total Bilirubin 0.4 AST 17 ALT 20 Alkaline Phosphatase 69 Total Protein 6.7 Albumin 3.9 Progress Note: A&P Assessment and plan (1) Atrial flutter: Status: Acute (2) Infrarenal abdominal aortic aneurysm (AAA) without rupture: Status: Acute Plan Assessment: Patient is a 62 Y F with atrial flutter, prior alcohol misuse, and known 5 cm infrarenal aortic aneurysm presenting 04/12 for elective endovascular repair; tolerated procedure well Plan: N: no acute issues CV: hemodynamically stable; status post elective endovascular repair infrarenal aortic aneurysm; continue to monitor neurovascular status; atrial flutter with rapid ventricular response; on home digoxin, diltiazem, metoprolol; given additional diltiazem IV 04/12 PM for HR 140s; upon discussion with patient, patient reports wears FitBit at home, and HR frequently reported in 140s, though patient remains asymptomatic, without chest pain, dyspnea, or palpitations; patient as close follow-up with surveillance sensor officer, who is planning for cardioversion depending on when patient can resume anticoagulation following endovascular repair R: no acute issues GI: regular diet : no acutes issues H: atrial flutter, to hold home rivaroxaban in setting of recent endovascular repair ID: mild leukocytosis, though no infectious signs, symptoms; patient made aware, encouraged to return to hospital with any fever, or any other concerning signs, symptoms E: no acute issues Quality Stroke Does the patient have a stroke diagnosis?: No VTE Prior VTE?: No VTE Risk Level:: Medical - moderate - high VTE Device Contraindication: N/A - Device Ordered VTE Drug Contraindication: Treatment Not Tolerated
--- NOTE | 2023-04-13 09:12 | PC.NURSE ---
Addendum entered by Dariel Carrizales RN 04/13/23 09:39: At approx 0915 - EMERSON removed from left radial. Pressure held for 3+ min. Dressing applied - clean dry & intact. Patient up to bedside commode at this time - supervised transfer. Patient denies dizziness. Original Note: Assumed care at approx 0715. Patient alert, calm, very pleasant. Neuros intact. Dr neal came to bedside as well as Dr Martell. Dr Neal ordered to remove smith & A-line. Smith removed at 0900. CMS assessed on lower extremities - WNL. Bilat groin dressings CDI. HR 80's to 120's aflutter - patient reports HR HR 90's to 120's at baseline - asymptomatic. Plan for discharge today per Dr Neal.
--- NOTE | 2023-04-13 12:41 | PM.DS ---
DS: Providers Provider Date of Service: 04/13/23 Date of admission: 04/12/23 07:25 Primary care physician: Jose C Mohan MD DS: Diagnosis Discharge Diagnosis (1) Atrial flutter: Status: Acute (2) Infrarenal abdominal aortic aneurysm (AAA) without rupture: Status: Acute DS: Summary Hospital Course Hospital Course: 62-year-old female underwent elective endovascular aortic aneurysm on 04/12/2023 with a Medtronic endurant 2 S stent graft. Overnight was observed in the ICU. No significant events overnight. She did become tachycardic twice and did require diltiazem but other than that was completely asymptomatic. She was tolerating a diet and voided freely. She was stable for discharge. Time Spent with Patient Time attestation: Total time managing care of this patient today ____ minutes. Discharge coordination time: Greater than 30 minutes Quality: Safe Use of Opioids Does Pt have an Active Cancer Diagnosis on the Problem List?: No Quality: Stroke Does the patient have a stroke diagnosis?: No Physical Exam Vital Signs: Vital Signs: Last Vital Signs Temp 97.8 F 04/13/23 09:00 Pulse 67 04/13/23 11:00 Resp 15 04/13/23 11:00 BP 106/49 L 04/13/23 11:00 Pulse Ox 95 04/13/23 11:00 O2 Del Method Room Air 04/13/23 11:00 O2 Flow Rate 2 04/12/23 12:37 BMI result Body Mass Index 28.8 Const: General: cooperative, healthy appearing and no acute distress Orientation/consciousness: oriented to person, oriented to place and oriented to time HEENT: Head: Yes normal to inspection Neck: Carotids: no bruits Chest: Chest palpation & inspection: normal inspection of the chest Resp: Effort & Inspection: normal respiratory effort and able to speak in complete sentences Auscultation: clear to auscultation bilaterally Cardio: Rate: regular rate Heart sounds: S1 normal heart sound present and S2 normal heart sound present GI: Inspection: Yes normal to inspection Skin: Other: Bilateral groins well-healed General skin exam: no rashes or lesions noted Wounds: no wounds Neuro: General: oriented to person, oriented to place, oriented to time and CN's II-XI intact bilaterally Extrem: General: Yes normal to inspection, Yes full ROM and Yes no clubbing, cyanosis or edema Psych: Appearance: grossly normal and well kempt Speech and movement: Normal speech and movement present Affect: normal affect DS: Data Data Completed and Pending Completed studies during hospitalization [Text1]: Procedures Excision of Sigmoid Colon, Via Natural or Artificial Opening Endoscopic, Diagnostic (03/10/23) Labs on day of discharge: Laboratory Results - last 24 hr 04/12/23 04/12/23 04/13/23 13:37 13:47 05:03 WBC 9.1 12.9 H RBC 4.48 4.07 L Hgb 13.9 12.5 Hct 41.9 38.6 MCV 93.5 94.8 MCH 31.0 30.7 MCHC 33.2 32.4 RDW 12.9 12.5 Plt Count TNP TNP MPV Not Reportable TNP Immature Gran % (Auto) 0.3 0.7 H Neut % (Auto) 88.1 H 87.1 H Lymph % (Auto) 9.7 L 6.8 L [place] % (Auto) 1.3 L 5.2 Eos % (Auto) 0.3 0.0 Baso % (Auto) 0.3 0.2 Lymph # (Auto) 0.9 L 0.9 L [place] # (Auto) 0.1 0.7 Eos # (Auto) 0.0 0.0 Baso # (Auto) 0.0 0.0 Abs Immat Gran (auto) 0.03 0.09 H Absolute Neuts (auto) 8.0 11.2 H Absolute Nucleated RBC 0.000 0.000 Nucleated RBC % (auto) 0.0 0.0 Plt Count ,Citrate TNP Smear Tech's Comments VERIFIED VERIFIED Sodium 141 139 Potassium 4.3 4.5 Chloride 113 H 111 H Carbon Dioxide 20 L 19 L Anion Gap 12 14 BUN 14 15 Creatinine 0.79 0.75 Estim Creat Clear Calc 97.9 103.2 Estimated GFR > 60 > 60 Random Glucose 158 H 178 H Calcium 9.0 9.0 Phosphorus 4.1 Magnesium 1.8 Total Bilirubin 0.4 AST 17 ALT 20 Alkaline Phosphatase 69 Total Protein 6.7 Albumin 3.9 Discharge Plan Discharge Anticipated Discharge Date/Time: 04/13/23 12:37 Patient Disposition: Home, Self-Care Discharge Diagnosis: Status post aortic aneurysm repair Referrals: Jose C Mohan MD [Primary Care Provider] - 1 Week Discharge Medications: New oxycodone-acetaminophen [Endocet] 5-325 mg tablet 1 tab PO Q8H PRN (Reason: pain) Qty: 10 0RF Rx Instructions: Partial Fill upon patient request. Continued metoprolol tartrate 100 mg Tablet 100 mg PO BID Qty: 60 0RF Protocol: Hold for SBP/HR < HOLD for SBP < : 90 HOLD for HR < : 60 metoprolol tartrate 25 mg tablet 25 mg PO BID Qty: 60 0RF Xarelto 20 mg tablet 20 mg PO DAILY Qty: 30 0RF Rx Instructions: must administer with evening meal diltiazem HCl 120 mg capsule,extended release 24hr 240 mg PO DAILY digoxin 125 mcg (0.125 mg) tablet 0.125 mg PO QPM Discharge Orders: Discharge Order (Routine); Ordered 04/13/23 Ordered By: Harry Duran Diet: Advance to usual diet Activity on Discharge: As tolerated Stand Alone Forms: Patient Portal Discharge page Activity Restrictions/Additional Instructions: you may shower as early as tomorrow - please remove island dressings before showering but keep Steri-Strips intact Take it easy today and you may ambulate around the house. Within 24 hours you can resume normal activity You may climb a flight of stairs as tolerated See Dr. Duran in follow-up in approximately 2 weeks time. You should already have an appointment if not please call my office at [phone] Please take Tylenol or prescription as needed for pain May start Xarelto starting tomorrow 04/14/2023 If you notice excessive bleeding from the groin please immediately call my office or return to the emergency room. Care Plan Goals: Follow-up on aortic aneurysm Health Concerns: Aortic aneurysm Plan of Treatment: Surveillance scan of postoperative endovascular aneurysm Assessment: Status post endovascular aortic aneurysm [place]
--- NOTE | 2023-04-13 13:03 | MHC.CM.PN ---
Pt resides w/spouse and is independent with all care needs: No services or DME used or anticipated at d/c. Spouse to transport.
--- NOTE | 2023-04-13 14:31 | HO.POSTANES ---
Post Anesthesia Evaluation Post Anesthesia Evaluation Date of Service: 04/13/23 Vital Signs: Vital Signs Temp Pulse Pulse Resp BP Pulse Ox O2 Del Method 04/13/23 12:00 66 19 111/60 94 Room Air 04/13/23 12:00 76 04/13/23 11:00 67 15 106/49 L 95 Room Air 04/13/23 09:56 Room Air 04/13/23 09:54 68 18 114/51 L 94 Room Air 04/13/23 09:00 97.8 F 93 15 106/46 L 95 Room Air 04/13/23 08:35 86 04/13/23 08:02 82 21 H 125/54 L 94 Room Air 04/13/23 07:00 84 14 121/46 L 93 Room Air 04/13/23 07:00 100 14 120/46 L 94 Room Air 04/13/23 06:00 98.0 F 127 H 15 129/68 92 Room Air 04/13/23 05:00 128 H 14 123/65 94 Room Air 04/13/23 04:00 120 H 14 132/68 93 Room Air 04/13/23 03:00 90 12 109/54 L 93 Room Air Anesthesia: General Endotracheal-GETA Mental Status: Awake Pain Control: Satisfactory Nausea/Vomiting: None Hydration: Adequate Anesthesia-Related Issues: No Anes. Related Issues
== END 2023-04-13 13:24 | disposition home or self-care (01) | DRG 182 ==
LOC: HO.SSSA 07:29 → HO.S3 12:21 → HO.ICU 12:25
PROVIDERS: Internal Medicine Critical Care Medicine; Admitting Provider Surgery Vascular Surgery; PCP Family Medicine; Visit Provider Surgery Vascular Surgery
PROC: 04V03ZZ Restriction of Abdominal Aorta, Percutaneous Approach (ICD-10-PCS; principal; 2023-04-12 07:30)
DX: I71.43 Infrarenal abdominal aortic aneurysm, without rupture (principal); F10.139 Alcohol abuse with withdrawal, unspecified; E78.2 Mixed hyperlipidemia; Z20.822 Contact with and (suspected) exposure to COVID-19; Z98.1 Arthrodesis status; Z86.14 Personal history of Methicillin resistant Staphylococcus aureus infection; Z87.891 Personal history of nicotine dependence; Z79.01 Long term (current) use of anticoagulants; Z79.899 Other long term (current) drug therapy
CPT/HCPCS: 36415; 80048; 80053; 83735; 84100; 85025; 86850; 86900; 86901; 87635; 93005; 94640; C1725; C1758; C1768; C1769; C1887; C1894; J0690; J1100; J1170; J1643; J2250; J2371; J2405; J2795; J3010; Q9967

== ENCOUNTER → 2023-04-12 07:25 | Outpatient (BNV) | payer OTHER, SELFPAY | PROVIDERS: Admitting Provider Surgery Vascular Surgery; PCP Family Medicine; Visit Provider Internal Medicine Critical Care Medicine | DX: I48.92 Unspecified atrial flutter (principal); I71.43 Infrarenal abdominal aortic aneurysm, without rupture | CPT/HCPCS: 99223; 99233 ==

== ENCOUNTER → 2023-04-12 07:25 | Outpatient (BNV) | payer OTHER, SELFPAY | PROVIDERS: Admitting Provider Surgery Vascular Surgery; PCP Family Medicine; Visit Provider Surgery Vascular Surgery | DX: I48.92 Unspecified atrial flutter (principal); I71.43 Infrarenal abdominal aortic aneurysm, without rupture | CPT/HCPCS: 34705; 34812; 99024 ==

== ENCOUNTER 2023-04-27 09:04 | Outpatient (AMB) | payer OTHER, SELFPAY ==
[2023-04-27 09:08] VITALS: BMI 29.0
--- NOTE | 2023-04-27 09:08 | MHC.OFFVIS ---
Intake Vital Signs 04/27/23 09:08 Height 6 ft 1 in Weight 220 lb BMI 29.0 Intake Visit Reasons: 2 week follow up endovascular aneurysm repair Intake Note: 2 week follow up AAA endo repair 04/12/23. Pt states no complaints. Accompanied by: Spouse Allergies doxycycline Allergy (Severe, Verified 04/27/23 09:12) Vomiting morphine Allergy (Intermediate, Verified 04/27/23 09:12) Shortness of Breath prednisone Allergy (Intermediate, Verified 04/27/23 09:12) afib sulfamethoxazole [From Bactrim] Allergy (Intermediate, Verified 04/27/23 09:12) Hives trimethoprim [From Bactrim] Allergy (Intermediate, Verified 04/27/23 09:12) Hives HPI 2 week follow up endovascular aneurysm repair HPI Details Very pleasant 62-year-old female status post endovascular repair for 5.6 cm abdominal aortic aneurysm. Appears to be doing extremely well. No postprocedure issues. Reports that the groins have healed very well as well. Now for routine follow-up. [facility] Medical History Infrarenal abdominal aortic aneurysm (AAA) without rupture Collapse of lung Hx MRSA infection History of COVID-19 GI bleed Atrial fibrillation Irritable bowel syndrome Mixed hyperlipidemia Surgical History Hx of right cataract extraction Hx of colonoscopy History of tonsillectomy History of fusion of lumbar spine History of skin graft Social History Household Members: Spouse Household Members Other:: 2 Housing: House Do you presently have visiting nurse or other home services: No Alcohol intake: current Alcohol intake frequency: a few times a week Patient Tobacco Use Status: Former Tobacco user Quit Date: 2021 Tobacco use type: Cigarette e-Cigarette/Vaping Use: Never Used Second Hand Smoke Exposure: No Advance Directives Date on File: 03/10/23 service: No Current occupational status: employed Current occupational exposures/hazards: No Cognitive needs: No Hearing needs: No Vision needs: No Review of Systems Const All systems reviewed & are unremarkable except as noted in HPI and below Reports no additional complaints ENT Reports Normal hearing present Card Denies chest pain, Denies chest pain at rest, Denies chest pain with activity and Denies pedal edema Resp Denies cough GI Denies abdominal pain Musc Denies abnormal gait, Denies muscle cramps and Denies radiating pain into limb Skin/Breast Denies skin ulcer and Denies wounds Neuro Reports Normal hearing present and Denies abnormal gait Psych Reports no additional complaints Physical Exam Vital Signs: BMI result Body Mass Index 29.0 Const General: cooperative, healthy appearing and comfortable Orientation/consciousness: oriented to person, oriented to place and oriented to time HEENT Head: Yes normal to inspection Neck Neck: Yes normal visual inspection Carotids: no bruits Chest Chest palpation & inspection: normal inspection of the chest Resp Effort & Inspection: normal respiratory effort and able to speak in complete sentences Auscultation: clear to auscultation bilaterally, no crackles, no rales, no rhonchi and no wheezes Cardio Rate: regular rate Rhythm: regular rhythm Heart sounds: S1 normal heart sound present and S2 normal heart sound present Bruits: no carotid bruits Peripheral pulses: Peripheral pulses 2+ throughout GI Inspection: Yes normal to inspection Skin Other: Bilateral groin incisions well healed Wounds: no wounds Hair: normal Neuro General: oriented to person, oriented to place and oriented to time Cranial nerves: Yes CN's II-XII intact bilaterally and Yes Normal hearing present Cognition (Neuro): normal cognition Motor exam (neuro): 5/5 motor strength present throughout Extrem Other: venous exam: No significant superficial varicosities or spider telangiectasias, minimal edema General: No clubbing, No cyanosis and No edema Psych Appearance: grossly normal Mental Status: mental status grossly normal Speech and movement: Normal speech and movement present Assessment & Plan Assessment & Plan (1) Infrarenal abdominal aortic aneurysm (AAA) without rupture: Comment: 04/12/2023 - endovascular aortic aneurysm repair with Medtronic Endurant II S Code(s): I71.43 - Infrarenal abdominal aortic aneurysm, without rupture Plan: In short patient is status post endovascular aortic aneurysm repair. We have discussed the pathophysiology of aortic aneurysms and the risk of ruptures. We have discussed rupture risk based on size. In addition we have discussed conservative measures and risk factor modification for prevention of increase in size of the aneurysm. the patient is scheduled for surveillance CT scan follow-up in approximately 3 months. Thank you for allowing us to participate in the care of this patient Orders: Orders CT angio abdomen pelvis 3 Months I71.43 - Infrarenal abdominal aortic aneurysm, without rupture Blood Urea Nitrogen 3 Months I71.43 - Infrarenal abdominal aortic aneurysm, without rupture Creatinine 3 Months I71.43 - Infrarenal abdominal aortic aneurysm, without rupture Coding Level of Care Code Est Pt Level 4 (06458) Diagnoses Infrarenal abdominal aortic aneurysm (AAA) without rupture I71.43
== END 2023-04-27 10:15 | disposition home or self-care (01) ==
PROVIDERS: PCP Family Medicine; Visit Provider Surgery Vascular Surgery
DX: I71.43 Infrarenal abdominal aortic aneurysm, without rupture (principal)
CPT/HCPCS: 99024

== ENCOUNTER → 2023-04-27 09:04 | Outpatient (BNVA) | payer OTHER, SELFPAY | PROVIDERS: PCP Family Medicine; Visit Provider Surgery Vascular Surgery ==

== ENCOUNTER 2023-05-10 09:51 | Outpatient (REF) | payer OTHER, SELFPAY ==
[2023-05-10 12:58] LABS: Basophils Absolute Auto 0.1 X10*3/uL (0.0-0.2); Basophils Percent Auto 0.8 % (0-2); Hematocrit 40.7 % (37.0-47.0); Hemoglobin 13.3 g/dl (12.0-16.0); Mean Corpuscular HGB Conc 32.7 g/dl (31.0-35.0); SCAN SMEAR FLAG 1
[2023-05-10 13:00] LABS: Eosinophils Absolute Auto 0.4 X10*3/uL (0.0-0.4); Imm Gran Abs Auto 0.04 X10*3/uL (0.00-0.03); Imm Gran Pct Auto 0.5 % (0.0-0.4); Lymphocytes Absolute Auto 2.3 X10*3/uL (1.2-4.9); Lymphocytes Percent Auto 26.1 % (20-40); MANUAL DIFF FLAG SCAN; Mean Corpuscular Hemoglobin 30.9 pg (27.0-33.0); Mean Corpuscular Volume 94.7 fL (80.0-98.0); Monocytes Absolute Auto 0.7 X10*3/uL (0.1-1.2); Monocytes Percent Auto 8.2 % (2-11); Neutrophils Absolute Auto 5.3 x10*3/uL (2.0-8.3); Neutrophils Percent Auto 60.4 % (45-73); PLT CLUMP 1; Red Cell Distribution Width 13.2 % (11.0-16.0)
[2023-05-10 13:04] LABS: INTERNATIONAL NORM RATIO 1.3 (0.9-1.1)
[2023-05-10 13:05] LABS: Anion Gap 15 (12-20); Blood Urea Nitrogen 9 mg/dL (9-16); Calcium 9.6 mg/dL (8.4-10.2); Carbon Dioxide 23 mmol/L (22-29); Chloride 109 mmol/L (96-108); Estimated Glomerular Filt Rate > 60; Glucose Random 104 mg/dL (60-115); Potassium 4.5 mmol/L (3.3-5.1); Sodium 142 mmol/L (135-145)
[2023-05-10 13:16] LABS: PLT ABN DIST 1; Platelet Count 219 X10*3/uL (160-400); White Blood Count 8.8 X10*3/uL (4.8-10.8)
[2023-05-10 13:17] LABS: SLIDE REVIEW VERIFIED
== END 2023-05-10 09:52 | disposition home or self-care (01) ==
LOC: HO.LAB 09:51
PROVIDERS: Visit Provider Internal Medicine Cardiovascular Disease
DX: I48.91 Unspecified atrial fibrillation (principal)
CPT/HCPCS: 36415; 80048; 85025; 85610

== ENCOUNTER 2023-06-24 13:35 | Outpatient (AMB) | payer OTHER, SELFPAY ==
[2023-06-24 13:49] VITALS: BP 118/64; PULSE 78; RESP 14; TEMP 36.7; O2SAT 98
--- NOTE | 2023-06-24 13:49 | MHC.PC.OV ---
Vital Signs 06/24/23 13:49 06/24/23 13:50 Height 6 ft 1 in Weight 221 lb 221 lb 4 oz BMI 29.2 BP 118/64 118/74 Blood Pressure Location Lt brachial Rt brachial Position Sitting Sitting Respiration 14 13 Pulse 78 78 Pulse Source Pulse Oximeter Pulse Oximeter Temp 98.1 F 97.8 F Temp Source Oral Temporal Artery Scan Pulse Oximetry (%) 98 98 Oxygen Delivery Method Room Air Intake Visit Reasons: f/u chronic conditions, r/s 05/12, see comments Powerhouse Mechanic Required: No Accompanied by: Self / Same As Patient Allergies doxycycline Allergy (Severe, Verified 06/24/23 13:52) Vomiting morphine Allergy (Intermediate, Verified 06/24/23 13:52) Shortness of Breath prednisone Allergy (Intermediate, Verified 06/24/23 13:52) afib sulfamethoxazole [From Bactrim] Allergy (Intermediate, Verified 06/24/23 13:52) Hives trimethoprim [From Bactrim] Allergy (Intermediate, Verified 06/24/23 13:52) Hives Tobacco use date assessed: 04/08/23 Fall risk assessment: No Falls in past year Last assessed Fall Risk: 06/24/23 Dental Screening Dental Screen Date: 06/24/23 Did you have a dental visit in the last 12 months?: Yes Did you have a dental problem in the last 6 months where you did not have access to dental care?: No Was dental information given to patient?: Patient has dentist HPI f/u chronic conditions, r/s 05/12, see comments HPI Details 63 y/o female presents to f/u chronic conditions. Had went to the ED 05/26/23 for palpitations - she is s/p cardioversion, AAA s/p repair. Her meds had been changed due to bradycardia in the 30 - medications happened last Wednesday from ED visit and stated she had been feeling well throughout the week. Was admitted to hospitalist for AFib with RVR. Labs were drawn and April. Liver enzymes have normalized. CBC was fine. She is on Multaq 400mg b.i.d. and Xarelto 20mg daily. She reports a rash since her cardioversion. Pt reports some postnasal drip ever since she had went to the ER. HPI Comments History of Present Illness Details Documentation assistance for Jose C Mohan MD, was provided by Jorge Luis Schaefer,? Senior Web Applications Developer on 06/24/2023 2:18 PM EST. Fay, Dr. Mohan, have read, observed, and verified documentation. COUNT INCLUD[facility] Medical History Infrarenal abdominal aortic aneurysm (AAA) without rupture Collapse of lung Hx MRSA infection History of COVID-19 GI bleed Atrial fibrillation Irritable bowel syndrome Mixed hyperlipidemia Surgical History Hx of right cataract extraction Hx of colonoscopy History of tonsillectomy History of fusion of lumbar spine History of skin graft Social History Household Members: Spouse Household Members Other:: 2 Housing: House Do you presently have visiting nurse or other home services: No Alcohol intake: current Alcohol intake frequency: a few times a week Patient Tobacco Use Status: Former Tobacco user Quit Date: 2021 Tobacco use type: Cigarette e-Cigarette/Vaping Use: Never Used Second Hand Smoke Exposure: No Advance Directives Date on File: 03/10/23 service: No Current occupational status: employed Current occupation: [employer] Current occupational exposures/hazards: No Cognitive needs: No Hearing needs: No Vision needs: No Questionnaire PHQ-9 Over the last 2 weeks, how often have you been bothered by any of the following problems? 1. Little interest or pleasure in doing things: not at all 2. Feeling down, depressed, or hopeless: not at all 3. Trouble falling or staying asleep, or sleeping too much: several days 4. Feeling tired or having little energy: several days 5. Poor appetite or overeating: not at all 6. Feeling bad about yourself - or that you are a failure or have let yourself or your family down: not at all 7. Trouble concentrating on things, such as reading the newspaper or watching television: not at all 8. Moving or speaking so slowly that other people could have noticed. Or the opposite - being so fidgety or restless that you have been moving around a lot more than usual: not at all 9. Thoughts that you would be better off or of hurting yourself in some way: not at all Total score: 2 Depression Screening Interpretation: Negative Depression Screening Done: Yes 83715 - PHQ-9 Billing: Yes Source: Developed by Drs. Tu Kiser, Derrick Spears and colleagues, with an educational anali from [employer]. Thrive Questionnaire Date Thrive assessed: 03/10/23 JASWINDER-7 AMB Questionnaire JASWINDER-7 Date JASWINDER - 7 assessed: 06/24/23 Feeling nervous, anxious, or on edge: 0 = Not at all Not being able to stop or control worryin = Not at all Worrying too much about different things: 0 = Not at all Trouble relaxin = Not at all Being so restless that it is hard to sit still: 0 = Not at all Becoming easily annoyed or irritable: 0 = Not at all Feeling afraid as if something awful might happen: 0 = Not at all Total JASWINDER-7 score (0-4 normal; 5-9 mild; 10-14 moderate; 15-21 severe): 0 Source: Developed by Drs. Tu Kiser, Eli Reinoso, Derrick Strong and colleagues, with an educational anali from [employer]. JASWINDER-7 Assessment Billing JASWINDER-7 Assessment Tool: JASWINDER-7 Assessment 25262 Review of Systems Const Denies chills, Denies fatigue, Denies fever(s), Denies headache(s) and Denies weakness ENT Denies dizziness, Denies headache(s) and Reports post nasal drip Card Denies dyspnea Resp Denies cough, Denies dyspnea, Denies wheezing and Denies other (shortness of breath) Musc Denies numbness and Denies tingling Skin/Breast Reports rash Neuro Denies dizziness, Denies headache(s), Denies numbness, Denies tingling and Denies weakness Psych Denies anxiety and Denies depression Endo Denies fatigue Aller/Immun Denies wheezing Physical exam (Primary Care) Vital Signs: Last Vital Signs Temp 97.8 F 06/24/23 13:50 Pulse 78 06/24/23 13:50 Resp 13 06/24/23 13:50 BP 118/74 06/24/23 13:50 Pulse Ox 98 06/24/23 13:50 Oxygen Delivery Method Room Air 06/24/23 13:49 BMI result Body Mass Index 29.2 Tobacco/Smoking Status: Tobacco use Status Tobacco use date assessed 04/08/23 06/24/23 13:49 Patient Tobacco Use Status Former Tobacco user 06/24/23 13:49 Tobacco use type Cigarette 06/24/23 13:49 e-Cigarette/Vaping Use Never Used 06/24/23 13:49 PHQ-9: PHQ-9 Score PHQ-9: Total score 2 06/24/23 14:05 Depression Screening Interpretation: Negative Thrive Assessment: Date of Thrive Assessment Date Thrive assessed 03/10/23 06/24/23 13:49 Const General: well developed; No acute distress Nutritional Appearance: well nourished Orientation/consciousness: patient oriented x3 HENMT Head: Yes normocephalic and Yes atraumatic Eyes General: appearance normal, both eyes and all related structures Pupils: Equal, round and reactive pupils present EOM: EOMs intact bilaterally Resp Effort & Inspection: normal respiratory effort Neuro General: patient oriented x3 and gait normal Cranial nerves: Yes Equal, round and reactive pupils present Psych Affect: normal affect Assessment and Plan Assessment & Plan (1) Elevated liver enzymes: Code(s): R74.8 - Abnormal levels of other serum enzymes Plan: Liver?enzymes?back?in?normal?range?at?most?recent?check (2) Atrial fibrillation status post cardioversion: Code(s): I48.91 - Unspecified atrial fibrillation Plan: Now?s/p?cardioversion?and?on?Multaq?and?Xarelto Currently?in?regular?rhythm Continue?medications Due?for?ablation?July (3) Rash: Code(s): R21 - Rash and other nonspecific skin eruption Plan: Rash?on?anterior?chest Likely?contact?dermatitis?from?location?cardioversion?pad?adhesive Will?give?her?a?script?for?betamethasone?ointment (4) Postnasal drip: Code(s): R09.82 - Postnasal drip Plan: Can?use?Zyrtec?and?nasal?saline Avoid?triggers Humidified?air (5) S/P AAA repair: Code(s): Z98.890 - Other specified postprocedural states; Z86.79 - Personal history of other diseases of the circulatory system Plan: She?is?doing?well.??Due?for?CT?scan?to?follow-up?and?ensure?repair Orders: Orders Comprehensive [place]. Panel Fast Today Z00.00 - Encounter for general adult medical examination without abnormal findings Lipid Panel Today Z00.00 - Encounter for general adult medical examination without abnormal findings UA and rflx microscopic Today Z00.00 - Encounter for general adult medical examination without abnormal findings TSH reflex Free T4 Today Z00.00 - Encounter for general adult medical examination without abnormal findings Complete Blood Count Auto Diff Today Z00.00 - Encounter for general adult medical examination without abnormal findings Microalbumin, Random (w Creat) Today I10 - Essential (primary) hypertension Medications: New betamethasone dipropionate 0.05% 1 appl topical BID PRN 45 grams 0RF skin irritation 14 days Coding Level of Care Code Est Pt Level 4 (67832) Diagnoses Elevated liver enzymes R74.8 Atrial fibrillation status post cardioversion I48.91 Rash R21 Postnasal drip R09.82 S/P AAA repair Z98.890; Z86.79 Additional Codes JASWINDER-7 Assessment Billing - JASWINDER-7 Assessment Tool: JASWINDER-7 Assessment 34498 ([id number])
[2023-06-24 13:50] VITALS: BP 118/74; PULSE 78; RESP 13; TEMP 36.6; O2SAT 98; BMI 29.2
== END 2023-06-24 14:23 | disposition home or self-care (01) ==
PROVIDERS: PCP Family Medicine; Visit Provider Family Medicine
DX: R74.8 Abnormal levels of other serum enzymes (principal); I48.91 Unspecified atrial fibrillation; R21 Rash and other nonspecific skin eruption; R09.82 Postnasal drip; Z98.890 Other specified postprocedural states; Z86.79 Personal history of other diseases of the circulatory system
CPT/HCPCS: 99214

== ENCOUNTER 2023-06-30 | Outpatient (REF) | payer OTHER, SELFPAY ==
[2023-07-01 08:52] LABS: Carbon Dioxide 23 mmol/L (22-29); Chloride 106 mmol/L (96-108); Glucose Random 107 mg/dL (60-115); Potassium 4.3 mmol/L (3.3-5.1); Sodium 140 mmol/L (135-145)
[2023-07-01 08:53] LABS: Anion Gap 15 (12-20); Blood Urea Nitrogen 20 mg/dL (9-16); Calcium 9.8 mg/dL (8.4-10.2); Estimated Glomerular Filt Rate 53
[2023-07-01 08:54] LABS: Alanine Aminotransferase 17 U/L (0-31); Albumin Level 4.3 g/dL (3.5-5.0); Alkaline Phosphatase 68 U/L (39-117); Aspartate Amino Transferase 19 U/L (5-31); Bilirubin Total 0.4 mg/dL (0.0-1.0); Thyroid Stimulating Hormone 1.36 uIU/mL (0.32-4.0); Total Protein 7.4 g/dL (6.5-8.0)
== END 2023-06-30 00:01 | disposition home or self-care (01) ==
LOC: HO.LAB
PROVIDERS: Family Medicine; Visit Provider Internal Medicine Cardiovascular Disease
DX: Z00.00 Encounter for general adult medical examination without abnormal findings (principal); K62.5 Hemorrhage of anus and rectum; F10.139 Alcohol abuse with withdrawal, unspecified; I48.91 Unspecified atrial fibrillation; I48.92 Unspecified atrial flutter
CPT/HCPCS: 36415; 80053; 84443

== ENCOUNTER 2023-07-26 07:38 | Outpatient (REF) | payer OTHER, SELFPAY ==
--- NOTE | ~2023-07-26 | CT_ITS ---
STUDY PERFORMED: CTA ABDOMEN AND PELVIS WITHOUT AND WITH CONTRAST HISTORY: Infrarenal abdominal aortic aneurysm status post aortic endograft repair. DESCRIPTION: Routine abdomen and pelvis CTA protocol with contrast was performed. 80 mL of Omnipaque 350 was administered. 3D POSTPROCESSING: Multiple 3-D angiographic images were processed from the initial data set by the [facility] on an independent workstation under concurrent physician supervision. DOSE LOWERING TECHNIQUES: This CT examination was performed using dose optimization techniques as appropriate, variously including the following: - Automated exposure control - Adjustment of mA and/or kV according to patient size (this includes techniques or standardized protocols for targeted exams where dose is matched to indication/reason for exam; i.e. extremities or head) - Use of iterative reconstruction technique DOSE LENGTH PRODUCT: 546 mGycm COMPARISON: CT abdomen and pelvis 03/09/2023. FINDINGS: VASCULAR: ABDOMINAL AORTA: New aortobiiliac endovascular aortic repair for infrarenal aortic aneurysm. The excluded aneurysm sac measures 5.7 x 5.6 cm. No visible endoleak on arterial phase imaging. Delayed phase was not obtained. On the previous noncontrast CT the aneurysm measured 5.7 x 5.5 cm. No periaortic stranding or hematoma. RIGHT ILIAC ARTERY: The right limb lands in the common iliac artery. The external and internal iliac arteries are patent. LEFT ILIAC ARTERY: The left limb lands in the common iliac artery. The external and internal iliac arteries are patent. CELIOMESENTERIC ARTERIES: The celiac and superior mesenteric arteries are patent. The inferior mesenteric artery is unopacified off the aneurysm sac and then reconstitutes at the first bifurcation via SMA collaterals physician. RENAL ARTERIES: Single right renal artery is patent. Single left renal artery is patent. The nephrograms are symmetric. NONVASCULAR: Lung Bases: No suspicion pulmonary nodules. Liver, Gallbladder and Biliary Tree: Arterial phase imaging of the liver is unremarkable. No enhancing mass. No biliary ductal dilatation. The gallbladder is unremarkable with no evidence of radiopaque gallstones, gallbladder wall thickening, or obvious pericholecystic inflammatory changes. Pancreas: No discrete pancreatic mass. No pancreatic ductal dilatation. Spleen: Arterial phase enhancement of the spleen is unremarkable. Adrenal Glands: No adrenal mass. Kidneys and Ureters: Nephrograms are symmetric. No nephrolithiasis or hydronephrosis. No suspicious renal mass. Bladder: No discrete bladder mass. Gastrointestinal Tract: The small bowel is normal in caliber. The large bowel is normal in caliber. No discrete bowel lesion. Mild colonic diverticulosis. The appendix appears normal. Abdominal Wall: Small fat-containing umbilical hernia. Lymph Nodes: No lymphadenopathy. Pelvic Viscera: Unremarkable. Osseous Structures: Degenerative changes in the spine. CT/CT angio abdomen pelvis IMPRESSION: Aortobiiliac stent graft treatment of infrarenal abdominal aortic aneurysm. The excluded aneurysm sac measures 5.7 x 5.6 cm compared to 5.7 x 5.5 cm. No endoleak visible on arterial phase imaging. Colonic diverticulosis. Fleischner guidelines were followed.
[2023-07-26 08:07] LABS: Blood Urea Nitrogen 14 mg/dL (9-16); Estimated Glomerular Filt Rate 55
== END 2023-07-26 07:39 | disposition home or self-care (01) ==
LOC: HO.CT 07:38
PROVIDERS: PCP Family Medicine; Visit Provider Surgery Vascular Surgery
DX: I71.43 Infrarenal abdominal aortic aneurysm, without rupture (principal)
CPT/HCPCS: 36415; 74174; 82565; 84520; Q9967

== ENCOUNTER 2023-08-02 06:24 | Outpatient (REF) | payer OTHER, SELFPAY ==
--- NOTE | 2023-08-02 | PFT_ITS ---
Spirometry [] FVC 91%, FEV1 82%. FEV1/FVC RATIO 69 FEF 25-75 = 63% PATIENT DECLINED TO HAVE BRONCHO DILATOR THERAPY Lung Volumes [] TOTAL LUNG CAPACITY 81%, RV 68% Diffusion Capacity [] DLCO 77% DL/VA 90% Methacholine Challenge [] Flow Volume Loops [] NORMAL CONFIGURATION. []MVV = 72% MIP/MEP(Max inspiratory pressure/Max expiratory pressure) [] 6 Minute Walk Test [] ABG [] Interpretation [] THERE IS EVIDENCE OF A VERY MILD DEGREE OF OBSTRUCTIVE AIRWAY DISORDER MAINLY INVOLVING THE SMALLER AIRWAYS. PATIENT HAD DECLINED TO UNDERGO BRONCHODILATOR CHALLENGE, BECAUSE OF RECENT INCREASE IN ATRIAL FIB/FLUTTER PROBLEM. MTDD
== END 2023-08-02 06:25 | disposition home or self-care (01) ==
LOC: HO.RESP 06:24
PROVIDERS: PCP Family Medicine; Visit Provider Internal Medicine Cardiovascular Disease
DX: Z13.89 Encounter for screening for other disorder (principal)

== ENCOUNTER → 2023-08-02 09:00 | Outpatient (BNV) | payer OTHER, SELFPAY | PROVIDERS: PCP Family Medicine; Visit Provider Internal Medicine | DX: Z01.811 Encounter for preprocedural respiratory examination (principal) | CPT/HCPCS: 94060; 94727; 94729 ==

== ENCOUNTER 2023-08-04 10:44 | Outpatient (REF) | payer OTHER, SELFPAY ==
[2023-08-04 13:00] LABS: MANUAL DIFF FLAG SCAN
[2023-08-04 13:03] LABS: Prothrombin Time 12.1 SEC (11.1-13.3)
[2023-08-04 13:30] LABS: Basophils Absolute Auto 0.1 X10*3/uL (0.0-0.2); Basophils Percent Auto 0.9 % (0-2); Eosinophils Absolute Auto 0.3 X10*3/uL (0.0-0.4); Eosinophils Percent Auto 4.8 % (0-4); Hematocrit 39.9 % (37.0-47.0); Hemoglobin 13.5 g/dl (12.0-16.0); Imm Gran Abs Auto 0.03 X10*3/uL (0.00-0.03); Imm Gran Pct Auto 0.4 % (0.0-0.4); Lymphocytes Percent Auto 28.5 % (20-40); Mean Corpuscular HGB Conc 33.8 g/dl (31.0-35.0); Mean Corpuscular Hemoglobin 31.7 pg (27.0-33.0); Mean Corpuscular Volume 93.7 fL (80.0-98.0); Mean Platelet Volume 12.8 fL (9.4-12.3); Monocytes Absolute Auto 0.6 X10*3/uL (0.1-1.2); Monocytes Percent Auto 9.2 % (2-11); Neutrophils Absolute Auto 3.9 x10*3/uL (2.0-8.3); Neutrophils Percent Auto 56.2 % (45-73); PLT CLUMP 1; Red Blood Count 4.26 X10*6/uL (4.20-5.50); SCAN SMEAR FLAG 1
[2023-08-04 13:31] LABS: White Blood Count 6.9 X10*3/uL (4.8-10.8)
[2023-08-04 13:34] LABS: Platelet Count 188 X10*3/uL (160-400)
[2023-08-04 13:37] LABS: SLIDE REVIEW VERIFIED
[2023-08-04 14:05] LABS: Anion Gap 12 (12-20); Blood Urea Nitrogen 22 mg/dL (9-16); Calcium 9.2 mg/dL (8.4-10.2); Carbon Dioxide 24 mmol/L (22-29); Chloride 109 mmol/L (96-108); Estimated Glomerular Filt Rate 57; Glucose Random 94 mg/dL (60-115); Potassium 4.1 mmol/L (3.3-5.1); Sodium 141 mmol/L (135-145)
== END 2023-08-04 10:45 | disposition home or self-care (01) ==
LOC: HO.LAB 10:44
PROVIDERS: Internal Medicine Cardiovascular Disease; Visit Provider Internal Medicine Cardiovascular Disease
DX: I48.91 Unspecified atrial fibrillation (principal)
CPT/HCPCS: 36415; 80048; 85025; 85610

== ENCOUNTER 2023-08-05 10:06 | Outpatient (AMB) | payer OTHER, SELFPAY ==
--- NOTE | 2023-08-05 10:08 | A.OFFVIS_ITS ---
Intake Vital Signs 08/05/23 10:09 Height 6 ft 1 in Weight 221 lb BMI 29.2 Intake Visit Reasons: 3 mo follow up AAA repair s/p CTA 07/26/23 Intake Note: 3 mo follow up AAA repair 04/12/2023 s/p CTA Abd/pelvis 07/26/23. Pt states cardiology issues have worsened since surgery, she has had 3 cardioversions and is getting a cardiac ablation later this month. No abdominal issues. Accompanied by: Self / Same As Patient Allergies doxycycline Allergy (Severe, Verified 08/05/23 10:13) Vomiting morphine Allergy (Intermediate, Verified 08/05/23 10:13) Shortness of Breath prednisone Allergy (Intermediate, Verified 08/05/23 10:13) afib sulfamethoxazole [From Bactrim] Allergy (Intermediate, Verified 08/05/23 10:13) Hives trimethoprim [From Bactrim] Allergy (Intermediate, Verified 08/05/23 10:13) Hives HPI 3 mo follow up AAA repair s/p CTA 07/26/23 HPI Details Very pleasant 63-year-old female presents for follow-up status post endovascular aortic aneurysm repair. She reports no postprocedure issues in terms of her aneurysms. She has had episodes of AFib flutter and has been followed by a [facility]. She is actually scheduled for ablation with Dr. Renee conte in approximately a month. She now presents to us for surveillance follow-up with CT angiogram. [facility] Medical History Infrarenal abdominal aortic aneurysm (AAA) without rupture Collapse of lung Hx MRSA infection History of COVID-19 GI bleed Atrial fibrillation Irritable bowel syndrome Mixed hyperlipidemia Surgical History Hx of right cataract extraction Hx of colonoscopy History of tonsillectomy History of fusion of lumbar spine History of skin graft Social History Household Members: Spouse Household Members Other:: 2 Housing: House Do you presently have visiting nurse or other home services: No Alcohol intake: current Alcohol intake frequency: a few times a week Patient Tobacco Use Status: Former Tobacco user Quit Date: 2021 Tobacco use type: Cigarette e-Cigarette/Vaping Use: Never Used Second Hand Smoke Exposure: No Advance Directives Date on File: 03/10/23 service: No Current occupational status: employed Current occupation: [employer] Current occupational exposures/hazards: No Cognitive needs: No Hearing needs: No Vision needs: No Review of Systems Const All systems reviewed & are unremarkable except as noted in HPI and below Reports no additional complaints ENT Reports Normal hearing present Card Denies chest pain, Denies chest pain at rest, Denies chest pain with activity and Denies pedal edema Resp Denies cough GI Denies abdominal pain Musc Denies abnormal gait, Denies muscle cramps and Denies radiating pain into limb Skin/Breast Denies skin ulcer and Denies wounds Neuro Reports Normal hearing present and Denies abnormal gait Psych Reports no additional complaints Physical Exam Vital Signs: BMI result Body Mass Index 29.2 Const General: cooperative, healthy appearing and comfortable Orientation/consciousness: oriented to person, oriented to place and oriented to time HEENT Head: Yes normal to inspection Neck Neck: Yes normal visual inspection Carotids: no bruits Chest Chest palpation & inspection: normal inspection of the chest Resp Effort & Inspection: normal respiratory effort and able to speak in complete sentences Auscultation: clear to auscultation bilaterally, no crackles, no rales, no rhonchi and no wheezes Cardio Rate: regular rate Rhythm: regular rhythm Heart sounds: S1 normal heart sound present and S2 normal heart sound present Bruits: no carotid bruits Peripheral pulses: Peripheral pulses 2+ throughout GI Inspection: Yes normal to inspection Skin Wounds: no wounds Hair: normal Neuro General: oriented to person, oriented to place and oriented to time Cranial nerves: Yes CN's II-XII intact bilaterally and Yes Normal hearing present Cognition (Neuro): normal cognition Motor exam (neuro): 5/5 motor strength present throughout Extrem Other: venous exam: No significant superficial varicosities or spider telangiectasias, minimal edema General: No clubbing, No cyanosis and No edema Psych Appearance: grossly normal Mental Status: mental status grossly normal Speech and movement: Normal speech and movement present Results Reviewed Results Reviewed: CT angiogram dated 07/26/2023 demonstrates appropriately placed endograft with no evidence of endoleak. Written report and images were reviewed. Assessment & Plan Assessment & Plan (1) Infrarenal abdominal aortic aneurysm (AAA) without rupture: Comment: 04/12/2023 - endovascular aortic aneurysm repair with [employer] Endurant II S Code(s): I71.43 - Infrarenal abdominal aortic aneurysm, without rupture Plan: In short patient is stable status post aortic endograft repair. We have discussed the pathophysiology of aortic aneurysms and the risk of ruptures. We have discussed rupture risk based on size. the patient is scheduled for surveillance follow-up in approximately 6 months. Thank you for allowing us to participate in the care of this patient Orders: Orders CT angio abdomen pelvis 6 Months I71.43 - Infrarenal abdominal aortic aneurysm, without rupture Blood Urea Nitrogen 6 Months I71.43 - Infrarenal abdominal aortic aneurysm, without rupture Creatinine 6 Months I71.43 - Infrarenal abdominal aortic aneurysm, without rupture Coding Level of Care Code Est Pt Level 4 (93001) Diagnoses Infrarenal abdominal aortic aneurysm (AAA) without rupture I71.43
[2023-08-05 10:09] VITALS: BMI 29.2
== END 2023-08-05 10:27 | disposition home or self-care (01) ==
PROVIDERS: PCP Family Medicine; Visit Provider Surgery Vascular Surgery
DX: I71.43 Infrarenal abdominal aortic aneurysm, without rupture (principal)
CPT/HCPCS: 99213

== ENCOUNTER → 2023-08-05 10:06 | Outpatient (BNVA) | payer OTHER, SELFPAY | PROVIDERS: PCP Family Medicine; Visit Provider Surgery Vascular Surgery ==

== ENCOUNTER 2023-08-12 14:59 | Outpatient (REF) | payer OTHER, SELFPAY | END 2023-08-12 15:00 | disposition home or self-care (01) | LOC: HO.MAMMO 14:59 | PROVIDERS: PCP Family Medicine; Visit Provider Family Medicine | DX: Z12.31 Encounter for screening mammogram for malignant neoplasm of breast (principal) | CPT/HCPCS: 77063; 77067 ==

== ENCOUNTER → 2023-08-12 15:00 | Outpatient (BNV) | payer OTHER, SELFPAY | PROVIDERS: PCP Family Medicine; Visit Provider Radiology Diagnostic Radiology | DX: Z12.31 Encounter for screening mammogram for malignant neoplasm of breast (principal) | CPT/HCPCS: 77063; 77067 ==

== ENCOUNTER 2023-08-31 16:36 | Outpatient (AMB) | payer OTHER, SELFPAY ==
--- NOTE | 2023-08-31 16:25 | MHC.PC.OV ---
Intake Visit Reasons: fmla paperwork in folder Intake Note: Patient is requesting paperwork for heart issues had aortic arterial repair, and heart problems. Allergies doxycycline Allergy (Severe, Verified 08/31/23 16:27) Vomiting morphine Allergy (Intermediate, Verified 08/31/23 16:27) Shortness of Breath prednisone Allergy (Intermediate, Verified 08/31/23 16:27) afib sulfamethoxazole [From Bactrim] Allergy (Intermediate, Verified 08/31/23 16:27) Hives trimethoprim [From Bactrim] Allergy (Intermediate, Verified 08/31/23 16:27) Hives Tobacco use date assessed: 08/31/23 Last assessed Fall Risk: 08/31/23 HPI fmla paperwork in folder HPI Details 63 y/o female presents to f/u FMLA paperwork. Pt is s/p cardioversion. She is requesting intermittent leave going forward. [facility] Medical History Infrarenal abdominal aortic aneurysm (AAA) without rupture Collapse of lung Hx MRSA infection History of COVID-19 GI bleed Atrial fibrillation Irritable bowel syndrome Mixed hyperlipidemia Surgical History Hx of right cataract extraction Hx of colonoscopy History of tonsillectomy History of fusion of lumbar spine History of skin graft Social History Household Members: Spouse Household Members Other:: 2 Housing: House Do you presently have visiting nurse or other home services: No Alcohol intake: current Alcohol intake frequency: a few times a week Patient Tobacco Use Status: Former Tobacco user Quit Date: 2021 Tobacco use type: Cigarette e-Cigarette/Vaping Use: Never Used Second Hand Smoke Exposure: No Advance Directives Date on File: 03/10/23 service: No Current occupational status: employed Current occupation: [employer] Current occupational exposures/hazards: No Cognitive needs: No Hearing needs: No Vision needs: No Questionnaire PHQ-9 Over the last 2 weeks, how often have you been bothered by any of the following problems? 1. Little interest or pleasure in doing things: not at all 2. Feeling down, depressed, or hopeless: not at all 3. Trouble falling or staying asleep, or sleeping too much: more than half the days 4. Feeling tired or having little energy: not at all 5. Poor appetite or overeating: not at all 6. Feeling bad about yourself - or that you are a failure or have let yourself or your family down: not at all 7. Trouble concentrating on things, such as reading the newspaper or watching television: not at all 8. Moving or speaking so slowly that other people could have noticed. Or the opposite - being so fidgety or restless that you have been moving around a lot more than usual: not at all 9. Thoughts that you would be better off or of hurting yourself in some way: not at all Total score: 2 Source: Developed by Drs. Tu Kiser, Eli Reinoso, Derrick Strong and colleagues, with an educational anali from [employer]. Thrive Questionnaire Date Thrive assessed: 03/10/23 JASWINDER-7 AMB Questionnaire JASWINDER-7 Date JASWINDER - 7 assessed: 08/31/23 Feeling nervous, anxious, or on edge: 0 = Not at all Not being able to stop or control worryin = Not at all Worrying too much about different things: 0 = Not at all Trouble relaxin = Not at all Being so restless that it is hard to sit still: 0 = Not at all Becoming easily annoyed or irritable: 0 = Not at all Feeling afraid as if something awful might happen: 0 = Not at all Total JASWINDER-7 score (0-4 normal; 5-9 mild; 10-14 moderate; 15-21 severe): 0 Source: Developed by Drs. Tu Kiser, Derrick Spears and colleagues, with an educational anali from [employer]. Review of Systems Const Denies chills, Denies fatigue, Denies fever(s), Denies headache(s) and Denies weakness ENT Denies dizziness and Denies headache(s) Card Denies dyspnea Resp Denies cough, Denies dyspnea, Denies wheezing and Denies other (shortness of breath) Musc Denies numbness and Denies tingling Neuro Denies dizziness, Denies headache(s), Denies numbness, Denies tingling and Denies weakness Psych Denies anxiety and Denies depression Endo Denies fatigue Aller/Immun Denies wheezing Physical exam (Primary Care) Tobacco/Smoking Status: Tobacco use Status Tobacco use date assessed 08/31/23 08/31/23 16:28 Patient Tobacco Use Status Former Tobacco user 08/31/23 16:28 Tobacco use type Cigarette 08/31/23 16:28 e-Cigarette/Vaping Use Never Used 08/31/23 16:28 PHQ-9: PHQ-9 Score PHQ-9: Total score 2 08/31/23 17:13 Thrive Assessment: Date of Thrive Assessment Date Thrive assessed 03/10/23 08/31/23 16:28 Telehealth Telehealth Location of provider rendering services: practice address Location of patient: address on file Patient Identification confirmed using: Name, : Yes Telehealth method: voice only Patient verbally consented to treatment: Yes Patient verbally consented to billing insurance company: Yes Patient informed of any privacy concerns related to visit: Yes Minutes spent on Phone/Video with Pt.: 9 Assessment and Plan Assessment & Plan (1) History of cardiac radiofrequency ablation: Code(s): Z98.890 - Other specified postprocedural states Plan: Patient?is?s/p?cardiac?ablation?for?atrial?fibrillation. Still?has?multiple?follow-up?appointments?with?Cardiology,?electrophysiology?and?her?vascular?surgeon?as?she?is?also?s/p?endovascular?repair?of?AAA. Patient?is?out?of?sick?time?and?will?need?FMLA?paperwork?for?intermittent?leave?to?attend?appointments. Also?has?potential?that?atrial?fibrillation?might?return.??She?might?need?to?be?absent?for?additional?cardioversion?and?the?following?day Will?give?her?FMLA?paperwork?filled?out?for?intermittent?leave?up?to?4?times?per?month?and?up?to?48?hours?per?episode. (2) Atrial fibrillation status post cardioversion: Code(s): I48.91 - Unspecified atrial fibrillation Plan: As?above (3) S/P AAA repair: Code(s): Z98.890 - Other specified postprocedural states; Z86.79 - Personal history of other diseases of the circulatory system Plan: As?above Coding Level of Care Code Tele Est Pt Level 2 (94905) Diagnoses History of cardiac radiofrequency ablation Z98.890 Atrial fibrillation status post cardioversion I48.91 S/P AAA repair Z98.890; Z86.79
== END 2023-08-31 17:00 ==
LOC: HO.HMGFM 16:36
PROVIDERS: PCP Family Medicine; Visit Provider Family Medicine
DX: Z98.890 Other specified postprocedural states (principal); I48.91 Unspecified atrial fibrillation; Z86.79 Personal history of other diseases of the circulatory system
CPT/HCPCS: 99212

== ENCOUNTER 2023-10-07 06:23 | Outpatient (REF) | payer OTHER, SELFPAY ==
[2023-10-07 08:58] LABS: Basophils Percent Auto 0.6 % (0-2); Eosinophils Absolute Auto 0.3 X10*3/uL (0.0-0.4); Eosinophils Percent Auto 4.1 % (0-4); Hematocrit 42.6 % (37.0-47.0); Imm Gran Abs Auto 0.02 X10*3/uL (0.00-0.03); Imm Gran Pct Auto 0.3 % (0.0-0.4); Lymphocytes Absolute Auto 1.6 X10*3/uL (1.2-4.9); Lymphocytes Percent Auto 24.2 % (20-40); MANUAL DIFF FLAG SCAN; Mean Corpuscular HGB Conc 32.9 g/dl (31.0-35.0); Mean Corpuscular Hemoglobin 31.2 pg (27.0-33.0); Mean Corpuscular Volume 94.9 fL (80.0-98.0); Monocytes Absolute Auto 0.7 X10*3/uL (0.1-1.2); Monocytes Percent Auto 9.9 % (2-11); Neutrophils Percent Auto 60.9 % (45-73); PLT CLUMP 1; Red Blood Count 4.49 X10*6/uL (4.20-5.50); Red Cell Distribution Width 12.9 % (11.0-16.0); SCAN SMEAR FLAG 1
[2023-10-07 08:59] LABS: White Blood Count 6.6 X10*3/uL (4.8-10.8)
[2023-10-07 09:01] LABS: Digoxin < 0.2 ng/mL (0.8-2.0)
[2023-10-07 09:05] LABS: Alanine Aminotransferase 19 U/L (0-31); Albumin Level 4.2 g/dL (3.5-5.0); Alkaline Phosphatase 69 U/L (39-117); Anion Gap 13 (12-20); Aspartate Amino Transferase 18 U/L (5-31); Bilirubin Total 0.6 mg/dL (0.0-1.0); Blood Urea Nitrogen 19 mg/dL (9-16); Calcium 9.4 mg/dL (8.4-10.2); Carbon Dioxide 27 mmol/L (22-29); Chloride 109 mmol/L (96-108); Cholesterol 282 mg/dL (<200); Estimated Glomerular Filt Rate > 60; Glucose Fasting 114 mg/dL (60-99); HDL Cholesterol 54 mg/dL (>40); LDL Cholesterol Calculated 193 mg/dL (<100); Potassium 4.7 mmol/L (3.3-5.1); Sodium 144 mmol/L (135-145); Total Protein 7.2 g/dL (6.5-8.0); Triglycerides 176 mg/dL (<150)
[2023-10-07 09:18] LABS: TSH reflex Free T4 1.48 uIU/mL (0.32-4.0)
[2023-10-07 09:26] LABS: Appearance Urine Clear; Color Urine Yellow; Glucose Urine UA Negative (Negative); Leukocyte Esterase Urine Small (1+) (Negative); Nitrite Urine Negative (Negative); UMIC TRIGGER UA YES; Urine Blood Negative (Negative); Urine Ketones Negative (Negative); Urine Protein Negative (Neg-Trace)
[2023-10-07 09:30] LABS: Bacteria Urine 4+ (None Seen); Hyaline Casts Urine 0-2 /LPF (0-2); RBC Urine 0-2 /HPF (0-2)
[2023-10-07 09:33] LABS: SLIDE REVIEW VERIFIED
[2023-10-07 09:34] LABS: Platelet Count (Citrate) 188 X10*3/uL (150-310)
[2023-10-07 09:56] LABS: Creatinine Urine 68.41 mg/dL
== END 2023-10-07 06:24 | disposition home or self-care (01) ==
LOC: HO.LAB 06:23
PROVIDERS: PCP Family Medicine; Visit Provider Family Medicine
DX: Z00.00 Encounter for general adult medical examination without abnormal findings (principal); I10 Essential (primary) hypertension; Z79.899 Other long term (current) drug therapy
CPT/HCPCS: 36415; 80053; 80061; 80162; 81001; 82043; 82570; 84443; 85025

== ENCOUNTER 2024-01-24 13:14 | Outpatient (REF) | payer OTHER, SELFPAY ==
[2024-01-24 15:11] LABS: Blood Urea Nitrogen 13 mg/dL (9-16); Estimated Glomerular Filt Rate > 60
== END 2024-01-24 13:15 | disposition home or self-care (01) ==
LOC: HO.LAB 13:14
PROVIDERS: PCP Family Medicine; Visit Provider Surgery Vascular Surgery
DX: I71.43 Infrarenal abdominal aortic aneurysm, without rupture (principal)
CPT/HCPCS: 36415; 82565; 84520

== ENCOUNTER 2024-02-14 07:55 | Outpatient (REF) | payer OTHER, SELFPAY ==
--- NOTE | ~2024-02-14 | CT_ITS ---
EXAMINATION: CTA ABDOMEN AND PELVIS CLINICAL INFORMATION: Status post aortic endograft placement TECHNIQUE: Multiple axial images were obtained through the abdomen and pelvis before and after administration of 70 mL of Omnipaque intravenously. Images were evaluated on independent dedicated 3-D workstation and 3-D images were reconstructed with concurrent radiologist supervision and subsequently interpreted. Specific vascular measurements are placed directly on the 3-D rendered images and are documented and stored in PACS. This CT examination was performed using dose optimization techniques as appropriate, variously including the following: *Automated exposure control. *Adjustment of mA and/or kV according to patient size (this includes techniques or standardized protocols for targeted exams where dose is matched to indication/reason for exam, i.e., extremities or head). *Use of iterative reconstruction technique. COMPARISON: CT abdomen and pelvis 07/26/2023 DLP: 559 mGy-cm. FINDINGS: VASCULAR: Abdominal aorta: Abdominal aortic endograft in place. Aneurysm sac measures 5 x 4.4 cm, previously 5.7 x 5.6 cm. No contrast enhancement within the aneurysm sac. Iliac arteries: Iliac limbs are well opposed. Patent. Mesenteric arteries: The celiac artery and SMA are patent and normal in caliber. The ROSA is occluded at its origin but patent distally. Renal arteries: Patent bilaterally NONVASCULAR: Lung Bases: The lungs are clear with no evidence of inflammation or nodules. Liver, Gallbladder, Biliary Tree: The liver is normal in size, shape, and attenuation. No focal hepatic lesion or biliary ductal dilatation is present. The gallbladder is unremarkable with no evidence of radiopaque gallstones, gallbladder wall thickening, or pericholecystic inflammatory changes. Pancreas: Unremarkable. Spleen: Unremarkable. Adrenal Glands: Unremarkable. Kidneys and Ureters: The kidneys are normal in size, shape, and attenuation. No hydronephrosis or hydroureter or calculi seen. No perinephric stranding. Bladder: Unremarkable. Gastrointestinal Tract: The small and large bowel are unremarkable. The appendix is unremarkable. Abdominal Wall: No hernia is demonstrated. Lymph Nodes: Normal. Pelvic Viscera: Unremarkable. Osseous Structures: Multilevel degenerative changes of the lumbar spine. Osseous bridging across the L4-L5 disc space. Severe disc space narrowing at L2-L3. CT/CT angio abdomen pelvis IMPRESSION: Abdominal aortic endograft in place. Aneurysm sac measures 5 x 4.4 cm, previously 5.7 x 5.6 cm. No evidence of endoleak.
[2024-02-14] MEDS: iohexoL 350 MG/ML 100 ML INFUS..BTL 80 ML IV (08:35)
== END 2024-02-14 07:56 | disposition home or self-care (01) ==
LOC: HO.CT 07:55
PROVIDERS: PCP Family Medicine; Visit Provider Surgery Vascular Surgery
DX: I71.43 Infrarenal abdominal aortic aneurysm, without rupture (principal)
CPT/HCPCS: 74174; Q9967

== ENCOUNTER 2024-02-17 13:18 | Outpatient (REF) | payer OTHER, SELFPAY ==
--- NOTE | ~2024-02-17 | XR_ITS ---
EXAMINATION: XR KNEE, RIGHT CLINICAL INFORMATION: Pain in the right knee. COMPARISON: None available. TECHNIQUE: Four views of the right knee. FINDINGS: No acute fracture or dislocation. Mild joint space narrowing in the medial compartments of both knees as well as patellofemoral compartment of the right knee. No osseous erosions. No abnormal soft tissue calcifications. Small joint effusion in the right knee. XR/XR knee RT 3V IMPRESSION: 1. No acute fracture or dislocation. 2. 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 3. Small joint effusion.
== END 2024-02-17 13:19 | disposition home or self-care (01) ==
LOC: HO.HOSX 13:18
PROVIDERS: Visit Provider Orthopaedic Surgery
DX: M25.561 Pain in right knee (principal)
CPT/HCPCS: 73562

== ENCOUNTER 2024-02-17 13:38 | Outpatient (AMB) | payer OTHER, SELFPAY ==
--- NOTE | 2024-02-17 14:24 | A.OFFVIS_ITS ---
Intake Visit Reasons: New Pt - Right Knee Pain Intake Note: Callie is a 63 year old female who presents today as a new patient with complaints of right knee pain. Patient reports that she has had ongoing pain for about 3 weeks now. She explains that she woke oup with pain and cannot recall any injury. Pain is felt throughout the day and worsens with pivoting. Denies numbness or tingling. She has an allergy to steroids - she cannot have an injection. Allergies doxycycline Allergy (Severe, Verified 02/17/24 14:26) Vomiting morphine Allergy (Intermediate, Verified 02/17/24 14:26) Shortness of Breath prednisone Allergy (Intermediate, Verified 02/17/24 14:26) afib sulfamethoxazole [From Bactrim] Allergy (Intermediate, Verified 02/17/24 14:26) Hives trimethoprim [From Bactrim] Allergy (Intermediate, Verified 02/17/24 14:26) Hives HPI HPI New Pt - Right Knee Pain: Details: Callie is a 63 year old female who presents today as a new patient with complaints of right knee pain. Patient reports that she has had ongoing pain for about 3 weeks now. She explains that she woke up with pain and cannot recall any injury. Pain is felt throughout the day and worsens with pivoting. Denies numbness or tingling. She has an allergy to steroids - she cannot have an injection. [facility] Medical History Infrarenal abdominal aortic aneurysm (AAA) without rupture Collapse of lung Hx MRSA infection History of COVID-19 GI bleed Atrial fibrillation Irritable bowel syndrome Mixed hyperlipidemia Surgical History Hx of right cataract extraction Hx of colonoscopy History of tonsillectomy History of fusion of lumbar spine History of skin graft Social History Household Members: Spouse Household Members Other:: 2 Housing: House Do you presently have visiting nurse or other home services: No Alcohol intake: current Alcohol intake frequency: a few times a week Patient Tobacco Use Status: Former Tobacco user Tobacco use type: Cigarette e-Cigarette/Vaping Use: Never Used Second Hand Smoke Exposure: No Advance Directives Date on File: 03/10/23 service: No Current occupational status: employed Current occupation: [employer] Current occupational exposures/hazards: No Cognitive needs: No Hearing needs: No Vision needs: No Physical Exam Const General: cooperative, healthy appearing, no acute distress, well developed and alert HEENT Head: Yes normal to inspection, Yes normocephalic and Yes atraumatic Mouth: moist mucous membranes Eyes General: appearance normal, both eyes and all related structures EOM: EOMs intact bilaterally Chest Other: no audible wheezing. Resp Other: No audible wheezing Effort & Inspection: normal respiratory effort Back/Spine/Pelvis Cervical Spine: normal cervical lordosis Skin General skin exam: no rashes or lesions noted Neuro General: no focal motor deficits Extrem Other: Mild medial compartment ttp with terminal flexion and mild lateral retropatellar TTP. Otherwise benign exam Psych Appearance: grossly normal and well kempt Mental Status: mental status grossly normal Speech and movement: Normal speech and movement present Affect: normal affect Attitude: cooperative Results Reviewed Results Reviewed: I personally reviewed relevant radiographs. 1. No acute fracture or dislocation. 2. 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 3. Small joint effusion. Assessment & Plan Assessment & Plan (1) Right knee pain: Code(s): M25.561 - Pain in right knee Category: Medical Plan: This is a 63-year-old woman with right knee pain. She has some mild arthritis in his pain for 3 weeks which is improving. At this point there is no orthopedic intervention warranted. I reviewed her radiographs and my findings and if her pain worsens or persists she may return to see me. She may resume activity as tolerated. Orders: Orders XR knee RT 3V 02/17/24 M25.561 - Pain in right knee Coding Level of Care Code New Pt Level 3 (79560) Diagnoses Right knee pain M25.561
== END 2024-02-17 14:58 | disposition home or self-care (01) ==
PROVIDERS: PCP Family Medicine; Visit Provider Orthopaedic Surgery
DX: M25.561 Pain in right knee (principal)
CPT/HCPCS: 99203

== ENCOUNTER 2024-03-21 11:10 | Outpatient (AMB) | payer OTHER, SELFPAY ==
--- NOTE | 2024-03-21 11:13 | A.OFFVIS_ITS ---
Intake Visit Reasons: 6 mo follow up CTA abd/pelvis 02/14/24 Intake Note: 6 mo follow up EVAR 04/12/24s/p CTA Abd/pelvis 02/14/24. Pt states no complaints, had a cardiac ablation and cardioversion since last visit. Accompanied by: Self / Same As Patient Allergies doxycycline Allergy (Severe, Verified 03/21/24 11:17) Vomiting morphine Allergy (Intermediate, Verified 03/21/24 11:17) Shortness of Breath prednisone Allergy (Intermediate, Verified 03/21/24 11:17) afib sulfamethoxazole [From Bactrim] Allergy (Intermediate, Verified 03/21/24 11:17) Hives trimethoprim [From Bactrim] Allergy (Intermediate, Verified 03/21/24 11:17) Hives HPI HPI 6 mo follow up CTA abd/pelvis 02/14/24: Details: Very pleasant 63-year-old female presents for aortic aneurysm follow-up. She is status post endovascular aneurysm repair dating back to 04/07/2023. She has been following [facility] for cardiac ablation by Dr. Escamilla, and reports no issues with that. She is doing well otherwise. She now presents for follow-up with CT angiogram. [facility] Medical History Infrarenal abdominal aortic aneurysm (AAA) without rupture Collapse of lung Hx MRSA infection History of COVID-19 GI bleed Atrial fibrillation Irritable bowel syndrome Mixed hyperlipidemia Surgical History Hx of right cataract extraction Hx of colonoscopy History of tonsillectomy History of fusion of lumbar spine History of skin graft Social History Household Members: Spouse Household Members Other:: 2 Housing: House Do you presently have visiting nurse or other home services: No Alcohol intake: current Alcohol intake frequency: a few times a week Patient Tobacco Use Status: Former Tobacco user Tobacco use type: Cigarette e-Cigarette/Vaping Use: Never Used Second Hand Smoke Exposure: No Advance Directives Date on File: 03/10/23 service: No Current occupational status: employed Current occupation: [employer] Current occupational exposures/hazards: No Cognitive needs: No Hearing needs: No Vision needs: No Review of Systems Const All systems reviewed & are unremarkable except as noted in HPI and below Reports no additional complaints ENT Reports Normal hearing present Card Denies chest pain, Denies chest pain at rest, Denies chest pain with activity and Denies pedal edema Resp Denies cough GI Denies abdominal pain Musc Denies abnormal gait, Denies muscle cramps and Denies radiating pain into limb Skin/Breast Denies skin ulcer and Denies wounds Neuro Reports Normal hearing present and Denies abnormal gait Psych Reports no additional complaints Physical Exam Const General: cooperative, healthy appearing and comfortable Orientation/consciousness: oriented to person, oriented to place and oriented to time HEENT Head: Yes normal to inspection Neck Neck: Yes normal visual inspection Carotids: no bruits Chest Chest palpation & inspection: normal inspection of the chest Resp Effort & Inspection: normal respiratory effort and able to speak in complete sentences Auscultation: clear to auscultation bilaterally, no crackles, no rales, no rhonchi and no wheezes Cardio Rate: regular rate Rhythm: regular rhythm Heart sounds: S1 normal heart sound present and S2 normal heart sound present Bruits: no carotid bruits Peripheral pulses: Peripheral pulses 2+ throughout GI Inspection: Yes normal to inspection Skin Wounds: no wounds Hair: normal Neuro General: oriented to person, oriented to place and oriented to time Cranial nerves: Yes CN's II-XII intact bilaterally and Yes Normal hearing present Cognition (Neuro): normal cognition Motor exam (neuro): 5/5 motor strength present throughout Extrem Other: venous exam: No significant superficial varicosities or spider telangiectasias, minimal edema General: No clubbing, No cyanosis and No edema Psych Appearance: grossly normal Mental Status: mental status grossly normal Speech and movement: Normal speech and movement present Results Reviewed Results Reviewed: CT angiogram dated 02/09/2024 demonstrates sac measuring 5 x 4.4 with no evidence of endoleak. Written report and images were reviewed. Assessment & Plan Assessment & Plan (1) Infrarenal abdominal aortic aneurysm (AAA) without rupture: Comment: 04/12/2023 - endovascular aortic aneurysm repair with [employer] Endurant II S Code(s): I71.43 - Infrarenal abdominal aortic aneurysm, without rupture Category: Medical Plan: In short patient has stable aortic endograft. We have discussed the pathophysiology of aortic aneurysms and the risk of ruptures. We have discussed rupture risk based on size. In addition we have discussed conservative measures and risk factor modification for prevention of increase in size of the aneurysm. the patient is scheduled for surveillance follow-up in approximately 1 year. Thank you for allowing us to participate in the care of this patient Please note a longitudinal relationship has been created with the patient and we have been following and surveillance this chronic condition. Orders: Orders CT angio abdomen pelvis 1 Year I71.43 - Infrarenal abdominal aortic aneurysm, without rupture Blood Urea Nitrogen 1 Year I71.43 - Infrarenal abdominal aortic aneurysm, without rupture Creatinine 1 Year I71.43 - Infrarenal abdominal aortic aneurysm, without rupture Coding Level of Care Code Est Pt Level 4 (98151) Complex EM visit Add On G2211 Diagnoses Infrarenal abdominal aortic aneurysm (AAA) without rupture I71.43
== END 2024-03-21 12:00 | disposition home or self-care (01) ==
PROVIDERS: PCP Family Medicine; Visit Provider Surgery Vascular Surgery
DX: I71.43 Infrarenal abdominal aortic aneurysm, without rupture (principal)
CPT/HCPCS: 99214

== ENCOUNTER → 2024-03-21 11:10 | Outpatient (BNVA) | payer OTHER, SELFPAY | PROVIDERS: PCP Family Medicine; Visit Provider Surgery Vascular Surgery ==

== ENCOUNTER 2024-08-15 11:35 | Outpatient (REF) | payer OTHER, SELFPAY ==
--- OUTSIDE RECORDS SUMMARY | 2024-08-15 12:50 | XMS_ITS ---
Author Organization [facility] Address [address] [place] [phone] Care Team Providers Care Refrigerating Oiler Name Role Phone Jose C Mohan Primary Care Provider Unavailab Tu Deluca Unavailable [phone] REASON FOR VISIT screening /fm hx colon ca Encounters Encounter Location Date Provider Diagnosis [facility] [address], [place] [id number] 05/17/2023 Tu Heard PLAN OF TREATMENT No Information
--- OUTSIDE RECORDS SUMMARY | 2024-08-15 12:50 | XMS_ITS | Patient Health Record ---
Author Organization [facility] Address [address] [place] [address] Care Team Providers Care It Infrastructure Project Manager Name Role Phone Marques Jose C Primary Care Provider Tu Echeverria [phone] ALLERGIES Allergen (clinical drug ingredient) Drug/Non Drug Allergy documented on EMR Reaction Allergy Type Onset Date Status morphine Morphine Unknown Drug Allergy Active doxycycline Doxycycline Unknown Drug Allergy Act phyllis prednisone Prednisone Unknown Drug Allergy Activ e ciprofloxacin Cipro Unknown Drug Allergy Act phyllis sulfamethoxazole / trimethoprim Bactrim Unknown Drug Allergy Active REASON FOR REFERRAL No Information MEDICATIONS Medication [...] Problem Colon cancer screening (Z12.11) Active confirmed 520732439 Problem Irritable bowel syndrome (K58.9) Active confirmed Irritable bowel syndrome (41682449) Problem Irritable bowel syndrome with diarrhea (K58.0) Active confirmed 609452500 Problem History of colon polyps (Z86.010) Active confirmed [id number] Problem Family history of colon cancer (Z80.0) Active confirmed [id number] PLAN OF TREATMENT Future Test Test Name Order Date COLONOSCOPY 01/06/2023 Insurance Providers Payer Name Payer Address Payer Phone Subscriber Number Group Number Insured Name Patient Relationship to Insured Coverage Start Date Coverage End Date [employer] S [employer] [address] [address] [place] [address] [id number] GAMALIEL OLIVAS Self - patient is the insured MEDICAL (GENERAL) HISTORY Medical History History ICD Code IBS with associated intermit tent diarrhea and abdominal cramps. She had testing with Dr. Elder Rivera in [place] including colonoscopies and small bowel video capsule study(2018). Labs were negative for celiac disease with a negative tissue transglutaminase antibody; colon biopsies were negative for microscopic colitis Multiple colonoscopies with Dr. Elder Rivera with removal of tubular adenomas, most recently as of 05/2018 Denies NE,DM,CVA,Lung disease,renal dise ase Surgical History Surgery Date(Month/Year) Back surgery with subsequent infection 1 993 Spinal fusion 1995 Skin Grafting due to gann 2007
--- OUTSIDE RECORDS SUMMARY | 2024-08-15 12:50 | XMS_ITS ---
Author Organization [facility] Address [address] [place] [phone] Care Team Providers Care Press Service Reader Name Role Phone Jose C Mohan Primary Care Provider Unavailab Tu Deluca Unavailable [phone] REASON FOR VISIT pathology/ 5 yr colon recall Encounters Encounter Location Date Provider Diagnosis [facility] [address] [place] [phone] 03/17/2023 Tu Heard PLAN OF TREATMENT No Information
--- OUTSIDE RECORDS SUMMARY | 2024-08-15 12:50 | XMS_ITS ---
Author Organization [facility] Address [address] [place] [phone] Care Team Providers Care Log Tumbler Name Role Phone Jose C Mohan Primary Care Provider Unavailab Tu Deluca Unavailable [phone] Encounters Encounter Location Date Provider Diagnosis [facility] [address] [place] [phone] 03/11/2023 Tu Heard PLAN OF TREATMENT No Information
--- OUTSIDE RECORDS SUMMARY | 2024-08-15 12:50 | XMS_ITS | Clinical Summary ---
Author Organization [address] [facility] Address [address] [place] [address] Phone Care Team Providers Care Cost Report Clerk Name Role Phone Jose C Mohan MD Primary Care Provider [phone] Allergies Active Allergy Reactions Criticality Noted Date Comments Ciprofloxacin 06/21/2023 Other reaction(s): itching Itching Corticosteroids (Glucocorticoids) 06/21/2023 Other reaction(s): atrial fibrallation Atrial fibrillation Doxycycline 06/21/2023 Other reaction(s): vomiting vomiting Morphine 06/21/2023 Other reaction(s): Difficulty breathing trouble breathing Sulfamethoxazole-Trimethopri m 06/21/2023 Medications Medication Sig Dispensed Refills Start Date End Date Status rivaroxaban (Xarelto) 20 mg tablet TAKE 1 TABLET BY MOUTH DAILY. 04/03/2024 Active Active Problems Problem Noted Date Diagnosed Date Aneurysm of ascending aorta without rupture 06/18 HFrEF (heart failure with reduced ejection fract ion) 06/27/2024 History of alcohol abuse 12/20/2023 Overview (05/23/2024): Last Assessment & Plan: The patient denies significant alcohol use; she reports a glass of wine 3-4 nights per week. We did discuss that alcohol use may be a trigger for episodes of atrial fibrillation; also avoidance of sugar and caffeine was advised in addition to remaining well-hydrated especially in the summer months. Patient verbalizes understanding of this. Palpitation 12/16/2023 Elevated blood pressure read ing in office without diagnosis of hypertension 10/26/2023 AAA (abdominal aortic aneurysm) 03/19/2023 Overview (05/23/2024): Last Assessment & Plan: Status post repair; followed by vascular surgery. Atrial fibrillation and flutter 03/19/2023 Overview (05/23/2024): UNSPECIFIED Last Assessment & Plan: The patient is status post several cardioversions, now status post cryoablation on 07/28/2023, and more recently repeat cardioversion on 11/08/2023. She denies any palpitations or any other symptoms concerning for repeat episode of atrial fibrillation since her most recent cardioversion; she continues to use her [employer] mobile device at home which has also not documented any recurrence of atrial fibrillation. Historically, this patient's atrial fibrillation has been difficult to control medications secondary to bradycardia after her first cardioversion with a heart rate into the 30s resulting in the need to discontinue Cardizem and decrease metoprolol dosing. Multaq approved to be cost prohibitive; she was transition to amiodarone but reverted to atrial fibrillation despite compliance with medical therapies. EKG today shows normal sinus rhythm, rate of 85 bpm. Rate appears adequately controlled off medical therapies; she remains on Xarelto for cardioembolic prophylaxis. We discussed the risks and benefits of continuing with anticoagulation and she wishes to continue with the current plan. She is aware to seek emergent medical attention for any uncontrolled bleeding, signs or symptoms of GI or other internal bleeding, or for any head injury. Resolved Problems Problem Noted Date Diagnosed Date Resolved Date Secondary hypercoagulable state 12/20/2023 06/27/2024 Dysrhythmia 12/16/2023 06/27/2024 SVT (supraventricular tachycardia) 12/16/2023 06/27/2024 Encounters Date Type Department Care Team Description 06/27/2024 3:10 PM EST Office Visit [facility] [address] [place] [address] Maria E Diaz, TISSUE SPECIALIST Aneurysm of ascending aorta without rupture (CMS/HCC) (Primary Dx); HFrEF (heart failure with reduced ejection fraction) (CMS/HCC); PAF (paroxysmal atrial fibrillation) (CMS/HCC); Atrial fibrillation and flutter (CMS/HCC); Elevated blood pressure reading in office without diagnosis of hypertension from Last 3 Months Social History Tobacco Use Types Packs/Day Years Used Date Smoking Tobacco: Former Smokeless Tobacco: Never Alcohol Use Standard Drinks/Week Comments Yes 0 (1 standard drink = 0.6 oz pur e alcohol) Sex and Gender Information Value Date Recorded Sex Assigned at Not on file Gender Identity Not on file Sexual Orientation Not on file Job Start Date Occupation Industry Not on file Not on file Not on file Obstetrics History Last Filed Vital Signs Vital Sign Reading Time Taken Comments Blood Pressure 148/84 06/27/2024 3:15 PM EST Pulse 78 06/27/2024 3:15 PM EST Temperature - - Respiratory Rate 16 06/27/2024 3:15 PM EST Oxygen Saturation - - Inhaled Oxygen Concentration - - Weight 98.9 kg (218 lb) 06/27/2024 3:15 PM EST Height 185.4 cm (6' 1 ) 06/27/2024 3:15 PM EST Body Mass Index 28.76 06/27/2024 3:15 PM EST Plan of Treatment Upcoming Encounters Date Type Department Care Team (Late st Contact Info) Description 09/14/2024 11:00 AM EST Ancillary Procedure [facility] [address] [facility] [address] [place] [address] Health Maintenance Due Date Last Done Comments Breast Cancer Screening 1960 Hepatitis A Vaccines (1 of 2 - Risk 2-dose series) 1978 Cervical Cancer Screening: Pap Smear 1980 Zoster Vaccines (1 of 2) 2009 RSV Immunization Patients 60+ Years Old (1 - Risk 60-74 years 1-dose series) 2019 Cholesterol Screening (Lipid Panel) 08/17/2023 Depression Screening 08/17/2023 Hepatitis C Screening 08/17/2023 Osteoporosis Screening (Bone Density Screening) 08/17/2023 Social Influencers of Health Screening 08/17/2023 Influenza Vaccine (#1) 2024 2, 04/22/2021, 04/27/2019, Additional history exists Falls Risk Assessment 2024 Pneumococcal Vaccine: 65+ Years (1 of 1 - PCV) 2024 Hypertension/CHF/CAD Annual BMP Blood Test 06/30/2024 DTaP,Tdap,and Td Vaccines (2 - Td or Tdap) 06/17/2025 06/17/2015 Colorectal Cancer Screening: Colonoscopy 03/11/2033 03/11/2023 COVID-19 Vaccine Completed 04/13/2024, 01/2022, 06/27/2021, Additional history exists HIB Vaccines Aged Out No longer eligi ble based on patient's age to complete this topic HPV Vaccines Aged Out No longer eligi ble based on patient's age to complete this topic Hepatitis B Vaccines Aged Out No long er eligible based on patient's age to complete this topic IPV Vaccines Aged Out No longer eligi ble based on patient's age to complete this topic MMR Vaccines Aged Out No longer eligi ble based on patient's age to complete this topic Meningococcal ACWY Vaccine Aged Out N o longer eligible based on patient's age to complete this topic Pneumococcal Vaccine: Pediatrics (0 to 5 Years) and At-Risk Patients (6 to 64 Years) Aged Out No longer eligible based on patient's age to complete this topic RSV Immunization Patients Under 20 months Aged Out No longer eligible based on patient's age to complete this topic Varicella Vaccines Aged Out No longer eligible based on patient's age to complete this topic Procedures Procedure Name Priority Date/Time Associated Diagnosis Comments ECG 12-LEAD Routine 06/27/2024 4:26 PM EST PAF (paroxysmal atrial fibrillation) ([facility]) COLONOSCOPY Routine 03/11/2023 from Last 3 Months or Most Recently Relevant to Health Maintenance Results * ECG 12 lead (06/27/2024 4:26 PM EST) Ventricular Rate ECG 78 BPM GEMUSE Atrial Rate 78 BPM GEMUSE P-R Interval 160 ms GEMUSE QRS Duration 84 ms GEMUSE Q-T Interval 380 ms GEMUSE QTc 433 ms GEMUSE P Wave [place] 70 degrees GEMUSE R [place] 81 degrees GEMUSE T [place] 46 degrees GEMUSE ECG Interpretation Sinus rhythm with occasional Premature ventricular complexes Otherwise normal ECG When compared with ECG of 08-NOV-2023 14:56, Premature ventricular complexes are now Present Confirmed by Miranda ELLIOTT, SAMMI ([id number]) on 06/29/2024 9:37:32 AM GEMUSE 06/27/2024 3:26 PM EST 06/29/2024 9:37 AM EST Sammi Elliott MD ECG ORDERABLES GEMUSE * Colonoscopy (03/11/2023) HM Colonoscopy No Interpretation , Abstracted Anatomical Region Laterality Modality Other Historical Provider MD MARIA EUGENIA Crandall from Last 3 Months or Most Recently Relevant to Health Maintenance Care Teams Cost Report Clerk Relationship Specialty Start Date End Date Jose C Mohan MD [address] [place] [address] Dr Paulinoke RI PCP - General 03/16/23
== END 2024-08-15 11:36 | disposition home or self-care (01) ==
LOC: HO.MAMMO 11:35
PROVIDERS: PCP Family Medicine; Visit Provider Family Medicine
DX: Z12.31 Encounter for screening mammogram for malignant neoplasm of breast (principal)
CPT/HCPCS: 77063; 77067

== ENCOUNTER → 2024-08-15 11:45 | Outpatient (BNV) | payer OTHER, SELFPAY | PROVIDERS: PCP Family Medicine; Visit Provider Internal Medicine | DX: Z12.31 Encounter for screening mammogram for malignant neoplasm of breast (principal) | CPT/HCPCS: 77063; 77067 ==

== ENCOUNTER 2024-10-13 13:09 | Outpatient (AMB) | payer OTHER, SELFPAY ==
--- NOTE | 2024-10-13 13:11 | A.OFFPC_ITS ---
Vital Signs 10/13/24 13:14 Height 6 ft 1 in Weight 221 lb 2 oz BMI 29.2 BP 138/72 Blood Pressure Location Lt brachial Position Sitting Respiration 12 Pulse 90 Pulse Source Pulse Oximeter Temp 97.2 F Temp Source Oral Pulse Oximetry (%) 9 L Oxygen Delivery Method Room Air Intake Visit Reasons: cpe Intake Note: CPE Emergency Room Clerk Required: No Allergies doxycycline Allergy (Severe, Verified 10/13/24 13:22) Vomiting morphine Allergy (Intermediate, Verified 10/13/24 13:22) Shortness of Breath prednisone Allergy (Intermediate, Verified 10/13/24 13:22) afib sulfamethoxazole [From Bactrim] Allergy (Intermediate, Verified 10/13/24 13:22) Hives trimethoprim [From Bactrim] Allergy (Intermediate, Verified 10/13/24 13:22) Hives Medication List - Last Reconciled 10/13/24 by Ann Del Rosario, SCIENCE EDUCATION PROFESSOR-BC rivaroxaban (Xarelto) 20 mg PO DAILY Tobacco use date assessed: 10/13/24 Fall risk assessment: No Falls in past year Last assessed Fall Risk: 10/13/24 Dental Screening Dental Screen Date: 10/13/24 Did you have a dental visit in the last 12 months?: Yes Did you have a dental problem in the last 6 months where you did not have access to dental care?: No Was dental information given to patient?: Patient has dentist HPI HPI Comments History of Present Illness Details 64 y/o F with afib s/p cardiac albation and cardioversion, alcohol dependence, elevated LFT, AAA w/o rupture (s/p repair 2022), HLD, IBS, former smoker, hx of GI bleed and collapsed lung, diastolic heart failure, seasonal allergies s/p AAA repair 2022, spinal fusion, tonsillectomy, R cataract extraction, s/p cardiac ablation Family hx : strong DM on mom side; Dad bone ca, mom uterine ca; sister lung cancer Social: 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 Managed by medical only , on Xarelto CHF euvolemic without diuretics. IBS is better s/p AAA repair; still has sx but not as bad HLD was on statin; stopped taking IFG - will check a1c Skin - no issues Optho - last exam 1 year ETOH drinks a few glasses of wine a few times per week has never suffered withdrawals Former smoker, half pack per day times 35 years, quit 3 years ago. Interested in lung cancer screening program AAA status post repair managed by vascular Exam General: Well developed, well nourished, in no acute distress. Appears stated age. Head: Normocephalic, atraumatic. Eyes: Pupils are equal, round and reactive to light and accommodation. Conjunctivae are clear. Vision grossly normal. Ears: TMs clear AU, EACS WNL congestion noted bilaterally worse on the left Nose: Patent, without discharge. Mouth: There are no ulcers or lesions noted. No inflammation, no post nasal drip, no plaques nor exudates. Neck: Supple, no adenopathy or thyromegaly. Lungs: Clear to auscultation bilaterally. No rales, rhonchi or wheeze noted. Good air flow in all [place]. Heart: Regular rate and rhythm. No murmurs, click, rubs or gallops are noted. Abdomen: Bowel sounds present in all quadrants. The abdomen is soft, nontender, with no masses or organomegaly noted. No hernias are noted. Musculoskeletal: Joints are nontender, without swelling, redness, or effusions. Range of motion is observed to be normal. Pulses: Peripheral pulses are equal and palpable bilaterally. Extremities: No clubbing, cyanosis nor edema is noted. Neurologic: Gait and station normal. Cranial Nerves 2-12 intact. Motor strength grossly symmetrical and intact. No sensory loss. Balance normal. Skin: No rashes, ulcers, or lesions noted. Turgor is good. Skin color is good. Hair and nails are without abnormalities. On upper back there is a small pink macule that is suspicious for basal cell or the like however the patient states that she has been scratching at it over the last few days Psych: Normal eye contact, affect and mood appropriate, and normal interactions. Patient is alert and appropriate to context. Plan Continue all medications Continue care with care team Monitor the skin lesion on your back, if worsens please notify me and we can refer her to Dermatology. Otherwise below evaluate at physical exam next year. If the area remains we will need to refer to dermatology for evaluation and treatment Bone density and routine screening labs ordered Lung cancer screening ordered Recommend return to the office in 1 year for complete physical exam, sooner as needed An additional 30 minutes was spent addressing the problem(s) noted at todays visit. This includes time spent before the visit reviewing the chart, time spent during the visit, and time spent after the visit on documentation reviewing laboratory results, diagnostic imaging, medications, performing a medically necessary evaluation, counseling on diagnoses, care coordination, ordering appropriate tests, ordering appropriate medications, review of tests performed by other providers, reporting test results with the patient, communication with other healthcare providers. [facility] Medical History (Updated 10/13/24 @ 17:18 by Ann Del Rosario, SCIENCE EDUCATION PROFESSOR-) Afib Alcohol abuse with withdrawal Atrial fibrillation Atrial fibrillation with RVR Atrial flutter Bright red blood per rectum Collapse of lung Elevated blood pressure reading GI bleed History of COVID-19 Hx MRSA infection Infrarenal abdominal aortic aneurysm (AAA) without rupture Irritable bowel syndrome Mixed hyperlipidemia Surgical History (Updated 10/13/24 @ 13:30 by Ann Del Rosario, SCIENCE EDUCATION PROFESSOR-) History of fusion of lumbar spine History of skin graft History of tonsillectomy Hx of colonoscopy (~2023) Hx of right cataract extraction Social History Household Members: Spouse Household Members Other:: 2 Housing: House Do you presently have visiting nurse or other home services: No Alcohol intake: current Alcohol intake frequency: a few times a week Patient Tobacco Use Status: Former Tobacco user Tobacco use type: Cigarette e-Cigarette/Vaping Use: Never Used Second Hand Smoke Exposure: No Advance Directives Date on File: 03/10/23 service: No Current occupational status: employed Current occupation: [employer] Current occupational exposures/hazards: No Cognitive needs: No Hearing needs: No Vision needs: No Questionnaire PHQ-9 Over the last 2 weeks, how often have you been bothered by any of the following problems? 1. Little interest or pleasure in doing things: not at all 2. Feeling down, depressed, or hopeless: not at all 3. Trouble falling or staying asleep, or sleeping too much: not at all 4. Feeling tired or having little energy: not at all 5. Poor appetite or overeating: not at all 6. Feeling bad about yourself - or that you are a failure or have let yourself or your family down: not at all 7. Trouble concentrating on things, such as reading the newspaper or watching television: not at all 8. Moving or speaking so slowly that other people could have noticed. Or the opposite - being so fidgety or restless that you have been moving around a lot more than usual: not at all 9. Thoughts that you would be better off or of hurting yourself in some w ay: not at all Total score: 0 Depression Screening Interpretation: Negative Depression Screening Done: Yes 61581 - PHQ-9 Billing: Yes Source: Developed by Drs. Tu Kiser, Eli Reinoso, Derrick Strong and colleagues, with an educational anali from [employer]. Thrive Questionnaire Date Thrive assessed: 10/13/24 I am a: Patient What is your living situation today?: I have a steady place to live Within the past 12 months, did the food you bought not last and you didn't have the money to get more?: Often true Within the past 12 months, did you worry whether your food would run out before you got money to buy more?: Never true Do you have trouble paying for medicines?: No Do you have trouble getting transportation to medical appointments?: No Do you have trouble paying your heating and electricity bill?: No Do you have trouble taking care of your child, family member or friend?: No Do you have trouble with day-to-day activities such as bathing, preparing meals, shopping, managing finances, etc.?: No Are you currently unemployed and looking for a job?: No Are you interested in more education?: No Please select the resources that you would like help with: None Currently or been in a relationship where the following occur: No concerns reported THRIVE Score: 1 AUDIT C Alcohol Use Questionnaire (AUDIT-C) 1. How often do you have a drink containing alcohol?: 4 or more times a week 2. How many drinks containing alcohol do you have on a typical day when you are drinking?: 1 or 2 3. How often do you have six or more drinks on one occasion?: Never Total Score: 4 Score Reviewed/Action Taken: Yes JASWINDER-7 AMB Questionnaire JASWINDER-7 Date JASWINDER - 7 assessed: 10/13/24 Feeling nervous, anxious, or on edge: 0 = Not at all Not being able to stop or control worryin = Not at all Worrying too much about different things: 0 = Not at all Trouble relaxin = Not at all Being so restless that it is hard to sit still: 0 = Not at all Becoming easily annoyed or irritable: 0 = Not at all Feeling afraid as if something awful might happen: 0 = Not at all Total JASWINDER-7 score (0-4 normal; 5-9 mild; 10-14 moderate; 15-21 severe): 0 Source: Developed by Drs. Tu Kiser, Eli Reinoso, Derrick Strong and colleagues, with an educational anali from [employer]. JASWINDER-7 Assessment Billing JASWINDER-7 Assessment Tool: JASWINDER-7 Assessment 39958 Physical exam (Primary Care) Vital Signs: Last Vital Signs Temp 97.2 F 10/13/24 13:14 Pulse 90 10/13/24 13:14 Resp 12 10/13/24 13:14 BP 138/72 10/13/24 13:14 Pulse Ox 9 L 10/13/24 13:14 Oxygen Delivery Method Room Air 10/13/24 13:14 BMI result Body Mass Index 29.2 Tobacco/Smoking Status: Tobacco use Status Tobacco use date assessed 10/13/24 10/13/24 13:14 Patient Tobacco Use Status Former Tobacco user 10/13/24 13:14 Tobacco use type Cigarette 10/13/24 13:14 e-Cigarette/Vaping Use Never Used 10/13/24 13:14 PHQ-9: PHQ-9 Score PHQ-9: Total score 0 10/13/24 13:27 Depression Screening Interpretation: Negative Thrive Assessment: Date of Thrive Assessment Date Thrive assessed 10/13/24 10/13/24 13:14 Currently or been in a relationship where the following occur: No concerns reported Coding Level of Care Code Est Pt Level 4 (15243) New Pt Prev Care 40-64y(76408) Diagnoses Adult general medical exam Z00.00 Menopause Z78.0 Screening for lung cancer Z12.2 Former smoker Z87.891 Influenza vaccination declined Z28.21 Atrial fibrillation status post cardioversion I48.91 Elevated liver enzymes R74.8 Elevated fasting blood sugar R73.01 Family history of uterine cancer Z80.49 Infrarenal abdominal aortic aneurysm (AAA) without rupture I71.43 Irritable bowel syndrome with diarrhea K58.0 Irritable bowel syndrome type: with diarrhea Laboratory examination ordered as part of a routine general medical examination Z00.00 Mixed hyperlipidemia E78.2 S/P AAA repair Z98.890; Z86.79 Screening for colon cancer Z12.11 Screening for cervical cancer Z12.4 Secondary hypercoagulability disorder D68.69 Alcohol use F10.90 Additional Codes JASWINDER-7 Assessment Billing - JASWINDER-7 Assessment Tool: JASWINDER-7 Assessment 34746 ([id number]) PHQ-9 - 61966 - PHQ-9 Billing: Yes ([id number]) Assessment & Plan Assessment & Plan (1) Adult general medical exam: Code(s): Z00.00 - Encounter for general adult medical examination without abnormal findings Category: Medical (2) Menopause: Code(s): Z78.0 - Asymptomatic menopausal state Category: Medical (3) Screening for lung cancer: Code(s): Z12.2 - Encounter for screening for malignant neoplasm of respiratory organs Category: Medical (4) Former smoker: Comment: 1/2 PPD x 35 years Quit 2022 Code(s): Z87.891 - Personal history of nicotine dependence Category: Social Hx (5) Influenza vaccination declined: Code(s): Z28.21 - Immunization not carried out because of patient refusal Category: Medical (6) Atrial fibrillation status post cardioversion: Code(s): I48.91 - Unspecified atrial fibrillation Category: Medical (7) Elevated liver enzymes: Code(s): R74.8 - Abnormal levels of other serum enzymes Category: Medical (8) Elevated fasting blood sugar: Code(s): R73.01 - Impaired fasting glucose Category: Medical (9) Family history of uterine cancer: Comment: Mom Code(s): Z80.49 - Family history of malignant neoplasm of other genital organs Category: Medical (10) Infrarenal abdominal aortic aneurysm (AAA) without rupture: Comment: 04/12/2023 - endovascular aortic aneurysm repair with Medtronic Endurant II S Code(s): I71.43 - Infrarenal abdominal aortic aneurysm, without rupture Category: Medical (11) Irritable bowel syndrome: Code(s): K58.9 - Irritable bowel syndrome, unspecified Category: Medical Qualifiers: Irritable bowel syndrome type: with diarrhea Qualified Code(s): K58.0 - Irritable bowel syndrome with diarrhea (12) Laboratory examination ordered as part of a routine general medical examination: Code(s): Z00.00 - Encounter for general adult medical examination without abnormal findings Category: Medical (13) Mixed hyperlipidemia: Code(s): E78.2 - Mixed hyperlipidemia Category: Medical (14) S/P AAA repair: Code(s): Z98.890 - Other specified postprocedural states; Z86.79 - Personal history of other diseases of the circulatory system Category: Surgical (15) Screening for colon cancer: Code(s): Z12.11 - Encounter for screening for malignant neoplasm of colon Category: Medical (16) Screening for cervical cancer: Code(s): Z12.4 - Encounter for screening for malignant neoplasm of cervix Category: Medical (17) Secondary hypercoagulability disorder: Comment: Due to AFib on Xarelto Code(s): D68.69 - Other thrombophilia Category: Medical (18) Alcohol use: Code(s): F10.90 - Alcohol use, unspecified, uncomplicated Category: Social Hx Plan . Orders: Orders XR DEXA axial skeleton Today Z13.820 - Encounter for screening for osteoporosis, Z78.0 - Asymptomatic menopausal state Complete Blood Count no Diff Today Z00.00 - Encounter for general adult medical examination without abnormal findings Comprehensive Met. Panel Today Z00.00 - Encounter for general adult medical examination without abnormal findings Hemoglobin A1c Today Z00.00 - Encounter for general adult medical examination without abnormal findings Lipid Panel Today Z00.00 - Encounter for general adult medical examination wi thout abnormal findings TSH reflex Free T4 Today Z00.00 - Encounter for general adult medical examination without abnormal findings Vitamin B12 and Folate Today Z00.00 - Encounter for general adult medical examination without abnormal findings Vitamin D 25-OH Total Today Z00.00 - Encounter for general adult medical ex amination without abnormal findings Microalbumin, Random (w Creat) Today Z00.00 - Encounter for general adult medical examination without abnormal findings Referrals HANDYPERSON Referral Z12.4 - Encounter for screening for malignant neoplasm of cervix, Z80.49 - Family history of malignant neoplasm of other genital organs Lung Cancer Screening Referral Z12.2 - Encounter for screening for malignant neoplasm of respiratory organs, Z87.891 - Personal history of nicotine dependence Patient Instructions: - Follow up with bone density testing as scheduled. - Consume alcohol in moderation to avoid withdrawal complications. - Continue regular medication for arrhythmia and hypertension. - Attend all scheduled cardiology appointments for arrhythmia management. - Consider participation in lung cancer screening due to smoking history. - Maintain dietary habits to manage IBS and monitor for any changes. Walk-In Care (Urgent Care): We Make it Easy Walk-in for urgent medical issues such as: ? Seasonal Allergies ? Insect Bites ? Cough ? Diarrhea ? Acute Asthma Attacks ? Back, Knee or Joint Pain ? Ear Infection ? Fever without a Rash ? Headaches ? Nausea ? [place] Eye, Rash or Skin Irritation ? Sore Throat ? Sports Physicals ? Vomiting Most insurances are accepted. Patients do not need to be part of the [facility] to seek care at the walk-in clinic. Locations [facility] , [place] [address] ? [phone] [facility] Walk-In Care in [place] provides services to ages 18 and over. Open Wednesday-Wednesday: 8 a.m. to 5 p.m. and Wednesday: 9 a.m. to 3 p.m.* *Hours may vary due to staffing availability. To confirm Walk-In Care hours in [place], please call [phone]. [address] [place] [address] ? [phone] [facility] Walk-In Care in [place] provides services to ages 12 and over. Open Wednesday-Wednesday: 8 a.m. to 5 p.m. Hours may vary due to staffing availability. To confirm Walk-In Care hours in [place], please call [phone]. LABORATORY SERVICES: [facility] Lab ? Primary Location [address] [place] [address] Wednesday through Wednesday 6:00 AM ? 5:00 PM Wednesday 7:00 AM ? 11:00 AM* [phone] The [facility] Lab is centrally located near the front entrance of the [facility] for easy outpatient access. Convenient parking is provided for outpatients. *Hours may vary due to staffing availability. To confirm Laboratory hours for any location, please call [phone]. Offsite Location For your convenience, we offer offsite laboratory draw stations at the following locations: [address] [place] [address] ? [facility] [address] [facility], [address] Wednesday through Wednesday 7:30 AM ? 1:00 PM* [phone] *Hours may vary due to staffing availability. To confirm Laboratory hours for any location, please call [phone]. [place] ? [address] Wednesday through Wednesday 6:00 AM ? 3:30 PM* Wednesday 6:30 AM ? 3 PM* [phone] *Hours may vary due to staffing availability. To confirm Laboratory hours for any location, please call [phone] [place] [address] Wednesday through Wednesday 7:30 AM ? 4:00 PM* [phone] *Hours may vary due to staffing availability. To confirm Laboratory hours for any location, please call [phone] [place] [address] Wednesday through 9:00 AM ? 4:00 PM* *Hours may vary due to staffing availability. To confirm Laboratory hours for any location, please call [phone]. Appointments are not necessary. Walk-ins are welcome. Like all the departments throughout the [facility], our Lab undergoes frequent reviews to ensure the quality and accuracy of test results, and our staff takes special pride in its status as a nationally accredited facility. Patient Portal: ONE PATIENT. ONE RECORD. BETTER CARE. [facility] has a fully integrated, cutting- edge mobile electronic health information system that has revolutionized the way we care for our patients and manage our organization. This system improves communication and coordination enabling us to provide safe, higher-quality care, and an overall positive experience for staff and patients. Our first priority, as always, is to deliver the highest quality care possible. The system is running in the background supporting that priority. This portal is for all [facility] services and practices. If you are experiencing any technical difficulties with enrolling or logging into the Patient Portal please complete the [facility] Patient Portal Technical Support Form. [facility] now offers a new secure on-line interactive tool for patients to review their health information ? ?Patient Portal. This interactive web portal will enable patients and their families to take an active role in their care by providing easy, secure access to their health information via the internet. The Patient Portal provides patients with instant access to their health information, including laboratory results, medications, allergies, demographic information, visit history, and more. In addition to managing their own care, parents and health care proxies with authorized consent will appreciate the ability to access the records of those individuals for whom they provide care. Please note: if you wish to gain access (Proxy) to another patient?s portal, you will be required to come to the Medical Records Department in person at [facility]. Both the patient giving proxy access and the proxy will need to provide photo identification and complete the appropriate authorization. The Patient Portal also allows track their appointments online. The [facility] Patient Portal also saves patients time by allowing them to submit updates to their demographic and contact information prior to their visits. Portal email notifications will also alert patients to any new activity on their portal, such as test results and new appointments. In order to initially enroll in the [facility] Patient Portal, you will need to enter some required information including the following: * your [facility] Medical Record number * your personal home email address * name * date of Please note: In order to enroll in the [facility] Patient Portal, we need to have your email address on file in your electronic medical record. ?The email address needs to be specific for one person (yourself) in order for your Portal enrollment to be successful. ?You can update your email address in person with our Registration staff when you are registering for a hospital visit. ?Otherwise, you will need to come to the Health Information Management (Medical Records) Department at [facility]. ?We are open from Wednesday ? Wednesday from 7:30 a.m. ? 4:30 p.m. ?You will be required to present a photo id. Once you have successfully enrolled in the Patient Portal, you will receive a one-time user id and password for the Portal, sent to your email address. ?This will allow you to log into the Patient Portal within 99 hrs and reset your own logon id and password, and define personal security questions. ?Once your permanent login and password have been set, you can log into the [facility] Patient Portal at any time via the blue button above or from the Portal Logon button on any page of the [facility] website. [facility] encourage all of our patients to enroll in Patient Portal as it presents a valuable opportunity for patients and their families to actively participate in their care and stay healthy Welcome to [facility]. ?We look forward to working with you. Health screenings for women You should visit your health care provider from time to time, even if you are healthy. The purpose of these visits is to: Screen for medical issues Assess your risk for future medical problems Encourage a healthy lifestyle Update vaccinations and other preventive care services Help you get to know your provider in case of an illness Information Even if you feel fine, you should still see your provider for regular checkups. These visits can help you avoid problems in the future. For example, the only way to find out if you have high blood pressure is to have it checked regularly. High blood sugar and high cholesterol levels also may not have any symptoms in the early stages. A simple blood test can check for these conditions. There are specific times when you should see your provider or receive specific health screenings. The [place] Preventive Services Task Force publishes a list of recommended screenings. Below are screening guidelines for women ages 18 to 39. BLOOD PRESSURE SCREENING Your blood pressure should be checked at least once every 3 to 5 years if: Your blood pressure is in the normal range (top number less than 120 mm Hg and bottom number less than 80 mm Hg) You don't have risk factors for high blood pressure Ask your provider if you need your blood pressure checked more often if: The top number is 120 to 129 mm Hg or the bottom number is 70 to 79 mm Hg You have diabetes, heart disease, kidney problems, are overweight, or have certain other health conditions You have a first-degree relative with high blood pressure You are Black You had high blood pressure during a If the top number is 130 mm Hg or greater or the bottom number is 80 mm Hg or greater, this is considered stage 1 hypertension. Schedule an appointment with your provider to learn how you can reduce your blood pressure. Watch for blood pressure screenings in your area. Ask your provider if you can stop in to have your blood pressure checked. BREAST CANCER SCREENING Experts do not agree about the benefits of breast self-exams in finding breast cancer or saving lives. Talk to your provider about what is best for you. A screening mammogram is not recommended for most women under age 40. Your provider may discuss and recommend mammograms, MRI scans, or ultrasounds if you have an increased risk for breast cancer, such as: A mother or sister who had breast cancer at a young age (most often starting screening earlier than the age the close relative was diagnosed) You carry a high-risk genetic marker CERVICAL CANCER SCREENING Cervical cancer screening should start at age 21 years unless your provider advises otherwise. After the first test: Women ages 21 through 29 should have a Pap test every 3 years. Exoprts do not agree on whether HPV testing is recommended for this age group. Women ages 30 through 65 should be screened with either a Pap test every 3 years or the HPV test every 5 years or both tests every 5 years (called cotesting ). Women who have been treated for precancer (cervical dysplasia) should continue to have Pap tests for 20 years after treatment or until age 65, whichever is longer. If you have had your uterus and cervix removed (total hysterectomy), and you have not been diagnosed with cervical cancer or precancer (high grade cervical neoplasia), you do not need cervical cancer screening. CHOLESTEROL SCREENING Cholesterol screening should begin at: Age 45 for women with no known risk factors for coronary heart disease Age 20 for women with known risk factors for coronary heart disease Repeat cholesterol screening should take place: Every 5 years for women with normal cholesterol levels More often if changes occur in lifestyle (including weight gain and diet) More often if you have diabetes, heart disease, kidney problems, or certain other conditions DIABETES SCREENING You should be screened for diabetes starting at age 35 and then repeated every 3 years if you have no risk factors for diabetes. Screening may need to start earlier and be repeated more often if you have other risk factors for diabetes, such as: You have a first degree relative with diabetes. You are overweight or have obesity. You have high blood pressure, prediabetes, or a history of heart disease. Screening for diabetes should be done if you are planning to become and you are overweight and have other risk factors such as high blood pressure. DENTAL EXAM Go to the dentist once or twice every year for an exam and cleaning. Your dentist will evaluate if you need more frequent visits. EYE EXAM Have an eye exam every 5 to 10 years before age 40. If you have vision problems, have an eye exam every 2 years or more often if recommended by your provider. You should have an eye exam that includes an examination of your retina (back of your eye) at least every year if you have diabetes. IMMUNIZATIONS Commonly needed vaccines include: Flu shot: get one every year. COVID-19 vaccine: ask your provider what is best for you. Tetanus-diphtheria and acellular pertussis (Tdap) vaccine: have one at or after age 19 as one of your tetanus-diphtheria vaccines if you did not receive it as an adolescent. Tetanus-diphtheria: have a booster (or Tdap) every 10 years. Varicella vaccine: receive 2 doses if you never had chickenpox or the varicella vaccine. Hepatitis B vaccine: receive 2, 3, or 4 doses, depending on your exact circums tances. Measles, mumps, and rubella (MMR) vaccine: receive 1 to 2 doses if you are not already immune to MMR. Your provider can tell you if you are immune. Ask your provider about the human papillomavirus (HPV) vaccine if: You have not received the HPV vaccine in the past You have not completed the full vaccine series (you should catch up on this shot) Ask your provider if you should receive other immunizations if you have certain health problems that increase your risk for some diseases such as pneumonia. INFECTIOUS DISEASE SCREENING Women who are sexually active should be screened for chlamydia and gonorrhea up until age 25. Women 25 years and older should be screened for chlamydia and gonorrhea if at high risk. Screening for hepatitis C: All adults ages 18 to 79 should get a one-time test for hepatitis C. people should be screened at every . Screening for human immunodeficiency virus (HIV): All people ages 15 to 65 should get a one-time test for HIV. Depending on your lifestyle and medical history, you may also need to be screened for infections such as syphilis and HIV, as well as other infections. PHYSICAL EXAM All adults should visit their provider from time to time, even if they are healthy. The purpose of these visits is to: Screen for disease Assess your risk of future medical problems Encourage a healthy lifestyle Update your vaccinations and other preventive care services Maintain a relationship with a provider in case of an illness Your height, weight, and BMI should be checked at every exam. During your exam, your provider may ask you about: Depression and anxiety Diet and exercise Alcohol and tobacco use Safety issues, such as using seat belts, smoke detectors, and intimate partner violence Your medicines and risk for interactions SKIN SELF-EXAM Your provider may check your skin for signs of skin cancer, especially if you're at high risk, such as if you: Have had skin cancer before Have close relatives with skin cancer Have a weakened immune system OTHER SCREENING Talk with your provider about colon cancer screening if you have a strong family history of colon cancer or polyps, or if you have had inflammatory bowel disease or polyps yourself. Routine bone density screening of women under 40 is not recommended.
[2024-10-13 13:14] VITALS: BP 138/72; PULSE 90; RESP 12; TEMP 36.2; O2SAT 9; BMI 29.2
== END 2024-10-13 13:58 | disposition home or self-care (01) ==
LOC: HO.HMCFM 13:10
PROVIDERS: PCP Family Medicine; Visit Provider Nurse Practitioner Family
DX: Z00.00 Encounter for general adult medical examination without abnormal findings (principal); I48.91 Unspecified atrial fibrillation; I71.43 Infrarenal abdominal aortic aneurysm, without rupture; D68.69 Other thrombophilia; Z78.0 Asymptomatic menopausal state; Z12.2 Encounter for screening for malignant neoplasm of respiratory organs; Z87.891 Personal history of nicotine dependence; Z28.21 Immunization not carried out because of patient refusal; Z80.49 Family history of malignant neoplasm of other genital organs; R74.8 Abnormal levels of other serum enzymes; R73.01 Impaired fasting glucose; K58.0 Irritable bowel syndrome with diarrhea

== ENCOUNTER → 2024-10-13 13:09 | Outpatient (BNVA) | payer OTHER, SELFPAY | PROVIDERS: PCP Family Medicine; Visit Provider Nurse Practitioner Family | DX: Z00.00 Encounter for general adult medical examination without abnormal findings (principal); I48.91 Unspecified atrial fibrillation; R74.8 Abnormal levels of other serum enzymes; R73.01 Impaired fasting glucose; I71.43 Infrarenal abdominal aortic aneurysm, without rupture; K58.0 Irritable bowel syndrome with diarrhea; E78.2 Mixed hyperlipidemia; D68.69 Other thrombophilia; F10.90 Alcohol use, unspecified, uncomplicated; Z78.0 Asymptomatic menopausal state; Z87.891 Personal history of nicotine dependence; Z28.21 Immunization not carried out because of patient refusal; Z86.79 Personal history of other diseases of the circulatory system; Z79.01 Long term (current) use of anticoagulants; Z98.890 Other specified postprocedural states; Z80.49 Family history of malignant neoplasm of other genital organs | CPT/HCPCS: 96127 ==

== ENCOUNTER 2024-11-23 11:19 | Outpatient (REF) | payer OTHER, SELFPAY ==
--- NOTE | ~2024-11-23 | MM_ITS ---
EXAMINATION: DXA BONE DENSITY EXTREMITY HISTORY: Z13.820 - Encounter for screening for osteoporosis TECHNIQUE: [employer] Dual energy absorptiometry (DEXA) of the lumbar spine, total left hip, femoral neck, and distal radius was performed. COMPARISON: There are no prior studies for comparison. FINDINGS: The bone mineral density of the lumbar spine is 1.342 with a T-score of 1.5, and a Z-score of 2.0. This is indicative of normal bone mineral density. The bone mineral density of the left total hip is 0.990 with a T-score of -0.1, and a Z-score of 0.3. This is indicative of normal bone mineral density. The bone mineral density of the left femoral neck is 1.051 with a T-score of 0.1, and a Z-score of 0.9. This is indicative of normal bone mineral density. The bone mineral density of the left femoral neck is 0.923 with a T-score of 0.5, and a Z-score of 1.9. This is indicative of normal bone mineral density. FRACTURE RISK: The FRAX index suggests a risk of major osteoporotic fracture of 6.5%, and of hip fracture 0.2%. MM/XR DEXA appendicular skeleton IMPRESSION: Based on bone mineral density, and according to World Health Organization (WHO) criteria, the diagnosis is consistent with normal bone mineral density. All bone density values are in grams per centimeter squared (g/cm2). Statistically, 68% of repeat scans fall within 1 SD (+/- 0.010 g/cm2 for AP spine L1-L4) and 1 SD (+/- 0.012 g/cm2 for femur total) FRAX is a trademark of the [employer] Met[employer] Disease, a World Health Organization (WHO) Collaborating Center. Electronically signed by: Tu Brumfield MD 11/23/2024 12:31 PM EDT
--- OUTSIDE RECORDS SUMMARY | 2024-11-23 12:51 | XMS_ITS | Clinical Summary ---
Author Organization [address] [facility] Address [address] [place] [address] Phone Care Team Providers Care Neonatal Specialist Name Role Phone Jose C Mohan MD Primary Care Provider [phone] Allergies Active Allergy Reactions Criticality Noted Date Comments Ciprofloxacin 06/21/2023 Other reaction(s): itching Itching Corticosteroids (Glucocorticoids) 06/21/2023 Other reaction(s): atrial fibrallation Atrial fibrillation Doxycycline 06/21/2023 Other reaction(s): vomiting vomiting Morphine 06/21/2023 Other reaction(s): Difficulty breathing trouble breathing Sulfamethoxazole-Trimethopri m 06/21/2023 Medications rivaroxaban (Xarelto) 20 mg tablet TAKE 1 TABLET BY MOUTH DAILY. 04/03/2024 Active Active Problems Problem Noted Date Diagnosed Date Aneurysm of ascending aorta without rupture ([facility] V24) 06/27/2024 HFrEF (heart failure with re duced ejection fraction) (CMS/HCC V24, CMS/HCC V28) 06/27/2024 History of alcohol abuse 12/20/2023 Overview [...] of hypertension 10/26/2023 AAA (abdominal aortic aneurysm) ([facility] V24) Overview (05/23/2024): Last Assessment & Plan: Status post repair; followed by vascular surgery. Atrial fibrillation and flutter ([facility] V24, [facility] V28) 03/19/2023 Overview (05/23/2024): UNSPECIFIED Last Assessment & Plan: The patient is status post several cardioversions, now status post cryoablation on 07/28/2023, and more recently repeat cardioversion on 11/08/2023. She denies any palpitations or any other symptoms concerning for repeat episode of atrial fibrillation since her most recent cardioversion; she continues to use her [employer] mobile device at home which has also [...] Diagnosed Date Resolved Date Secondary hypercoagulable state ([facility] V24) 12/20/19 24 06/27/2024 Dysrhythmia 12/16/2023 06/27/2024 SVT (supraventricular tachyc ardia) ([facility] V24) 12/16/2023 06/27/2024 Encounters Date Type Department Care Team Description 09/14/2024 11:00 AM EST Ancillary Procedure [facility] [address] [id number] Aneurysm of ascending aorta without rupture ([facility] V24); HFrEF (heart failure with reduced ejection fraction) ([facility] V24, [facility] V28) from Last 3 Months Social History Tobacco Use Types Packs/Day Years Used Date Smoking Tobacco: Former Smokeless Tobacco: Never Alcohol Use Standard Drinks/Week Comments Yes 0 (1 standard drink = 0.6 oz pur e alcohol) Comments Unknown Sex and Gender Information Value Date Recorded Sex Assigned at Not on file Legal Sex Female 6:33 AM EST Gender Identity Not on file Sexual Orientation Not on file Obstetrics History Last Filed Vital Signs Vital Sign Reading Time Taken Comments Blood Pressure 160/80 09/14/2024 10:50 AM EST Pulse 78 06/27/2024 3:15 PM EST Temperature - - Respiratory Rate 16 06/27/2024 3:15 PM EST Oxygen Saturation - - Inhaled Oxygen Concentration - - Weight 99.8 kg (220 lb) 09/14/2024 10:50 AM EST Height 185.4 cm (6' 1 ) 09/14/2024 10:50 AM EST Body Mass Index 29.03 09/14/2024 10:50 AM EST Plan of Treatment Upcoming Encounters Date Type Department Care Team (Late st Contact Info) Description 05/23/2025 10:50 AM EST Office Visit [facility] [address] [phone] John Molina MD [address] [address] Health Maintenance Due Date Last Done Comments Breast Cancer Screening 1959 Hepatitis A Vaccines (1 of 2 - Risk 2-dose series) 1978 Cervical Cancer Screening: Pap Smear 1980 Pneumococcal Vaccine: 50+ Years (1 of 1 - PCV) 2009 Zoster Vaccines (1 of 2) 2009 RSV Immunization Adult Patients (1 - Risk 60-74 years 1-dose series) 2019 Cholesterol Screening (Lipid Panel) 08/17/2023 Depression Screening 08/17/2023 Hepatitis C Screening 08/17/2023 Osteoporosis Screening (Bone Density Screening) 08/17/2023 Social Influencers of Health Screening 08/17/2023 Falls Risk Assessment 2024 Hypertension/CHF/CAD Annual BMP Blood Test 06/30/2024 COVID-19 Vaccine ( season) 2024 04/13/2024, 05/25/2022, 06/27/2021, Additional history exists Influenza Vaccine (Season Ended) 2025 04/30/2022, 04/22/2021, 04/27/2019, Additional history exists DTaP,Tdap,and Td Vaccines (2 - Td or Tdap) 06/17/2025 06/17/2015 Colorectal Cancer Screening: Colonoscopy 03/11/2033 03/11/2023 HIB Vaccines Aged Out No longer eligi [...] patient's age to complete this topic Meningococcal B Vaccine Aged Out No l onger eligible based on patient's age to complete [...] Procedure Name Priority Date/Time Associated Diagnosis Comments TRANSTHORACIC ECHOCARDIOGRAM (TTE) COMPLETE Routine 09/14/2024 11:28 AM EST Aneurysm of ascending aorta without rupture (CMS/HCC V24) HFrEF (heart failure with reduced ejection fraction) (CMS/HCC V24, CMS/HCC V28) COLONOSCOPY Routine 03/11/2023 from Last 3 Months or Most Recently Relevant to Health Maintenance Results * (ABNORMAL) TRANSTHORACIC ECHOCARDIOGRAM (TTE) COMPLETE (09/14/2024 11:28 AM EST) Left Atrium Minor [place] 6.0 cm CV PACS Left Atrium Major [place] 5.5 cm CV PACS LA Area Sys (A2C) 30 cm2 CV PACS LA Area Sys (A4C) 26 cm2 CV PACS LA Volume (BP) 115 mL CV PACS RA Area 15.7 cm2 CV PACS RA 2D Volume 43 mL CV PACS AV Mean Gradient 4 mmHg CV PACS Ao VTI 28.9 cm CV PACS AV Peak Giorgio 1.4 m/s CV PACS AV Peak Gradient 8 mmHg CV PACS AV Area Continuity Equation 3.3 cm2 CV PACS AV Area Peak Velocity 3.2 cm2 CV PACS Aortic Arch 2.8 cm CV PACS Ascending Aorta 4.0 cm CV PACS Aortic Sinus Valsalva 3.4 cm CV PACS IVC Proximal 1.5 cm CV PACS IVSD 1.0(A) 0.6 - 0.9 cm CV PACS LVIDD 5.4(A) 3.8 - 5.2 cm CV PACS LVIDS 3.6(A) 2.2 - 3.5 cm CV PACS LVOT Diameter 2.5 cm CV PACS LVOT Mean Grad 2 mmHg CV PACS LVOT Peak VTI 19.7 cm CV PACS LVOT Mean Giorgio 0.6 m/s CV PACS LVOT Peak Giorgio 0.9 m/s CV PACS LVOT Peak Gradient 4 mmHg CV PACS LVPWD 1.0(A) 0.6 - 0.9 cm CV PACS GLS -18.0 % CV PACS GLS -17.3 % CV PACS GLS -16.8 % CV PACS GLS -17.4 % CV PACS LVOT Area 4.9 cm2 CV PACS LVOT Stroke Volume 97 mL CV PACS MV Deceleration [place] 2.3 m/s2 CV PACS E Wave Deceleration Time 235 119 - 242 ms CV PACS MV PHT 69 ms CV PACS MV Peak A Giorgio 0.47 m/s CV PACS MV Peak E Giorgio 0.54 m/s CV PACS MV Area PHT 3.2 cm2 CV PACS PV Acceleration Time 102 ms CV PACS PV Peak Velocity 0.9 m/s CV PACS PV Peak Gradient 3 mmHg CV PACS RV Diastolic Basal Dimension 4.1 2.5 - 4.1 cm CV PACS TAPSE 25 mm CV PACS TR Peak Velocity 2.19 m/s CV PACS TR Peak Gradient 19 mmHg CV PACS LVOT Stroke Index 43 mL/m2 CV PACS Relative Wall Thickness ratio 0.37 CV PACS LVOT:AV VTI Index 0.68 CV PACS FS 33 % CV PACS LV Mass 2D 207 g CV PACS Ascending Aorta Index 1.79 cm/m2 CV PACS LVOT flow 294 mL/s CV PACS RA 2D Volume Index 19 mL/m2 CV PACS JACE Index (VTI) 1.49 cm2/m2 CV PACS JACE Index (Pk Giorgio) 1.43 cm2/m2 CV PACS LVIDD Index 2.41 cm/m2 CV PACS LVIDS Index 1.61 cm/m2 CV PACS AV Velocity Ratio 0.64 CV PACS E/A Ratio 1.1 CV PACS LA Volume Index (BP) 51 mL/m2 CV PACS LV Mass Index 2D 92 g/m2 CV PACS BSA 2.27 m2 CV PACS Right Ventricular Peak Systolic Pressure 22 mmHg CV PACS Est. RA Pressure 3 mmHg CV PACS Anatomical Region Laterality Modality Ultrasound Narrative 09/25/2024 12:35 PM EDT ?Normal LV wall thickness and internal chamber dimensions. ??Normal systolic function with an ejection fraction of 55 to 60%. ??Grade 2 diastolic dysfunction. ?Right ventricle at the upper limits of normal in diameter with normal systolic function ?Dilated left atrium and normal right atrium. ?Mild aortic valve calcification without stenosis or insufficiency. ?Mild mitral thickening without any significant stenosis or insufficiency. ?Normal tricuspid valve with with very mild regurgitation. ??Normal inferior vena cava. ?The aorta at the sinuses of Valsalva is normal. ??3.4 cm. ??The ascending aorta 4.0 cm. ?When compared to May 26, 2023 the patient is no longer in atrial fibrillation. ??The size of the aortic root and ascending aorta is unchanged. ??Systolic function looks a bit better now. Left Ventricle Left ventricle cavity size is normal. Wall thickness is normal. Systolic function is normal with an ejection fraction of 55-60%. There are no regional LV wall motion abnormalities. There is Grade II (moderate) diastolic dysfunction. Right Ventricle Right ventricle cavity appears upper normal. Systolic function is normal. Left Atrium Left atrium cavity is severely dilated. Right Atrium Right atrium cavity is dilated. Mitral Valve The leaflets are mildly thickened. There is annular calcification. There is mild regurgitation. There is no evidence of mitral valve stenosis. Tricuspid Valve Tricuspid valve structure is normal. There is trace regurgitation. There is no evidence of tricuspid valve stenosis. Aortic Valve The aortic valve is trileaflet. The leaflets are mildly thickened. There is no regurgitation or stenosis. Pulmonic Valve Visualized portions of the pulmonic valve appear normal. No significant pulmonic valve regurgitation. There is no evidence of pulmonic valve stenosis. Ascending Aorta The Sinus of Valsalva is (3.4 cm). The ascending aorta is (4.0 cm). The transverse aorta is (2.8 cm). Pericardium Pericardium appears normal. Study Details Overall the study quality was adequate. Maria E Diaz NP CV ECHO PROCEDURES Final Res ult * Colonoscopy (03/11/2023) Colonoscopy No Interpretation , Abstracted Anatomical Region Laterality Modality Other Historical Provider HEALTH MAINTENANCE Final Result from Last 3 Months or Most Recently Relevant to Health Maintenance Insurance [employer] [facility] Care Teams Neonatal Specialist Relationship Specialty Start Date End Date Jose C Mohan MD [address] [place] [address] Dr Britt MA PCP - General 03/16/23
--- OUTSIDE RECORDS SUMMARY | 2024-11-23 12:51 | XMS_ITS | Patient Health Record ---
Author Organization [facility] Address [address] [place] [phone] Care Team Providers Care Program Manager Name Role Phone Marques Jose C Primary Care Provider Tu Echeverria [phone] Allergies Allergen (clinical drug ingredient) Drug/Non Drug Allergy documented on EMR Reaction Allergy Type Onset Date Status morphine Morphine Unknown Drug Allergy Active doxycycline Doxycycline Unknown Drug Allergy Act phyllis prednisone Prednisone Unknown Drug Allergy Activ e ciprofloxacin Cipro Unknown Drug Allergy Act phyllis sulfamethoxazole / trimethoprim Bactrim Unknown Drug Allergy Active Reason For Referral No Information Medications Medication SIG (Take, Route, Frequency, Duration) Notes Start Date End Date Status Hyoscyamine Sulfate 0.125 MG 1 or 2 Sublingual Every 4 to 6 hours as needed for abdominal cramping and diarrhea for 30 days 01/06/2023 Active Immunizations Vaccine Route Administration Date Status Comme nts Influenza Unknown 06/09/2022 Administered Social History Tobacco Use: Social History Observation Description Date Details (start date - stop date) Former Smoker NA - NA Tobacco Use/Smoking Question Answer Notes Patient is [...] Never (0 point) Points 4 Interpretation Positive Section Notes: nonsmoker; 1 or 2 glasses of wine QD Problems Problem Type SNOMED Code ICD Code Onset Dates Problem Status W/U Status Risk Notes Problem 511821269 Colon cancer screening (Z12.11) Active confirmed Problem Irritable bowel syndrome (K58.9) Active confirmed Problem 737259684 Irritable bowel syndrome with diarrhea (K58.0) Active confirmed Problem 886528472 History of colon polyps (Z86.010) Active confirmed Problem 150887626 Family history of colon cancer (Z80.0) Active confirmed Plan Of Treatment Future Test Test Name Order Date COLONOSCOPY 01/06/2023 Insurance Providers Payer Name Payer Address Payer Phone Subscriber Number Group Number Insured Name Patient Relationship to Insured Coverage Start Date Coverage End Date [employer] [address] [address] [place] [address] [id number] GAMALIEL OLIVAS Self - patient is the insured Medical (General) History Medical History History ICD Code IBS with associated intermit tent diarrhea and abdominal cramps. She had testing with Dr. Elder Rivera in [place] including colonoscopies and small bowel video capsule study(2017). Labs were negative for celiac disease with a negative tissue transglutaminase antibody; colon biopsies were negative for microscopic colitis Multiple colonoscopies with Dr. Elder Rivera with removal of tubular adenomas, most recently as of 05/2018 Denies IN,DM,CVA,Lung disease,renal dise ase Surgical History Surgery Date(Month/Year) Back surgery with subsequent infection 1 993 Spinal fusion 1995 Skin Grafting due to gann 2007
== END 2024-11-23 11:20 | disposition home or self-care (01) ==
LOC: HO.MAMMO 11:19
PROVIDERS: PCP Nurse Practitioner Family; Visit Provider Nurse Practitioner Family
DX: Z13.820 Encounter for screening for osteoporosis (principal); Z78.0 Asymptomatic menopausal state
CPT/HCPCS: 77081

== ENCOUNTER → 2024-11-23 11:30 | Outpatient (BNV) | payer OTHER, SELFPAY | PROVIDERS: PCP Nurse Practitioner Family; Visit Provider Radiology Diagnostic Radiology | DX: E28.39 Other primary ovarian failure (principal) | CPT/HCPCS: 77081 ==

== ENCOUNTER 2024-12-22 09:53 | Outpatient (AMB) | payer OTHER, SELFPAY ==
--- NOTE | 2024-12-22 10:01 | A.OFFPC_ITS ---
Vital Signs 12/22/24 10:03 12/22/24 10:12 12/22/24 10:44 Height 6 ft 1 in Weight 217 lb 6 oz BMI 28.7 BP 142/94 H 140/88 H 140/82 H Blood Pressure Location Rt brachial Lt brachial Lt brachial Position Sitting Sitting Sitting Respiration 16 Pulse 87 Pulse Source Pulse Oximeter Pulse Oximetry (%) 95 Oxygen Delivery Method Room Air Intake Visit Reasons: 01/04 Cataract Surgery [employer] [facility] [place] Intake Note: Preop clearance for cataract surgery Value Advisor Required: No Allergies doxycycline Allergy (Severe, Verified 12/22/24 10:39) Vomiting morphine Allergy (Intermediate, Verified 12/22/24 10:39) Shortness of Breath prednisone Allergy (Intermediate, Verified 12/22/24 10:39) afib sulfamethoxazole [From Bactrim] Allergy (Intermediate, Verified 12/22/24 10:39) Hives trimethoprim [From Bactrim] Allergy (Intermediate, Verified 12/22/24 10:39) Hives Medication List - Last Reconciled 12/22/24 by Ann Del Rosario, [facility]- rivaroxaban (Xarelto) 20 mg PO DAILY Tobacco use date assessed: 12/22/24 Fall risk assessment: 1 Fall in past year Last assessed Fall Risk: 12/22/24 Dental Screening Dental Screen Date: 10/13/24 HPI HPI Comments History of Present Illness Details 64 y/o F with afib s/p cardiac albation and cardioversion, alcohol dependence, elevated LFT, AAA w/o rupture (s/p repair 2022), HLD, IBS, former smoker, hx of GI bleed and collapsed lung, diastolic heart failure, CKD 3, HLD s/p AAA repair 2022, spinal fusion, tonsillectomy, R cataract extraction Echo 08/2024 EF 55-60%, Grade 2 diastolic dysfunction, Dilated L atrium, mild AV calcification, aortic room 4cm (stable) Here today for preoperative clearance. Date of surgery: January 04, 2025 Type of surgery: Cataract Surgery, L Facility: [facility] [place] Name of provider (surgeon): Tiffanie Lopez Anesthesia Type: MAC Any past surgical procedures: See above Any complications from anesthesia or in post-op period: Denies ASA or NSAID Use: Denies Current smoker: Former smoker, half pack per day times 35 years, quit 3 years ago Alcohol use: Y ETOH drinks a few glasses of wine a few times per week has never suffered withdrawals Drug use: N METs: > 4 climb flight of stairs, golf, walk, yardwork Medical history: Asthma N COPD N Obesity BMI 28.7 Diabetes N Testing >40 all of the above + EKG and blood glucose If + Cardiovasc disease: CMP Refer to cards if: CO < 6 weeks, unstable angina, CHF, severe valve disease RCRI is Class 1 point for CHF. Risk Stratification: 6% ROS: - Cardiovascular: Denies chest pain. - Respiratory: Reports breathing is okay . - Neurological: Denies current issues po st-aneurysm surgery. - Hematologic: Reports easy bruising. - Social: Reports former smoking habit, decreased wine intake. - General: Reports pre-surgery stress. Exam General: Well developed, well nourished, in no acute distress. Appears stated age. Head: Normocephalic, atraumatic. Eyes: Pupils are equal, round and reactive to light and accommodation. Conjunctivae are clear. Vision grossly normal. Lungs: Clear to auscultation bilaterally. No rales, rhonchi or wheeze noted. Good air flow in all chaparro. Heart: Regular rate and rhythm. No murmurs, click, rubs or gallops are noted. Pulses: Peripheral pulses are equal and palpable bilaterally. Extremities: No clubbing, cyanosis nor edema is noted. Neurologic: Gait and station normal. Cranial Nerves 2-12 intact. Motor strength grossly symmetrical and intact. No sensory loss. Balance normal. EKG done today, LVH, NSR Labs - see below. On Xarelto - message sent to [facility] Cards, no need to stop prior to this surgery. Assessment and Plan 1. Cataract in the left eye - Scheduled surgery.. - Preoperative labs: CBC, CMP. 2. Use of anticoagulant - Rivaroxaban: - No need to hold per Car ds 3. Hx of Diastolic CHF, euvolemic, not o n meds. 4. CKD3 stable gfr. Patient is medically cleared to proceed w/ surgery as planned. Consent Patient was informed and verbally consented to the use of an ambient scribe for clinic note documentation during this visit. Total time spent caring for the patient today was 45 minutes. This includes time spent before the visit reviewing the chart, time spent during the visit, and time spent after the visit on documentation, reviewing laboratory results, diagnostic imaging, medications, performing a medically necessary evaluation, counseling on diagnoses, care coordination, ordering appropriate tests, ordering appropriate medications, review of tests performed by other providers, reporting test results with the patient, communication with other healthcare providers. [facility] Medical History (Updated 12/22/24 @ 15:47 by Ann Del Rosario, [facility]) Afib Alcohol abuse with withdrawal Atrial fibrillation Atrial fibrillation with RVR Atrial flutter Bright red blood per rectum Elevated blood pressure reading GI bleed History of COVID-19 History of pneumothorax Hx MRSA infection Infrarenal abdominal aortic aneurysm (AAA) without rupture Irritable bowel syndrome Mixed hyperlipidemia Personal history of nicotine dependence Surgical History (Updated 11/02/24 @ 15:56 by Zulma Coello PA-C) History of fusion of lumbar spine History of skin graft History of tonsillectomy Hx of colonoscopy (~2023) Hx of right cataract extraction S/P AAA repair Social History Household Members: Spouse Household Members Other:: 2 Housing: House Do you presently have visiting nurse or other home services: No Alcohol intake: current Alcohol intake frequency: a few times a week Patient Tobacco Use Status: Former Tobacco user Tobacco use type: Cigarette e-Cigarette/Vaping Use: Never Used Second Hand Smoke Exposure: No Advance Directives Date on File: 03/10/23 service: No Current occupational status: employed Current occupation: [employer] Current occupational exposures/hazards: No Cognitive needs: No Hearing needs: No Vision needs: No Questionnaire Thrive Questionnaire Date Thrive assessed: 10/06/24 I am a: Patient What is your living situation today?: I have a steady place to live Within the past 12 months, did the food you bought not last and you didn't have the money to get more?: Often true Within the past 12 months, did you worry whether your food would run out before you got money to buy more?: Never true Do you have trouble paying for medicines?: No Do you have trouble getting transportation to medical appointments?: No Do you have trouble paying your heating and electricity bill?: No Do you have trouble taking care of your child, family member or friend?: No Do you have trouble with day-to-day activities such as bathing, preparing meals, shopping, managing finances, etc.?: No Are you currently unemployed and looking for a job?: No Are you interested in more education?: No Please select the resources that you would like help with: None Currently or been in a relationship where the following occur: No concerns reported THRIVE Score: 1 AUDIT C Alcohol Use Questionnaire (AUDIT-C) 1. How often do you have a drink containing alcohol?: 2-3 times a week 2. How many drinks containing alcohol do you have on a typical day when you are drinking?: 1 or 2 3. How often do you have six or more drinks on one occasion?: Never Total Score: 3 JASWINDER-7 AMB Questionnaire JASWINDER-7 Date JASWINDER - 7 assessed: 10/13/24 Source: Developed by Drs. Tu Kiser, Eli Reinoso, Derrick Strong and colleagues, with an educational anali from [employer]. Physical exam (Primary Care) Vital Signs: Last Vital Signs Pulse 87 12/22/24 10:03 Resp 16 12/22/24 10:03 BP 140/82 H 12/22/24 10:44 Pulse Ox 95 12/22/24 10:03 Oxygen Delivery Method Room Air 12/22/24 10:03 BMI result Body Mass Index 28.7 Tobacco/Smoking Status: Tobacco use Status Tobacco use date assessed 12/22/24 12/22/24 10:07 Patient Tobacco Use Status Former Tobacco user 12/22/24 10:07 Tobacco use type Cigarette 12/22/24 10:07 e-Cigarette/Vaping Use Never Used 12/22/24 10:07 Thrive Assessment: Date of Thrive Assessment Date Thrive assessed 10/06/24 12/22/24 10:07 Currently or been in a relationship where the following occur: No concerns reported Office Procedures EKG 36968-[id number], Complete Results Reviewed Results Reviewed: Laboratory Result Units Range Interpretation Provider Comments White Blood Count 6.4 X10*3/uL (4.8-10.8) Red Blood Count 4.08 X10*6/uL (4.20-5.50) Low Hemoglobin 12.8 g/dl (12.0-16.0) Hematocrit 38.9 % (37.0-47.0) Mean Corpuscular Volume 95.3 fL (80.0-98.0) Mean Corpuscular Hemoglobin 31.4 pg (27.0-33.0) Mean Corpuscular Hemoglobin Concent 32.9 g/dl (31.0-35.0) Red Cell Distribution Width 12.3 % (11.0-16.0) Platelet Count TNP Mean Platelet Volume TNP Nucleated RBC Absolute Count (auto) 0.000 X10*3/uL (0.0-0.012) Nucleated Red Blood Cells % (auto) 0.0 /100WBC (0.0-0.2) Sodium Level 143 mmol/L (135-145) Potassium Level 4.3 mmol/L (3.3-5.1) Chloride Level 109 mmol/L (96-108) High Carbon Dioxide Level 27 mmol/L (22-29) Anion Gap 11 (12-20) Low Blood Urea Nitrogen 20 mg/dL (9-16) High Creatinine 1.22 mg/dL (0.5-1.4) Estimated Creatinine Clearance Calc Not Reportable Estimat Glomerular Filtration Rate 44 Random Glucose 96 mg/dL (60-115) Estimated Average Glucose 97 mg/dL Hemoglobin A1c Percent 5.0 % (<6.0) Calcium Level 9.4 mg/dL (8.4-10.2) Total Bilirubin 0.5 mg/dL (0.0-1.0) Aspartate Amino Transf (AST/SGOT) 28 U/L (5-31) Alanine Aminotransferase (ALT/SGPT) 16 U/L (0-31) Alkaline Phosphatase 66 U/L (39-117) Total Protein 6.9 g/dL (6.5-8.0) Albumin 4.1 g/dL (3.5-5.0) Triglycerides Level 110 mg/dL (<150) Cholesterol Level 236 mg/dL (<200) High LDL Cholesterol, Calculated 164 mg/dL (<100) High HDL Cholesterol 50 mg/dL (>40) 25-Hydroxy Vitamin D Total 60.5 ng/mL (>30) Thyroid Stimulating Hormone (TSH) 1.00 uIU/mL (0.32-4.0) Urine Creatinine 108.16 mg/dL Urine Microalbumin 14.0 mg/L Urine Microalbumin/Creatinine Ratio 12.9 ug/mg cr (<30) Coding Level of Care Code Est Pt Level 5 (13200) Complex EM visit Add On G2211 Diagnoses Pre-op exam Z01.818 Cataract of left eye, unspecified cataract type H26.9 Cataract type: unspecified Laterality: left Atrial fibrillation status post cardioversion I48.91 Chronic diastolic heart failure I50.32 Heart failure chronicity: chronic Secondary hypercoagulability disorder D68.69 Stage 3b chronic kidney disease N18.32 Chronic kidney disease stage 3 subtype: stage 3b (GFR 30-44) Mixed hyperlipidemia E78.2 CPT Codes EKG - CPT: 90445-[id number], Complete ([id number]) Assessment & Plan Assessment & Plan (1) Pre-op exam: Code(s): Z01.818 - Encounter for other preprocedural examination Plan: Patient is medically cleared to proceed w/ surgery as planned. (2) Cataract: Code(s): H26.9 - Unspecified cataract Qualifiers: Cataract type: unspecified Laterality: left Qualified Code(s): H26.9 - Unspecified cataract (3) Atrial fibrillation status post cardioversion: Code(s): I48.91 - Unspecified atrial fibrillation Category: Medical (4) Diastolic heart failure: Code(s): I50.30 - Unspecified diastolic (congestive) heart failure Category: Medical Qualifiers: Heart failure chronicity: chronic Qualified Code(s): I50.32 - Chronic diastolic (congestive) heart failure (5) Secondary hypercoagulability disorder: Comment: Due to AFib on Xarelto Code(s): D68.69 - Other thrombophilia Category: Medical (6) CKD (chronic kidney disease) stage 3, GFR 30-59 ml/min: Code(s): N18.30 - Chronic kidney disease, stage 3 unspecified Category: Medical Qualifiers: Chronic kidney disease stage 3 subtype: stage 3b (GFR 30-44) Qualified Code(s): N18.32 - Chronic kidney disease, stage 3b (7) Mixed hyperlipidemia: Code(s): E78.2 - Mixed hyperlipidemia Category: Medical Plan .
[2024-12-22 10:03] VITALS: BP 142/94; PULSE 87; RESP 16; O2SAT 95; BMI 28.7
[2024-12-22 10:12] VITALS: BP 140/88
--- OUTSIDE RECORDS SUMMARY | 2024-12-22 10:38 | XMS_ITS | Clinical Summary ---
Author Organization [address] [facility] Address [address] [place] [address] Phone Care Team Providers Care Parts Manager Name Role Phone Jose C Mohan MD Primary Care Provider [phone] Allergies Active Allergy Reactions Criticality Noted Date [...] Date Aneurysm of ascending aorta without rupture ([facility] V24) 06/27/2024 HFrEF (heart failure with re [...] of hypertension 10/26/2023 AAA (abdominal aortic aneurysm) ([facility] V24) Overview (05/23/2024): Last Assessment & Plan: Status post repair; followed by vascular surgery. Atrial fibrillation and flutter ([facility] V24, [facility] V28) 03/19/2023 Overview (05/23/2024): UNSPECIFIED Last Assessment & Plan: The patient is status post several cardioversions, now status post cryoablation on 07/28/2023, and more recently repeat cardioversion on 11/08/2023. She denies any palpitations or any other symptoms concerning for repeat episode of atrial fibrillation since her most recent cardioversion; she continues to use her 5by mobile device at home which has also [...] Diagnosed Date Resolved Date Secondary hypercoagulable state ([facility] V24) 12/20/19 24 06/27/2024 Dysrhythmia 12/16/2023 06/27/2024 SVT (supraventricular tachyc ardia) ([facility] V24) 12/16/2023 06/27/2024 Social History Tobacco Use Types Packs/Day Years [...] Description 05/23/2025 10:50 AM EST Office Visit [facility] [address] [address] John Molina MD [address] [address] Health Maintenance Due Date Last Done Comments [...] Procedure Name Priority Date/Time Associated Diagnosis Comments COLONOSCOPY Routine 03/11/2023 from Last 3 Months or Most Recently Relevant to Health Maintenance Results * Colonoscopy (03/11/2023) Colonoscopy No Interpretation , Abstracted Anatomical Region Laterality Modality Other us Historical Provider HEALTH MAINTENANCE Final Result from Last 3 Months or Most Recently Relevant to Health Maintenance Insurance [employer] [facility] Care Teams Parts Manager Relationship Specialty Start Date End Date Jose C Mohan MD [address] [place] [address] Dr PaulinokeIBETH PCP - General 03/16/23
[2024-12-22 10:44] VITALS: BP 140/82
== END 2024-12-22 11:54 | disposition home or self-care (01) ==
LOC: HO.HMCFM 09:55
PROVIDERS: PCP Nurse Practitioner Family; Visit Provider Nurse Practitioner Family
DX: Z01.818 Encounter for other preprocedural examination (principal); H26.9 Unspecified cataract; I48.91 Unspecified atrial fibrillation; I50.32 Chronic diastolic (congestive) heart failure; D68.69 Other thrombophilia; N18.32 Chronic kidney disease, stage 3b; E78.2 Mixed hyperlipidemia

== ENCOUNTER → 2024-12-22 09:53 | Outpatient (BNVA) | payer OTHER, SELFPAY | PROVIDERS: PCP Nurse Practitioner Family; Visit Provider Nurse Practitioner Family ==

== ENCOUNTER 2024-12-22 10:48 | Outpatient (REF) | payer OTHER, SELFPAY ==
[2024-12-22 14:20] LABS: Estimated Average Glucose 97 mg/dL
[2024-12-22 14:27] LABS: Hematocrit 38.9 % (37.0-47.0); Hemoglobin 12.8 g/dl (12.0-16.0); Mean Corpuscular HGB Conc 32.9 g/dl (31.0-35.0); Mean Corpuscular Hemoglobin 31.4 pg (27.0-33.0); Mean Corpuscular Volume 95.3 fL (80.0-98.0); PLT CLUMP 1; Red Blood Count 4.08 X10*6/uL (4.20-5.50); Red Cell Distribution Width 12.3 % (11.0-16.0)
[2024-12-22 14:52] LABS: Vitamin D 25-OH Total 60.5 ng/mL (>30); White Blood Count 6.4 X10*3/uL (4.8-10.8)
[2024-12-22 15:13] LABS: Anion Gap 11 (12-20)
[2024-12-22 15:18] LABS: Alanine Aminotransferase 16 U/L (0-31); Albumin Level 4.1 g/dL (3.5-5.0); Alkaline Phosphatase 66 U/L (39-117); Aspartate Amino Transferase 28 U/L (5-31); Bilirubin Total 0.5 mg/dL (0.0-1.0); Blood Urea Nitrogen 20 mg/dL (9-16); Calcium 9.4 mg/dL (8.4-10.2); Carbon Dioxide 27 mmol/L (22-29); Chloride 109 mmol/L (96-108); Cholesterol 236 mg/dL (<200); Estimated Glomerular Filt Rate 44; Glucose Random 96 mg/dL (60-115); HDL Cholesterol 50 mg/dL (>40); LDL Cholesterol Calculated 164 mg/dL (<100); Potassium 4.3 mmol/L (3.3-5.1); Sodium 143 mmol/L (135-145); Total Protein 6.9 g/dL (6.5-8.0); Triglycerides 110 mg/dL (<150)
[2024-12-22 15:21] LABS: Creatinine Urine 108.16 mg/dL; Microalbum/Creatinine Ratio Ur 12.9 ug/mg cr (<30)
[2024-12-22 15:44] LABS: Folate 12.2 ng/mL (> or = 4.0); Vitamin B12 363 pg/mL (200-900)
== END 2024-12-22 10:49 | disposition home or self-care (01) ==
LOC: HO.WFDLDS 10:48
PROVIDERS: Visit Provider Nurse Practitioner Family
DX: Z01.818 Encounter for other preprocedural examination (principal); N18.32 Chronic kidney disease, stage 3b; Z13.1 Encounter for screening for diabetes mellitus; I48.91 Unspecified atrial fibrillation
CPT/HCPCS: 36415; 80053; 80061; 82043; 82306; 82570; 82607; 82746; 83036; 84443; 85027; 93005

== ENCOUNTER 2024-12-28 14:21 | Outpatient (AMB) | payer OTHER, SELFPAY ==
--- NOTE | 2024-12-28 14:24 | MHC.OFFVIS ---
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 Well Head Pumper Required: No Information Interpreted: non-clinical & clinical Heavy Equipment Rental Associate: Heavy Equipment Rental Associate Present (Bee Aldo DELANEY) Accompanied by: Self / Same As Patient Allergies doxycycline Allergy (Severe, Verified 12/28/24 14:32) Vomiting morphine Allergy (Intermediate, Verified 12/28/24 14:32) Shortness of Breath prednisone Allergy (Intermediate, Verified 12/28/24 14:32) afib sulfamethoxazole [From Bactrim] Allergy (Intermediate, Verified 12/28/24 14:32) Hives trimethoprim [From Bactrim] Allergy (Intermediate, Verified 12/28/24 14:32) Hives Post menopausal: Yes HPI Comments Details: Presenting for annual exam. No complaints. Last Pap/HPV was many years ago was more than 5 years ago Last Mammogram was BI-RADS 1 in 08/12 Last Colonoscopy was done in 04/10, the recommendation was to repeat in 5 years Last DEXA scan was done in 12/10 [facility] Medical History History of pneumothorax Personal history of nicotine dependence Atrial flutter Alcohol abuse with withdrawal Atrial fibrillation with RVR Bright red blood per rectum Afib Elevated blood pressure reading Infrarenal abdominal aortic aneurysm (AAA) without rupture Hx MRSA infection History of COVID-19 GI bleed Atrial fibrillation Irritable bowel syndrome Mixed hyperlipidemia Surgical History S/P AAA repair Hx of right cataract extraction Hx of colonoscopy (~2023) History of tonsillectomy History of fusion of lumbar spine History of skin graft Family History Mother Diabetes Cervical cancer Sister Lung cancer Social History Household Members: Spouse Household Members Other:: 2 Housing: House Do you presently have visiting nurse or other home services: No Alcohol intake: current Alcohol intake frequency: a few times a week Patient Tobacco Use Status: Former Tobacco user Tobacco use type: Cigarette Years Smoked: 20 e-Cigarette/Vaping Use: Never Used Second Hand Smoke Exposure: No Advance Directives Date on File: 03/10/23 service: No Current occupational status: employed Current occupation: [employer] Current occupational exposures/hazards: No Sexually active: Yes Sexual orientation: Straight/Heterosexual Gender identity: Female Cognitive needs: No Hearing needs: No Vision needs: No Female Reproductive History Menstrual Total pregnancies: 0 Date of Mammogram: 08/15/24 Date of last Bone Density Screenin11/23/24 Review of Systems Const All systems reviewed & are unremarkable except as noted in HPI and below Card Reports as per HPI Resp Reports as per HPI GI Reports as per HPI and Reports no additional complaints Reports as per HPI Physical Exam Vital Signs: Last Vital Signs BP 136/88 12/28/24 14:31 BMI result Body Mass Index 28.4 Const General: cooperative, healthy appearing and comfortable Chest Chest palpation & inspection: normal inspection of the chest and normal palpation of entire chest wall Breast/axilla inspection: normal inspection of the breasts and normal inspection of the axillae Breast/axilla palpation: normal palpation of the breasts, normal palpation of the axillae and no axillary lymphadenopathy Resp Effort & Inspection: normal respiratory effort Auscultation: clear to auscultation bilaterally Percussion: percussion normal Cardio Palpation: normal PMI Rate: regular rate Rhythm: regular rhythm Heart sounds: no murmurs and no rubs Peripheral pulses: Peripheral pulses 2+ throughout GI Inspection: Yes normal to inspection Palpation (GI): Soft to palpation, nontender, no guarding, not rigid and No hepatosplenomegaly present Percussion: Yes normal to percussion Auscultation: normal bowel sounds Rectal Exam - Female: deferred General: Yes bladder normal to palpation External Female Exam: No lesion Speculum Exam - Vagina: normal appearance of the vagina, normal palpation, normal vaginal discharge and not erythematous Speculum Exam - Cervix: normal appearance of the cervix and normal palpation Bimanual exam- vagina & uterus: normal bimanual exam, normal palpation, uterine size normal, bladder normal to palpation, consistency normal and normal palpation Bimanual Exam- Adnexa, other: normal adnexae, no masses and no tenderness Assessment & Plan Assessment & Plan (1) Well woman exam: Code(s): Z01.419 - Encounter for gynecological examination (general) (routine) without abnormal findings Category: Medical Plan: Co testing done. Counseled the patient about the recommended dietary allowance of 1200 mg of Calcium & 600 IU of vitamin D. Instructions given the patient to schedule next screening Mammogram in 08/13. The patient was instructed to perform monthly self-breast exams and schedule annual exam in a year. All questions answered and the patient verbalized understanding. Coding Level of Care Code New Pt Prev Care >65yr (31414) Diagnoses Well woman exam Z01.419
[2024-12-28 14:31] VITALS: BP 136/88; BMI 28.4
--- OUTSIDE RECORDS SUMMARY | 2024-12-28 16:55 | XMS_ITS | Clinical Summary ---
Author Organization 300 [facility] Address [address] [place] [address] Phone Care Team Providers Care Poultry Breeder Name Role Phone Jose C Mohan MD Primary Care Provider Allergies Active Allergy Reactions Criticality Noted Date Comments Ciprofloxacin 06/21/2023 Other reaction(s): itching Itching Corticosteroids (Glucocorticoids) 06/21/2023 Other reaction(s): atrial fibrallation Atrial fibrillation Doxycycline 06/21/2023 Other reaction(s): vomiting vomiting Morphine 06/21/2023 Other reaction(s): Difficulty breathing trouble breathing Sulfamethoxazole-Trimethopri m 06/21/2023 Medications Xarelto 20 mg tablet TAKE 1 TABLET BY MOUTH DAILY. 90 tablet 3 5 Active rivaroxaban (Xarelto) 20 mg tablet TAKE 1 TABLET BY MOUTH DAILY. 4 12/26/19 25 Discontinued Active Problems Problem Noted Date Diagnosed Date Aneurysm of ascending aorta without rupture ([facility] /[facility] V24) 06/27/2024 HFrEF (heart failure with re duced ejection fraction) ([facility] V24, [facility]/H[facility] V28) 06/27/2024 History of alcohol [...] of hypertension 10/26/2023 AAA (abdominal aortic aneurysm) ([facility] V24) Overview (05/23/2024): Last Assessment & Plan: Status post repair; followed by vascular surgery. Atrial fibrillation and flutter ([facility] V24, [facility] V28) 03/19/2023 Overview (05/23/2024): UNSPECIFIED Last Assessment & Plan: The patient is status post several cardioversions, now status post cryoablation on 07/28/2023, and more recently repeat cardioversion on 11/08/2023. She denies any palpitations or any other symptoms concerning for repeat episode of atrial fibrillation since her most recent cardioversion; she continues to use her Angella Joy mobile device at home which has also [...] Diagnosed Date Resolved Date Secondary hypercoagulable state ([facility] V24) 12/20/19 24 06/27/2024 Dysrhythmia 12/16/2023 06/27/2024 SVT (supraventricular tachyc ardia) ([facility] V24) 12/16/2023 06/27/2024 Social History Tobacco Use [...] Description 05/23/2025 10:50 AM EST Office Visit [facility] [address] [phone] John Molina MD [address] [address] Health Maintenance Due Date Last Done Comments Breast Cancer Screening 1960 Cervical Cancer Screening: Pap Smear 1980 Pneumococcal [...] patient's age to complete this topic Hepatitis A Vaccines Aged Out No long er eligible [...] Most Recently Relevant to Health Maintenance Insurance [facility] Care Teams Poultry Breeder Relationship Specialty Start Date End Date Jose C Mohan MD [address] [place] [address] Dr Britt [place] PCP - General 03/16/23
== END 2024-12-28 14:54 | disposition home or self-care (01) ==
LOC: HO.HWS 14:22
PROVIDERS: PCP Family Medicine; Visit Provider Obstetrics & Gynecology
DX: Z01.419 Encounter for gynecological examination (general) (routine) without abnormal findings (principal)
CPT/HCPCS: 99387; 99459

== ENCOUNTER 2024-12-28 14:21 | Outpatient (REF) | payer OTHER, SELFPAY ==
[2025-01-03 09:10] LABS: HPV Genotype 16 Negative (Negative); HPV Genotype 18 Negative (Negative); HPV High Risk Negative (Negative)
== END 2024-12-28 14:22 | disposition home or self-care (01) ==
LOC: HO.LNP 14:21
PROVIDERS: PCP Family Medicine; Visit Provider Obstetrics & Gynecology
DX: Z01.419 Encounter for gynecological examination (general) (routine) without abnormal findings (principal)
CPT/HCPCS: 87626; 88175

== ENCOUNTER 2025-02-06 09:49 | Outpatient (REF) | payer OTHER, SELFPAY ==
--- NOTE | ~2025-02-06 | MR_ITS ---
EXAM: MRI LOWER EXTREMITY JOINT, KNEE, right TECHNIQUE: Multiplanar multisequence MR imaging performed through the right knee without contrast. INDICATION: ILIOTIBIAL SYNDROME, meniscal tear PRIOR: X-ray on February 17, 2024 FINDINGS: Menisci: Lateral Meniscus: There is oblique tear extending to the femoral surface involving the anterior body of the lateral meniscus best demonstrated on coronal PD fat sat image 18/32. The anterior horn is frayed and irregular. Inner free margin of the body of the meniscus is also frayed. Medial Meniscus: There is a tear of the posterior horn of the medial meniscus, likely with a bird beak morphology, near the root. There is parameniscal cyst that extends posteriorly and anteromedially. There is moderate extrusion of the medial meniscal body. ACL/PCL: ACL and PCL are intact. Extensor mechanism: There is a mildly increased volume of complex appearing joint fluid. There is edema like signal in the superior lateral fat pad of Hoffa. The Insall-Salvati ratio measured 1.33 consistent with patella germaine. MCL/LCL: MCL is intact. LCL complex is intact and unremarkable. There is edema like signal in the soft tissues interposed between lateral femoral condyle anteriorly. Articular cartilage: Patellofemoral Compartment: There is a 13 mm partial and full-thickness articular cartilage defect involving the third patella, lateral facet with adjacent reactive marrow signal. There is partial thickness cartilage loss through the median ridge of patella sparing the far superior and inferior margins with a focal full-thickness fissure in the mid third patella. There is adjacent reactive marrow signal. There is fissuring and articular cartilage loss in the median ridge that extends more than the thickness of the articular cartilage in the lower third patella. Full-thickness articular cartilage defects present at the junction of trochlear groove and medial facet of patella upper trochlear measuring 9 mm wide. In the mid to lower trochlear, there is a 13 mm limits articular cartilage defect at Junction of trochlear groove and lateral facet with adjacent reactive marrow signal.. Lateral Compartment: Articular cartilage is intact. Medial Compartment: Diffuse undulating shallow and deep partial-thickness articular cartilage defects are present to the weightbearing region of the medial femoral condyle. There is mild thinning of medial tibial cartilage Bones/Marrow: There are small tricompartmental marginal osteophytes. There are no marrow replacing lesions. There is mild reactive signal in the proximal fibular head. Soft tissues: There is a multiloculated fluid signal extending along the posterior margin of MCL, mostly above the joint line. This is probably related to a Coppola's cyst. MR/MR knee RT wo con IMPRESSION: Moderate osteoarthritis with articular cartilage loss most advanced in the patellofemoral joint. There is tear of the posterior horn of the medial meniscus near the meniscal root with a bird beak configuration. There is also moderate extrusion of the medial meniscal body. There is an associated para meniscal cyst. There is oblique tear involving the anterior body of the lateral meniscus. Additionally, anterior horn appears degenerated, frayed, and is likely torn. Possible IT band syndrome. There is edema like signal in the soft tissues interposed between IT band and lateral femoral condyle. Suspected patellar tendon at the lateral femoral condyle friction syndrome. There is patella germaine and edema like signal in the superior lateral fat pad of Hoffa. There is a small joint effusion and likely an underlying synovitis. There is a small multiloculated Coppola's cyst extending cephalad, along the posterior margin of MCL. Electronically signed by: Jensen Humphreys MD 02/06/2025 10:55 AM EDT
--- OUTSIDE RECORDS SUMMARY | 2025-02-06 10:36 | XMS_ITS | Clinical Summary ---
Author Organization [facility] Address [address] [facility] [address] [place] [address] Phone Care Team Providers Care Electronic Installer Name Role Phone Jose C Mohan MD Primary Care Provider Allergies Active Allergy Reactions Criticality Noted Date Comments Sulfamethoxazole-Trimeth oprim 05/18/2024 Ciprofloxacin Hcl 05/18/2024 Corticosteroids (Glucocorticoids) 06/21/2023 Other reaction(s): atrial fibrallation Atrial fibrillation Doxycycline Nausea and/or Vomiting 06/21/2023 vomiting Other reaction(s): vomiting vomiting Morphine Shortness Of Breath High 06/21/2023 trouble breathing Other reaction(s): Difficulty breathing trouble breathing Penicillins 05/18/2024 Error not allergic Medications XARELTO 20 mg Tab 04/03/2024 Active fluticasone propionate (FLONASE) 50 mcg/actuation nasal spray 2 sprays by Nasal route daily. 09/11/2024 Active Active Problems Problem Noted Date Diagnosed Date Hyperlipidemia 09/27/2024 Polyp of colon 09/27/2024 HFrEF (heart failure with reduced ejection fract ion) 06/27/2024 History of alcohol abuse 12/20/2023 Overview (09/27/2024): Last Assessment & Plan: The patient denies [...] 10/26/2023 AAA (abdominal aortic aneurysm) 03/19/2023 Overview (09/27/2024): Last Assessment & Plan: Status post repair; followed by vascular surgery. Atrial fibrillation and flutter 03/19/2023 Overview (09/27/2024): UNSPECIFIED Last Assessment & Plan: The patient is status post several cardioversions, now status post cryoablation on 07/28/2023, and more recently repeat cardioversion on 11/08/2023. She denies any palpitations or any other symptoms concerning for repeat episode of atrial fibrillation since her most recent cardioversion; she continues to use her [employer] mobile device at home which has also [...] internal bleeding, or for any head injury. Immunizations Immunization Administration Dates Next Due Influenza Quadrivalent Preservative Free IM 04/18,04/22/2021 Influenza Trivalent Preservative Free IM 017 Social History Tobacco Use Types Packs/Day Years [...] on file Sexual Orientation Not on file Last Filed Vital Signs Vital Sign Reading Time Taken Comments Blood Pressure 124/78 09/27/2024 4:15 PM EDT Pulse 91 09/27/2024 4:15 PM EDT Temperature 37.2 C (99 F) 09/27/2024 4:15 PM EDT Respiratory Rate 16 09/27/2024 4:15 PM EDT Oxygen Saturation 96% 09/27/2024 4:15 PM EDT Inhaled Oxygen Concentration - - Weight 97.5 kg (215 lb) 09/27/2024 4:15 PM EDT Height 185.4 cm (6' 1 ) 09/27/2024 4:15 PM EDT Body Mass Index 28.37 09/27/2024 4:15 PM EDT Plan of Treatment Health Maintenance Due Date Last Done Comments Adult Td,Tdap Booster 1959 CREATININE LEVEL 1959 LIPID PANEL 1959 DEPRESSION SCREENING 1971 HEPATITIS C SCREENING 1977 HIV ONE-TIME SCREENING (18-65 YEARS) 1977 SCREENING FOR DIABETES 1994 MAMMOGRAM 1999 COLOGUARD 2004 COLONOSCOPY 2004 COLORECTAL CANCER SCREENING 2004 FIT TEST 2004 FOBT 2004 SIGMOIDOSCOPY 2004 VIRTUAL COLONOSCOPY 2004 PNEUMOCOCCAL VACCINES (50+ years) (1 of 1 - PCV) 2009 ZOSTER VACCINES (1 of 2) 2009 RSV VACCINE (1 - Risk 60-74 years 1-dose series) 2019 OSTEOPOROSIS SCREENING INITIAL (ONE-TIME) 2024 COVID-19 VACCINE ( season) 2024 04/13/2024, 05/25/2022, 06/27/2021, Additional history exists SMOKING STATUS SCREENING (Once After 26 Yrs) Completed 09/27/2024 HEPATITIS A VACCINES Aged Out No long er eligible based on patient's age to complete this topic HIB VACCINES Aged Out No longer eligi ble based on patient's age to complete this topic MENINGOCOCCAL VACCINES (ACWY) Aged Out No longer eligible based on patient's age to complete this topic MENINGOCOCCAL VACCINES (B) Aged Out N o longer eligible based on patient's age to complete this topic Medical Devices Not on file Insurance [employer] Member Subscriber Plan / Payer (Ef fective 2020-Present) Name:Callie Jay Relation to Subscriber:Self Name:Callie Jay Payer ID:[id number] (NA) Type:PPO Address: [place] [id number] [employer] ADMIN[employer]AT[employer] Member Subscriber Plan / Payer (Ef fective 2020-Present) Name:Callie Jay Relation to Subscriber:Self Name:Callie Jay Payer ID:[id number] (NA) Type:PPO Address: [address] [employer] ADMINISTRATORS [employer] Care Teams Electronic Installer Relationship Specialty Start Date End Date Jose C Mohan MD [address] [place] [address] PCP - General Family Medicine 05/18/24 Additional Source Comments The information contained in this document represents components of the legal health record. It is not the complete legal health record.[facility]
--- OUTSIDE RECORDS SUMMARY | 2025-02-06 10:36 | XMS_ITS | Clinical Summary ---
Author Organization [address] [facility] Address [address] [place] [address] Phone Care Team Providers Care Rheologist Name Role Phone Jose C Mohan MD Primary Care Provider [phone] Allergies Active Allergy Reactions Criticality Noted Date Comments Ciprofloxacin 06/21/2023 Other reaction(s): itching Itching Corticosteroids (Glucocorticoids) 06/21/2023 Other reaction(s): atrial fibrallation Atrial fibrillation Doxycycline 06/21/2023 Other reaction(s): vomiting vomiting Morphine 06/21/2023 Other reaction(s): Difficulty breathing trouble breathing Sulfamethoxazole-Trimethopri m 06/21/2023 Medications Xarelto 20 mg tablet TAKE 1 TABLET BY MOUTH DAILY. 90 tablet 3 12/25/2024 Active Active Problems Problem Noted Date Diagnosed Date Aneurysm of ascending aorta without rupture ([facility] V24) 06/27/2024 HFrEF (heart failure with re duced ejection fraction) ([facility] V24, CMS/HCC V28) 06/27/2024 History of alcohol [...] of hypertension 10/26/2023 AAA (abdominal aortic aneurysm) ([facility] V24) Overview (05/23/2024): Last Assessment & Plan: Status post repair; followed by vascular surgery. Atrial fibrillation and flutter ([facility] V24, [facility] V28) 03/19/2023 Overview (05/23/2024): UNSPECIFIED Last Assessment & Plan: The patient is status post several cardioversions, now status post cryoablation on 07/28/2023, and more recently repeat cardioversion on 11/08/2023. She denies any palpitations or any other symptoms concerning for repeat episode of atrial fibrillation since her most recent cardioversion; she continues to use her [employer] mobile device at home which has also [...] Diagnosed Date Resolved Date Secondary hypercoagulable state ([facility] V24) 12/20/19 24 06/27/2024 Dysrhythmia 12/16/2023 06/27/2024 SVT (supraventricular tachyc ardia) ([facility] V24) 12/16/2023 06/27/2024 Social History Tobacco Use [...] Description 05/23/2025 10:50 AM EST Office Visit [facility] [address] [address] John Molina MD [address] [address] Health Maintenance Due Date Last Done Comments Breast Cancer Screening 1959 Cervical Cancer Screening: Pap Smear 1980 Pneumococcal Vaccine: 50+ Years (1 of 1 - PCV) 2009 Zoster Vaccines (1 of 2) 2009 RSV Immunization Adult Patients (1 - Risk 60-74 years 1-dose series) 2019 Cholesterol Screening (Lipid Panel) 08/17/2023 Hepatitis C Screening 08/17/2023 Osteoporosis Screening (Bone Density Screening) 08/17/2023 Social Influencers of Health Screening 08/17/2023 Falls Risk Assessment 2024 Hypertension/CHF/CAD Annual BMP Blood Test 06/30/2024 Depression Screening 07/19/2024 COVID-19 Vaccine ( season) 2024 04/13/2024, 05/25/2022, 06/27/2021, Additional history exists Influenza Vaccine (#1) 2025 2, 04/22/2021, 04/27/2019, Additional history exists DTaP,Tdap,and Td [...] Most Recently Relevant to Health Maintenance Insurance [employer] [facility] Care Teams Rheologist Relationship Specialty Start Date End Date Jose C Mohan MD [address] [place] [address] [place] PCP - General 03/16/23
--- OUTSIDE RECORDS SUMMARY | 2025-02-06 10:37 | XMS_ITS | Patient Health Record ---
Author Organization [facility] Address [address] [place] [address] Care Team Providers Care Truck Trailer Final Inspector Name Role Phone Jamey DALEY, Pat Primary Care Provider Unav ailable Rao Anglin Unavailable [phone] Allergies Allergen (clinical drug ingredient) Drug/Non Drug Allergy documented on EMR Reaction Allergy Type Onset Date Status ciprofloxacin Cipro itching Drug Allergy Act phyllis Doxycycline Calcium severe vomiting Drug Allergy Active Cortisone A Fib Drug Allergy Active sulfa hives Drug Allergy Active morphine Morphine difficulty breathing Drug Allergy Active Reason For Referral No Information Social History Tobacco use other than smoking: Question Answer Notes Are you an other tobacco user? No Problems Problem Type SNOMED Code ICD Code Onset Dates Problem Status W/U Status Risk Notes Problem Primary osteoarthritis , right ankle and foot (M19.071) Active confirmed Plan Of Treatment No Information Insurance Providers Payer Name Payer Address Payer Phone Subscriber Number Group Number Insured Name Patient Relationship to Insured Coverage Start Date Coverage End Date [facility] [address] [facility] [place] [id number] Callie Romero Self - patient is the insured Medical (General) History Medical History History ICD Code Back,Hip,and Knee pain Chicken pox Gastroesophageal reflux disease (GERD) Measles Mumps chronic sinusitis Surgical History Surgery Date(Month/Year) disc surgery 12/1992 spinal fusion 08/1993 hardware removal 07/1995 skin graft 01/2008
--- OUTSIDE RECORDS SUMMARY | 2025-02-06 10:37 | XMS_ITS | Patient Health Record ---
Author Organization [facility] Address [address] [place] [address] Care Team Providers Care Recycling Coordinator Name Role Phone Marques Jose C Primary Care Provider Tu Echeverria [phone] Allergies Allergen (clinical drug ingredient) Drug/Non Drug Allergy documented on EMR Reaction Allergy Type Onset Date Status doxycycline Doxycycline Unknown Drug Allergy Act phyllis prednisone Prednisone Unknown Drug Allergy Activ e ciprofloxacin Cipro Unknown Drug Allergy Act phyllis sulfamethoxazole / trimethoprim Bactrim Unknown Drug Allergy Active morphine Morphine Unknown Drug Allergy Active Reason For Referral [...] Problem Status W/U Status Risk Notes Problem 253105727 Colon cancer screening (Z12.11) Active confirmed Problem Irritable bowel syndrome (K58.9) Active confirmed Problem 880901518 Irritable bowel syndrome with diarrhea (K58.0) Active confirmed Problem 771304647 History of colon polyps (Z86.010) Active confirmed Problem 373291299 Family history of colon cancer (Z80.0) Active confirmed Plan Of Treatment Future Test Test Name Order Date COLONOSCOPY 01/06/2023 Insurance Providers Payer Name Payer Address Payer Phone Subscriber Number Group Number Insured Name Patient Relationship to Insured Coverage Start Date Coverage End Date [employer] [place] [address] [phone] [id number] GAMALIEL OLIVAS Self - patient is the insured Medical (General) History Medical History History ICD Code IBS with associated intermit tent diarrhea and abdominal cramps. She had testing with Dr. Elder Rivera in [place] including colonoscopies and small bowel video capsule study(2017). Labs were negative for celiac disease with a negative tissue transglutaminase antibody; colon biopsies were negative for microscopic colitis Multiple colonoscopies with Dr. Elder Rivera with removal of tubular adenomas, most recently as of 05/2018 Denies [place],DM,CVA,Lung disease,renal dise ase Surgical History Surgery Date(Month/Year) Back surgery with subsequent infection 1 993 Spinal fusion 1995 Skin Grafting due to gann 2007
== END 2025-02-06 09:50 | disposition home or self-care (01) ==
LOC: HO.MRI 09:49
PROVIDERS: PCP Nurse Practitioner Family; Visit Provider Physician Assistant Surgical
DX: M76.31 Iliotibial band syndrome, right leg (principal)
CPT/HCPCS: 73721

== ENCOUNTER → 2025-02-06 10:05 | Outpatient (BNV) | payer OTHER, SELFPAY | PROVIDERS: PCP Nurse Practitioner Family; Visit Provider Radiology Diagnostic Radiology | DX: M17.11 Unilateral primary osteoarthritis, right knee (principal) | CPT/HCPCS: 73721 ==

== ENCOUNTER 2025-03-20 07:45 | Outpatient (REF) | payer OTHER, SELFPAY ==
--- OUTSIDE RECORDS SUMMARY | 2024-09-27 16:25 | XMS_ITS | Encounter Summary ---
Author Organization [facility] Address [address] [place] [phone] Phone Care Team Providers Care Legal Nurse Consultant Name Role Phone Jose C Mohan MD Primary Care Provider Encounter Details Date Type Department Care Team (Late st Contact Info) Description 09/27/2024 4:25 PM EDT Hospital Encounter [facility] [address] [place] [phone] Nanette Oliva CNP [address] [place] [address] Social History Tobacco Use Types Packs/Day Years [...] clinician's provided indication for this examination in [facility]: Cough; Dyspnea (Shortness of Breath); scatterred rhonchi [...] documented as of this encounter Care Teams Legal Nurse Consultant Relationship Specialty Start Date End Date Jose C Mohan MD [address] [place] [address] PCP - General Family Medicine 05/18/24 documented as of this encounter Additional Source Comments The information contained in this document represents components of the legal health record. It is not the complete legal health record.[facility]
--- OUTSIDE RECORDS SUMMARY | 2025-03-20 07:48 | XMS_ITS | Clinical Summary ---
Author Organization [facility] Address [address] [facility] [address] [place] [address] Phone Care Team Providers Care It Compliance Manager Name Role Phone Jose C Mohan [...] recent cardioversion; she continues to use her [employer] mobile device at home which has also [...] injury. Immunizations Immunization Administration Dates Next Due INFLUENZA, SPLIT VIRUS, TRIVALENT PF 04/05/2017 Influenza Quadrivalent Preservative Free IM 04/18,04/22/2021 Social History Tobacco Use Types Packs/Day Years [...] topic Medical Devices Not on file Insurance [employer] Member Subscriber Plan / Payer (Ef fective 2020-Present) Name:Callie Jay Relation to Subscriber:Self Name:Callie Jay Payer ID:[id number] (NA) Type:PPO Address: [place] [id number] [employer] Member Subscriber Plan / Payer (Ef fective 2020-Present) Name:Callie Jay Relation to Subscriber:Self Name:Callie Jay Payer ID:[id number] (NA) Type:PPO Address: [address] [employer] Care Teams It Compliance Manager Relationship Specialty Start Date End Date Jose C Mohan MD [address] [place] [address] PCP - General Family Medicine 05/18/24 Additional Source Comments The information contained in this document represents components of the legal health record. It is not the complete legal health record.[facility]
--- OUTSIDE RECORDS SUMMARY | 2025-03-20 07:48 | XMS_ITS | Patient Health Record ---
Author Organization [facility] Address [address] [place] [address] Care Team Providers Care Manager Managed Care Name Role Phone Jamey DALEY, Pat Primary Care Provider Unav ailable Rao Anglin Unavailable [phone] Allergies Allergen (clinical drug ingredient) Drug/Non Drug [...] Insured Coverage Start Date Coverage End Date [facility] [address] [facility] [place] [phone] [id number] Callie Romero Self - patient is the insured Medical (General) History Medical History History ICD Code Back,Hip,and Knee pain Chicken pox Gastroesophageal reflux disease (GERD) Measles Mumps chronic sinusitis Surgical History Surgery Date(Month/Year) disc surgery 12/1992 spinal fusion 08/1993 hardware removal 07/1995 skin graft 01/2008
--- OUTSIDE RECORDS SUMMARY | 2025-03-20 07:48 | XMS_ITS | Clinical Summary ---
Author Organization [address] [facility] Address [address] [place] [address] Phone Care Team Providers Care Volleyball Coach Name Role Phone Jose C Mohan MD Primary Care Provider [phone] Allergies Active Allergy Reactions Criticality Noted Date [...] Date Aneurysm of ascending aorta without rupture ([facility] V24) 06/27/2024 HFrEF (heart failure with re duced ejection fraction) ([facility] V24, CMS/HCC V28) 06/27/2024 History [...] hypertension 10/26/2023 AAA (abdominal aortic aneurysm) ([facility] V24) Overview (05/23/2024): Last Assessment & Plan: Status post repair; followed by vascular surgery. Atrial fibrillation and flutter ([facility] V24, [facility] V28) 03/19/2023 Overview (05/23/2024): UNSPECIFIED Last Assessment & Plan: The patient is status post several cardioversions, now status post cryoablation on 07/28/2023, and more recently repeat cardioversion on 11/08/2023. She denies any palpitations or any other symptoms concerning for repeat episode of atrial fibrillation since her most recent cardioversion; she continues to use her [employer] mobile device at home which has also [...] Date Resolved Date Secondary hypercoagulable state ([facility] V24) 12/20/19 24 06/27/2024 Dysrhythmia 12/16/2023 06/27/2024 SVT (supraventricular tachyc ardia) ([facility] V24) 12/16/2023 06/27/2024 [...] Description 05/23/2025 10:50 AM EST Office Visit [facility] [address] [place] [address] John Molina MD [address] [place] [address] [address] [place] [address] Health Maintenance Due Date Last Done Comments [...] Depression Screening 07/19/2024 COVID-19 Vaccine ( season) 2025 04/13/2024, 05/25/2022, 06/27/2021, Additional history exists Influenza [...] to Health Maintenance Insurance [employer] [facility] Care Teams Volleyball Coach Relationship Specialty Start Date End Date Jose C Mohan MD [address] [place] [address] Dr Britt [place] PCP - General 03/16/23
--- OUTSIDE RECORDS SUMMARY | 2025-03-20 07:48 | XMS_ITS | Patient Health Record ---
Author Organization [facility] Address [address] [place] [address] Care Team Providers Care Senior Project Manager Name Role Phone Marques Jose C Primary Care Provider Tu Echeverria [phone] Allergies Allergen (clinical drug ingredient) Drug/Non Drug [...] Problem Status W/U Status Risk Notes Problem 055759716 Colon cancer screening (Z12.11) Active confirmed Problem Irritable bowel syndrome (K58.9) Active confirmed Problem 398620327 Irritable bowel syndrome with diarrhea (K58.0) Active confirmed Problem 554394998 History of colon polyps (Z86.010) Active confirmed Problem 140684615 Family history of colon cancer (Z80.0) Active confirmed Plan Of Treatment Future Test Test Name Order Date COLONOSCOPY 01/06/2023 Insurance Providers Payer Name Payer Address Payer Phone Subscriber Number Group Number Insured Name Patient Relationship to Insured Coverage Start Date Coverage End Date [employer] [place] [address] [address] [place] [address] [id number] GAMALIEL OLIVAS Self - patient is the insured Medical (General) History Medical History History ICD Code IBS with associated intermit tent diarrhea and abdominal cramps. She had testing with Dr. Elder Rivera in [place] including colonoscopies and small bowel video capsule study(2017). Labs were negative for celiac disease with a negative tissue transglutaminase antibody; colon biopsies were negative for microscopic colitis Multiple colonoscopies with Dr. Elder Rivera with removal of tubular adenomas, most recently as of 05/2018 Denies [place],DM,CVA,Lung disease,renal dise ase Surgical History Surgery Date(Month/Year) Back surgery with subsequent infection 1 993 Spinal fusion 1995 Skin Grafting due to gann 2007
[2025-03-20 09:41] LABS: Blood Urea Nitrogen 16 mg/dL (9-16); Estimated Glomerular Filt Rate 53
== END 2025-03-20 07:46 | disposition home or self-care (01) ==
LOC: HO.LAB 07:45
PROVIDERS: PCP Nurse Practitioner Family; Visit Provider Surgery Vascular Surgery
DX: I71.43 Infrarenal abdominal aortic aneurysm, without rupture (principal)
CPT/HCPCS: 36415; 82565; 84520

== ENCOUNTER 2025-03-21 08:57 | Outpatient (REF) | payer OTHER, SELFPAY ==
--- OUTSIDE RECORDS SUMMARY | 2024-09-27 16:25 | XMS_ITS | Encounter Summary ---
Author Organization [facility] Address [address] [place] [phone] Phone Care Team Providers Care Warm In Worker Name Role Phone Jose C Mohan MD Primary Care Provider Encounter Details Date Type Department Care Team (Late st Contact Info) Description 09/27/2024 4:25 PM EDT Hospital Encounter [facility] [address] [place] [phone] Nanette Oliva CNP [address] [place] [address] Social History Tobacco Use Types Packs/Day Years [...] clinician's provided indication for this examination in [facility]: Cough; Dyspnea (Shortness of Breath); scatterred [...] documented as of this encounter Care Teams Warm In Worker Relationship Specialty Start Date End Date Jose C Mohan MD [address] [place] [address] PCP - General Family Medicine 05/18/24 documented as of this encounter Additional Source Comments The information contained in this document represents components of the legal health record. It is not the complete legal health record.[facility]
--- NOTE | ~2025-03-21 | CT_ITS ---
CLINICAL HISTORY: I71.43 - Infrarenal abdominal aortic aneurysm, without rupture Exam: CT angiography of the abdomen and pelvis with IV contrast, 3D post-processing Comparison: None Findings: Vasculature: Fusiform aneurysmal dilatation of the abdominal aorta, status post aorto bi-iliac endovascular repair, the aneurysmal sac measures 5.1 x 5.1 cm in maximum axial diameter near bifurcation, previously 5.6 x 5.7 cm, close to the proximal end of the stent, new focal outpouching 1.5 x 1.0 cm on the left side of stent extends into the excluded aneurysmal sac just below the left renal artery, otherwise no abnormal contrast opacification in the excluded aneurysmal sac. stable ectatic common iliac artery stents, 2.1 cm on the left, 2 cm on the right. Mild calcified noncalcified atherosclerotic disease of included descending aorta. Celiac axis, SMA, right renal arteries are patent without flow-limiting stenosis. Left renal artery decreased in caliber with moderate stenosis at the origin when compared to prior. Proximal ROSA is not visualized and probably occluded, same as before, reconstitution of flow noted distally. Abdomen and pelvis: Unremarkable lung bases. Liver, gallbladder, spleen, pancreas, adrenal glands, right kidney, bladder, reproductive organs are unremarkable. The left kidney becomes atrophic with diffusely decreased renal parenchymal enhancement, left kidney measures 8.2 cm in length versus 10.4 cm previously. Mild diverticulosis coli, otherwise unremarkable GI tract, no acute diverticulitis. No adenopathy, ascites or pneumoperitoneum. No acute osseous abnormality. Degenerative changes of lumbar spine, most notably L2-3. Postsurgical changes and partial fusion of the L4-5. Postsurgical changes of the left iliac bone. Impression: 1. Infrarenal AAA status post aorto bi-iliac endovascular repair, new saccular aneurysm or pseudoaneurysm of left proximal stent is suggestive of type 3 endoleak, this is just above the left renal artery origin, left renal artery decreased in caliber with moderate ostial stenosis and left kidney is now atrophic with decreased parenchymal enhancement. The excluded aneurysmal sac further decreased in size. Recommend vascular surgical consultation. 2. Mild diverticulosis coli. 3. Additional stable chronic findings. This document has been electronically signed by: Sherice Agee MD on 03/22/2025 09:19:35
--- OUTSIDE RECORDS SUMMARY | 2025-03-21 09:34 | XMS_ITS | Clinical Summary ---
Author Organization [facility] Address [address] [facility] [address] [place] [address] Phone Care Team Providers Care Descriptive Catalog Librarian Name Role Phone Jose C Mohan MD [...] recent cardioversion; she continues to use her [employer] mobile device at home which has also [...] topic Medical Devices Not on file Insurance [employer] Member Subscriber Plan / Payer (Ef fective 2020-Present) Name:Callie Jay Relation to Subscriber:Self Name:Callie Jay Payer ID:[id number] (NA) Type:PPO Address: [place] [phone] [employer] Member Subscriber Plan / Payer (Ef fective 2020-Present) Name:Callie Jay Relation to Subscriber:Self Name:Callie Jay Payer ID:[id number] (NA) Type:PPO Address: [address] [employer]AT[employer] Care Teams Descriptive Catalog Librarian Relationship Specialty Start Date End Date Jose C Mohan MD [address] [place] [address] PCP - General Family Medicine 05/18/24 Additional Source Comments The information contained in this document represents components of the legal health record. It is not the complete legal health record.[facility]
--- OUTSIDE RECORDS SUMMARY | 2025-03-21 09:34 | XMS_ITS | Clinical Summary ---
Author Organization [address] [facility] Address [address] [place] [address] Phone Care Team Providers Care Water Project Engineer Name Role Phone Jose C Mohan MD Primary Care Provider [phone] Allergies Active Allergy Reactions Criticality Noted Date [...] Date Aneurysm of ascending aorta without rupture ([facility] V24) 06/27/2024 HFrEF (heart failure with re duced ejection fraction) ([facility] V24, CMS/HCC V28) 06/27/2024 History of alcohol [...] of hypertension 10/26/2023 AAA (abdominal aortic aneurysm) ([facility] V24) Overview (05/23/2024): Last Assessment & Plan: Status post repair; followed by vascular surgery. Atrial fibrillation and flutter ([facility] V24, [facility] V28) 03/19/2023 Overview (05/23/2024): UNSPECIFIED Last Assessment & Plan: The patient is status post several cardioversions, now status post cryoablation on 07/28/2023, and more recently repeat cardioversion on 11/08/2023. She denies any palpitations or any other symptoms concerning for repeat episode of atrial fibrillation since her most recent cardioversion; she continues to use her [employer] mobile device at home which has also [...] Diagnosed Date Resolved Date Secondary hypercoagulable state ([facility] V24) 12/20/19 24 06/27/2024 Dysrhythmia 12/16/2023 06/27/2024 SVT (supraventricular tachyc ardia) ([facility] V24) 12/16/2023 06/27/2024 [...] Description 05/23/2025 10:50 AM EST Office Visit [facility] [address] [place] [address] John Molina MD [address] [place] [address] [address] [place] [address] Health Maintenance Due Date Last Done Comments [...] to Health Maintenance Insurance [employer] [facility] Care Teams Water Project Engineer Relationship Specialty Start Date End Date Jose C Mohan MD [address] [place] [address] Dr Britt [place] PCP - General 03/16/23
[2025-03-21] MEDS: iohexoL 350 MG/ML 100 ML INFUS..BTL IV (09:38)
== END 2025-03-21 08:58 | disposition home or self-care (01) ==
LOC: HO.CT 08:57
PROVIDERS: PCP Nurse Practitioner Family; Visit Provider Surgery Vascular Surgery
DX: I71.43 Infrarenal abdominal aortic aneurysm, without rupture (principal)
CPT/HCPCS: 74174; Q9967

== ENCOUNTER → 2025-03-21 09:01 | Outpatient (BNV) | payer OTHER, SELFPAY | PROVIDERS: PCP Nurse Practitioner Family; Visit Provider Radiology Diagnostic Radiology | DX: I71.43 Infrarenal abdominal aortic aneurysm, without rupture (principal) | CPT/HCPCS: 74174 ==

== ENCOUNTER 2025-04-03 12:57 | Outpatient (AMB) | payer OTHER, SELFPAY ==
--- OUTSIDE RECORDS SUMMARY | 2024-09-27 16:25 | XMS_ITS | Encounter Summary ---
Author Organization [facility] Address [address] [place] [phone] Phone Care Team Providers Care Glove Pairer Name Role Phone Jose C Mohan MD Primary Care Provider Encounter Details Date Type Department Care Team (Late st Contact Info) Description 09/27/2024 4:25 PM EDT Hospital Encounter [facility] [address] [place] [phone] Nanette Oliva CNP [address] [place] [address] [email or web address] Social History Tobacco Use Types Packs/Day Years [...] clinician's provided indication for this examination in [facility]: Cough; Dyspnea (Shortness of Breath); scatterred [...] documented as of this encounter Care Teams Glove Pairer Relationship Specialty Start Date End Date Jose C Mohan MD [address] [place] [address] PCP - General Family Medicine 05/18/24 documented as of this encounter Additional Source Comments The information contained in this document represents components of the legal health record. It is not the complete legal health record.[facility]
--- NOTE | 2025-04-03 13:03 | A.OFFVIS_ITS ---
Intake Visit Reasons: follow up CTA Abd/Pelvis 03/21/25 Intake Note: Patient presents for follow uo CTA/ABD pelvis performed on 03/21/25. Accompanied by: Self / Same As Patient Allergies doxycycline Allergy (Severe, Verified 04/03/25 13:06) Vomiting morphine Allergy (Intermediate, Verified 04/03/25 13:06) Shortness of Breath prednisone Allergy (Intermediate, Verified 04/03/25 13:06) afib sulfamethoxazole (From Bactrim) Allergy (Intermediate, Verified 04/03/25 13:06) Hives trimethoprim (From Bactrim) Allergy (Intermediate, Verified 04/03/25 13:06) Hives HPI HPI follow up CTA Abd/Pelvis 03/21/25: Details: The patient is a 64-year-old female presenting with concerns regarding her aortic stent graft and renal artery status. The aortic stent graft was previously placed, and recent imaging shows it remains in a decent position with a decrease in the sac size from 5.67 cm to 5.1 cm, indicating a positive response to the intervention. There is a small area of concern near the top of the graft on the left side, but it is not currently deemed significant enough to warrant immediate intervention. The left renal artery shows decreased caliber with moderate ostial stenosis, leading to reduced blood flow to the left kidney. The left kidney has shown some atrophy, with parenchymal enhancement decreasing from 10.4 cm to 8.2 cm, although kidney function remains stable. [facility] Medical History History of pneumothorax Personal history of nicotine dependence Atrial flutter Alcohol abuse with withdrawal Atrial fibrillation with RVR Bright red blood per rectum Afib Elevated blood pressure reading Infrarenal abdominal aortic aneurysm (AAA) without rupture Hx MRSA infection History of COVID-19 GI bleed Atrial fibrillation Irritable bowel syndrome Mixed hyperlipidemia Surgical History S/P AAA repair Hx of right cataract extraction Hx of colonoscopy (~2023) History of tonsillectomy History of fusion of lumbar spine History of skin graft Family History Mother Diabetes Cervical cancer Sister Lung cancer Social History Household Members: Spouse Household Members Other:: 2 Housing: House Do you presently have visiting nurse or other home services: No Alcohol intake: current Alcohol intake frequency: a few times a week Patient Tobacco Use Status: Former Tobacco user Tobacco use type: Cigarette Years Smoked: 20 e-Cigarette/Vaping Use: Never Used Second Hand Smoke Exposure: No Advance Directives Date on File: 03/10/23 service: No Current occupational status: employed 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 Current occupational exposures/hazards: No Sexual orientation: Straight/Heterosexual Gender identity: Female Cognitive needs: No Hearing needs: No Vision needs: No Review of Systems Const All systems reviewed & are unremarkable except as noted in HPI and below Reports no additional complaints ENT Reports Normal hearing present Card Denies chest pain, Denies chest pain at rest, Denies chest pain with activity and Denies pedal edema Resp Denies cough GI Denies abdominal pain Musc Denies abnormal gait, Denies muscle cramps and Denies radiating pain into limb Skin/Breast Denies skin ulcer and Denies wounds Neuro Reports Normal hearing present and Denies abnormal gait Psych Reports no additional complaints Physical Exam Const General: cooperative, healthy appearing and comfortable Orientation/consciousness: oriented to person, oriented to place and oriented to time HEENT Head: Yes normal to inspection Neck Neck: Yes normal visual inspection Carotids: no bruits Chest Chest palpation & inspection: normal inspection of the chest Resp Effort & Inspection: normal respiratory effort and able to speak in complete sentences Auscultation: clear to auscultation bilaterally, no crackles, no rales, no rhonchi and no wheezes Cardio Rate: regular rate Rhythm: regular rhythm Heart sounds: S1 normal heart sound present and S2 normal heart sound present Bruits: no carotid bruits Peripheral pulses: Peripheral pulses 2+ throughout GI Inspection: Yes normal to inspection Skin Wounds: no wounds Hair: normal Neuro General: oriented to person, oriented to place and oriented to time Cranial nerves: Yes CN's II-XII intact bilaterally and Yes Normal hearing present Cognition (Neuro): normal cognition Motor exam (neuro): 5/5 motor strength present throughout Extrem Other: venous exam: No significant superficial varicosities or spider telangiectasias, minimal edema General: No clubbing, No cyanosis and No edema Psych Appearance: grossly normal Mental Status: mental status grossly normal Speech and movement: Normal speech and movement present Results Reviewed Results Reviewed: CT angiogram reviewed and concern of type 3 endoleak. Assessment & Plan Assessment & Plan (1) Infrarenal abdominal aortic aneurysm (AAA) without rupture: Comment: 04/12/2023 - endovascular aortic aneurysm repair with [employer] Endurant II S Code(s): I71.43 - Infrarenal abdominal aortic aneurysm, without rupture Category: Medical Plan: I discussed with the patient that the aortic stent graft is in a stable position with a decrease in sac size, which is a positive sign. There is a small area of concern near the top of the graft, and we will monitor it with a follow-up CT scan in three months. The left renal artery shows moderate stenosis, but kidney function remains stable. I advised the patient that we will reassess the situation with another CT scan in three months to determine if any intervention is necessary. Orders: Orders CT angio abdomen pelvis 3 Months I71.43 - Infrarenal abdominal aortic aneurysm, without rupture Creatinine 3 Months I71.43 - Infrarenal abdominal aortic aneurysm, without rupture Blood Urea Nitrogen 3 Months I71.43 - Infrarenal abdominal aortic aneurysm, without rupture Coding Level of Care Code Est Pt Level 4 (27034) Diagnoses Infrarenal abdominal aortic aneurysm (AAA) without rupture I71.43
--- OUTSIDE RECORDS SUMMARY | 2025-04-03 16:55 | XMS_ITS | Clinical Summary ---
Author Organization [address] [facility] Address [address] [place] [address] Phone Care Team Providers Care Public Affairs Specialist Name Role Phone Jose C Mohan MD Primary Care Provider [phone] Allergies Active Allergy Reactions Criticality Noted Date [...] Date Aneurysm of ascending aorta without rupture ([facility] V24) 06/27/2024 HFrEF (heart failure with re duced ejection fraction) ([facility] V24, [facility]/H[facility] V28) 06/27/2024 History of alcohol [...] of hypertension 10/26/2023 AAA (abdominal aortic aneurysm) ([facility] V24) Overview (05/23/2024): Last Assessment & Plan: Status post repair; followed by vascular surgery. Atrial fibrillation and flutter ([facility] V24, [facility] V28) 03/19/2023 Overview (05/23/2024): UNSPECIFIED Last Assessment & Plan: The patient is status post several cardioversions, now status post cryoablation on 07/28/2023, and more recently repeat cardioversion on 11/08/2023. She denies any palpitations or any other symptoms concerning for repeat episode of atrial fibrillation since her most recent cardioversion; she continues to use her [employer] mobile device at home which has also [...] Diagnosed Date Resolved Date Secondary hypercoagulable state ([facility] V24) 12/20/19 24 06/27/2024 Dysrhythmia 12/16/2023 06/27/2024 SVT (supraventricular tachyc ardia) ([facility] V24) 12/16/2023 06/27/2024 Social History Tobacco Use [...] Description 05/23/2025 10:50 AM EST Office Visit [facility] [address] [place] [address] John Molina MD [address] [place] [address] [address] [place] [address] Health Maintenance Due Date Last Done Comments [...] to Health Maintenance Insurance [employer] [facility] Care Teams Public Affairs Specialist Relationship Specialty Start Date End Date Jose C Mohan MD [address] [place] [address] Dr Britt [place] PCP - General 03/16/23
--- OUTSIDE RECORDS SUMMARY | 2025-04-03 16:55 | XMS_ITS | Patient Health Record ---
Author Organization [facility] Address [address] [place] [address] Care Team Providers Care Gasoline Catalyst Operator Name Role Phone Marques Jose C Primary Care Provider Tu Echeverria [phone] Allergies Allergen (clinical drug ingredient) Drug/Non Drug [...] Problem Status W/U Status Risk Notes Problem [id number] Colon cancer screening (Z12.11) Active confirmed Problem Irritable bowel syndrome (71756861) Irritable bowel syndrome (K58.9) Active confirmed Problem 145084033 Irritable bowel syndrome with diarrhea (K58.0) Active confirmed Problem 985585925 History of colon polyps (Z86.010) Active confirmed Problem 407671694 Family history of colon cancer (Z80.0) Active confirmed Plan Of Treatment Future Test Test Name Order Date COLONOSCOPY 01/06/2023 Insurance Providers Payer Name Payer Address Payer Phone Subscriber Number Group Number Insured Name Patient Relationship to Insured Coverage Start Date Coverage End Date [employer]UE [employer] DES[employer] S OF [employer] [address] [address] [place] [address] [id number] GAMALIEL OLIVAS Self - patient is the insured Medical (General) History Medical History History ICD Code IBS with associated intermit tent diarrhea and abdominal cramps. She had testing with Dr. Elder Rivera in [place] including colonoscopies and small bowel video capsule study(2018). Labs were negative for celiac disease with a negative tissue transglutaminase antibody; colon biopsies were negative for microscopic colitis Multiple colonoscopies with Dr. Elder Rivera with removal of tubular adenomas, most recently as of 05/2018 Denies ME,DM,CVA,Lung disease,renal dise ase Surgical History Surgery Date(Month/Year) Back surgery with subsequent infection 1 993 Spinal fusion 1995 Skin Grafting due to gann 2007
--- OUTSIDE RECORDS SUMMARY | 2025-04-03 16:55 | XMS_ITS | Clinical Summary ---
Author Organization [facility] Address [address] [facility] [address] [place] [address] Phone Care Team Providers Care Stock Handler Floorperson Name Role Phone Jose C Mohan MD [...] recent cardioversion; she continues to use her [employer] mobile device at home which has also [...] series) 2019 OSTEOPOROSIS SCREENING INITIAL (ONE-TIME) 2024 INFLUENZA VACCINE (#1) 2025 , 04/22/2021, 04/05/2017 COVID-19 VACCINE ( season) 2025 04/13/2024, 05/25/2022, 06/27/2021, Additional history exists SMOKING [...] topic Medical Devices Not on file Insurance [employer] Member Subscriber Plan / Payer ( fective 2020-Present) Name:Callie Jay Relation to Subscriber:Self Name:Callie Jay Payer ID:[id number] ([facility]) Type:PPO Address: [place] [phone] [employer] Member Subscriber Plan / Payer ( fective 2020-) Name:Callie Jay Relation to Subscriber:Self Name:Callie Jay Payer ID:[id number] (NA) Type:PPO Address: [place] [id number] [employer] Member Subscriber Plan / Payer (Ef fective 2020-Present) Name:Callie Jay Relation to Subscriber:Self Name:BinhEl escobedoelle Payer ID:[id number] ([employer]) Type:PPO Address: [place] [id number] [employer] Member Subscriber Plan / Payer ( fective 2020-Present) Name:Callie Jay Relation to Subscriber:Self Name:Callie Jay Payer ID:[id number] (NA) Type:PPO Address: [address] [place] [address] [employer] Member Subscriber Plan / Payer (Ef fective 2020-Present) Name:Callie Jay Relation to Subscriber:Self Name:Callie Jay Payer ID:[id number] (NA) Type:PPO Address: [place] [phone] [employer] Care Teams Stock Handler Floorperson Relationship Specialty Start Date End Date Jose C Mohan MD [address] [place] [address] PCP - General Family Medicine 05/18/24 Additional Source Comments The information contained in this document represents components of the legal health record. It is not the complete legal health record.[facility]
--- OUTSIDE RECORDS SUMMARY | 2025-04-03 16:55 | XMS_ITS | Patient Health Record ---
Author Organization [facility] Address [address] [place] [address] Care Team Providers Care Computational Geneticist Name Role Phone Jamey ENGINEERING DESIGNER, Pat Primary Care Provider Unav ailable Rao Anglin Unavailable [phone] Allergies Allergen (clinical drug ingredient) Drug/Non Drug [...] Problem Status W/U Status Risk Notes Problem Localized, primary osteoarthritis of the ankle and/or foot (726623821) Primary osteoarthrit is, right ankle and foot (M19.071) Active confirmed Plan Of Treatment No Information Insurance Providers Payer Name Payer Address Payer Phone Subscriber Number Group Number Insured Name Patient Relationship to Insured Coverage Start Date Coverage End Date [facility] [address] [facility] [place] [id number] Callie Romero Self - patient is the insured Medical (General) History Medical History History ICD Code Back,Hip,and Knee pain Chicken pox Gastroesophageal reflux disease (GERD) Measles Mumps chronic sinusitis Surgical History Surgery Date(Month/Year) disc surgery 12/1992 spinal fusion 08/1993 hardware removal 07/1995 skin graft 01/2008
== END 2025-04-03 13:26 | disposition home or self-care (01) ==
LOC: HO.HVS 12:58
PROVIDERS: PCP Nurse Practitioner Family; Visit Provider Surgery Vascular Surgery
DX: I71.43 Infrarenal abdominal aortic aneurysm, without rupture (principal)
CPT/HCPCS: 99214

== ENCOUNTER 2025-04-12 17:45 | Emergency (ER) | payer OTHER, SELFPAY ==
--- OUTSIDE RECORDS SUMMARY | 2024-09-27 16:25 | XMS_ITS | Encounter Summary ---
Author Organization [facility] Address [address] [place] [phone] Phone Care Team Providers Care Swager Operator Name Role Phone Jose C Mohan MD Primary Care Provider Encounter Details Date Type Department Care Team (Late st Contact Info) Description 09/27/2024 4:25 PM EDT Hospital Encounter [facility] [address] [place] [phone] Nanette Oliva CNP [address] [place] [address] [email or web address] Social History Tobacco Use Types Packs/Day Years [...] clinician's provided indication for this examination in [facility]: Cough; Dyspnea (Shortness of Breath); scatterred [...] documented as of this encounter Care Teams Swager Operator Relationship Specialty Start Date End Date Jose C Mohan MD [address] [place] [address] PCP - General Family Medicine 05/18/24 documented as of this encounter Additional Source Comments The information contained in this document represents components of the legal health record. It is not the complete legal health record.[facility]
[2025-04-12] VITALS (7 sets, daily range): BP systolic 191–203; BP diastolic 108–120; PULSE 80–104; RESP 18–20; TEMP 36.5–36.8; O2SAT 95–98; BMI 26.4
--- NOTE | ~2025-04-12 | CT_ITS ---
CLINICAL HISTORY: head trauma CT head without contrast COMPARISON: None FINDINGS: No acute intracranial hemorrhage, extra-axial fluid collection, mass effect, or midline shift. Ventricular system and basilar cisterns are patent. Bartlett-white matter differentiation is maintained. No gross orbital abnormality. No suspicious or acute bone lesion. Scattered mucosal thickening throughout the paranasal sinuses. Small right mastoid effusion. IMPRESSION: 1. No acute intracranial abnormality. This document has been electronically signed by: Robert Pa MD on 04/12/2025 20:25:26
--- NOTE | ~2025-04-12 | XR_ITS ---
CLINICAL HISTORY: fall 2 view left clavicle Comparison: None provided Findings: No acute clavicle fracture. High-grade left AC separation injury. Intact proximal humerus and scapula. IMPRESSION: 1. High-grade left AC separation injury. This document has been electronically signed by: Robert Pa MD on 04/12/2025 21:17:24
--- NOTE | ~2025-04-12 | XR_ITS ---
CLINICAL HISTORY: fall 3 view left shoulder Comparison: None provided Findings: Significant elevation of the distal clavicle with respect to the acromion. Increased coracoclavicular distance of 2.5 cm. Findings are consistent with high-grade AC ligament injury. Mild elevation of the skin overlying the distal clavicle. No acute fracture. No glenohumeral dislocation. IMPRESSION: 1. High-grade left AC separation injury. No acute fracture. This document has been electronically signed by: Robert Pa MD on 04/12/2025 21:17:12
--- NOTE | ~2025-04-12 | CT_ITS ---
CLINICAL HISTORY: neck trauma CT cervical spine without contrast Comparison: None Findings: Cervical vertebral body heights maintained. No traumatic listhesis, subluxation, or dislocation demonstrated. No acute fracture identified. Intervertebral disc spaces are congruent. Moderate degenerative changes at C4-C5 and C5-C6. No suspicious lytic or blastic osseous lesion. No acute prevertebral or paraspinous soft tissue finding. Visualized portions of the lung apices are clear. IMPRESSION: 1. No CT evidence of acute traumatic cervical spine injury. This document has been electronically signed by: Robert Pa MD on 04/12/2025 20:24:06
--- NOTE | 2025-04-12 18:05 | PC.NURSE ---
64 F presents to ED with L shoulder pain following being pulled down by puppy when trying to catch up with it. A+Ox4, calm, cooperative. RR even and unlabored, denies CP or SOB. Pt is ambulatory, denies any difficulty ambulating. No other complaints.
--- NOTE | 2025-04-12 19:56 | ED.EXTPRO ---
HPI - Extremity Problem General Chief complaint: Extremity Injury, Upper Stated complaint: Fall + thinners & obvious clavical deformity inj Time Seen by Provider: 04/12/25 19:30 Source: patient Mode of arrival: ambulatory Limitations: no limitations History of Present Illness ED Provider: Dr. Strauss HPI Narrative: A 64-year-old female history of AFib CKD, CHF, on Xarelto presented hospital today after a fall. Patient stated the dog took off on the leash. She landed on her left shoulder. She has company of left shoulder pain denies any headache. Complain of some neck pain. Denies any chest pain or abdominal pain or any pain in her lower extremities. Related Data Previous Rx's ?Medication ?Instructions ?Recorded rivaroxaban 20 mg tablet (Xarelto) 20 mg PO DAILY #30 tabs 03/12/23 amlodipine 5 mg tablet 5 mg PO DAILY 14 days #14 tabs 04/12/25 lidocaine 5 % topical patch 1 patch topical DAILY #15 ea 04/12/25 oxycodone 5 mg tablet 2.5 mg (1/2 x 5 mg) PO Q8H PRN 04/12/25 pain #14 tabs Allergies Allergy/AdvReac Type Severity Reaction Status Date / Time doxycycline Allergy Severe Vomiting Verified 04/12/25 18:01 morphine Allergy Intermediate Shortness Verified 04/12/25 18:01 of Breath prednisone Allergy Intermediate afib Verified 04/12/25 18:01 sulfamethoxazole (From Allergy Intermediate Hives Verified 04/12/25 18:01 Bactrim) trimethoprim (From Bactrim) Allergy Intermediate Hives Verified 04/12/25 18:01 Review of Systems Review of Systems: Pertinent review of systems as mentioned in HPI. All other system otherwise negative. [facility] Past Medical History [facility] Narrative: Medical history as mentioned in HPI Medical History History of pneumothorax Personal history of nicotine dependence Atrial flutter Alcohol abuse with withdrawal Atrial fibrillation with RVR Bright red blood per rectum Afib Elevated blood pressure reading Infrarenal abdominal aortic aneurysm (AAA) without rupture Hx MRSA infection History of COVID-19 GI bleed Atrial fibrillation Irritable bowel syndrome Mixed hyperlipidemia Surgical History S/P AAA repair Hx of right cataract extraction Hx of colonoscopy (~2023) History of tonsillectomy History of fusion of lumbar spine History of skin graft Family History Family History Mother Diabetes Cervical cancer Sister Lung cancer Social History Social History Household Members: Spouse Household Members Other:: 2 Housing: House Do you presently have visiting nurse or other home services: No Alcohol intake: current Alcohol intake frequency: a few times a week Alcohol type: wine Patient Tobacco Use Status: Former Tobacco user Tobacco use type: Cigarette Years Smoked: 20 Smoked in Last 30 Days: No e-Cigarette/Vaping Use: Never Used Second Hand Smoke Exposure: No Use of substances other than those prescribed or required for medical reasons: No Advance Directives: Yes Advance Directives on File: Yes Advance Directives Date on File: 03/10/23 Do you have a plan to hurt others: No Plan service: No Current occupational status: employed 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 Tenderness on the proximal humeral head, the patient does have some deformity of the distal clavicle. Pulse intact in the left upper extremity sensation is intact. Neurological: Awake and alert, no facial droop noted Skin: Warm and dry Psychiatric: Appropriate mood and thoughts Vital Signs: Vital Signs: Last Vital Signs Temp 98.3 F 04/12/25 21:12 Pulse 83 04/12/25 21:12 Resp 18 04/12/25 18:03 BP 192/110 H 04/12/25 21:35 Pulse Ox 95 04/12/25 21:12 O2 Del Method Room Air 04/12/25 21:35 BMI result Body Mass Index 26.4 Medications Administered Discontinued Medications Generic Name Dose Route Start Last Admin Trade Name Freq PRN Reason Stop Dose Admin Oxycodone HCl 2.5 mg 04/12/25 20:18 04/12/25 20:33 Oxycodone Hcl Immed Release 5 Mg Tablet PO 04/12/25 20:19 2.5 mg ONCE ONE Administration Medical Decision Making Medical Decision Making [facility] Narrative: 64-year-old female presented hospital today for evaluation of a fall sustaining a left shoulder injury. We will obtain x-ray of patient's left shoulder and clavicle. We will obtain a CT head CT C-spine. Review patient's CT head and CT C-spine negative for any signs of intracranial bleed or fracture of the C-spine. Patient's x-ray did show signs signs of AC joint separation. Appears to be high-grade in nature. Likely ligament torn. The patient's humeral head is intact in the glenoid fossa. No signs of fracture. No open fracture Patient will be placed in the sling. We will plan discharge her with orthopedic follow up. Differential Diagnosis Differential Diagnoses: The differential diagnosis associated with the presentation includes Proximal humeral fracture, clavicle fracture, AC joint separation Independent Interpretation I performed an independent interpretation of an: Plain X-Ray Radiology Impression Discussion of test interpretation with radiology: I have reviewed the radiologist's reading. Discharge Plan Discharge Clinical Impression: Separation of acromioclavicular joint Qualifiers: Encounter type: initial encounter Laterality: left Qualified Code(s): S43.102A - Unspecified dislocation of left acromioclavicular joint, initial encounter Patient Disposition: Home, Self-Care Instructions: Acromioclavicular Separation (ED) Prescriptions: New lidocaine 5 % adhesive patch,medicated 1 patch topical DAILY Qty: 15 0RF Rx Instructions: leave on most painful area for up to 12 hrs oxycodone 5 mg tablet 2.5 mg PO Q8H PRN (Reason: pain) Qty: 14 0RF Rx Instructions: Partial Fill upon patient request. amlodipine 5 mg tablet 5 mg PO DAILY 14 Days Qty: 14 0RF No Action Xarelto 20 mg tablet 20 mg PO DAILY Qty: 30 0RF Rx Instructions: must administer with evening meal Print Language: Albanian
--- OUTSIDE RECORDS SUMMARY | 2025-04-12 20:05 | XMS_ITS | Patient Health Record ---
Author Organization [facility] Address [address] [place] [address] Care Team Providers Care Technical Producer Name Role Phone Jamey STUDENT ASSISTANT, Pat Primary Care Provider Unav ailable Rao Anglin Unavailable [phone] Allergies Allergen (clinical drug ingredient) Drug/Non Drug [...] primary osteoarthritis of the ankle and/or foot (169295070) Primary osteoarthrit is, right ankle and foot (M19.071) Active confirmed Plan Of Treatment No Information Insurance Providers Payer Name Payer Address Payer Phone Subscriber Number Group Number Insured Name Patient Relationship to Insured Coverage Start Date Coverage End Date [facility] [address] [facility] [place] [phone] [id number] Callie Romero Self - patient is the insured Medical (General) History Medical History History ICD Code Back,Hip,and Knee pain Chicken pox Gastroesophageal reflux disease (GERD) Measles Mumps chronic sinusitis Surgical History Surgery Date(Month/Year) disc surgery 12/1992 spinal fusion 08/1993 hardware removal 07/1995 skin graft 01/2008
--- OUTSIDE RECORDS SUMMARY | 2025-04-12 20:05 | XMS_ITS | Clinical Summary ---
Author Organization [facility] Address [address] [place] [phone] Phone Care Team Providers Care Communication Center Coordinator Name Role Phone Jose C Mohan MD [...] recent cardioversion; she continues to use her [employer] mobile device at home which has also [...] topic Medical Devices Not on file Insurance [employer] Member Subscriber Plan / Payer ( fective 2020-Present) Name:Callie Jay Relation to Subscriber:Self Name:Callie Jay Payer ID:[id number] ([facility]) Type:PPO Address: [place] [phone] [employer] Member Subscriber Plan / Payer ( fective 2020-) Name:Callie Jay Relation to Subscriber:Self Name:Callie Jay Payer ID:[id number] ([place]) Type:PPO Address: [place] [phone] [employer] Member Subscriber Plan / Payer (Ef fective 2020-Present) Name:Callie Jay Relation to Subscriber:Self Name:BinhEl escobedoelle Payer ID:[id number] ([facility]) Type:PPO Address: [place] [phone] [employer] Member Subscriber Plan / Payer ( fective 2020-Present) Name:Callie Jay Relation to Subscriber:Self Name:Callie Jay Payer ID:[id number] (NA) Type:PPO Address: [address] [place] [address] [employer] Member Subscriber Plan / Payer (Ef fective 2020-Present) Name:Callie Jay Relation to Subscriber:Self Name:Callie Jay Payer ID:[id number] (NA) Type:PPO Address: [place] [phone] [employer] Care Teams Communication Center Coordinator Relationship Specialty Start Date End Date Jose C Mohan MD [address] [place] [address] PCP - General Family Medicine 05/18/24 Additional Source Comments The information contained in this document represents components of the legal health record. It is not the complete legal health record.[facility]
--- OUTSIDE RECORDS SUMMARY | 2025-04-12 20:05 | XMS_ITS | Patient Health Record ---
Author Organization [facility] Address [address] [place] [address] Care Team Providers Care Compliance Attorney Name Role Phone Marques Jose C Primary Care Provider Tu Echeverria [phone] Allergies Allergen (clinical drug ingredient) Drug/Non Drug [...] Problem Status W/U Status Risk Notes Problem 284111109 Colon cancer screening (Z12.11) Active confirmed Problem Irritable bowel syndrome (42076244) Irritable bowel syndrome (K58.9) Active confirmed Problem 262138200 Irritable bowel syndrome with diarrhea (K58.0) Active confirmed Problem 107021106 History of colon polyps (Z86.010) Active confirmed Problem 594798999 Family history of colon cancer (Z80.0) Active confirmed Plan Of Treatment Future Test Test Name Order Date COLONOSCOPY 01/06/2023 Insurance Providers Payer Name Payer Address Payer Phone Subscriber Number Group Number Insured Name Patient Relationship to Insured Coverage Start Date Coverage End Date [employer] [address] [address] [place] [address] [id number] GAMALIEL OLIVAS Self - patient is the insured Medical (General) History Medical History History ICD Code IBS with associated intermit tent diarrhea and abdominal cramps. She had testing with Dr. Elder Rivera in [place] including colonoscopies and small bowel video capsule study(2018). Labs were negative for celiac disease with a negative tissue transglutaminase antibody; colon biopsies were negative for microscopic colitis Multiple colonoscopies with Dr. Elder Rivera with removal of tubular adenomas, most recently as of 05/[address],DM,CVA,Lung disease,renal dise ase Surgical History Surgery Date(Month/Year) Back surgery with subsequent infection 1 993 Spinal fusion 1995 Skin Grafting due to gann 2007
[2025-04-12] MEDS: oxyCODONE HCl Immed Release 5 MG TABLET 2.5 MG PO (20:33)
--- NOTE | 2025-04-12 20:35 | PC.NURSE ---
medicated per mar.
--- NOTE | 2025-04-12 22:52 | PC.NURSE ---
pt medicated per mar, sling applied, reviewed discharge instructions wiht pt. pt verbalized understanding, no sign of distress.
== END 2025-04-12 22:54 | disposition home or self-care (01) ==
PROVIDERS: Emergency Provider Student in an Organized Health Care Education/Training Program; PCP Nurse Practitioner Family
DX: S43.102A Unspecified dislocation of left acromioclavicular joint, initial encounter (principal); M25.512 Pain in left shoulder; I48.91 Unspecified atrial fibrillation; M54.2 Cervicalgia; R51.9 Headache, unspecified; X58.XXXA Exposure to other specified factors, initial encounter; Y93.9 Activity, unspecified; Y92.9 Unspecified place or not applicable; Y99.8 Other external cause status; Z79.899 Other long term (current) drug therapy; Z79.01 Long term (current) use of anticoagulants; Z87.891 Personal history of nicotine dependence
CPT/HCPCS: 70450; 72125; 73000; 73030; 99284

== ENCOUNTER → 2025-04-12 19:30 | Outpatient (BNV) | payer OTHER, SELFPAY | PROVIDERS: Emergency Provider Student in an Organized Health Care Education/Training Program; PCP Nurse Practitioner Family; Visit Provider Radiology Diagnostic Radiology | DX: M54.2 Cervicalgia (principal); S09.90XA Unspecified injury of head, initial encounter; S40.912A Unspecified superficial injury of left shoulder, initial encounter; W19.XXXA Unspecified fall, initial encounter | CPT/HCPCS: 70450; 72125; 73000; 73030 ==

== ENCOUNTER 2025-05-28 11:26 | Outpatient (REF) | payer OTHER, SELFPAY ==
--- NOTE | ~2025-05-28 | XR_ITS ---
EXAMINATION: XR ABDOMEN KUB CLINICAL INDICATION: K59.00 - Constipation, unspecified COMPARISON: CT abdomen 03/21/2025 TECHNIQUE: AP view of the abdomen. FINDINGS: Abdominal aortic and bilateral common iliac artery stent graft is again noted. There is a moderate amount of stool in the rectum. There is scattered small and large bowel gas. XR/XR KUB IMPRESSION: Moderate amount rectal stool. Aortobiiliac stent graft. Electronically signed by: Jensen Humphreys MD 05/28/2025 01:35 PM GAR[facility]
== END 2025-05-28 11:27 | disposition home or self-care (01) ==
LOC: HO.XRAY 11:26
PROVIDERS: PCP Nurse Practitioner Family; Visit Provider Nurse Practitioner Family
DX: Z23 Encounter for immunization (principal); K59.09 Other constipation; K57.90 Diverticulosis of intestine, part unspecified, without perforation or abscess without bleeding; S43.409A Unspecified sprain of unspecified shoulder joint, initial encounter; Z79.899 Other long term (current) drug therapy
CPT/HCPCS: 74018; 90471; 90656

== ENCOUNTER 2025-05-28 11:26 | Outpatient (AMB) | payer OTHER, SELFPAY ==
--- OUTSIDE RECORDS SUMMARY | 2024-09-27 15:25 | XMS_ITS | Encounter Summary ---
Author Organization [facility] Address [address] [place] [phone] Phone Care Team Providers Care Box Icer Name Role Phone Jose C Mohan MD Primary Care Provider Encounter Details Date Type Department Care Team (Late st Contact Info) Description 09/27/2024 4:25 PM EDT Hospital Encounter [facility] [address] [place] [phone] Nanette Oliva CNP [address] [place] [address] Social History Tobacco Use Types Packs/Day Years Used Date Smoking Tobacco: Never Smokeless Tobacco: Never Education Answer Date Recorded Are you interested in more education? Not on jamie e 05/18/2024 Are you concerned about learning? Not on file 05/18/2024 No 05/18/2024 No 05/18/2024 Digital Access Answer Date Recorded No 05/18/2024 No 05/18/2024 Reliable internet access at home? Not on file 05/18/2024 Device with a working camera? Not on file Comments Unknown Sex and Gender Information Value Date Recorded Sex Assigned at Not on file Legal Sex Female 1:44 PM EDT Gender Identity Not on file Sexual Orientation Not on file documented as of this encounter Plan of Treatment Not on file documented as of this encounter Procedures Procedure Name Priority Date/Time Associated Diagnosis Comments XR CHEST PA AND LATERAL 2 VIEWS Urgent/patient waiting 09/27/2024 4:33 PM EDT Dyspnea on exertion documented in this encounter Results * XR CHEST PA AND LATERAL 2 VIEWS (09/27/2024 4:33 PM EDT) Anatomical Region Laterality Modality Chest Computed Radiogr aphy 09/27/2024 4:43 PM EDT Impressions 09/27/2024 4:53 PM EDT No focal consolidation or pulmonary edema. ATTESTATION: Opal Fay as teaching physician, have reviewed the images for this case and if necessary edited the report originally created by Akhil Rincon. Narrative 09/27/2024 4:53 PM EDT XR CHEST PA AND LATERAL 2 VIEWS Referring clinician's provided indication for this examination in [facility]: Cough; Dyspnea (Shortness of Breath); scatterred rhonchi COMPARISON: None FINDINGS: Devices/Tubes/Lines: None. Lungs: No focal consolidation or pulmonary edema. Left basilar atelectasis/scarring. Pleura: No pleural effusion or pneumothorax. Heart/Mediastinum: Normal cardiomediastinal silhouette. Bones/Soft Tissues: No significant skeletal abnormality. Procedure Note Opal Loza MD - 09/27/2024 XR CHEST PA AND LATERAL 2 VIEWS Referring clinician's provided indication for this examination in Epic:Cough; Dyspnea (Shortness of Breath); scatterred rhonchi COMPARISON: None FINDINGS: Devices/Tubes/Lines: None. Lungs: No focal consolidation or pulmonary edema. Left basilaratelectasis/scarring. Pleura: No pleural effusion or pneumothorax. Heart/Mediastinum: Normal cardiomediastinal silhouette. Bones/Soft Tissues: No significant skeletal abnormality. IMPRESSION: No focal consolidation or pulmonary edema. ATTESTATION: Opal Fay as teaching physician, have reviewed the imagesfor this case and if necessary edited the report originally created byAkhil Rincon. Nanette Oliva CNP IMG XR CHEST Final Resul t documented in this encounter Visit Diagnoses Not on filedocumented in this encounter Additional Health Concerns Infection Onset Date Last Indicated Resolved Time CoV-Risk 09/27/2024 09/27/2024 10/08/2024 1:22 AM EDT documented as of this encounter Care Teams Box Icer Relationship Specialty Start Date End Date Jose C Mohan MD PCP - General Family Medicine 05/18/24 documented as of this encounter Additional Source Comments The information contained in this document represents components of the legal health record. It is not the complete legal health record.[facility]
--- OUTSIDE RECORDS SUMMARY | 2025-05-23 10:50 | XMS_ITS | Encounter Summary ---
Author Organization [employer] Address [address] [place] [address] Care Team Providers Care Costume Designer Name Role Phone Jose C Mohan MD Primary Care Provider [phone] Reason for Visit * Reason Comments Follow-up Encounter Details Date Type Department Care Team (Late st Contact Info) Description 05/23/2025 10:50 AM EST Office Visit [facility] [address] [facility] [address] [place] [phone] John Molina MD [address] [place] [address] Dr [facility] [address] [place] [phone] Atrial fibrillation and flutter (CMS/HCC V24, CMS/HCC V28) (Primary Dx); Elevated blood pressure reading in office without diagnosis of hypertension; Aneurysm of ascending aorta without rupture (CMS/HCC V24); Infrarenal abdominal aortic aneurysm (AAA) without rupture (CMS/HCC V24) Social History Tobacco Use Types Packs/Day Years [...] on file documented as of this encounter Last Filed Vital Signs Vital Sign Reading Time Taken Comments Blood Pressure 160/90 05/23/2025 10:37 AM EST Pulse 83 05/23/2025 10:37 AM EST Temperature - - Respiratory Rate - - Oxygen Saturation 99% 05/23/2025 10:37 AM EST Inhaled Oxygen Concentration - - Weight 93 kg (205 lb) 05/23/2025 10:37 AM EST Height 185.4 cm (6' 1 ) 05/23/2025 10:37 AM EST Body Mass Index 27.05 05/23/2025 10:37 AM EST documented in this encounter Ordered Prescriptions Prescription Sig Dispense Quantity Refills Last Filled Start Date End Date rosuvastatin (CRESTOR) 20 mg tabletIndications: Atrial fibrillation and flutter (CMS/HCC V24, CMS/HCC V28),Elevated blood pressure reading in office without diagnosis of hypertension,Aneur ysm of ascending aorta without rupture (CMS/HCC V24),Infrarenal abdominal aortic aneurysm (AAA) without rupture (CMS/HCC V24) Take 1 tablet (20 mg total) by mouth 1 (one) time each day. 30 each 05/23/2025 05/23/2026 chlorthalidone (HYGROTON) 25 mg tabletIndications: Atrial fibrillation and flutter (CMS/HCC V24, CMS/HCC V28),Elevated blood pressure reading in office without diagnosis of hypertension,Aneur ysm of ascending aorta without rupture (CMS/HCC V24),Infrarenal abdominal aortic aneurysm (AAA) without rupture (CMS/HCC V24) Take 1 tablet (25 mg total) by mouth 1 (one) time each day. 30 each 05/23/2025 11/19/2025 documented in this encounter Progress Notes * John Molina MD - 05/23/2025 10:50 AM EST Images from the original note were not included. [facility] PRIMARY SAMPLE EXAMINER: John Molina MD PCP: Jose C Mohan MD HPI: Callie Jay is a 65 y.o. old female with 1. Atrial flutter with 2-1 block, first diagnosed in February 2023 presenting to [facility] with a GI bleed. By history an episode of atrial fibrillation 15 years ago related to steroid therapy with no documented recurrence. Ultimately undergoing cardioversion, again presenting to emergency room on May 26, 2023 (Cardizem had been discontinued post cardioversion due to bradycardia) EKG at this time was atrial fibrillation with rapid ventricular response. Additional cardioversion. Anticoagulated with Xarelto. Discharged on Multaq. Patient was seen for an inpatient consultation with Dr. Nate Escamilla. Multaq proved to be cost prohibitive, transition to amiodarone she presented again to [facility] on July 28 in atrial fibrillation additional cardioversion and underwent pulmonary vein isolation on August 18, 2022. Flutter line was not created. Presented to [facility] on November 08, 2023, atrial flutter with rapid ventricular response. Repeat cardioversion. She was seen for routine follow-up in our office in December, almost daily [employer] mobile tracings without any documented recurrence of atrial fibrillation. Did not resume AAD, no AVN blocking agents in setting of symptomatic bradycardia. CHADSVASc 2 for age and gender modifier, 3 with a confirmed diagnosis of HTN - readings consistently elevated in our office. 2. TAA 3.9 cm 3. HFrEF - EF 40% at time of presentation with Aflutter - February 2023 4. EtOH abuse 5. Endovascular repair of AAA in March 2023 Echocardiogram May 2023 in our office EF 45%, mild to moderate global hypokinesis, dilated right ventricle with normal function. Ascending aorta 3.9 cm, mildly dilated left atrium, moderately dilated right atrium no hemodynamically significant valvular disease. Last seen in our office in June 2024 by Maria E.. At that time she was only on Xarelto. Her bloodpressure was elevated. An echo was to be repeated. She encouraged alcohol abstinence. Routine exercise. A new echo was done August 2024 showing an EF of 55 to 60% with grade 2 diastolic dysfunction. Dilated left atrium and normal right atrium. Ascending aorta 4 cm. When compared to May 2023 she was no longer in A-fib. No change in the size of the aorta. Systolic function looked better. EKG June 2024 sinus rhythm with some PVCs otherwise normal. I see an emergency room note from [facility] in Apr 12. . At that time she was on amlodipine 5. She had had a fall. Sounds like she was pulled down by her dog and landed on her left shoulder. CT of the head and spine were unremarkable. Humeral head intact. No fracture History of Present Illness The patient is a 65-year-old female who presents for atrial fibrillation, hypertension, hyperlipidemia, and abdominal aortic aneurysm. She has been monitoring her heart rhythm using the [employer] alek on her phone, with all readingsconsistently normal. She reports no chest discomfort or shortness of breath. She has a history of atrial fibrillation, with one episode occurring post-ablation in 2022, but none since then. She is currently on Xarelto and expresses a desire to discontinue it due to the presence of bruises all over her body. She also reports an increase in bleeding associated with her irritable bowel syndrome (IBS) while on Xarelto. She reports leg swelling since starting amlodipine, which is more pronounced in the evening. She consumes 1 to 2 glasses of wine daily. She monitors her blood pressure at home and notes that it is typically in the high range. She was prescribed amlodipine 5 mg daily for hypertension, which was elevated during her ER visit. Her last cholesterol panel showed a triglyceride level of 110, total cholesterol of 236, LDL of 164, and HDL of 50. She is not currently on any cholesterol- lowering medications. She has a family history of diabetes and was informed 16 years ago that she was at risk of developing the condition. She had an abdominal aortic aneurysm repaired CT scan of heart few years ago showed soft and hard aortic plaque She sustained a complete tear of her AC ligament on 04/12/2025 while playing with her puppy. She isscheduled for a follow-up on 06/11/2025 to determine the need for surgical intervention. She continues to experience pain, although it has lessened. An EKG performed during her ER visit showed normalresults. PAST SURGICAL HISTORY: Abdominal aortic aneurysm repair. Ablation for atrial fibrillation. 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 [employer] Alcohol: Consumes wine daily, at least 1 glass, sometimes 2 glasses Tobacco: Does not smoke ACTIVE MEDICATIONS: Current Outpatient Medications Medication Instructions amLODIPine (NORVASC) 10 mg, oral, Daily Xarelto 20 mg, oral, Daily PAST MEDICAL HISTORY: Problem List[1] ALLERGIES: Allergies[2] SOCIAL HISTORY: Social History Tobacco Use Smoking status: Former Smokeless tobacco: Never Substance Use Topics Alcohol use: Yes PHYSICAL EXAM: Vitals: 05/23/25 1037 BP: (!) 160/90 BP Location: Left arm Patient Position: Sitting BP Cuff Size: Small adult Pulse: 83 SpO2: 99% Weight: 93 kg (205 lb) Height: 1.854 m (73 ) Physical Exam Constitutional: Appearance: Normal appearance. She is normal weight. Comments: Tall HENT: Head: Normocephalic. Eyes: Extraocular Movements: Extraocular movements intact. Pupils: Pupils are equal, round, and reactive to light. Neck: Vascular: No carotid bruit. Cardiovascular: Rate and Rhythm: Normal rate and regular rhythm. Heart sounds: No murmur heard. No friction rub. No gallop. Pulmonary: Effort: Pulmonary effort is normal. Breath sounds: Normal breath sounds. Abdominal: General: Bowel sounds are normal. Palpations: Abdomen is soft. Musculoskeletal: Cervical back: Neck supple. Right lower leg: No edema. Left lower leg: No edema. Comments: Left arm in sling Skin: General: Skin is warm and dry. Neurological: General: No focal deficit present. Mental Status: She is oriented to person, place, and time. Psychiatric: Mood and Affect: Mood normal. Physical Exam Heart: Regular rhythm, no murmurs noted. Lungs: Clear to auscultation bilaterally. Extremities: No significant swelling noted in ankles. EKG: SEE ABOVE No results found for this or any previous visit (from the past 4464 hours). TESTING: Results Labs - Triglyceride level: 110 - Cholesterol level: 236 - LDL: 164 - HDL: 50 Imaging - CAT scan of aorta: 07/2023, Atherosclerotic changes in aorta ASSESSMENT/PLAN: Assessment & Plan 1. Atrial Fibrillation: - [id number] score is 4, indicating a 5% annual risk of stroke if atrial fibrillation recurs. - Presence of a dilated left atrium on echocardiogram increases risk. - She wishes to Discontinue Xarelto and transition to daily baby aspirin. - Monitor heart rhythm daily using [employer] and report any irregularities suggestive of atrial fibrillation. 2. Hypertension: - Blood pressure readings are consistently elevated. - Limit wine intake to no more than one glass per day. - Prescription for chlorthalidone 25 mg daily provided, with a month's supply and five refills. - Undergo blood work after a week of chlorthalidone therapy to assess potassium levels; and a BMP lab slip provided. - Monitor blood pressure at home and report readings via [employer] in 2 to 3 weeks. - If current dosage of chlorthalidone is insufficient, dosage may be increased to 50 mg. - If necessary, a third antihypertensive medication may be considered. 3. Hyperlipidemia: - Exhibits atherosclerotic changes in aorta based on CT scan conducted in 07/2023. - Lipid profile indicates need for statin therapy to mitigate cardiovascular event risk. - Prescription for rosuvastatin 20 mg at bedtime provided. - Undergo lipid panel in approximately 6 weeks; lab slip provided. 4. Abdominal Aortic Aneurysm: - History of abdominal aortic aneurysm repair. - Continue follow-up with specialist for monitoring of aneurysm. Follow-up: Next scheduled visit in 06/2025 for aneurysm check-up. F/U with us in 6 months Assessment & Plan Atrial fibrillation and flutter (CMS/HCC V24, CMS/HCC V28) Elevated blood pressure reading in office without diagnosis of hypertension Aneurysm of ascending aorta without rupture (CMS/HCC V24) Infrarenal abdominal aortic aneurysm (AAA) without rupture (CMS/HCC V24) I have obtained verbal consent from Callie Jay prior to the recording. I have advised Callie Jay that she may refuse the recording and require the recording to be turned off at any time during this encounter. Thank you for allowing us to participate in the care of this patient. The patient will follow up in6 months, sooner PRN. As per AHA guidelines and previously established plan of care by Dr. John Molina MD, we discussed the following today: No diagnosis found. [facility] [1] Patient Active Problem List Diagnosis AAA (abdominal aortic aneurysm) (CMS/HCC V24) Atrial fibrillation and flutter (CMS/HCC V24, CMS/HCC V28) Elevated blood pressure reading in office without diagnosis of hypertension History of alcohol abuse Palpitation Aneurysm of ascending aorta without rupture (CMS/HCC V24) HFrEF (heart failure with reduced ejection fraction) (CMS/HCC V24, CMS/HCC V28) [2] Allergies Allergen Reactions Ciprofloxacin Other reaction(s): itching Itching Corticosteroids (Glucocorticoids) Other reaction(s): atrial fibrallation Atrial fibrillation Doxycycline Other reaction(s): vomiting vomiting Morphine Other reaction(s): Difficulty breathing trouble breathing Sulfamethoxazole-Trimethoprim documented in this encounter Plan of Treatment Scheduled Orders Name Type Priority Associated Diagnoses Orde r Schedule Magnesium Lab Routine Atrial fibrillation and flutter ([facility] V24, CMS/[facility] V28) Elevated blood pressure reading in office without diagnosis of hypertension Aneurysm of ascending aorta without rupture ([facility]/HCC V24) Infrarenal abdominal aortic aneurysm (AAA) without rupture ([facility]/HCC V24) 1 Occurrences starting 05/23/2025 until 05/23/2026 Basic metabolic panel Lab Routine Atrial fibrillation and flutter (CMS/HCC V24, CMS/HCC V28) Elevated blood pressure reading in office without diagnosis of hypertension Aneurysm of ascending aorta without rupture ([facility] V24) Infrarenal abdominal aortic aneurysm (AAA) without rupture ([facility] V24) 1 Occurrences starting 05/23/2025 until 05/23/2026 Lipid panel Lab Routine Atrial fibrillation and flutter (CMS/HCC V24, CMS/HCC V28) Elevated blood pressure reading in office without diagnosis of hypertension Aneurysm of ascending aorta without rupture ([facility]/HCC V24) Infrarenal abdominal aortic aneurysm (AAA) without rupture ([facility]/HCC V24) 1 Occurrences starting 05/23/2025 until 05/23/2026 documented as of this encounter Visit Diagnoses Diagnosis Atrial fibrillation and flutter (CMS/HCC V24, CMS/HCC V28)- Primary Elevated blood pressure reading in office without diagnosis of hypertension Aneurysm of ascending aorta without rupture (CMS/HCC V24) Infrarenal abdominal aortic aneurysm (AAA) without rupture ([facility] V24) documented in this encounter Discontinued Medications Medication Sig Discontinue Reason Start Date End Da te Xarelto 20 mg tablet TAKE 1 TABLET BY MOUTH DAILY. Side effects 12/25/2024 05/23/2025 documented as of this encounter Care Teams Costume Designer Relationship Specialty Start Date End Date Jose C Mohan MD [address] [place] [address] Dr Britt MA PCP - General 03/16/23 documented as of this encounter
--- NOTE | 2025-05-28 11:28 | AM.OFFWIN_ITS ---
Intake Vital Signs 05/28/25 11:32 Height 6 ft Weight 200 lb BMI 27.1 BP 124/76 Blood Pressure Location Rt brachial Position Sitting Respiration 12 Pulse 102 H Pulse Source Pulse Oximeter Temp 97.5 F Temp Source Oral Pulse Oximetry (%) 98 Oxygen Delivery Method Room Air Intake Visit Reasons: Sick visit Intake Note: Patient c/o constipated x 5 days Patient Tobacco Use Status: Former Tobacco user Community Development Aide Required: No Allergies doxycycline Allergy (Severe, Verified 05/28/25 11:35) Vomiting morphine Allergy (Intermediate, Verified 05/28/25 11:35) Shortness of Breath prednisone Allergy (Intermediate, Verified 05/28/25 11:35) afib sulfamethoxazole (From Bactrim) Allergy (Intermediate, Verified 05/28/25 11:35) Hives trimethoprim (From Bactrim) Allergy (Intermediate, Verified 05/28/25 11:35) Hives Medication List - Last Reconciled 05/28/25 by Ann Del Rosario, [facility]- amlodipine 5 mg PO DAILY 14 days clonidine HCl 0.1 mg PO DAILY lidocaine 5% 1 patch topical DAILY rosuvastatin 20 mg PO DAILY Do you need a note to return to daycare/school/sports/work: No HPI HPI Comments History of Present Illness Details 65 y/o F with afib s/p cardiac albation and cardioversion, alcohol dependence, elevated LFT, AAA w/o rupture (s/p repair 2022), HLD, IBS, former smoker, hx of GI bleed and collapsed lung, diastolic heart failure, CKD 3, HLD s/p AAA repair 2022, spinal fusion, tonsillectomy, R cataract extraction Echo 08/2024 EF 55-60%, Grade 2 diastolic dysfunction, Dilated L atrium, mild AV calcification, aortic room 4cm (stable) History of Present Illness The patient is a 65-year-old female presenting with constipation. Constipation: - The patient reports new-onset constipa tion that began five days ago. - She has tried Dulcolax, MiraLax, stool softeners, fresh fruit, and increased water intake without relief. - She describes a sensation of needing t o defecate, but only passing a very small amount of stool, and sometimes feels like she is sitting on a ball. - This is associated with occasional abd ominal pain, especially after attempting to have a bowel movement, and a sensation of wanting to vomit when straining. - She denies any blood in the stool. - The patient has a history of IBS, with symptoms alternating between diarrhea and constipation, but past episodes of constipation were mild and easily resolved. - A CT scan in March for a separate issue revealed mild diverticulosis coli without acute diverticulitis. Acromioclavicular ligament tear L: - The patient sustained a complete AC li gament tear, described as a grade V injury, on April 12 after her puppy pulled her down. - Management has been non-surgical, and she has been wearing a sling since the injury. - For pain, she took oxycodone for appro ximately the first week, primarily for sleep, and has since been using Tylenol. Past Medical History - Complete tear of acromioclavicular lig ament (April 12), managed non- surgically. - Irritable Bowel Syndrome (IBS). - Mild diverticulosis coli without acute diverticulitis, per abdomen/pelvis CTA in March. - Abd aortic Aneurysm (status post imagi ng). Review of Systems - Gastrointestinal: Reports acute consti pation for five days with a feeling of incomplete evacuation. - Reports abdominal pain, particularly a fter straining. - Reports nausea when straining. - Reports feeling as though she is sitt ing on a ball. - Reports infrequent flatus. - Denies vomiting or hematochezia. - Musculoskeletal: Reports a recent comp lete tear of the AC ligament. Physical Exam General: Well developed, well nourished, in no acute distress. Appears stated age. Head: Normocephalic, atraumatic. Eyes: Pupils are equal, round and reactive to light and accommodation. Conjunctivae are clear. Scleras nonicteric Abdomen: Bowel sounds present in all quadrants hyperactive, The abdomen is soft, tender to touch generally speaking without reboud or peritoneal signs, with no masses or organomegaly noted. No hernias are noted. Psych: Mood and affect appropriate. Diagnostic results Pending Results - Imaging: A prior abdomen/pelvis CTA fr om March 22 showed mild diverticulosis coli with an otherwise unremarkable GI tract and no evidence of acute diverticulitis. Medical Decision Making The patient is a 65-year-old female who presents with a five-day history of constipation, which is a new and significant change from her baseline of IBS. Her symptoms of incomplete evacuation and significant discomfort, coupled with a lack of response to gnyt-oxx-kelhgsb laxatives, are concerning for a significant stool burden or impaction. The physical exam finding of diffuse abdominal tenderness is notable. Although she has a known history of mild diverticulosis without acute inflammation on a recent CT, the tenderness makes an enema contraindicated until an acute process is ruled out. Therefore, a KUB x-ray is ordered to assess for obstruction or significant fecal loading. The treatment plan is contingent upon the results of the x-ray. I have prescribed lactulose and recommended ljkb-mqe-ffcunxj bisacodyl to provide osmotic and stimulant laxative effects. If the x-ray is negative, I will advise the patient to also use a Fleet's enema to help clear any distal blockage. If the x-ray is positive for an acute issue, I will contact the patient by phone to arrange an alternative plan. For health maintenance, a flu shot was administered. Plan 1. Constipation, Unspecified - An X-ray of the kidney, ureter, and bl adder (KUB) was ordered for the patient to complete today to assess for stool burden and rule out obstruction. - Prescribed lactulose solution to be ta iris up to three times a day as needed for bowel movements. - Recommended taking two aifw-rhb-sfqnwb r bisacodyl tablets once a day concurrently with the lactulose. - The plan is contingent on imaging resu lts; if the KUB is negative, the patient will be advised via the patient portal to use an vrtt-rdb-yfaxlrj Fleet's enema in addition to the oral medications. - If the KUB is abnormal, I will contact the patient by phone to discuss an alternative treatment plan. 2. Preventative Care: Influenza Vaccinat ion - An influenza vaccine will be administe red to the patient today during the visit. Patient Instructions - Go to the x-ray department today to ge t an x-ray of your abdomen. - A prescription for lactulose has been sent to the pharmacy. - This is a sweet, sticky syrup that you can take up to three times a day to help you have a bowel movement. - It is also recommended that you buy bi sacodyl, which is an ufxz-miq-enaakld laxative pill. - Take two of these pills once a day at the same time you take the lactulose. - I will contact you with the results of your x-ray. - If the x-ray is normal, I will send yo u a message through the patient portal, and you can then use an quri-dfg-hkqduub Fleet's enema to help clear out the stool. - If the x-ray shows a problem, I will c all you by phone to discuss next steps. - You will be given a flu shot today bef ore you leave the office. Consent The patient provided verbal consent for the abdominal examination after the procedure was explained. Patient was informed and verbally consented to the use of an ambient scribe for clinic note documentation during this visit. Total time spent caring for the patient today was [] minutes. This includes time spent before the visit reviewing the chart, time spent during the visit, and time spent after the visit on documentation, reviewing laboratory results, diagnostic imaging, medications, performing a medically necessary evaluation, counseling on diagnoses, care coordination, ordering appropriate tests, ordering appropriate medications, review of tests performed by other providers, reporting test results with the patient, communication with other healthcare providers. [facility] Medical History History of pneumothorax Personal history of nicotine dependence Atrial flutter Alcohol abuse with withdrawal Atrial fibrillation with RVR Bright red blood per rectum Afib Elevated blood pressure reading Infrarenal abdominal aortic aneurysm (AAA) without rupture Hx MRSA infection History of COVID-19 GI bleed Atrial fibrillation Irritable bowel syndrome Mixed hyperlipidemia Surgical History S/P AAA repair Hx of right cataract extraction Hx of colonoscopy (~2023) History of tonsillectomy History of fusion of lumbar spine History of skin graft Family History Mother Diabetes Cervical cancer Sister Lung cancer Social History Household Members: Spouse Household Members Other:: 2 Housing: House Do you presently have visiting nurse or other home services: No Alcohol intake: current Alcohol intake frequency: a few times a week Alcohol type: wine Patient Tobacco Use Status: Former Tobacco user Tobacco use type: Cigarette Years Smoked: 20 e-Cigarette/Vaping Use: Never Used Second Hand Smoke Exposure: No Advance Directives Date on File: 03/10/23 service: No Current occupational status: employed Current occupation: [employer] Current occupational exposures/hazards: No Sexual orientation: Straight/Heterosexual Gender identity: Female Cognitive needs: No Hearing needs: No Vision needs: No Physical Exam Vital Signs: Last Vital Signs Temp 97.5 F 05/28/25 11:32 Pulse 102 H 05/28/25 11:32 Resp 12 05/28/25 11:32 BP 124/76 05/28/25 11:32 Pulse Ox 98 05/28/25 11:32 Oxygen Delivery Method Room Air 05/28/25 11:32 BMI result Body Mass Index 27.1 Assessment & Plan Assessment & Plan (1) Constipated: Code(s): K59.00 - Constipation, unspecified (2) Diverticulosis: Code(s): K57.90 - Diverticulosis of intestine, part unspecified, without perforation or abscess without bleeding (3) Influenza vaccination administered at current visit: Onset Date: ~05/28/25 Code(s): Z23 - Encounter for immunization Orders: Orders XR KUB Today K59.00 - Constipation, unspecified Influenza Immunization Today Z23 - Encounter for immunization Medications: New lactulose 15 mL PO TID PRN 473 mL 0RF constipation bisacodyl 10 mg (2 x 5 mg) PO BEDTIME 10 tabs 0RF 5 days Fluarix [id number] (PF) (flu vac ts (6mos up)-PF) 0.5 mL IM ONCE 0.5 mL 0RF NS Z23 - Encounter for immunization Coding Diagnoses Constipated K59.00 Diverticulosis K57.90 Influenza vaccination administered at current visit Z23
[2025-05-28 11:32] VITALS: BP 124/76; PULSE 102; RESP 12; TEMP 36.4; O2SAT 98; BMI 27.1
--- NOTE | 2025-05-28 11:55 | A.OFFPC_ITS ---
Vital Signs 05/28/25 11:32 Height 6 ft Weight 200 lb BMI 27.1 BP 124/76 Blood Pressure Location Rt brachial Position Sitting Respiration 12 Pulse 102 H Pulse Source Pulse Oximeter Temp 97.5 F Temp Source Oral Pulse Oximetry (%) 98 Oxygen Delivery Method Room Air Intake Visit Reasons: Sick visit Allergies doxycycline Allergy (Severe, Verified 05/28/25 11:35) Vomiting morphine Allergy (Intermediate, Verified 05/28/25 11:35) Shortness of Breath prednisone Allergy (Intermediate, Verified 05/28/25 11:35) afib sulfamethoxazole (From Bactrim) Allergy (Intermediate, Verified 05/28/25 11:35) Hives trimethoprim (From Bactrim) Allergy (Intermediate, Verified 05/28/25 11:35) Hives Medication List - Last Reconciled 05/28/25 by Ann Del Rosario, [facility]- amlodipine 5 mg PO DAILY 14 days clonidine HCl 0.1 mg PO DAILY lidocaine 5% 1 patch topical DAILY rosuvastatin 20 mg PO DAILY Tobacco use date assessed: 12/22/24 Dental Screening Dental Screen Date: 10/13/24 HPI HPI Comments History of Present Illness Details 65 y/o F with afib s/p cardiac albation and cardioversion, alcohol dependence, elevated LFT, AAA w/o rupture (s/p repair 2022), HLD, IBS, former smoker, hx of GI bleed and collapsed lung, diastolic heart failure, CKD 3, HLD s/p AAA repair 2022, spinal fusion, tonsillectomy, R cataract extraction Echo 08/2024 EF 55-60%, Grade 2 diastolic dysfunction, Dilated L atrium, mild AV calcification, aortic room 4cm (stable) History of Present Illness The patient is a 65-year-old female presenting with constipation. Constipation: - The patient reports new-onset constipa tion that began five days ago. - She has tried Dulcolax, MiraLax, stool softeners, fresh fruit, and increased water intake without relief. - She describes a sensation of needing t o defecate, but only passing a very small amount of stool, and sometimes feels like she is sitting on a ball. - This is associated with occasional abd ominal pain, especially after attempting to have a bowel movement, and a sensation of wanting to vomit when straining. - She denies any blood in the stool. - The patient has a history of IBS, with symptoms alternating between diarrhea and constipation, but past episodes of constipation were mild and easily resolved. - A CT scan in March for a separate issue revealed mild diverticulosis coli without acute diverticulitis. Acromioclavicular ligament tear L: - The patient sustained a complete AC li gament tear, described as a grade V injury, on April 12 after her puppy pulled her down. - Management has been non-surgical, and she has been wearing a sling since the injury. - For pain, she took oxycodone for appro ximately the first week, primarily for sleep, and has since been using Tylenol. Past Medical History - Complete tear of acromioclavicular lig ament (April 12), managed non- surgically. - Irritable Bowel Syndrome (IBS). - Mild diverticulosis coli without acute diverticulitis, per abdomen/pelvis CTA in March. - Abd aortic Aneurysm (status post imagi ng). Review of Systems - Gastrointestinal: Reports acute consti pation for five days with a feeling of incomplete evacuation. - Reports abdominal pain, particularly a fter straining. - Reports nausea when straining. - Reports feeling as though she is sitt ing on a ball. - Reports infrequent flatus. - Denies vomiting or hematochezia. - Musculoskeletal: Reports a recent comp lete tear of the AC ligament. Physical Exam General: Well developed, well nourished, in no acute distress. Appears stated age. Head: Normocephalic, atraumatic. Eyes: Pupils are equal, round and reactive to light and accommodation. Conjunctivae are clear. Scleras nonicteric Abdomen: Bowel sounds present in all quadrants hyperactive, The abdomen is soft, tender to touch generally speaking without reboud or peritoneal signs, with no masses or organomegaly noted. No hernias are noted. Psych: Mood and affect appropriate. Diagnostic results Pending Results - Imaging: A prior abdomen/pelvis CTA fr om March 22 showed mild diverticulosis coli with an otherwise unremarkable GI tract and no evidence of acute diverticulitis. Medical Decision Making The patient is a 65-year-old female who presents with a five-day history of constipation, which is a new and significant change from her baseline of IBS. Her symptoms of incomplete evacuation and significant discomfort, coupled with a lack of response to spki-vak-agxgwnt laxatives, are concerning for a significant stool burden or impaction. The physical exam finding of diffuse abdominal tenderness is notable. Although she has a known history of mild diverticulosis without acute inflammation on a recent CT, the tenderness makes an enema contraindicated until an acute process is ruled out. Therefore, a KUB x-ray is ordered to assess for obstruction or significant fecal loading. The treatment plan is contingent upon the results of the x-ray. I have prescribed lactulose and recommended mijh-gbw-muxqcnh bisacodyl to provide osmotic and stimulant laxative effects. If the x-ray is negative, I will advise the patient to also use a Fleet's enema to help clear any distal blockage. If th e x-ray is positive for an acute issue, I will contact the patient by phone to arrange an alternative plan. For health maintenance, a flu shot was administered. Plan 1. Constipation, Unspecified - An X-ray of the kidney, ureter, and bl adder (KUB) was ordered for the patient to complete today to assess for stool burden and rule out obstruction. - Prescribed lactulose solution to be ta iris up to three times a day as needed for bowel movements. - Recommended taking two hcny-apu-ptktee r bisacodyl tablets once a day concurrently with the lactulose. - The plan is contingent on imaging resu lts; if the KUB is negative, the patient will be advised via the patient portal to use an uspu-bre-pkfdbba Fleet's enema in addition to the oral medications. - If the KUB is abnormal, I will contact the patient by phone to discuss an alternative treatment plan. 2. Preventative Care: Influenza Vaccinat ion - An influenza vaccine will be administe red to the patient today during the vi sit. Patient Instructions - Go to the x-ray department today to ge t an x-ray of your abdomen. - A prescription for lactulose has been sent to the pharmacy. - This is a sweet, sticky syrup that you can take up to three times a day to help you have a bowel movement. - It is also recommended that you buy bi sacodyl, which is an dhew-wxe-oneykoy laxative pill. - Take two of these pills once a day at the same time you take the lactulose. - I will contact you with the results of your x-ray. - If the x-ray is normal, I will send yo u a message through the patient portal, and you can then use an munw-zmo-rwayvyj Fleet's enema to help clear out the stool. - If the x-ray shows a problem, I will c all you by phone to discuss next steps. - You will be given a flu shot today bef ore you leave the office. Xray as below, pt called w/ results and advised ok to proceed w/enema & plan as above. Consent The patient provided verbal consent for the abdominal examination after the procedure was explained. Patient was informed and verbally consented to the use of an ambient scribe for clinic note documentation during this visit. Total time spent caring for the patient today was 30 minutes. This includes time spent before the visit reviewing the chart, time spent during the visit, and time spent after the visit on documentation, reviewing laboratory results, diagnostic imaging, medications, performing a medically necessary evaluation, counseling on diagnoses, care coordination, ordering appropriate tests, ordering appropriate medications, review of tests performed by other providers, reporting test results with the patient, communication with other healthcare providers. [facility] Medical History History of pneumothorax Personal history of nicotine dependence Atrial flutter Alcohol abuse with withdrawal Atrial fibrillation with RVR Bright red blood per rectum Afib Elevated blood pressure reading Infrarenal abdominal aortic aneurysm (AAA) without rupture Hx MRSA infection History of COVID-19 GI bleed Atrial fibrillation Irritable bowel syndrome Mixed hyperlipidemia Surgical History S/P AAA repair Hx of right cataract extraction Hx of colonoscopy (~2023) History of tonsillectomy History of fusion of lumbar spine History of skin graft Family History Mother Diabetes Cervical cancer Sister Lung cancer Social History Household Members: Spouse Household Members Other:: 2 Housing: House Do you presently have visiting nurse or other home services: No Alcohol intake: current Alcohol intake frequency: a few times a week Alcohol type: wine Patient Tobacco Use Status: Former Tobacco user Tobacco use type: Cigarette Years Smoked: 20 e-Cigarette/Vaping Use: Never Used Second Hand Smoke Exposure: No Advance Directives Date on File: 03/10/23 service: No Current occupational status: employed Current occupation: [employer]er Current occupational exposures/hazards: No Sexual orientation: Straight/Heterosexual Gender identity: Female Cognitive needs: No Hearing needs: No Vision needs: No Questionnaire Thrive Questionnaire Date Thrive assessed: 10/06/24 I am a: Patient What is your living situation today?: I have a steady place to live Within the past 12 months, did the food you bought not last and you didn't have the money to get more?: Often true Within the past 12 months, did you worry whether your food would run out before you got money to buy more?: Never true Do you have trouble paying for medicines?: No Do you have trouble getting transportation to medical appointments?: No Do you have trouble paying your heating and electricity bill?: No Do you have trouble taking care of your child, family member or friend?: No Do you have trouble with day-to-day activities such as bathing, preparing meals, shopping, managing finances, etc.?: No Are you currently unemployed and looking for a job?: No Are you interested in more education?: No Please select the resources that you would like help with: None Currently or been in a relationship where the following occur: No concerns reported THRIVE Score: 1 JASWINDER-7 AMB Questionnaire JASWINDER-7 Date JASWINDER - 7 assessed: 10/13/24 Source: Developed by Drs. Tu Kiser, Eli Reinoso, Derrick Strong and colleagues, with an educational anali from [employer]. Physical exam (Primary Care) Vital Signs: Last Vital Signs Temp 97.5 F 05/28/25 11:32 Pulse 102 H 05/28/25 11:32 Resp 12 05/28/25 11:32 BP 124/76 05/28/25 11:32 Pulse Ox 98 05/28/25 11:32 Oxygen Delivery Method Room Air 05/28/25 11:32 BMI result Body Mass Index 27.1 Tobacco/Smoking Status: Tobacco use Status Tobacco use date assessed 12/22/24 05/28/25 11:56 Patient Tobacco Use Status Former Tobacco user 05/28/25 11:56 Tobacco use type Cigarette 05/28/25 11:56 e-Cigarette/Vaping Use Never Used 05/28/25 11:56 Thrive Assessment: Date of Thrive Assessment Date Thrive assessed 10/06/24 05/28/25 11:56 Currently or been in a relationship where the following occur: No concerns reported Office Procedures Flu Questionnaire Does the patient have a severe egg allergy?: No Does the patient have severe life threatening allergies?: No Does the patient have a fever or illness today?: No Has the patient ever had Guillain-Call Syndrome?: No Has the patient ever had any past reaction to a flu shot?: No Immunizations Fluarix [id number] (PF) 45 mcg (15 mcg x 3)/0.5 mL IM syringe Performing Provider: SAHRIF Noriega Performing Location[place] [facility] [place] [facility] Administered by: Robert Cardona MA on 05/28/25 11:55 Dose Route Admin Location Dispensed Lot Number Expiration Date KSC Pillow Cleaner 0.5 mL IM Right Deltoid 0.5 mL [id number] 01/15/26 54581-668-60 ImmuRx VIS Given Date VIS Provided VIS Publication Date 05/28/25 Single Vaccine 24 Eligibility Eligibility Date Funding Source Not [facility] Eligible 05/28/25 Private Results Reviewed Results Reviewed: [address] [address] XRay Report Signed Patient: Callie Jay MR#: [id number] : 1960 Acct:[id number] Age/Sex: 65 / F ADM Date: 05/28/25 Loc: [facility] Attending Dr: Ann OLGUIN Ordering Physician: Ann Del Rosario Date of Service: 05/28/25 Procedure(s): XR KUB Accession Number(s): [id number] cc: Ann Del Rosario~ Reason for Exam: K59.00 - Constipation, unspecified EXAMINATION: XR ABDOMEN KUB CLINICAL INDICATION: K59.00 - Constipation, unspecified COMPARISON: CT abdomen 03/21/2025 TECHNIQUE: AP view of the abdomen. FINDINGS: Abdominal aortic and bilateral common iliac artery stent graft is again noted. There is a moderate amount of stool in the rectum. There is scattered small and large bowel gas. XR/XR KUB IMPRESSION: Moderate amount rectal stool. Aortobiiliac stent graft. Electronically signed by: Jensen Humphreys MD 05/28/2025 01:35 PM EST RP Coding Level of Care Code Est Pt Level 4 (71115) Complex EM visit Add On G2211 Diagnoses Other constipation K59.09 Constipation type: other constipation type Diverticulosis K57.90 Influenza vaccination administered at current visit Z23 Complete tear of ligament of shoulder S43.409A Assessment & Plan Assessment & Plan (1) Constipated: Code(s): K59.00 - Constipation, unspecified Category: Medical Qualifiers: Constipation type: other constipation type Qualified Code(s): K59.09 - Other constipation (2) Diverticulosis: Code(s): K57.90 - Diverticulosis of intestine, part unspecified, without perforation or abscess without bleeding Category: Medical (3) Influenza vaccination administered at current visit: Onset Date: ~05/28/25 Code(s): Z23 - Encounter for immunization Category: Medical (4) Complete tear of ligament of shoulder: Comment: LEFT Code(s): S43.409A - Unspecified sprain of unspecified shoulder joint, initial encounter Category: Medical Plan . Orders: Orders XR KUB Today K59.00 - Constipation, unspecified Influenza [id number] Immunization Today Z23 - Encounter for immunization Medications: New lactulose 15 mL PO TID PRN 473 mL 0RF constipation bisacodyl 10 mg (2 x 5 mg) PO BEDTIME 10 tabs 0RF 5 days
--- OUTSIDE RECORDS SUMMARY | 2025-05-28 13:49 | XMS_ITS | Clinical Summary ---
Author Organization [facility] Address [address] [place] [id number] Phone Care Team Providers Care Healthcare Sales Representative Name Role Phone Jose C Mohan MD [...] recent cardioversion; she continues to use her [employer] mobile device at home which has also [...] DEPRESSION SCREENING 1971 HEPATITIS C SCREENING 1977 SCREENING FOR DIABETES 1994 MAMMOGRAM 1999 COLOGUARD 2004 COLONOSCOPY 2004 COLORECTAL CANCER SCREENING 2004 FIT TEST 2004 FOBT 2004 SIGMOIDOSCOPY 2004 VIRTUAL COLONOSCOPY 2004 PNEUMOCOCCAL VACCINES (50+ years) (1 of 1 - PCV) 2009 ZOSTER VACCINES (1 of 2) 2009 OSTEOPOROSIS SCREENING INITIAL (ONE-TIME) 2024 INFLUENZA VACCINE (#1) 2025 2, 04/22/2021, 04/05/2017 COVID-19 VACCINE ( season) 2025 04/13/2024, 05/25/2022, 06/27/2021, Additional history exists RSV VACCINE (1 - 1-dose 75+ series) 2034 SMOKING STATUS SCREENING (Once After 26 Yrs) [...] topic Medical Devices Not on file Insurance [employer] Member Subscriber Plan / Payer (Ef fective 2020-Present) Name:Callie Jay Relation to Subscriber:Self Name:Callie Jay Payer ID:[id number] ([facility]) Type:PPO Address: [address] [employer] Member Subscriber Plan / Payer ( fective 2020-Present) Name:Callie Jay Relation to Subscriber:Self Name:Callie Jay Payer ID:[id number] ([facility]) Type:PPO Address: [place] [id number] [place] [address] [employer] [facility] ADMINISTRATORS [employer] Care Teams Healthcare Sales Representative Relationship Specialty Start Date End Date Jose C Mohan MD PCP - General Family Medicine 05/18/24 Additional Source Comments The information contained in this document represents components of the legal health record. It is not the complete legal health record.[facility]
--- OUTSIDE RECORDS SUMMARY | 2025-05-28 13:49 | XMS_ITS | Clinical Summary ---
Author Organization [address] [facility] Address [address] [place] [address] Phone Care Team Providers Care Canvas Baster Name Role Phone Jose C Mohan MD Primary Care Provider [phone] Allergies Active Allergy Reactions Criticality Noted Date Comments Ciprofloxacin 06/21/2023 Other reaction(s): itching Itching Corticosteroids (Glucocorticoids) 06/21/2023 Other reaction(s): atrial fibrallation Atrial fibrillation Doxycycline 06/21/2023 Other reaction(s): vomiting vomiting Morphine 06/21/2023 Other reaction(s): Difficulty breathing trouble breathing Sulfamethoxazole-Trimethopri m 06/21/2023 Medications amLODIPine (NORVASC) 10 mg tablet Take 1 tablet (10 mg total) by mouth 1 (one) time each day. 90 each 3 5 04/17/20 26 Active chlorthalidone (HYGROTON) 25 mg tabletIndications :Atrial fibrillation and flutter (CMS/HCC V24, CMS/HCC V28),Elevated blood pressure reading in office without diagnosis of hypertension,Aneu rysm of ascending aorta without rupture (CMS/HCC V24),Infrarenal abdominal aortic aneurysm (AAA) without rupture (CMS/HCC V24) Take 1 tablet (25 mg total) by mouth 1 (one) time each day. 30 each 5 5 11/20/19 26 Active rosuvastatin (CRESTOR) 20 mg tabletIndications :Atrial fibrillation and flutter ([facility] V24, [facility] V28),Elevated blood pressure reading in office without diagnosis of hypertension,Aneu rysm of ascending aorta without rupture ([facility] V24),Infrarenal abdominal aortic aneurysm (AAA) without rupture ([facility] V24) Take 1 tablet (20 mg total) by mouth 1 (one) time each day. 30 each 11 5 05/23/20 26 Active Xarelto 20 mg tablet TAKE 1 TABLET BY MOUTH DAILY. 90 tablet 3 5 05/23/20 25 Discontinu ed(Side effects) Active Problems Problem Noted Date Diagnosed Date Aneurysm of ascending aorta without rupture ([facility] V24) 06/27/2024 HFrEF (heart failure with re duced ejection fraction) ([facility] V24, [facility] V28) 06/27/2024 History of alcohol abuse 12/20/2023 [...] of hypertension 10/26/2023 AAA (abdominal aortic aneurysm) ([facility] V24) Overview (05/23/2024): Last Assessment & Plan: Status post repair; followed by vascular surgery. Atrial fibrillation and flutter ([facility] V24, S/[facility] V28) 03/19/2023 Overview (05/23/2024): UNSPECIFIED Last Assessment & Plan: The patient is status post several cardioversions, now status post cryoablation on 07/28/2023, and more recently repeat cardioversion on 11/08/2023. She denies any palpitations or any other symptoms concerning for repeat episode of atrial fibrillation since her most recent cardioversion; she continues to use her [employer] mobile device at home which has also [...] Diagnosed Date Resolved Date Secondary hypercoagulable state ([facility] V24) 12/20/1906/27/2024 Dysrhythmia 12/16/2023 06/27/2024 SVT (supraventricular tachyc ardia) ([facility] V24) 12/16/2023 06/27/2024 Encounters Date Type Department Care Team Description 05/23/2025 10:50 AM EST Office Visit [facility] - [facility] [address] [place] [address] John Molina MD Atrial fibrillation and flutter ([facility] V24, [facility] V28) (Primary Dx); Elevated blood pressure reading in office without diagnosis of hypertension; Aneurysm of ascending aorta without rupture ([facility] V24); Infrarenal abdominal aortic aneurysm (AAA) without rupture ([facility] V24) 04/13/2025 Telephone [facility] - [facility] [address] [place] [address] John Molina MD from Last 3 Months Social History Tobacco [...] AM EST Temperature - - Respiratory Rate 16 06/27/2024 3:15 PM EST Oxygen Saturation 99% 05/23/2025 10:37 AM EST Inhaled Oxygen Concentration - - Weight 93 kg (205 lb) 05/23/2025 10:37 AM EST Height 185.4 cm (6' 1 ) 05/23/2025 10:37 AM EST Body Mass Index 27.05 05/23/2025 10:37 AM EST Plan of Treatment Health Maintenance Due Date Last Done Comments Breast Cancer Screening 1960 Pneumococcal Vaccine: 50+ Years (1 of 1 - PCV) 2009 Zoster Vaccines (1 of 2) 2009 Cholesterol Screening (Lipid Panel) 08/17/2023 Hepatitis C Screening 08/17/2023 Osteoporosis Screening (Bone Density Screening) 08/17/2023 Social Influencers of Health Screening 08/17/2023 Falls Risk Assessment 2024 Depression Screening 07/19/2024 COVID-19 Vaccine ( season) 2025 04/13/2024, 05/25/2022, 06/27/2021, Additional history exists Influenza Vaccine (#1) 2025 , 04/22/2021, 04/27/2019, Additional history exists DTaP,Tdap,and Td Vaccines (2 - Td or Tdap) 06/17/2025 06/17/2015 Colorectal Cancer Screening: Colonoscopy 03/11/2033 03/11/2023 RSV Immunization Adult Patients (1 - 1-dose 75+ series) 2034 HIB Vaccines Aged Out No longer eligi [...] Region Laterality Modality Other Historical Provider MD HEALTH MAINTENANCE Final Result from Last 3 Months or Most Recently Relevant to Health Maintenance Insurance [employer] [facility] Care Teams Canvas Baster Relationship Specialty Start Date End Date Jose C Mohan MD [address] [place] [address] Dr Britt MA PCP - General 03/16/23
== END 2025-05-28 11:56 | disposition home or self-care (01) ==
LOC: HO.HMCFM 11:27
PROVIDERS: PCP Nurse Practitioner Family; Visit Provider Nurse Practitioner Family
DX: K59.09 Other constipation (principal); K57.90 Diverticulosis of intestine, part unspecified, without perforation or abscess without bleeding; Z23 Encounter for immunization; S43.409A Unspecified sprain of unspecified shoulder joint, initial encounter

== ENCOUNTER → 2025-05-28 13:01 | Outpatient (BNV) | payer OTHER, SELFPAY | PROVIDERS: PCP Nurse Practitioner Family; Visit Provider Radiology Diagnostic Radiology | DX: K59.00 Constipation, unspecified (principal) | CPT/HCPCS: 74018 ==

== ENCOUNTER 2025-05-31 12:06 | Outpatient (REF) | payer OTHER, SELFPAY ==
--- OUTSIDE RECORDS SUMMARY | 2024-09-27 15:25 | XMS_ITS | Encounter Summary ---
Author Organization [facility] Address [address] [place] [phone] Phone Care Team Providers Care Decision Support Manager Name Role Phone Jose C Mohan MD Primary Care Provider Encounter Details Date Type Department Care Team (Late st Contact Info) Description 09/27/2024 4:25 PM EDT Hospital Encounter [facility] [address] [place] [phone] Nanette Oliva CNP [address] [place] [address] Social History Tobacco Use Types Packs/Day Years [...] clinician's provided indication for this examination in [facility]: Cough; Dyspnea (Shortness of Breath); scatterred rhonchi [...] documented as of this encounter Care Teams Decision Support Manager Relationship Specialty Start Date End Date Jose C Mohan MD PCP - General Family Medicine 05/18/24 documented as of this encounter Additional Source Comments The information contained in this document represents components of the legal health record. It is not the complete legal health record.[facility]
[2025-05-31 12:57] LABS: Blood Urea Nitrogen 16 mg/dL (9-16); Calcium 9.7 mg/dL (8.4-10.2); Estimated Glomerular Filt Rate 47; Magnesium 2.1 mg/dL (1.6-2.6)
[2025-05-31 13:11] LABS: Anion Gap 14 (12-20); Carbon Dioxide 36 mmol/L (22-29); Chloride 90 mmol/L (96-108); Potassium 2.2 mmol/L (3.3-5.1); Sodium 138 mmol/L (135-145)
--- OUTSIDE RECORDS SUMMARY | 2025-05-31 14:04 | XMS_ITS | Encounter Summary ---
Author Organization [employer] [facility] [place] [address] Care Team Providers Care Shell Assembler Name Role Phone Jose C Mohan MD Primary Care Provider [phone]- [phone] Reason for Visit * Reason Comments Abnormal Labs K 2.2 Encounter Details Date Type Department Care Team (Late st Contact Info) Description 05/31/2025 2:04 PM EST Emergency [facility] [address] [place] [address] Social History Tobacco Use Types Packs/Day Years [...] Sign Reading Time Taken Comments Blood Pressure 155/85 05/31/2025 2:11 PM EST Pulse 96 05/31/2025 2:11 PM EST Temperature 37.1 C (98.8 F) 05/31/2025 2:11 PM EST Respiratory Rate 16 05/31/2025 2:11 PM EST Oxygen Saturation 98% 05/31/2025 2:11 PM EST Inhaled Oxygen Concentration - - Weight 90.7 kg (200 lb) 05/31/2025 2:11 PM EST Height 185.4 cm (6' 1 ) 05/31/2025 2:11 PM EST Body Mass Index 26.39 05/31/2025 2:11 PM EST documented in this encounter Functional Status * Calculated C-SSRS Risk Score (Lifetime/Recent) Answer Date of Assessment Author No Risk Indicated 05/31/2025 2:09 PM EST Meeta Munoz RN * Harvey Suicide Severity Rating Scale (Screener/Recent Self-Report) Question Answer Date of Assessment Author 1. Wish to be (Past 1 Month) No 05/31/2025 2:09 PM EST Meeta Bosch RN 2. Non-Specific Active Suicidal Thoughts (Past 1 Month) No 05/31/2025 2:09 PM EST Meeta Bosch RN 6. Suicidal Behavior (Lifetime) No 05/31/2025 2:09 PM EST Meeta Bosch RN documented as of this encounter Progress Notes * Meeta Villarreal RN - 05/31/2025 2:09 PM EST Pt to ED with low potassium of 2.2 out patient. Sent in by Cardiology. PT denies symptoms at this time documented in this encounter Plan of Treatment Pending Results Name Type Priority Associated Diagnoses Date /Time ECG 12 lead ECG STAT 05/31/2025 2: 20 PM EST Basic metabolic panel Lab STAT 2:27 PM EST Scheduled Orders Name Type Priority Associated Diagnoses Orde r Schedule Basic metabolic panel Lab STAT STA T for 1 Occurrences starting 05/31/2025 until 05/31/2025, 1 completed documented as of this encounter Procedures Procedure Name Priority Date/Time Associated Diagnosis Comments CBC WITH AUTO DIFFERENTIAL STAT 05/31/2025 2:27 PM EST CBC AND DIFFERENTIAL STAT 05/31/2025 2:27 PM EST ECG 12-LEAD STAT 05/31/2025 2:20 PM EST documented in this encounter Results * (ABNORMAL) CBC auto differential (05/31/2025 2:27 PM EST) WBC 9.7 4.8 - 10.8 K/mcL LAB HEMETOLOGY METHOD 05/31/2025 3:20 PM [facility] RBC 4.30 3.80 - 4.80 M/mcL LAB HEMETOLOGY METHOD 05/31/2025 3:20 PM [facility] Hemoglobin 13.2 11.5 - 16.0 g/dL LAB HEMETOLOGY METHOD 05/31/2025 3:20 PM [facility] Hematocrit 37.0 35.0 - 47.0 % LAB HEMETOLOGY METHOD 05/31/2025 3:20 PM [facility] MCV 86.0 79.0 - 98.0 FL LAB HEMETOLOGY METHOD 05/31/2025 3:20 PM [facility] MCH 30.7 27.0 - 32.0 pcg LAB HEMETOLOGY METHOD 05/31/2025 3:20 PM [facility] MCHC 35.7 32.0 - 37.0 g/dL LAB HEMETOLOGY METHOD 05/31/2025 3:20 PM [facility] RDW 12.2 11.0 - 15.0 % LAB HEMETOLOGY METHOD 05/31/2025 3:20 PM [facility] Platelets LAB HEMETOLOGY METHOD 05/31/2025 3:20 PM [facility] Comment:Not measured. Unable to quantitate due to platelet clumping MPV 11.4(H) 7.0 - 11.0 FL LAB HEMETOLOGY METHOD 05/31/2025 3:20 PM [facility] NRBC 0.0 <1.0 % LAB HEMETOLOGY METHOD 05/31/2025 3:20 PM [facility] NRBC Absolute 0.00 <0.10 K/mcL LAB HEMETOLOGY METHOD 05/31/2025 3:20 PM [facility] Neutrophils Relative 77.6 % LAB HEMETOLOGY METHOD 05/31/2025 3:20 PM [facility] Lymphocytes Relative 12.5 % LAB HEMETOLOGY METHOD 05/31/2025 3:20 PM [facility] Monocytes Relative 7.6 % LAB HEMETOLOGY METHOD 05/31/2025 3:20 PM [facility] Eosinophils Relative 1.2 % LAB HEMETOLOGY METHOD 05/31/2025 3:20 PM [facility] Basophils Relative 0.5 % LAB HEMETOLOGY METHOD 05/31/2025 3:20 PM [facility] Immature Granulocytes Relative 0.6 % LAB HEMETOLOGY METHOD 05/31/2025 3:20 PM [facility] Neutrophils Absolute 7.50(H) 1.50 - 7.00 K/mcL LAB HEMETOLOGY METHOD 05/31/2025 3:20 PM [facility] Lymphocytes Absolute 1.21 1.00 - 5.00 K/mcL LAB HEMETOLOGY METHOD 05/31/2025 3:20 PM [facility] Monocytes Absolute 0.74 0.20 - 1.00 K/mcL LAB HEMETOLOGY METHOD 05/31/2025 3:20 PM [facility] Eosinophils Absolute 0.12 0.00 - 0.50 K/mcL LAB HEMETOLOGY METHOD 05/31/2025 3:20 PM [facility] Basophils Absolute 0.05 0.00 - 0.20 K/mcL LAB HEMETOLOGY METHOD 05/31/2025 3:20 PM [facility] Immature Granulocytes Absolute 0.06(H) 0.00 - 0.03 K/mcL LAB HEMETOLOGY METHOD 05/31/2025 3:20 PM [facility] Blood Venous blood specimen / Unknown Venipuncture / Unknown 05/31/2025 2:27 PM EST 05/31/2025 2:38 PM EST us Primo Lucas MD LAB BLOOD ORDERABLES Final Resu lt [facility] ([facility]) [facility] [address] [place] [address], [place] [phone] documented in this encounter Visit Diagnoses Not on filedocumented in this encounter Care Teams Shell Assembler Relationship Specialty Start Date End Date Jose C Mohan MD [address] [place] [address] Dr Britt [place] PCP - General 03/16/23 documented as of this encounter
--- OUTSIDE RECORDS SUMMARY | 2025-05-31 15:20 | XMS_ITS | Clinical Summary ---
Author Organization [facility] Address [address] [place] [address] Phone Care Team Providers Care Brake Shoe Rebuilder Name Role Phone Jose C Mohan MD Primary Care Provider [phone]- [phone] Allergies Active Allergy Reactions Criticality Noted Date [...] 20 mg tabletIndications :Atrial fibrillation and flutter ([facility] V24, [facility] V28),Elevated blood pressure reading in office without diagnosis of hypertension,Aneu rysm of ascending aorta without rupture ([facility] V24),Infrarenal abdominal aortic aneurysm (AAA) without rupture ([facility] V24) Take 1 tablet (20 mg total) by mouth 1 (one) time each day. 30 each 11 5 05/23/20 26 Active Xarelto 20 mg tablet TAKE 1 TABLET BY MOUTH DAILY. 90 tablet 3 5 05/23/20 25 Discontinu ed(Side effects) Active Problems Problem Noted Date Diagnosed Date Aneurysm of ascending aorta without rupture ([facility] V24) 06/27/2024 HFrEF (heart failure with re duced ejection fraction) ([facility] V24, [facility] V28) 06/27/2024 History of alcohol abuse 12/20/2023 [...] of hypertension 10/26/2023 AAA (abdominal aortic aneurysm) ([facility] V24) Overview (05/23/2024): Last Assessment & Plan: Status post repair; followed by vascular surgery. Atrial fibrillation and flutter ([facility] V24, S/[facility] V28) 03/19/2023 Overview (05/23/2024): UNSPECIFIED Last Assessment & Plan: The patient is status post several cardioversions, now status post cryoablation on 07/28/2023, and more recently repeat cardioversion on 11/08/2023. She denies any palpitations or any other symptoms concerning for repeat episode of atrial fibrillation since her most recent cardioversion; she continues to use her [employer] mobile device at home which has also [...] Diagnosed Date Resolved Date Secondary hypercoagulable state ([facility] V24) 12/20/1906/27/2024 Dysrhythmia 12/16/2023 06/27/2024 SVT (supraventricular tachyc ardia) ([facility] V24) 12/16/2023 06/27/2024 Encounters Date Type Department Care Team Description 05/31/2025 2:04 PM EST Emergency [facility] Emergency [address] [place] [id number] 05/31/2025 Telephone [facility] [address] [place] [address] John Molina MD 05/23/2025 10:50 AM EST Office Visit [facility] [address] [place] [address] John Molina MD Atrial fibrillation and flutter ([facility] V24, [facility] V28) (Primary Dx); Elevated blood pressure reading in office without diagnosis of hypertension; Aneurysm of ascending aorta without rupture ([facility] V24); Infrarenal abdominal aortic aneurysm (AAA) without rupture ([facility] V24) 04/13/2025 Telephone [facility] Cardiology [facility] [address] [place] [address] John Molina MD from Last [...] Mass Index 26.39 05/31/2025 2:11 PM EST Plan of Treatment Health Maintenance Due [...] 2025 04/13/2024, 05/25/2022, 06/27/2021, Additional history exists DTaP,Tdap,and Td Vaccines (2 - Td or Tdap) 06/17/2025 06/17/2015 Colorectal Cancer Screening: Colonoscopy 03/11/2033 03/11/2023 RSV Immunization Adult Patients (1 - 1-dose 75+ series) 2034 Influenza Vaccine Completed 05/28/2025, , 04/22/2021, Additional history exists HIB Vaccines Aged Out [...] ECG 12-LEAD STAT 05/31/2025 2:20 PM EST HM COLONOSCOPY Routine 03/11/2023 from Last 3 Months or Most Recently Relevant to Health Maintenance Results * (ABNORMAL) CBC auto differential (05/31/2025 2:27 PM EST) WBC 9.7 4.8 - 10.8 K/mcL LAB HEMETOLOGY METHOD 05/31/2025 3:20 PM EST [facility] RBC 4.30 3.80 - 4.80 M/mcL LAB HEMETOLOGY METHOD 05/31/2025 3:20 PM EST [facility] Hemoglobin 13.2 11.5 - 16.0 g/dL LAB HEMETOLOGY METHOD 05/31/2025 3:20 PM EST [facility] Hematocrit 37.0 35.0 - 47.0 % LAB HEMETOLOGY METHOD 05/31/2025 3:20 PM [facility] MCV 86.0 79.0 - 98.0 FL LAB HEMETOLOGY METHOD 05/31/2025 3:20 PM [facility] MCH 30.7 27.0 - 32.0 pcg LAB HEMETOLOGY METHOD 05/31/2025 3:20 PM [facility] MCHC 35.7 32.0 - 37.0 g/dL LAB HEMETOLOGY METHOD 05/31/2025 3:20 PM [facility] RDW 12.2 11.0 - 15.0 % LAB HEMETOLOGY METHOD 05/31/2025 3:20 PM [facility] Platelets LAB HEMETOLOGY METHOD 05/31/2025 3:20 PM [facility] Comment:Not measured. Unable to quantitate due to platelet clumping MPV 11.4(H) 7.0 - 11.0 FL LAB HEMETOLOGY METHOD 05/31/2025 3:20 PM [facility] NRBC 0.0 <1.0 % LAB HEMETOLOGY METHOD 05/31/2025 3:20 PM [facility] NRBC Absolute 0.00 <0.10 K/mcL LAB HEMETOLOGY METHOD 05/31/2025 3:20 PM [facility] Neutrophils Relative 77.6 % LAB HEMETOLOGY METHOD 05/31/2025 3:20 PM [facility] Lymphocytes Relative 12.5 % LAB HEMETOLOGY METHOD 05/31/2025 3:20 PM [facility] Monocytes Relative 7.6 % LAB HEMETOLOGY METHOD 05/31/2025 3:20 PM [facility] Eosinophils Relative 1.2 % LAB HEMETOLOGY METHOD 05/31/2025 3:20 PM [facility] Basophils Relative 0.5 % LAB HEMETOLOGY METHOD 05/31/2025 3:20 PM EST [facility] Immature Granulocytes Relative 0.6 % LAB HEMETOLOGY METHOD 05/31/2025 3:20 PM EST [facility] Neutrophils Absolute 7.50(H) 1.50 - 7.00 K/mcL LAB HEMETOLOGY METHOD 05/31/2025 3:20 PM EST [facility] Lymphocytes Absolute 1.21 1.00 - 5.00 K/mcL LAB HEMETOLOGY METHOD 05/31/2025 3:20 PM EST [facility] Monocytes Absolute 0.74 0.20 - 1.00 K/mcL LAB HEMETOLOGY METHOD 05/31/2025 3:20 PM [facility] Eosinophils Absolute 0.12 0.00 - 0.50 K/mcL LAB HEMETOLOGY METHOD 05/31/2025 3:20 PM EST [facility] Basophils Absolute 0.05 0.00 - 0.20 K/mcL LAB HEMETOLOGY METHOD 05/31/2025 3:20 PM EST [facility] Immature Granulocytes Absolute 0.06(H) 0.00 - 0.03 K/mcL LAB HEMETOLOGY METHOD 05/31/2025 3:20 PM EST [facility] Blood Venous blood specimen / Unknown Venipuncture / Unknown 05/31/2025 2:27 PM EST 05/31/2025 2:38 PM EST Primo Lucas MD LAB BLOOD ORDERABLES Final Resu lt [facility]) [facility] [address] [place] [address], * Colonoscopy (03/11/2023) Colonoscopy No Interpretation , Abstracted Anatomical Region Laterality Modality Other Historical Provider HEALTH MAINTENANCE Final Result from Last 3 Months or Most Recently Relevant to Health Maintenance Insurance [employer] [facility] Care Teams Brake Shoe Rebuilder Relationship Specialty Start Date End Date Jose C Mohan MD [address] [place] [address] Dr Meza Dahlgren [place] PCP - General 03/16/23
--- OUTSIDE RECORDS SUMMARY | 2025-05-31 15:20 | XMS_ITS | Clinical Summary ---
Author Organization [facility] Address [address] [facility] [address] [place] [address] Phone Care Team Providers Care Drainage Design Coordinator Name Role Phone Jose C Mohan [...] recent cardioversion; she continues to use her [employer] mobile device at home which has also [...] patient's age to complete this topic IPV VACCINES Aged Out No longer eligi ble based on patient's age to complete this topic MENINGOCOCCAL VACCINES (ACWY) Aged Out No longer eligible based on patient's age to complete this topic MENINGOCOCCAL VACCINES (B) Aged Out N o longer eligible based on patient's age to complete this topic Medical Devices Not on file Insurance [employer] Member Subscriber Plan / Payer ( fective 2020-Present) Name:Callie Jay Relation to Subscriber:Self Name:Callie Jay Payer ID:[id number] ([facility]) Type:PPO Address: [address] [employer] Member Subscriber Plan / Payer ( fective 2020-Present) Name:Callie Jay Relation to Subscriber:Self Name:Callie Jay Payer ID:[id number] (NA) Type:PPO Address: [place] [id number] [employer] Member Subscriber Plan / Payer ( fective 2020-Present) Name:Callie Jay Relation to Subscriber:Self Name:JassifelipaEl escobedoelle Payer ID:[id number] ([facility]) Type:PPO Address: [place] [id number] [employer] Member Subscriber Plan / Payer ( fective 2020-Present) Name:Callie Jay Relation to Subscriber:Self Name:Callie Jay Payer ID:[id number] (NA) Type:PPO Address: [address] [employer]EFITS [employer]AT[employer] Member Subscriber Plan / Payer (Ef fective 2020-Present) Name:Callie Jay Relation to Subscriber:Self Name:Callie Jay Payer ID:[id number] (NA) Type:PPO Address: [place] [id number] [employer] Care Teams Drainage Design Coordinator Relationship Specialty Start Date End Date Jose C Mohan MD PCP - General Family Medicine 05/18/24 Additional Source Comments The information contained in this document represents components of the legal health record. It is not the complete legal health record.[facility]
--- OUTSIDE RECORDS SUMMARY | 2025-05-31 15:21 | XMS_ITS | Patient Health Record ---
Author Organization [facility] Address [address] [place] [address] Care Team Providers Care Offset Lithographic Press Operator Name Role Phone Jamey CUSTOMER SUCCESS MANAGER, Pat Primary Care Provider Unav ailable Rao Anglin Unavailable [phone] Allergies Allergen (clinical drug ingredient) Drug/Non Drug [...] primary osteoarthritis of the ankle and/or foot (454281489) Primary osteoarthrit is, right ankle and foot (M19.071) Active confirmed Plan Of Treatment No Information Insurance Providers Payer Name Payer Address Payer Phone Subscriber Number Group Number Insured Name Patient Relationship to Insured Coverage Start Date Coverage End Date [facility] [address] [facility] [place] [phone] [id number] Callie Romero Self - patient is the insured Medical (General) History Medical History History ICD Code Back,Hip,and Knee pain Chicken pox Gastroesophageal reflux disease (GERD) Measles Mumps chronic sinusitis Surgical History Surgery Date(Month/Year) disc surgery 12/1992 spinal fusion 08/1993 hardware removal 07/1995 skin graft 01/2008
--- OUTSIDE RECORDS SUMMARY | 2025-05-31 15:21 | XMS_ITS | Encounter Summary ---
Author Organization [place] [address] Care Team Providers Care Knowledge Analyst Name Role Phone Jose C Mohan MD Primary Care Provider [phone]- [phone] Reason for Visit * Reason Onset Date Comments Labs Only 05/31/2025 Critical potassi um Encounter Details Date Type Department Care Team (Late st Contact Info) Description 05/31/2025 Telephone [facility] [address] [place] [address] John Molina MD [address] [place] [address] [place] [address] Social History Tobacco Use Types Packs/Day Years [...] on file documented as of this encounter Progress Notes * Agnes Meraz, EDI - 05/31/2025 1:20 PM EST Spoke with patient regarding lab results; she is aware of her critically low potassium and recommendations to come to the emergency room for likely IV as well as oral replacement. She is coming to [facility]; Dr Molina is [facility] and was given an FYI. Expect called to the ER. * Zora Mccall MA - 05/31/2025 1:15 PM EST Stephanie from [facility] called. The patient just went for blood work and she hs a critical potassium of 2.2. Please advise. documented in this encounter Plan of Treatment Not on file documented as of this encounter Visit Diagnoses Not on filedocumented in this encounter Care Teams Knowledge Analyst Relationship Specialty Start Date End Date Jose C Mohan MD [address] [place] [address] Dr Britt [place] PCP - General 03/16/23 documented as of this encounter
--- OUTSIDE RECORDS SUMMARY | 2025-05-31 15:21 | XMS_ITS | Patient Health Record ---
Author Organization [facility] Address [address] [place] [address] Care Team Providers Care Volleyball Referee Name Role Phone Marques Jose C Primary Care Provider Tu Echeverria [phone] Allergies Allergen (clinical drug ingredient) Drug/Non Drug [...] hours as needed for abdominal cramping and diarrhea; Duration: 30 days 01/06/2023 Active Immunizations Vaccine Route [...] Problem Status W/U Status Risk Notes Problem Colon cancer screening (735176226) Colon cancer screening (Z12.11) Active confirmed Problem Irritable bowel syndrome (73543688) Irritable bowel syndrome (K58.9) Active confirmed Problem Irritable bowel syndrome with diarrhea (785056243) Irritable bowel syndrome with diarrhea (K58.0) Active confirmed Problem History of polyp of colon (situation) (131716933) History of colon polyps (Z86.010) Active confirmed Problem Family History of Cancer of Colon (Situation) (434083154) Family history of colon cancer (Z80.0) Active confirmed Plan Of Treatment Future Test Test Name Order Date COLONOSCOPY 01/06/2023 Insurance Providers Payer Name Payer Address Payer Phone Subscriber Number Group Number Insured Name Patient Relationship to Insured Coverage Start Date Coverage End Date 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 [address] [place] [address] [id number] GAMALIEL OLIVAS Self - patient is the insured Medical (General) History Medical History History ICD Code IBS with associated intermit tent diarrhea and abdominal cramps. She had testing with Dr. Elder Rivera in [place] including colonoscopies and small bowel video capsule study(2018). Labs were negative for celiac disease with a negative tissue transglutaminase antibody; colon biopsies were negative for microscopic colitis Multiple colonoscopies with Dr. Edler Rivera with removal of tubular adenomas, most recently as of 05/2018 Denies VA,DM,CVA,Lung disease,renal dise ase Surgical History Surgery Date(Month/Year) Back surgery with subsequent infection 1 993 Spinal fusion 1995 Skin Grafting due to gann 2007
== END 2025-05-31 12:07 | disposition home or self-care (01) ==
LOC: HO.LAB 12:06
PROVIDERS: PCP Nurse Practitioner Family; Visit Provider Internal Medicine Cardiovascular Disease
DX: I71.43 Infrarenal abdominal aortic aneurysm, without rupture (principal); I48.91 Unspecified atrial fibrillation; I48.92 Unspecified atrial flutter; R03.0 Elevated blood-pressure reading, without diagnosis of hypertension; I71.21 Aneurysm of the ascending aorta, without rupture
CPT/HCPCS: 36415; 80048; 83735

== ENCOUNTER 2025-06-18 13:51 | Outpatient (REF) | payer OTHER, SELFPAY ==
--- OUTSIDE RECORDS SUMMARY | 2024-09-27 15:25 | XMS_ITS | Encounter Summary ---
Author Organization [facility] Address [address] [place] [phone] Phone Care Team Providers Care Rubber Trimmer Name Role Phone Jose C Mohan MD Primary Care Provider Encounter Details Date Type Department Care Team (Late st Contact Info) Description 09/27/2024 4:25 PM EDT Hospital Encounter [facility] [address] [place] [phone] Nanette Oliva CNP [address] [place] [address] Social History Tobacco Use Types Packs/Day Years [...] clinician's provided indication for this examination in [facility]: Cough; Dyspnea (Shortness of Breath); scatterred rhonchi [...] documented as of this encounter Care Teams Rubber Trimmer Relationship Specialty Start Date End Date Jose C Mohan MD PCP - General Family Medicine 05/18/24 documented as of this encounter Additional Source Comments The information contained in this document represents components of the legal health record. It is not the complete legal health record.[facility]
[2025-06-18 14:43] LABS: Anion Gap 13 (12-20); Blood Urea Nitrogen 14 mg/dL (9-16); Calcium 9.4 mg/dL (8.4-10.2); Carbon Dioxide 28 mmol/L (22-29); Chloride 101 mmol/L (96-108); Estimated Glomerular Filt Rate 59; Potassium 3.1 mmol/L (3.3-5.1); Sodium 139 mmol/L (135-145)
--- OUTSIDE RECORDS SUMMARY | 2025-06-18 17:20 | XMS_ITS | Clinical Summary ---
Author Organization [facility] Address [address] [facility] [address] [place] [address] Phone Care Team Providers Care Gear Machinist Name Role Phone Jose C Mohan MD [...] recent cardioversion; she continues to use her [employer] mobile device at home which has also [...] topic Medical Devices Not on file Insurance [employer] Member Subscriber Plan / Payer (Ef fective 2020-Present) Name:Callie Jay Relation to Subscriber:Self Name:Callie Jay Payer ID:[id number] ([facility]) Type:PPO Address: [address] [employer]EF[employer]ORS [employer] Member Subscriber Plan / Payer ( fective 2020-Present) Name:Callie Jay Relation to Subscriber:Self Name:Callie Jay Payer ID:[id number] ([facility]) Type:PPO Address: [place] [id number] [place] [address] [employer] [facility] ADMINISTRATORS [employer] Care Teams Gear Machinist Relationship Specialty Start Date End Date Jose C Mohan MD PCP - General Family Medicine 05/18/24 Additional Source Comments The information contained in this document represents components of the legal health record. It is not the complete legal health record.[facility]
== END 2025-06-18 13:52 | disposition home or self-care (01) ==
LOC: HO.LAB 13:51
PROVIDERS: PCP Nurse Practitioner Family; Visit Provider Internal Medicine Cardiovascular Disease
DX: I50.20 Unspecified systolic (congestive) heart failure (principal); R03.0 Elevated blood-pressure reading, without diagnosis of hypertension
CPT/HCPCS: 36415; 80048

== ENCOUNTER 2025-06-29 10:57 | Outpatient (REF) | payer OTHER, SELFPAY ==
[2025-06-29 12:21] LABS: Anion Gap 12 (12-20); Blood Urea Nitrogen 14 mg/dL (9-16); Calcium 9.5 mg/dL (8.4-10.2); Carbon Dioxide 29 mmol/L (22-29); Chloride 101 mmol/L (96-108); Cholesterol 204 mg/dL (<200); Estimated Glomerular Filt Rate 52; HDL Cholesterol 69 mg/dL (>40); Potassium 3.5 mmol/L (3.3-5.1); Sodium 138 mmol/L (135-145); Triglycerides 167 mg/dL (<150)
== END 2025-06-29 10:58 | disposition home or self-care (01) ==
LOC: HO.LAB 10:57
PROVIDERS: Absent Provider Internal Medicine Cardiovascular Disease; PCP Nurse Practitioner Family; Visit Provider Surgery Vascular Surgery
DX: I71.21 Aneurysm of the ascending aorta, without rupture (principal); I71.43 Infrarenal abdominal aortic aneurysm, without rupture; I48.91 Unspecified atrial fibrillation; I48.92 Unspecified atrial flutter; I50.20 Unspecified systolic (congestive) heart failure; R03.0 Elevated blood-pressure reading, without diagnosis of hypertension
CPT/HCPCS: 36415; 80048; 80061

== ENCOUNTER 2025-07-05 08:42 | Outpatient (REF) | payer OTHER, SELFPAY ==
--- NOTE | ~2025-07-05 | CT_ITS ---
EXAMINATION: CT ANGIOGRAM ABDOMEN AND PELVIS CLINICAL INFORMATION: I 71.43. COMPARISON: March 21, 2025. TECHNIQUE: Multiple axial images were obtained through the abdomen and pelvis following the administration of 85 mL of Omnipaque 350 intravenous contrast. Images were reviewed on a dedicated 3-D workstation. This CT examination was performed using dose optimization techniques as appropriate, variously including the following: *Automated exposure control *Adjustment of mA and/or kV according to patient size (this includes techniques or standardized protocols for targeted exams where dose is matched to indication/reason for exam; i.e. extremities or head) *Use of iterative reconstruction technique DLP: 374 mGy-cm FINDINGS: There is no IV contrast/precontrast axial images provided. Fusiform infrarenal aneurysm. Status post Endo aortoiliac graft stenting extending from the inferior margin of the superior mesenteric artery origin to the common iliac arteries. Normal patency without IV contrast extravasation within the graft stenting. Abdominal aorta diameter: Suprarenal/proximal segment: 24 x 25 mm. Infrarenal/mid segment: 53 x 51 mm. Distal segment: 45 x 38 mm. Celiac trunk is patent without high degree stenosis. Superior mesenteric artery is patent without high degree stenosis. I do not see the inferior mesenteric artery. External iliac arteries are patent. Internal iliac arteries are patent. Splenic artery and proper hepatic arteries are patent. The right main renal artery is patent. 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 Ancillary findings: Enlarged left ventricle. Liver measures 19 cm. Spleen measures 9 cm. Left kidney is atrophic without hydronephrosis or gross nephrolithiasis Multilevel thoracolumbar spondylosis with a levoconvex rotoscoliosis apex at L3. Vacuum phenomenon and decreased intervertebral disc height, and marginal osteophyte formation at L2-3. Incomplete ankylosis at L4-5. Status post laminectomy, L4-5 and L5-S1 with bone grafting and harvest left posterior iliac bone.. CT/CT angio abdomen pelvis IMPRESSION: Status post Endo aortoiliac graft stenting with normal patency and no leak. 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 Old. Ventriculomegaly, left ventricle. Hepatomegaly.. Fleischner guidelines were followed. Electronically signed by: Jez Zapata MD 07/05/2025 10:17 AM [facility] [place]
--- OUTSIDE RECORDS SUMMARY | 2025-07-05 09:15 | XMS_ITS | Clinical Summary ---
Author Organization [address] [place] [address] Address [address] [place] [address] Phone Care Team Providers Care Enterprise Mobility Architect Name Role Phone Jose C Mohan MD [...] time each day. 90 each 3 5 026 Active rosuvastatin (CRESTOR) 20 mg tabletIndication s:Atrial fibrillation and flutter (CMS/HCC V24, CMS/HCC V28),Elevated blood pressure reading in office without diagnosis of hypertension,Ane urysm of ascending aorta without rupture (CMS/HCC V24),Infrarenal abdominal aortic aneurysm (AAA) without rupture (CMS/HCC V24) Take 1 tablet (20 mg total) by mouth 1 (one) time each day. 30 each 11 5 026 Active spironolactone (ALDACTONE) 25 mg tabletIndication s:HFrEF (heart failure with reduced ejection fraction) (CMS/HCC V24, CMS/HCC V28),Elevated blood pressure reading in office without diagnosis of hypertension Take 1 tablet (25 mg total) by mouth 1 (one) time each day. 30 each 11 5 026 Active losartan (Cozaar) 50 mg tabletIndication s:Elevated blood pressure reading in office without diagnosis of hypertension Take 1 tablet (50 mg total) by mouth 1 (one) time each day. 90 each 1 5 026 Active metoprolol succinate (TOPROL-XL) 50 mg 24 hr tablet Take 1 tablet (50 mg total) by mouth 1 (one) time each day. Do not crush or chew. 90 each 3 5 Active potassium chloride (KLOR-CON M20) 20 mEq CR tablet Take 1 tablet (20 mEq total) by mouth 2 (two) times a day for 5 days. Tablet may be swallowed whole (do not crush/chew/suc k on) OR broken in half and each half swallowed separately OR dissolved (whole tablet) in ~4 ounces of water (allow ~2 minutes to dissolve, stir well and administer immediately). 10 each 5 025 Discontin ued(Thera py completed ) Active Problems Problem Noted Date Diagnosed Date Hypokalemia 05/31/2025 Aneurysm of ascending aorta without rupture 06/18 [...] recent cardioversion; she continues to use her [employer] mobile device at home which has also [...] Encounters Date Type Department Care Team Description 06/25/2025 Telephone [facility] [address] [place] [address] Estefany Badillo MA 06/18/2025 Telephone [facility] [address] [place] [phone] John Molina MD 05/31/2025 3:36 PM EST - 06/01/2025 1:55 PM EST Hospital Encounter [facility] [address] [place] [phone] Keshav Merino MD Flores, Carlos M, MD Alam, Aroosa, MD Hypokalemia (Primary Dx) Discharge Disposition: Home or Self Care 05/31/2025 Telephone [facility] [address] [place] [phone] John Molina MD 05/23/2025 10:50 AM EST Office Visit [facility] [address] [place] [phone] John Molina MD Atrial fibrillation and flutter ([facility] V24, [facility] V28) (Primary Dx); Elevated blood pressure reading in office without diagnosis of hypertension; Aneurysm of ascending aorta without rupture ([facility] V24); Infrarenal abdominal aortic aneurysm (AAA) without rupture ([facility] V24) 04/13/2025 Telephone [facility] [address] [place] [phone] John Molina MD from Last 3 Months Surgical History Surgery Date Site/Laterality Comments CARDIAC SURGERY AAA REPAIR Medical History Medical History Date Comments Hypertension Social History Tobacco Use Types Packs/Day Years Used Date Smoking Tobacco: Former Smokeless Tobacco: Never Alcohol Use Standard Drinks/Week Comments Yes 14 (1 standard drink = 0.6 oz pu re alcohol) 2 glasses a day of wine Housing Instability Answer Date Recorde d Are you worried that in the next 2 months you may not have stable housing? No 05/31/2025 Food Access & Nutrition Answer Date Rec orded Do you have access to a vari ety of food including fruits and vegetables? Yes 05/31/2025 Access to Healthcare Answer Date Record ed Within the last 3 months, ho w many times did you visit the emergency department for your medical care? 2 05/31/2025 Health Literacy Answer Date Recorded How often do you need to hav e someone help you when you read instructions, pamphlets, or other written material from your doctor or pharmacy? Never 05/31/2025 Caregiver: How often do you need to have someone help you when you read instructions, pamphlets, or other written material from your doctor or pharmacy? Not on file 05/31/2025 Financial Risk Answer Date Recorded How hard is it for you to pa y for the very basics like food, housing, medical care, and air conditioning / heating? Not very hard 05/31/2025 Transportation Answer Date Recorded Has the lack of transportati on kept you from meetings, work, or from getting things needed for daily living? No Has the lack of transportati on kept you from medical appointments or from getting medications? No 05/31/2025 Social Isolation Answer Date Recorded How often do you feel lonely or isolated from th ose around you? Never 05/31/2025 Food Risk Answer Date Recorded Within the past 12 months we worried whether our food would run out before we got money to buy more. Never true 05/31/2025 Within the past 12 months th e food we bought just didn't last and we didn't have money to get more. Never true 05/31/2025 Dependent Care Answer Date Recorded Do you need help finding or paying for care for your loved ones. For example, children's literature professor or elderly care for an older adult? No 05/31/2025 Education Answer Date Recorded Do you think completing more education or training, like finishing a GED, going to college, or learning a trade, would be helpful for you? No 05/31/2025 Employment and Income Answer Date Recor ded During the last four weeks, have you been actively looking for work? No 05/31/2025 Living Situation Answer Date Recorded What is your living situation? Unrecognized valu e 05/31/2025 Interpersonal Safety Answer Date Record ed Physical Abuse Unrecognized value 05/31/2025 Verbal Abuse Unrecognized value 05/31/2025 Comments No Sex and Gender Information Value Date Recorded Sex Assigned at Female 05/31/2025 7:19 PM EST Legal Sex Female 6:33 AM EST Gender Identity Female 05/31/2025 7:19 PM EST Sexual Orientation Straight 05/31/2025 7: 19 PM EST Last Filed Vital Signs Vital Sign Reading Time Taken Comments Blood Pressure 137/88 06/01/2025 11:31 AM EST Pulse 85 06/01/2025 11:31 AM EST Temperature 36.3 C (97.4 F) 06/01/2025 11:31 AM EST Respiratory Rate 18 06/01/2025 11:31 AM EST Oxygen Saturation 97% 06/01/2025 11:31 AM EST Inhaled Oxygen Concentration - - Weight 90.7 kg (200 lb) 05/31/2025 2:11 PM EST Height 185.4 cm (6' 1 ) 05/31/2025 2:11 PM EST Body Mass Index 26.39 05/31/2025 2:11 PM EST Plan of Treatment Health Maintenance Due Date Last Done Comments Breast Cancer Screening 1960 Pneumococcal Vaccine: 50+ Years (1 of 1 - PCV) 2009 RSV Immunization Adult Patients (1 - Risk 50-74 years 1-dose series) 2009 Zoster Vaccines (1 of 2) 2009 Cholesterol Screening (Lipid Panel) 08/17/2023 Hepatitis C Screening 08/17/2023 Osteoporosis Screening (Bone Density Screening) 08/17/2023 Depression Screening 07/19/2024 COVID-19 Vaccine ( season) 2025 04/13/2024, 05/25/2022, 06/27/2021, Additional history exists DTaP,Tdap,and Td Vaccines (2 - Td or Tdap) 06/17/2025 06/17/2015 Social Influencers of Health Screening 05/31/2026 05/31/2025 Falls Risk Assessment 06/01/2026 06/01/2025 Hypertension/CHF/CAD Annual BMP Blood Test 06/01/2026 06/01/2025, 05/31/2025 Colorectal Cancer Screening: Colonoscopy 03/11/2033 03/11/2023 Influenza Vaccine Completed 05/28/2025, , 04/30/2022, Additional history exists HIB Vaccines Aged Out [...] Procedure Name Priority Date/Time Associated Diagnosis Comments EXTERNAL CLINICAL LAB Routine 06/29/2025 2:18 PM EST EXTERNAL CLINICAL LAB Routine 06/18/2025 4:07 PM EST ECG ANNOTATED 06/04/2025 POTASSIUM Routine 06/01/2025 12:51 PM EST CBC WITH AUTO DIFFERENTIAL Routine 06/01/2025 5:35 AM EST CBC AND DIFFERENTIAL Routine 06/01/2025 5:35 AM EST MAGNESIUM Routine 06/01/2025 5:35 AM EST BASIC METABOLIC PANEL Routine 06/01/2025 5:35 AM EST POTASSIUM Routine 05/31/2025 11:34 PM EST ETHANOL Add-On 05/31/2025 2:27 PM EST PHOSPHORUS STAT Add-on 05/31/2025 2:27 PM EST MAGNESIUM STAT Add-on 05/31/2025 2:27 PM EST CBC WITH AUTO DIFFERENTIAL STAT 05/31/2025 2:27 PM EST BASIC METABOLIC PANEL STAT 05/31/2025 2:27 PM EST CBC AND DIFFERENTIAL STAT 05/31/2025 2:27 PM EST ECG 12-LEAD STAT 05/31/2025 2:20 PM EST HM COLONOSCOPY Routine 03/11/2023 from Last 3 Months or Most Recently Relevant to Health Maintenance Results * External clinical lab (06/29/2025 2:18 PM EST) Only the most recent of2 resultswithin the time period is included. Historical Provider LAB BLOOD ORDERABLES Lizbeth l Result * ECG-Annotated (06/04/2025) Provider Onbase MD ECG ORDERABLES Final Result * (ABNORMAL) Potassium (06/01/2025 12:51 PM EST) Only the most recent of2 resultswithin the time period is included. [facility] Potassium 3.1(L) 3.5 - 5.5 mmol/L LAB CHEMISTRY METHOD 06/01/2025 1:18 PM EST [facility] Blood Venous blood specimen / Unknown Venipuncture / Unknown 06/01/2025 12:51 PM EST 06/01/2025 12:58 PM EST Rodolfo Xiong MD LAB BLOOD ORDERABLES Final Resul t [facility] [address] [place] [address], * (ABNORMAL) CBC auto differential (06/01/2025 5:35 AM EST) Only the most recent of2 resultswithin the time period is included. [facility] WBC 8.9 4.8 - 10.8 K/mcL LAB HEMETOLOGY METHOD 06/01/2025 7:11 AM EST [facility] RBC 3.80 3.80 - 4.80 M/mcL LAB HEMETOLOGY METHOD 06/01/2025 7:11 AM [facility] Hemoglobin 11.7 11.5 - 16.0 g/dL LAB HEMETOLOGY METHOD 06/01/2025 7:11 AM [facility] Hematocrit 32.6(L) 35.0 - 47.0 % LAB HEMETOLOGY METHOD 06/01/2025 7:11 AM [facility] MCV 86.5 79.0 - 98.0 FL LAB HEMETOLOGY METHOD 06/01/2025 7:11 AM [facility] MCH 31.0 27.0 - 32.0 pcg LAB HEMETOLOGY METHOD 06/01/2025 7:11 AM [facility] MCHC 35.9 32.0 - 37.0 g/dL LAB HEMETOLOGY METHOD 06/01/2025 7:11 AM [facility] RDW 12.3 11.0 - 15.0 % LAB HEMETOLOGY METHOD 06/01/2025 7:11 AM [facility] Platelets LAB HEMETOLOGY METHOD 06/01/2025 7:11 AM [facility] Comment:Not measured. Platel ets appear adequate but clumped MPV 13.0(H) 7.0 - 11.0 FL LAB HEMETOLOGY METHOD 06/01/2025 7:11 AM [facility] NRBC 0.0 <1.0 % LAB HEMETOLOGY METHOD 06/01/2025 7:11 AM [facility] NRBC Absolute 0.00 <0.10 K/mcL LAB HEMETOLOGY METHOD 06/01/2025 7:11 AM [facility] Neutrophils Relative 63.9 % LAB HEMETOLOGY METHOD 06/01/2025 7:11 AM [facility] Lymphocytes Relative 21.9 % LAB HEMETOLOGY METHOD 06/01/2025 7:11 AM [facility] Monocytes Relative 9.8 % LAB HEMETOLOGY METHOD 06/01/2025 7:11 AM [facility] Eosinophils Relative 3.5 % LAB HEMETOLOGY METHOD 06/01/2025 7:11 AM [facility] Basophils Relative 0.7 % LAB HEMETOLOGY METHOD 06/01/2025 7:11 AM EST [facility] Immature Granulocytes Relative 0.2 % LAB HEMETOLOGY METHOD 06/01/2025 7:11 AM [facility] Neutrophils Absolute 5.65 1.50 - 7.00 K/mcL LAB HEMETOLOGY METHOD 06/01/2025 7:11 AM [facility] Lymphocytes Absolute 1.94 1.00 - 5.00 K/mcL LAB HEMETOLOGY METHOD 06/01/2025 7:11 AM EST [facility] Monocytes Absolute 0.87 0.20 - 1.00 K/mcL LAB HEMETOLOGY METHOD 06/01/2025 7:11 AM [facility] Eosinophils Absolute 0.31 0.00 - 0.50 K/mcL LAB HEMETOLOGY METHOD 06/01/2025 7:11 AM EST [facility] Basophils Absolute 0.06 0.00 - 0.20 K/mcL LAB HEMETOLOGY METHOD 06/01/2025 7:11 AM [facility] Immature Granulocytes Absolute 0.02 0.00 - 0.03 K/mcL LAB HEMETOLOGY METHOD 06/01/2025 7:11 AM [facility] Blood Venous blood specimen / Unknown Venipuncture / Unknown 06/01/2025 5:35 AM EST 06/01/2025 6:18 AM EST us Obed Sapp MD LAB BLOOD ORDERABLES Final Re sult [facility]) [facility] [address] [place] [address], * Magnesium (06/01/2025 5:35 AM EST) Only the most recent of2 resultswithin the time period is included. Magnesium 1.9 1.9 - 2.6 mg/dL LAB CHEMISTRY METHOD 06/01/2025 7:07 AM [facility] Blood Venous blood specimen / Unknown Venipuncture / Unknown 06/01/2025 5:35 AM EST 06/01/2025 6:18 AM EST us Obed Sapp MD LAB BLOOD ORDERABLES Final Re sult [facility] [address] [place] [address], * (ABNORMAL) Basic metabolic panel (06/01/2025 5:35 AM EST) Only the most recent of2 resultswithin the time period is included. Sodium 138 133 - 145 mmol/L LAB CHEMISTRY METHOD 06/01/2025 7:30 AM [facility] Potassium 2.8(LL) 3.5 - 5.5 mmol/L LAB CHEMISTRY METHOD 06/01/2025 7:30 AM [facility] Chloride 99 96 - 110 mmol/L LAB CHEMISTRY METHOD 06/01/2025 7:30 AM [facility] CO2 32 21 - 32 mmol/L LAB CHEMISTRY METHOD 06/01/2025 7:30 AM [facility] Anion Gap 7 3 - 11 LAB CHEMISTRY METHOD 06/01/2025 7:30 AM [facility] Glucose 103(H) 70 - 100 mg/dL LAB CHEMISTRY METHOD 06/01/2025 7:30 AM [facility] BUN 15 5 - 25 mg/dL LAB CHEMISTRY METHOD 06/01/2025 7:30 AM [facility] Creatinine 1.10 0.50 - 1.10 mg/dL LAB CHEMISTRY METHOD 06/01/2025 7:30 AM [facility] eGFR 56(L) >=60 mL/min/1. 73m2 LAB CHEMISTRY METHOD 06/01/2025 7:30 AM [facility] Comment:Calculation based on the Chronic Kidney Disease Epidemiology Collaboration (CKD-EPI) equation refit without adjustment for race. BUN/Creatinine Ratio 13.6 LAB CHEMISTRY METHOD 06/01/2025 7:30 AM EST [facility] Calcium 8.5 8.5 - 10.5 mg/dL LAB CHEMISTRY METHOD 06/01/2025 7:30 AM EST [facility] Blood Venous blood specimen / Unknown Venipuncture / Unknown 06/01/2025 5:35 AM EST 06/01/2025 6:18 AM EST Obed Sapp MD LAB BLOOD ORDERABLES Final Re sult Performing Organization Address City/[facility]/ZIP Co de Phone Number [facility] [address] [place] [address], * Phosphorus (05/31/2025 2:27 PM EST) Phosphorus 3.4 2.5 - 4.5 mg/dL LAB CHEMISTRY METHOD 05/31/2025 3:54 PM EST [facility] Blood Venous blood specimen / Unknown Venipuncture / Unknown 05/31/2025 2:27 PM EST 05/31/2025 2:38 PM EST us Tyrone SAMS LAB BLOOD ORDERABLES Final Result [facility] [address] [place] [address], [place] [phone] * Ethanol (05/31/2025 2:27 PM EST) Ethanol Level 5 0 - 10 mg/dL LAB CHEMISTRY METHOD 05/31/2025 6:24 PM EST [facility] Blood Venous blood specimen / Unknown Venipuncture / Unknown 05/31/2025 2:27 PM EST 05/31/2025 2:38 PM EST Obed Sapp MD LAB BLOOD ORDERABLES Final Re sult [facility] [address] [place] [address], * ECG 12 lead (05/31/2025 2:20 PM EST) Ventricular Rate ECG 90 BPM GEMUSE Atrial Rate 90 BPM GEMUSE P-R Interval 172 ms GEMUSE QRS Duration 88 ms GEMUSE Q-T Interval 356 ms GEMUSE QTc 435 ms GEMUSE P Wave [place] 80 degrees GEMUSE R [place] 27 degrees GEMUSE T [place] -170 degrees GEMUSE ECG Interpretation Normal sinus rhythm ST and T wave abnormality, consider inferolateral ischemia Abnormal ECG When compared with ECG of 27-JUN-2024 15:26, Premature ventricular complexes are no longer Present ST now depressed in Anterolateral leads T wave inversion now evident in Inferior leads T wave inversion now evident in Lateral leads Confirmed by LAURA TRUJILLO ([id number]) on 05/31/2025 9:42:38 PM GEMUSE 05/31/2025 2:20 PM EST 05/31/2025 9:42 PM EST Tyrone SAMS ECG ORDERABLES Final Resul t GEMUSE * Hm Colonoscopy (03/11/2023) HM Colonoscopy No Interpretation , Abstracted Anatomical Region Laterality Modality Other Historical Provider HEALTH MAINTENANCE Final Result from Last 3 Months or Most Recently Relevant to Health Maintenance Insurance [employer] [facility] MEDICARE Advance Directives * Full Code - Default (Latest Code Status on File) Date Activated Date Inactivated Comments 05/31/2025 6:03 PM 06/01/2025 4:00 PM This is or kai is used when code status has not been discussed with the patient, or code status is otherwise unknown/unconfirmed To update the patient's code status, place a code status order. Do not modify or discontinue any currently active code status orders. Care Teams Enterprise Mobility Architect Relationship Specialty Start Date End Date Jose C Mohan MD [address] [place] [address] Dr Britt [place] PCP - General 03/16/23
--- OUTSIDE RECORDS SUMMARY | 2025-07-05 09:15 | XMS_ITS | Patient Health Record ---
Author Organization [facility] Address [address] [place] [phone] Care Team Providers Care Healthcare Administrative Assistant Name Role Phone Marques Jose C Primary Care Provider Tu Echeverria [phone] Allergies Allergen (clinical drug ingredient) Drug/Non Drug Allergy documented on EMR Reaction Allergy Type Onset Date Status sulfamethoxazole / trimethoprim Bactrim Unknown Drug Allergy Active ciprofloxacin Cipro Unknown Drug Allergy Act phyllis prednisone Prednisone Unknown Drug Allergy Activ e doxycycline Doxycycline Unknown Drug Allergy Act phyllis morphine Morphine Unknown Drug Allergy Active Reason For Referral No Information Medications Medication SIG (Take, Route, Frequency, Duration) Notes Start Date End Date Status Hyoscyamine Sulfate 0.125 MG Tablet Disintegrating 1 or 2 Sublingual Every 4 to 6 hours as needed for abdominal cramping and diarrhea; Duration: 30 days 01/06/2023 Active Immunizations Vaccine Route Administration Date Status Comme nts Influenza Unknown 06/09/2022 Administered Social History Tobacco Use: Social History Observation Description Date Details (start date - stop date) Former Smoker NA - NA Social History Drugs/Alcohol: Social Info Question Answer Notes Alcohol Screen Did you have a drink containing alcohol in the past year? Yes How often did you have a drink containing alcohol in the past year? 4 or more times a week (4 points) How many drinks did you have on a typical day when you were drinking in the past year? 1 or 2 drinks (0 point) How often did you have 6 or more drinks on one occasion in the past year? 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[place] [place] Section Notes: nonsmoker; 1 or 2 glasses of wine QD Problems Problem Type SNOMED Code ICD Code Onset Dates Problem Status W/U Status Risk Notes Problem Colon cancer screening (166526618) Colon cancer screening (Z12.11) Active confirmed Problem Irritable bowel syndrome (99404609) Irritable bowel syndrome (K58.9) Active confirmed Problem Irritable bowel syndrome with diarrhea (418439113) Irritable bowel syndrome with diarrhea (K58.0) Active confirmed Problem History of polyp of colon (situation) (676803223) History of colon polyps (Z86.010) Active confirmed Problem Family History of Cancer of Colon (Situation) (047270635) Family history of colon cancer (Z80.0) Active confirmed Plan Of Treatment Future Test Test Name Order Date COLONOSCOPY 01/06/2023 Insurance Providers Payer Name Payer Address Payer Phone Subscriber Number Group Number Insured Name Patient Relationship to Insured Coverage Start Date Coverage End Date [employer] [place] [address] [address] [place] [address] [id number] GAMALIEL OLIVAS Self - patient is the insured Medical (General) History Medical History History ICD Code IBS with associated intermit tent diarrhea and abdominal cramps. She had testing with Dr. Elder Rivera in [place] including colonoscopies and small bowel video capsule study(2018). Labs were negative for celiac disease with a negative tissue transglutaminase antibody; colon biopsies were negative for microscopic colitis Multiple colonoscopies with Dr. Elder Rivera with removal of tubular adenomas, most recently as of 05/2018 Denies CO,DM,CVA,Lung disease,renal dise ase Surgical History Surgery Date(Month/Year) Back surgery with subsequent infection 1 993 Spinal fusion 1995 Skin Grafting due to gann 2007
--- OUTSIDE RECORDS SUMMARY | 2025-07-05 09:16 | XMS_ITS | Patient Health Record ---
Author Organization [facility] Address [address] [place] [address] Care Team Providers Care Nursing Home Admissions Director Name Role Phone Jamey FIELD REP, Pat Primary Care Provider Unav ailable Rao Anglin Unavailable [phone] Allergies Allergen (clinical drug ingredient) Drug/Non Drug [...] primary osteoarthritis of the ankle and/or foot (131773168) Primary osteoarthrit is, right ankle and foot (M19.071) Active confirmed Plan Of Treatment No Information Insurance Providers Payer Name Payer Address Payer Phone Subscriber Number Group Number Insured Name Patient Relationship to Insured Coverage Start Date Coverage End Date [facility] [address] [facility] [place] [id number] [phone] [id number] Callie Romero Self - patient is the insured Medical (General) History Medical History History ICD Code Back,Hip,and Knee pain Chicken pox Gastroesophageal reflux disease (GERD) Measles Mumps chronic sinusitis Surgical History Surgery Date(Month/Year) disc surgery 12/1992 spinal fusion 08/1993 hardware removal 07/1995 skin graft 01/2008
[2025-07-05] MEDS: iohexoL 350 MG/ML 100 ML INFUS..BTL IV (09:57)
== END 2025-07-05 08:43 ==
LOC: HO.CT 08:42
PROVIDERS: PCP Nurse Practitioner Family; Visit Provider Surgery Vascular Surgery
DX: I71.43 Infrarenal abdominal aortic aneurysm, without rupture (principal)
CPT/HCPCS: 74174; Q9967

== ENCOUNTER → 2025-07-05 08:46 | Outpatient (BNV) | payer OTHER, SELFPAY | PROVIDERS: PCP Nurse Practitioner Family; Visit Provider Radiology Diagnostic Radiology | DX: I70.1 Atherosclerosis of renal artery (principal); G93.89 Other specified disorders of brain; R16.0 Hepatomegaly, not elsewhere classified | CPT/HCPCS: 74174 ==